=== PATIENT | female | born 1935 | race Caucasian/White ===

== ENCOUNTER 2018-06-08 11:30 | Emergency (ER) | payer MEDICARE, BC ==
--- NOTE | 2018-06-08 12:35 | EDM.PDOC ---
ED HPI GENERAL MEDICAL PROBLEM - General Chief Complaint: General Stated Complaint: MEDICAL [facility] Time Seen by Provider: 06/08/18 12:00 Source of Information: Reports: Patient, EMS History Limitations: Reports: No Limitations - History of Present Illness INITIAL COMMENTS - FREE TEXT/NARRATIVE: 82-year-old female with known cervical spinal stenosis, lumbar arthritis, disc disease and radiculopathy has been trying outpatient injections and has had a neurosurgical consultation. 10 days ago she had an MRI of her cervical spine and lumbar spine. She has some follow-up appointments with neurosurgery, however twice in the last 2 days she has collapsed at home for weakness in her lower extremities and is unable to get up. 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 She called the clinic today for advice , she was told to call 911 to come into the hospital he get transferred to [place]. Onset: Gradual Severity: Moderate Associated Symptoms: Reports: Weakness. Denies: Confusion, Chest Pain, Cough, Headaches, Nausea/Vomiting, Shortness of Breath Bilateral Leg Pain Score (Numeric/FACES): 2 - Related Data Allergies Allergy/AdvReac Type Severity Reaction Status Date / Time No Known Allergies Allergy Verified 06/08/18 11:39 Home Meds: Home Meds Ascorbic Acid [Vitamin C] 1,000 mg PO BID 07/13/14 [History] Aspirin [Aspirin EC] 81 mg PO DAILY 07/13/14 [History] Cholecalciferol (Vitamin D3) [Vitamin D3] 1,000 unit PO DAILY 07/13/14 [History] Gabapentin 3 cap PO TID 07/13/14 [History] Losartan [Cozaar] 100 mg PO DAILY 07/13/14 [History] Multivitamin [Multi-Vitamin Daily] 1 tab PO DAILY 07/13/14 [History] [place]-3/DHA/Epa/Fish Oil [[place]-3 Fish Oil 1,000 MG Sfgl] 1,000 mg PO BID [History] Ondansetron [Zofran] 8 mg PO Q8H PRN 07/13/14 [History] Ranitidine HCl [Ranitidine] 1 tab PO BID 07/13/14 [History] Sennosides/Docusate Sodium [Senokot-S Tablet] 2 tab PO DAILY 07/13/14 [History] Simvastatin [Zocor] 20 mg PO BEDTIME 07/13/14 [History] Vitamin A 1 tab PO DAILY 07/13/14 [History] Vitamin E 1 cap PO DAILY 07/13/14 [History] metFORMIN [Glucophage] 1 tab PO BID 07/13/14 [History] traMADol HCl [Ultram] 2 tab PO Q6HR PRN 07/13/14 [History] Isosorbide Mononitrate [Imdur] 30 mg PO DAILY 02/15/15 [History] Magnesium Oxide 400 mg PO BID 02/15/15 [History] Past Medical History HEENT History: Reports: Impaired Vision Cardiovascular History: Reports: High Cholesterol, Hypertension, SOB on Exertion , Stents Respiratory History: Reports: Sleep Apnea, SOB Gastrointestinal History: Reports: Chronic Constipation 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: Musculoskeletal History: Reports: Arthritis, Back Pain, Chronic, Gout Endocrine/Metabolic History: Reports: Diabetes, Type II, Obesity/BMI 30+ Oncologic (Cancer) History: Reports: Breast - Infectious Disease History Infectious Disease History: Reports: Mumps - Past Surgical History Head Surgeries/Procedures: Reports: None HEENT Surgical History: Reports: Cataract Surgery, Tonsillectomy Cardiovascular Surgical History: Reports: Carotid Stents Respiratory Surgical History: Reports: None GI Surgical History: Reports: Appendectomy, Cholecystectomy, Colonoscopy Female Surgical History: Reports: Mastectomy Endocrine Surgical History: Reports: None Musculoskeletal Surgical History: Reports: Hip Replacement Oncologic Surgical History: Reports: Mastectomy Dermatological Surgical History: Reports: None Social & Family History - Tobacco Use Smoking Status *Q: Former Smoker Years of Tobacco use: 60 Used Tobacco, but Quit: Yes Month/Year Tobacco Last Used: 2012 Second Hand Smoke Exposure: No - Caffeine Use Caffeine Use: Reports: Soda - Recreational Drug Use Recreational Drug Use: No ED ROS GENERAL - Review of Systems Review Of Systems: See Below Constitutional: Reports: Malaise. Denies: Fever, Chills HEENT: Denies: Vision Change Respiratory: Denies: Shortness of Breath GI/Abdominal: Denies: Abdominal Pain, Nausea, Vomiting : Reports: No Symptoms. Denies: Incontinence Musculoskeletal: Reports: Back Pain, Leg Pain Neurological: Reports: Paresthesia (Significant paresthesias in the ulnar nerve distributions in both arms, right leg) ED EXAM, GENERAL - Physical Exam Exam: See Below Exam Limited By: No Limitations General Appearance: Alert, No Apparent Distress Eye Exam: Bilateral Eye: EOMI Head: Atraumatic Neck: Supple Respiratory/Chest: No Respiratory Distress Cardiovascular: Regular Rate, Rhythm GI/Abdominal: Other (Nontender, obese) Extremities: Other (She has weakness of the dorsiflexion of the right leg, and difficulty holding her leg up against gravity.) Neurological: No: Inattentive, Disoriented, Slow to Respond Psychiatric: Normal Affect, Normal Mood Skin Exam: Warm, Dry, Other (Some hyperemia of the lower extremities, vascular stasis changes) Course - Vital Signs Last Recorded V/S: Last Vital Signs Temp 96.4 F 06/08/18 13:04 Pulse 99 06/08/18 13:04 Resp 18 06/08/18 13:04 BP 186/79 H 06/08/18 13:04 Pulse Ox 94 L 06/08/18 13:04 - Re-Assessments/Exams Free Text/Narrative Re-Assessment/Exam: 06/08/18 12:35 No further workup is necessary here. I did discuss her condition with the specialists and hospitalist service in [place] and transfer was recommended. Departure - Departure Time of Disposition: 13:04 Disposition: DC/Tfer to Acute Hospital 02 Condition: Fair Clinical Impression: Weakness of both lower limbs, Cervical stenosis of spinal canal, Lumbar radiculopathy, right - Discharge Information Referrals: Javier Weathers MD [Primary Care Provider] - Forms: ED Department Discharge Care Plan Goals: Patient is to be transferred to [facility] for medical stabilization and neurosurgical consultation regarding profound weakness and inability to ambulate.
[2018-06-08 13:07] VITALS: BP 186/79
== END 2018-06-08 13:03 ==
LOC: JP.ED 11:30
DX: R53.1 Weakness (principal); M48.02 Spinal stenosis, cervical region; M54.16 Radiculopathy, lumbar region; E78.00 Pure hypercholesterolemia, unspecified; I10 Essential (primary) hypertension; E11.9 Type 2 diabetes mellitus without complications; Z87.891 Personal history of nicotine dependence; Z79.899 Other long term (current) drug therapy
CPT/HCPCS: 99283; 99284

== ENCOUNTER 2020-05-17 10:20 | Inpatient (IN) | payer MEDICARE, BC ==
--- NOTE | 2020-05-17 10:37 | EDM.PDOC ---
ED HPI GENERAL MEDICAL PROBLEM - General Stated Complaint: MEDICAL [facility]IA [facility] Time Seen by Provider: 05/17/20 10:34 Source of Information: Reports: Patient, EMS History Limitations: Reports: No Limitations - History of Present Illness INITIAL COMMENTS - FREE TEXT/NARRATIVE: 84-year-old female with worsening shortness of breath over the past 7 to 10 days, no activity tolerance, a bandlike sensation in the upper abdomen lower chest cutting off her ability to breathe. She does have a history of congestive heart failure and has needed diuresis inpatient over the winter. She has chronic intermittent atrial fibrillation and is on amiodarone, currently she is in sinus rhythm. She was found at home to be in significant respiratory distress with O2 saturations in the high 70s, she does not have oxygen at home. She responded well to supplemental oxygen in route and is feeling somewhat better but still anxious and uncomfortable. She has tense lower extremity edema. No significant medication changes over the past several weeks. Onset: Gradual Duration: Week(s): (2 to 3 weeks) Associated Symptoms: Reports: Malaise, Shortness of Breath, Weakness. Denies: Chest Pain, Fever/Chills, Nausea/Vomiting Generalized Pain Score (Numeric/FACES): 4 - Related Data Allergies Allergy/AdvReac Type Severity Reaction Status Date / Time No Known Allergies Allergy Verified 05/17/20 10:48 Home Meds: Home Meds Ascorbic Acid [Vitamin C] 1,000 mg PO BID 07/13/14 [History] Aspirin [Aspirin EC] 81 mg PO DAILY 07/13/14 [History] Cholecalciferol (Vitamin D3) [Vitamin D3] 1,000 unit PO DAILY 07/13/14 [History] Gabapentin 500 mg PO TID 07/13/14 [History] Losartan [Cozaar] 100 mg PO DAILY 07/13/14 [History] Multivitamin [Multi-Vitamin Daily] 1 tab PO DAILY 07/13/14 [History] [place]-3/DHA/Epa/Fish Oil [[place]-3 Fish Oil 1,000 MG Sfgl] 1,000 mg PO BID 07/13/14 [History] Ondansetron [Zofran] 8 mg PO Q8H PRN 07/13/14 [History] Ranitidine HCl [Ranitidine] 150 mg PO BID 07/13/14 [History] Sennosides/Docusate Sodium [Senokot-S Tablet] 2 tab PO DAILY 07/13/14 [History] Simvastatin [Zocor] 20 mg PO BEDTIME 07/13/14 [History] Vitamin E 1 cap PO DAILY 07/13/14 [History] metFORMIN [Glucophage] 1,000 mg PO BID 07/13/14 [History] Isosorbide Mononitrate [Imdur] 30 mg PO DAILY 02/15/15 [History] Magnesium Oxide 400 mg PO DAILY 02/15/15 [History] ALPRAZolam [Alprazolam] 0.5 mg PO BID PRN 05/17/20 [History] Amiodarone [Cordarone] 400 mg PO BID 05/17/20 [History] Bumetanide 2 mg PO DAILY 05/17/20 [History] Potassium Chloride 20 meq PO BID 05/17/20 [History] Rivaroxaban [Xarelto] 20 mg PO DAILY 05/17/20 [History] carvediloL [Carvedilol] 25 mg PO BID 05/17/20 [History] glipiZIDE [glipiZIDE XL] 5 mg PO BID 05/17/20 [History] polyethylene glycoL 3350 [Polyethylene Glycol 3350] 17 gm PO DAILY PRN 05/17/20 [History] Past Medical History HEENT History: Reports: Impaired Vision Cardiovascular History: Reports: High Cholesterol, Hypertension, SOB on Exertion, Stents Respiratory History: Reports: Sleep Apnea, SOB Gastrointestinal History: Reports: Chronic Constipation [employer] History: Reports: Musculoskeletal History: Reports: Arthritis, Back Pain, Chronic, Gout Endocrine/Metabolic History: Reports: Diabetes, Type II, Obesity/BMI 30+ Oncologic (Cancer) History: Reports: Breast - Infectious Disease History Infectious Disease History: Reports: Mumps - Past Surgical History Head Surgeries/Procedures: Reports: None HEENT Surgical History: Reports: Cataract Surgery, Tonsillectomy Cardiovascular Surgical History: Reports: Carotid Stents Respiratory Surgical History: Reports: None GI Surgical History: Reports: Appendectomy, Cholecystectomy, Colonoscopy Female Surgical History: Reports: Mastectomy Endocrine Surgical History: Reports: None Musculoskeletal Surgical History: Reports: Hip Replacement Oncologic Surgical History: Reports: Mastectomy Dermatological Surgical History: Reports: None Social & Family History - Caffeine Use Caffeine Use: Reports: Soda ED ROS GENERAL - Review of Systems Review Of Systems: See Below Constitutional: Reports: Malaise. Denies: Fever, Chills Respiratory: Reports: Shortness of Breath Cardiovascular: Reports: Other (Marked increase in lower extremity edema over the past few weeks). Denies: Chest Pain, Palpitations GI/Abdominal: Reports: Abdominal Pain (Across the upper abdomen she has a pressure or belt sensation, limiting breathing) Skin: Reports: No Symptoms Neurological: Denies: Headache, Weakness Psychiatric: Reports: No Symptoms ED EXAM, GENERAL - Physical Exam Exam: See Below Exam Limited By: No Limitations General Appearance: Alert, No Apparent Distress, Other (Is doing much better after being placed on oxygen by EMS) Eye Exam: Bilateral Eye: Normal Inspection (No jaundice, normal hydration) Head: Atraumatic Neck: Non-Tender Respiratory/Chest: Rales (Basilar rales posteriorly bilaterally) Cardiovascular: Regular Rate, Rhythm GI/Abdominal: Soft, Distended (Sensation of distention, some discomfort with palpation across her upper abdomen) Extremities: Other (Tense lower extremity edema to the knees bilaterally) Neurological: Alert, Oriented Psychiatric: Normal Affect, Normal Mood Skin Exam: Warm, Dry Course - Vital Signs Last Recorded V/S: Last Vital Signs Temp 97.5 F 05/17/20 16:07 Pulse 72 05/17/20 16:07 Resp 20 05/17/20 16:07 BP 145/48 H 05/17/20 16:07 Pulse Ox 97 05/17/20 16:07 - Orders/Labs/Meds Orders: Active Orders 24 hr Category Date Time Status CULTURE URINE [RM] Routine Lab 05/17/20 13:17 Received Medication Orders Acetaminophen (Tylenol) 650 mg PO Q4H PRN PRN Reason: Pain (Mild 1-3)/fever Albuterol (Proventil Neb Soln) 2.5 mg NEB Q4H PRN PRN Reason: Shortness Of Breath/wheezing Alprazolam (Xanax) 0.5 mg PO BID PRN PRN Reason: Anxiety Amiodarone HCl (Cordarone) 400 mg PO BID [facility] Aspirin (Halfprin) 81 mg PO DAILY [facility] Bumetanide (Bumex) 2 mg IVPUSH Q8H [facility] Carvedilol (Coreg) 25 mg PO BID [facility] Famotidine (Pepcid) 20 mg PO BEDTIME [facility] Gabapentin (Neurontin) 500 mg PO TID [facility] Glipizide (Glucotrol Xl) 5 mg PO BIDAC [facility] Insulin Human Lispro (Humalog) 0 unit SUBCUT QIDACANDBED AYAN; Protocol Isosorbide Mononitrate (Imdur) 30 mg PO DAILY [facility] Lorazepam (Ativan) 0.5 mg IVPUSH Q4H PRN PRN Reason: Nausea/Vomiting Losartan Potassium (Cozaar) 100 mg PO DAILY [facility] Magnesium Hydroxide (Milk Of Magnesia) 30 ml PO Q12H PRN PRN Reason: Constipation Melatonin (Melatonin) 9 mg PO BEDTIME [facility] Metformin HCl (Glucophage) 1,000 mg PO BIDMEALS [facility] Non-Formulary Medication (Rivaroxaban [Xarelto]) 20 mg PO DAILY [facility] Ondansetron HCl (Zofran) 4 mg IV Q6H PRN PRN Reason: Nausea/Vomiting Ondansetron HCl (Zofran Odt) 4 mg PO Q6H PRN PRN Reason: Nausea able to take PO Potassium Chloride (Klor-Con M20) 20 meq PO BID [facility] Senna/Docusate Sodium (Senna Plus) 1 tab PO BID PRN PRN Reason: Constipation Simvastatin (Zocor) 20 mg PO BEDTIME [facility] Labs: Laboratory Tests 05/17/20 05/17/20 05/17/20 Range/Units 10:50 10:50 13:17 WBC 6.5 (4.5-11.0) K/uL RBC 3.44 (3.30-5.50) M/uL Hgb 10.6 L D (12.0-15.0) g/dL Hct 34.7 L (36.0-48.0) % MCV 101 H (80-98) fL MCH 31 (27-31) pg MCHC 31 L (32-36) % Plt Count 162 (150-400) K/uL Neut % (Auto) 75 H (36-66) % Lymph % (Auto) 14 L (24-44) % [place] % (Auto) 10 H (2-6) % Eos % (Auto) 1 L (2-4) % Baso % (Auto) 1 (0-1) % Sodium 137 L (140-148) mmol/L Potassium 5.0 (3.6-5.2) mmol/L Chloride 102 (100-108) mmol/L Carbon Dioxide 27 (21-32) mmol/L Anion Gap 13.0 (5.0-14.0) mmol/L BUN 30 H D (7-18) mg/dL Creatinine 1.4 H D (0.6-1.0) mg/dL Est Cr Clr Drug Dosing 25.63 mL/min Estimated GFR (MDRD) 36 L (>60) Glucose 164 H (74-106) mg/dL Calcium 9.4 (8.5-10.1) mg/dL Total Bilirubin 0.5 D (0.2-1.0) mg/dL AST 31 (15-37) U/L ALT 32 (12-78) U/L Alkaline Phosphatase 52 (46-116) U/L Troponin I < 0.017 (0.000-0.056) ng/mL Total Protein 7.7 (6.4-8.2) g/dL Albumin 3.3 L (3.4-5.0) g/dL Globulin 4.4 H (2.3-3.5) g/dL Albumin/Globulin Ratio 0.8 L (1.2-2.2) Urine Color Yellow (YELLOW) Urine Appearance Cloudy A (CLEAR) Urine pH 6.5 (5.0-8.0) Ur Specific [place] 1.020 (1.008-1.030) Urine Protein Negative (NEGATIVE) mg/dL Urine Glucose (UA) Negative (NEGATIVE) mg/dL Urine Ketones Negative (NEGATIVE) mg/dL Urine Occult Blood Moderate H (NEGATIVE) Urine Nitrite Negative (NEGATIVE) Urine Bilirubin Negative (NEGATIVE) Urine Urobilinogen 0.2 (0.2-1.0) EU/dL Ur Leukocyte Esterase Moderate H (NEGATIVE) Urine RBC 0-5 (0-5) Urine WBC 0-5 (0-5) Ur Epithelial Cells Rare Amorphous Sediment Few Urine Bacteria Moderate Urine Mucus Rare Meds: Medications Generic Name Dose Route Start Last Admin Trade Name Freq PRN Reason Stop Dose Admin Acetaminophen 650 mg 05/17/20 15:08 Tylenol PO Q4H PRN Pain (Mild 1-3)/fever Albuterol 2.5 mg 05/17/20 15:08 Proventil Neb Soln NEB Q4H PRN Shortness Of Breath/wheezing Alprazolam 0.5 mg 05/17/20 15:08 Xanax PO BID PRN Anxiety Amiodarone HCl 400 mg 05/17/20 21:00 Cordarone PO BID [facility] Aspirin 81 mg 05/18/20 09:00 Halfprin PO DAILY [facility] Bumetanide 2 mg 05/17/20 18:30 Bumex IVPUSH Q8H [facility] Carvedilol 25 mg 05/17/20 21:00 Coreg PO BID [facility] Famotidine 20 mg 05/17/20 21:00 Pepcid PO BEDTIME [facility] Gabapentin 500 mg 05/17/20 15:08 Neurontin PO TID [facility] Glipizide 5 mg 05/17/20 16:30 Glucotrol Xl PO BIDAC [facility] Insulin Human Lispro 0 unit 05/17/20 17:00 Humalog SUBCUT QIDACANDBED [facility] Protocol Isosorbide Mononitrate 30 mg 05/18/20 09:00 Imdur PO DAILY [facility] Lorazepam 0.5 mg 05/17/20 15:08 Ativan IVPUSH Q4H PRN Nausea/Vomiting Losartan Potassium 100 mg 05/18/20 09:00 Cozaar PO DAILY [facility] Magnesium Hydroxide 30 ml 05/17/20 15:08 Milk Of Magnesia PO Q12H PRN Constipation Melatonin 9 mg 05/17/20 21:00 Melatonin PO BEDTIME [facility] Metformin HCl 1,000 mg 05/17/20 17:00 Glucophage PO BIDMEALS [facility] Non-Formulary Medication 20 mg 05/18/20 09:00 Rivaroxaban [Xarelto] PO DAILY [facility] Ondansetron HCl 4 mg 05/17/20 15:08 Zofran IV Q6H PRN Nausea/Vomiting Ondansetron HCl 4 mg 05/17/20 15:08 Zofran Odt PO Q6H PRN Nausea able to take PO Potassium Chloride 20 meq 05/17/20 21:00 Klor-Con M20 PO BID [facility] Senna/Docusate Sodium 1 tab 05/17/20 15:08 Senna Plus PO BID PRN Constipation Simvastatin 20 mg 05/17/20 21:00 Zocor PO BEDTIME [facility] Discontinued Medications Generic Name Dose Route Start Last Admin Trade Name Freq PRN Reason Stop Dose Admin Furosemide 80 mg 05/17/20 10:43 05/17/20 12:19 Lasix IVPUSH 05/17/20 10:44 80 mg ONETIME ONE Administration - Re-Assessments/Exams Free Text/Narrative Re-Assessment/Exam: 05/17/20 11:26 Reviewed her clinic records from March 14, her exam is documented no peripheral edema at that time and clear lungs. She has obviously become fluid overloaded time. A chest x-ray was done which confirmed cardiomegaly and congestive heart failure. 80 mg of IV Lasix was given, GFR returned decreased and creatinine elevated compared to previous levels. Due to her significant hypoxia without oxygen, I think she will need admission for the next several days for diuresis. Departure - Departure Time of Disposition: 15:10 Disposition: Admitted As Inpatient 66 Clinical Impression: Congestive heart failure Qualifiers: Heart failure type: diastolic Heart failure chronicity: acute on chronic Qualified Code(s): I50.33 - Acute on chronic diastolic (congestive) heart failure - Discharge Information Sepsis Event Note (ED) - Focused Exam Vital Signs: Vital Signs Pulse Resp BP Pulse Ox 05/17/20 12:23 10 L 121/71 95 05/17/20 11:53 64 18 128/53 L 05/17/20 11:23 65 21 H 122/54 L 95 05/17/20 11:13 66 21 H 124/50 L 96 05/17/20 10:47 69 19 156/67 H 94 L 05/17/20 10:25 69 19 156/67 H 94 L
[2020-05-17] MEDS ORDERED: Furosemide 40 MG/4 ML VIAL IVPUSH ONE (10:43)
--- NOTE | 2020-05-17 12:53 | CR ---
CHEST: Portable 05/17/2020 11:02 AM CLINICAL HISTORY:SOB COMPARISON:CT 01/23/2015 FINDINGS: Heart is moderately enlarged. Pulmonary vascularity is cephalized. There are diffuse bilateral infiltrates. There is a 1 cm nodule in the right upper lobe. This is seen as a pleural-based calcification in 2014. There are no effusions grade There are atherosclerotic changes in the aorta. Impression: Cardiomegaly with vascular cephalization and diffuse interstitial prominence. This most consistent with CHF and mild pulmonary edema Calcified nodule right upper lobe
--- NOTE | 2020-05-17 14:13 | PCM.HP.2 ---
H&P History of Present Illness - General Date of Service: 05/17/20 Admit Problem/Dx: Admission Diagnosis/Problem Admission Diagnosis/Problem Diastolic congestive heart failure Source of Information: Patient, Provider History Limitations: Reports: No Limitations - History of Present Illness Initial Comments - Free Text/Narative: CC: I was so short of breath HPI: Annie presents to the emergency room today with about 2 weeks of progressive shortness of breath as well as increasing lower extremity swelling. Symptoms have gotten to the point that she is short of breath even at rest. She was extremely short of breath this morning when she called 911 and was hypoxic when they arrived. She is not able to perform ADLs because of dyspnea that develops very quickly with any activity. Her lower legs have become more and more swollen over the past couple of weeks to the point that they are becoming more and more painful. She describes a chronic achy pain in both lower legs with the right foot hurting more than the left side. There are some sharp shooting pains. She has been using Tylenol and gabapentin without much change. These are steadily getting worse. No obvious trigger to make them worse. She does not have a cough and does not report orthopnea. She has not had recent difficulties with chest pain. She has not had any fevers or chills. No change in bowel or bladder habits. She is wondering if maybe she has been eating too much salt and that led to the fluid retention. She does report compliance with medications. She has been hospitalized for heart failure in the past. Most recent echocardiogram from 2 months ago showed a normal ejection fraction with grade 2 diastolic dysfunction. No significant valvular abnormalities were noted. Work-up in the emergency room revealed hypoxic respiratory failure as well as evidence for congestive heart failure on examination and imaging. She did receive a dose of IV furosemide in the emergency room and this is helping a little bit. Oxygenation stable with supplemental oxygen. She will be admitted for further management. Generalized Pain Score (Numeric/FACES): 4 - Related Data Allergies/Adverse Reactions: Allergies Allergy/AdvReac Type Severity Reaction Status Date / Time No Known Allergies Allergy Verified 05/17/20 10:48 Home Medications: Home Meds Ascorbic Acid [Vitamin C] 1,000 mg PO BID 07/13/14 [History] Aspirin [Aspirin EC] 81 mg PO DAILY 07/13/14 [History] Cholecalciferol (Vitamin D3) [Vitamin D3] 1,000 unit PO DAILY 07/13/14 [History] Gabapentin 500 mg PO TID 07/13/14 [History] Losartan [Cozaar] 100 mg PO DAILY 07/13/14 [History] Multivitamin [Multi-Vitamin Daily] 1 tab PO DAILY 07/13/14 [History] [place]-3/DHA/Epa/Fish Oil [[place]-3 Fish Oil 1,000 MG Sfgl] 1,000 mg PO BID 07/13/14 [History] Ondansetron [Zofran] 8 mg PO Q8H PRN 07/13/14 [History] Ranitidine HCl [Ranitidine] 1 tab PO BID 07/13/14 [History] Sennosides/Docusate Sodium [Senokot-S Tablet] 2 tab PO DAILY 07/13/14 [History] Simvastatin [Zocor] 20 mg PO BEDTIME 07/13/14 [History] Vitamin E 1 cap PO DAILY 07/13/14 [History] metFORMIN [Glucophage] 1,000 mg PO BID 07/13/14 [History] Isosorbide Mononitrate [Imdur] 30 mg PO DAILY 02/15/15 [History] Magnesium Oxide 400 mg PO DAILY 02/15/15 [History] ALPRAZolam [Alprazolam] 0.5 mg PO BID PRN 05/17/20 [History] Amiodarone [Cordarone] 400 mg PO BID 05/17/20 [History] Bumetanide 2 mg PO DAILY 05/17/20 [History] Potassium Chloride 20 meq PO BID 05/17/20 [History] Rivaroxaban [Xarelto] 20 mg PO DAILY 05/17/20 [History] carvediloL [Carvedilol] 25 mg PO BID 05/17/20 [History] glipiZIDE [glipiZIDE XL] 5 mg PO BID 05/17/20 [History] polyethylene glycoL 3350 [Polyethylene Glycol 3350] 17 gm PO DAILY PRN 05/17/20 [History] Past Medical History HEENT History: Reports: Impaired Vision Cardiovascular History: Reports: High Cholesterol, Hypertension, SOB on Exertion, Stents Respiratory History: Reports: Sleep Apnea, SOB Other Respiratory History: Uses cpap Gastrointestinal History: Reports: Chronic Constipation [employer] History: Reports: Musculoskeletal History: Reports: Arthritis, Back Pain, Chronic, Gout Psychiatric History: Reports: Anxiety Endocrine/Metabolic History: Reports: Diabetes, Type II, Obesity/BMI 30+ Oncologic (Cancer) History: Reports: Breast - Infectious Disease History Infectious Disease History: Reports: Mumps - Past Surgical History Head Surgeries/Procedures: Reports: None HEENT Surgical History: Reports: Cataract Surgery, Tonsillectomy Cardiovascular Surgical History: Reports: Carotid Stents Respiratory Surgical History: Reports: None GI Surgical History: Reports: Appendectomy, Cholecystectomy, Colonoscopy Female Surgical History: Reports: Mastectomy Endocrine Surgical History: Reports: None Musculoskeletal Surgical History: Reports: Hip Replacement Oncologic Surgical History: Reports: Mastectomy Dermatological Surgical History: Reports: None Social & Family History - Family History Oncologic: Reports: Leukemia (dad in 60's), Lung (mom in 50's) - Tobacco Use Smoking Status *Q: Never Smoker Second Hand Smoke Exposure: No - Caffeine Use Caffeine Use: Reports: Soda - Recreational Drug Use Recreational Drug Use: No H&P Review of Systems - Review of Systems: Review Of Systems: See Below Free Text/Narrative: A complete 12 point review of systems was obtained. Pertinent positives and negatives are noted in the history of present illness. All other systems were reviewed and were negative except as noted. Exam - Exam Exam: See Below - Vital Signs Vital Signs: Last Vital Signs Temp Pulse 66 05/17/20 11:13 Resp 21 H 05/17/20 11:13 BP 124/50 L 05/17/20 11:13 Pulse Ox 96 05/17/20 11:13 Weight: 113.398 kg - Exam Quality Assessment: Supplemental Oxygen General: Alert, Oriented, Cooperative, Mild Distress (Mild increase in work of breathing) HEENT: Conjunctiva Clear, Mucosa Moist & [place]. No: Scleral Icterus Neck: Supple, Trachea Midline, JVD Lungs: Normal Respiratory Effort, Decreased Breath Sounds (Both bases), Crackles (Both bases) Cardiovascular: Regular Rate, Regular Rhythm. No: Systolic Murmur GI/Abdominal Exam: Normal Bowel Sounds, Soft, Non-Tender, No Distention Back Exam: Normal Inspection, Full Range of Motion Extremities: Pedal Edema (Tense pitting edema to the knee with dependent pitting edema of both posterior thighs, greater on the right than the left), Increased Warmth (Mild increase in warmth from the feet extending across the anterior shins up to near the knee bilaterally) Peripheral Pulses: 2+: Dorsalis Pedis (L), Dorsalis Pedis (R) Skin: Warm, Dry Neuro Extensive - Mental Status: Alert, Oriented x3, Nl Response to Commands Neuro Extensive - Motor, Sensory, Reflexes: No: Dysarthria, Abnormal Motor, Tremor Psychiatric: Alert, Normal Affect - Patient Data Lab Results Last 24 hrs: Laboratory Results - last 24 hr 05/17/20 05/17/20 05/17/20 Range/Units 10:50 10:50 13:17 WBC 6.5 (4.5-11.0) K/uL RBC 3.44 (3.30-5.50) M/uL Hgb 10.6 L D (12.0-15.0) g/dL Hct 34.7 L (36.0-48.0) % MCV 101 H (80-98) fL MCH 31 (27-31) pg MCHC 31 L (32-36) % Plt Count 162 (150-400) K/uL Neut % (Auto) 75 H (36-66) % Lymph % (Auto) 14 L (24-44) % [place] % (Auto) 10 H (2-6) % Eos % (Auto) 1 L (2-4) % Baso % (Auto) 1 (0-1) % Sodium 137 L (140-148) mmol/L Potassium 5.0 (3.6-5.2) mmol/L Chloride 102 (100-108) mmol/L Carbon Dioxide 27 (21-32) mmol/L Anion Gap 13.0 (5.0-14.0) mmol/L BUN 30 H D (7-18) mg/dL Creatinine 1.4 H D (0.6-1.0) mg/dL Est Cr Clr Drug Dosing 25.63 mL/min Estimated GFR (MDRD) 36 L (>60) Glucose 164 H (74-106) mg/dL Calcium 9.4 (8.5-10.1) mg/dL Total Bilirubin 0.5 D (0.2-1.0) mg/dL AST 31 (15-37) U/L ALT 32 (12-78) U/L Alkaline Phosphatase 52 (46-116) U/L Troponin I < 0.017 (0.000-0.056) ng/mL Total Protein 7.7 (6.4-8.2) g/dL Albumin 3.3 L (3.4-5.0) g/dL Globulin 4.4 H (2.3-3.5) g/dL Albumin/Globulin Ratio 0.8 L (1.2-2.2) Urine Color Yellow (YELLOW) Urine Appearance Cloudy A (CLEAR) Urine pH 6.5 (5.0-8.0) Ur Specific [place] 1.020 (1.008-1.030) Urine Protein Negative (NEGATIVE) mg/dL Urine Glucose (UA) Negative (NEGATIVE) mg/dL Urine Ketones Negative (NEGATIVE) mg/dL Urine Occult Blood Moderate H (NEGATIVE) Urine Nitrite Negative (NEGATIVE) Urine Bilirubin Negative (NEGATIVE) Urine Urobilinogen 0.2 (0.2-1.0) EU/dL Ur Leukocyte Esterase Moderate H (NEGATIVE) Urine RBC 0-5 (0-5) Urine WBC 0-5 (0-5) Ur Epithelial Cells Rare Amorphous Sediment Few Urine Bacteria Moderate Urine Mucus Rare Result Diagrams: 05/17/20 10:50 05/17/20 10:50 Imaging Impressions Last 24 hrs: Chest x-ray-image personally reviewed-there is evidence for cardiomegaly and pulmonary vascular congestion. No obvious effusions, masses or infiltrates. Sepsis Event Note - Evaluation Sepsis Screening Result: No Definite Risk - Focused Exam Vital Signs: Vital Signs Pulse Resp BP Pulse Ox 05/17/20 11:13 66 21 H 124/50 L 96 05/17/20 10:47 69 19 156/67 H 94 L 05/17/20 10:25 69 19 156/67 H 94 L *Q Meaningful Use (ADM) - VTE Risk Assess *Q Each Risk Factor Represents 1 Point: Swollen Legs, Current, Obesity ( BMI > 25 kg/m2), Congestive heart failure (CHF) Total Score 1 Point Risk Factors: 3 Each Risk Factor Represents 2 Points: None Total Score 2 Point Risk Factors: 0 Each Risk Factor Represents 3 Points: Age 75 Years or Greater Total Score 3 Point Risk Factors: 3 Each Risk Factor Represents 5 Points: None Total Score 5 Point Risk Factors: 0 Venous Thromboembolism Risk Factor Score *Q: 6 - Problem List (1) Heart failure with preserved ejection fraction SNOMED Code(s): 964312511 ICD Code: I50.30 - UNSPECIFIED DIASTOLIC (CONGESTIVE) HEART FAILURE Status: Acute Current Visit: Yes Qualifiers: Heart failure chronicity: acute on chronic Qualified Code(s): I50.33 - Acute on chronic diastolic (congestive) heart failure (2) Acute respiratory failure with hypoxia SNOMED Code(s): 22455656, 168381611 ICD Code: J96.01 - ACUTE RESPIRATORY FAILURE WITH HYPOXIA Status: Acute Current Visit: Yes (3) Paroxysmal atrial fibrillation SNOMED Code(s): 836144317 ICD Code: I48.0 - PAROXYSMAL ATRIAL FIBRILLATION Status: Chronic Current Visit: Yes (4) Insulin dependent diabetes mellitus SNOMED Code(s): 90499550 ICD Code: IXP3136 - Status: Chronic Current Visit: Yes (5) Stage III chronic kidney disease SNOMED Code(s): 922683946 ICD Code: N18.3 - CHRONIC KIDNEY DISEASE, STAGE 3 (MODERATE) Status: Chronic Current Visit: Yes Problem List Initiated/Reviewed/Updated: Yes Orders Last 24hrs: Active Orders 24 hr Category Date Time Status Patient Status Manage Transfer [TRANSFER] Routine ADT 05/17/20 13:52 Active CULTURE URINE [RM] Routine Lab 05/17/20 13:17 Received Resuscitation Status Routine Resus Stat 05/17/20 13:55 Ordered Assessment/Plan Comment:: ASSESSMENT AND PLAN - Heart failure with preserved ejection fraction (HFpEF)-acute on chronic exacerbation with no obvious trigger but possibly related to unregulated salt intake over the past several weeks. She has been hospitalized within the last year for heart failure. No evidence for infection. No evidence for ischemia. Kidney function slightly down from baseline. -IV diuresis with bumetanide every 8 hours -Villalobos catheter for strict intake and output monitoring -Continue beta-gladys, ARB and long-acting nitrate -Daily weights Paroxysmal atrial fibrillation-currently in sinus rhythm. She is on long-term therapy with amiodarone and she is anticoagulated with rivaroxaban. -Cardiac monitoring -Continue beta-gladys and amiodarone -Continue rivaroxaban Stage III chronic kidney disease-kidney function slightly decreased from baseline but hopefully will improve with optimization of volume status. Insulin-dependent diabetes mellitus-she reports fairly good control of blood sugars. 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 She does report taking twice daily doses of 70/30 insulin but she is not sure of the name. Her will be bringing the medication in. -Initiate her long-acting insulin when we are sure of product and dosing -Continue metformin and glipizide -4 times daily Accu-Cheks -Low-dose sliding scale insulin Maintenance issues - - DVT prophylaxis -rivaroxaban - GI prophylaxis -not indicated - Nutrition -low-sodium - Villalobos catheter -placed for strict intake and output monitoring in the setting of acute congestive heart failure CODE STATUS -DO NOT RESUSCITATE but short-term intubation is acceptable Admission justification -this patient will be admitted for inpatient services and is medically appropriate meeting medical necessity for inpatient admission as outlined in my documentation. I reasonably expect the patient will require inpatient services that span a period time over 2 midnights. I reasonably expect this patient to be discharged or transferred within 96 hours after admission to the [facility]. Disposition -I would anticipate discharge home after the hospital stay Primary care physician -Dr. Jasiel Plummer M.D. - Mortality Measure Prognosis:: Good
[2020-05-17] MEDS ORDERED: Albuterol 0.083% 2.5 MG/3 ML Neb Soln NEB PRN (15:08)
[2020-05-17] MEDS ORDERED: Ondansetron 4 MG Tab.DIS PO PRN (15:08)
[2020-05-17] MEDS ORDERED: Gabapentin 300 MG Cap PO SCH (15:08)
[2020-05-17] MEDS ORDERED: LORazepam 2 MG/ML SDV IVPUSH PRN (15:08)
[2020-05-17] MEDS ORDERED: Magnesium Hydroxide 400 MG/5 ML Susp 30 ML Cup PO PRN (15:08)
[2020-05-17] MEDS ORDERED: Ondansetron 4 MG/2 ML SDV IV PRN (15:08)
[2020-05-17] MEDS ORDERED: ALPRAZolam 0.5 MG Tab PO PRN (15:08)
[2020-05-17] MEDS ORDERED: Acetaminophen 325 MG Tab PO PRN (15:08)
[2020-05-17] MEDS: glipiZIDE 5 MG Tab.ER PO SCH (17:51)
[2020-05-17] MEDS: metFORMIN 500 MG Tab PO SCH (17:51)
[2020-05-17] MEDS: Bumetanide 2.5 MG/10 ML MDV IVPUSH SCH (17:54)
[2020-05-17] MEDS: Insulin Lispro 100 Unit/ML 3 ML KwikPen SUBCUT SCH ×2 (17:58→21:18)
[2020-05-17] MEDS ORDERED: Diphtheria,Pertussis(Acell),Tetanus Vaccine 0.5 ML SDV IM ONE (19:46)
[2020-05-17] MEDS ORDERED: RANITIDINE HCL PO SCH (21:00)
[2020-05-17] MEDS ORDERED: Non-Formulary Medication 1 Each (Potassium Chloride [Potassium Chloride] 20 MEQ) PO SCH (21:00)
[2020-05-17] MEDS: Melatonin 3 MG Tab PO SCH (21:13)
[2020-05-17] MEDS: Simvastatin 20 MG Tab PO SCH (21:14)
[2020-05-17] MEDS: Amiodarone 200 MG Tab PO SCH (21:14)
[2020-05-17] MEDS: Potassium Chloride 20 MEQ Tab.ER PO SCH (21:14)
[2020-05-17] MEDS: Carvedilol 25 MG Tab PO SCH (21:15)
[2020-05-17] MEDS: Famotidine 20 MG Tab PO SCH (21:15)
[2020-05-18] MEDS: Bumetanide 2.5 MG/10 ML MDV IVPUSH SCH ×2 (02:29→20:08)
[2020-05-18] MEDS ORDERED: ASPIRIN 81 MG PO SCH (09:00)
[2020-05-18] MEDS ORDERED: Non-Formulary Medication 1 Each (Rivaroxaban [Xarelto] 20 MG) PO SCH (09:00)
[2020-05-18] MEDS ORDERED: traMADol 50 MG Tab PO PRN (09:28)
[2020-05-18] MEDS: Insulin Lispro 100 Unit/ML 3 ML KwikPen SUBCUT SCH ×4 (09:28→21:04)
[2020-05-18] MEDS: Amiodarone 200 MG Tab PO SCH ×2 (09:54→20:08)
[2020-05-18] MEDS: Carvedilol 25 MG Tab PO SCH ×2 (09:55→20:08)
[2020-05-18] MEDS: Rivaroxaban 15 MG Tab PO SCH (09:55)
[2020-05-18] MEDS: Potassium Chloride 20 MEQ Tab.ER PO SCH (09:55)
[2020-05-18] MEDS: Aspirin 81 MG Tab.EC PO SCH (09:55)
[2020-05-18] MEDS: Isosorbide Mononitrate 30 MG Tab.ER PO SCH (09:57)
[2020-05-18] MEDS: Losartan 50 MG Tab PO SCH (09:58)
--- NOTE | 2020-05-18 10:42 | PCM.PN ---
- General Info Date of Service: 05/18/20 Subjective Update: There were no acute events overnight. Patient had an excellent response to diuresis. She had more than 4 L of fluid out last night. She feels a little less short of breath today though she is still dyspneic with any activity. Swelling of her lower extremities is better but she continues to experience moderate to moderately severe pain in both legs with the right being more sore than the left. Blood sugars have been well controlled. Creatinine level is higher today than yesterday. Functional Status: Reports: Pain Controlled, Tolerating Diet - Review of Systems General: Reports: Weakness Pulmonary: Reports: Shortness of Breath Cardiovascular: Reports: Edema Musculoskeletal: Reports: Leg Pain - Patient Data Vitals - Most Recent: Last Vital Signs Temp 36.3 C 05/18/20 06:00 Pulse 62 05/18/20 09:55 Resp 17 05/18/20 06:00 BP 116/46 L 05/18/20 09:58 Pulse Ox 91 L 05/18/20 06:00 Weight - Most Recent: 113.852 kg I&O - Last 24 Hours: Intake & Output 05/17/20 05/18/20 05/18/20 22:59 06:59 14:59 Intake Total 240 243 Output Total 2825 250 Balance -2585 -250 243 Lab Results Last 24 Hours: Laboratory Results - last 24 hr 05/17/20 05/17/20 05/17/20 Range/Units 10:50 10:50 13:17 WBC 6.5 (4.5-11.0) K/uL RBC 3.44 (3.30-5.50) M/uL Hgb 10.6 L D (12.0-15.0) g/dL Hct 34.7 L (36.0-48.0) % MCV 101 H (80-98) fL MCH 31 (27-31) pg MCHC 31 L (32-36) % Plt Count 162 (150-400) K/uL Neut % (Auto) 75 H (36-66) % Lymph % (Auto) 14 L (24-44) % [place] % (Auto) 10 H (2-6) % Eos % (Auto) 1 L (2-4) % Baso % (Auto) 1 (0-1) % Sodium 137 L (140-148) mmol/L Potassium 5.0 (3.6-5.2) mmol/L Chloride 102 (100-108) mmol/L Carbon Dioxide 27 (21-32) mmol/L Anion Gap 13.0 (5.0-14.0) mmol/L BUN 30 H D (7-18) mg/dL Creatinine 1.4 H D (0.6-1.0) mg/dL Est Cr Clr Drug Dosing 25.63 mL/min Estimated GFR (MDRD) 36 L (>60) Glucose 164 H (74-106) mg/dL POC Glucose (74-106) MG/DL Calcium 9.4 (8.5-10.1) mg/dL Magnesium (1.8-2.4) mg/dL Total Bilirubin 0.5 D (0.2-1.0) mg/dL AST 31 (15-37) U/L ALT 32 (12-78) U/L Alkaline Phosphatase 52 (46-116) U/L Troponin I < 0.017 (0.000-0.056) ng/mL Total Protein 7.7 (6.4-8.2) g/dL Albumin 3.3 L (3.4-5.0) g/dL Globulin 4.4 H (2.3-3.5) g/dL Albumin/Globulin Ratio 0.8 L (1.2-2.2) Urine Color Yellow (YELLOW) Urine Appearance Cloudy A (CLEAR) Urine pH 6.5 (5.0-8.0) Ur Specific [place] 1.020 (1.008-1.030) Urine Protein Negative (NEGATIVE) mg/dL Urine Glucose (UA) Negative (NEGATIVE) mg/dL Urine Ketones Negative (NEGATIVE) mg/dL Urine Occult Blood Moderate H (NEGATIVE) Urine Nitrite Negative (NEGATIVE) Urine Bilirubin Negative (NEGATIVE) Urine Urobilinogen 0.2 (0.2-1.0) EU/dL Ur Leukocyte Esterase Moderate H (NEGATIVE) Urine RBC 0-5 (0-5) Urine WBC 0-5 (0-5) Ur Epithelial Cells Rare Amorphous Sediment Few Urine Bacteria Moderate Urine Mucus Rare 05/17/20 05/17/20 05/18/20 Range/Units 16:28 20:55 05:46 WBC (4.5-11.0) K/uL RBC (3.30-5.50) M/uL Hgb (12.0-15.0) g/dL Hct (36.0-48.0) % MCV (80-98) fL MCH (27-31) pg MCHC (32-36) % Plt Count (150-400) K/uL Neut % (Auto) (36-66) % Lymph % (Auto) (24-44) % [place] % (Auto) (2-6) % Eos % (Auto) (2-4) % Baso % (Auto) (0-1) % Sodium 138 L (140-148) mmol/L Potassium 4.7 (3.6-5.2) mmol/L Chloride 101 (100-108) mmol/L Carbon Dioxide 30 (21-32) mmol/L Anion Gap 11.7 (5.0-14.0) mmol/L BUN 33 H (7-18) mg/dL Creatinine 2.1 H (0.6-1.0) mg/dL Est Cr Clr Drug Dosing 17.09 mL/min Estimated GFR (MDRD) 23 L (>60) Glucose 124 H (74-106) mg/dL POC Glucose 166 H 151 H (74-106) MG/DL Calcium 8.9 (8.5-10.1) mg/dL Magnesium 1.8 (1.8-2.4) mg/dL Total Bilirubin (0.2-1.0) mg/dL AST (15-37) U/L ALT (12-78) U/L Alkaline Phosphatase (46-116) U/L Troponin I (0.000-0.056) ng/mL Total Protein (6.4-8.2) g/dL Albumin (3.4-5.0) g/dL Globulin (2.3-3.5) g/dL Albumin/Globulin Ratio (1.2-2.2) Urine Color (YELLOW) Urine Appearance (CLEAR) Urine pH (5.0-8.0) Ur Specific [place] (1.008-1.030) Urine Protein (NEGATIVE) mg/dL Urine Glucose (UA) (NEGATIVE) mg/dL Urine Ketones (NEGATIVE) mg/dL Urine Occult Blood (NEGATIVE) Urine Nitrite (NEGATIVE) Urine Bilirubin (NEGATIVE) Urine Urobilinogen (0.2-1.0) EU/dL Ur Leukocyte Esterase (NEGATIVE) Urine RBC (0-5) Urine WBC (0-5) Ur Epithelial Cells Amorphous Sediment Urine Bacteria Urine Mucus 05/18/20 Range/Units 07:20 WBC (4.5-11.0) K/uL RBC (3.30-5.50) M/uL Hgb (12.0-15.0) g/dL Hct (36.0-48.0) % MCV (80-98) fL MCH (27-31) pg MCHC (32-36) % Plt Count (150-400) K/uL Neut % (Auto) (36-66) % Lymph % (Auto) (24-44) % [place] % (Auto) (2-6) % Eos % (Auto) (2-4) % Baso % (Auto) (0-1) % Sodium (140-148) mmol/L Potassium (3.6-5.2) mmol/L Chloride (100-108) mmol/L Carbon Dioxide (21-32) mmol/L Anion Gap (5.0-14.0) mmol/L BUN (7-18) mg/dL Creatinine (0.6-1.0) mg/dL Est Cr Clr Drug Dosing mL/min Estimated GFR (MDRD) (>60) Glucose (74-106) mg/dL POC Glucose 126 H (74-106) MG/DL Calcium (8.5-10.1) mg/dL Magnesium (1.8-2.4) mg/dL Total Bilirubin (0.2-1.0) mg/dL AST (15-37) U/L ALT (12-78) U/L Alkaline Phosphatase (46-116) U/L Troponin I (0.000-0.056) ng/mL Total Protein (6.4-8.2) g/dL Albumin (3.4-5.0) g/dL Globulin (2.3-3.5) g/dL Albumin/Globulin Ratio (1.2-2.2) Urine Color (YELLOW) Urine Appearance (CLEAR) Urine pH (5.0-8.0) Ur Specific [place] (1.008-1.030) Urine Protein (NEGATIVE) mg/dL Urine Glucose (UA) (NEGATIVE) mg/dL Urine Ketones (NEGATIVE) mg/dL Urine Occult Blood (NEGATIVE) Urine Nitrite (NEGATIVE) Urine Bilirubin (NEGATIVE) Urine Urobilinogen (0.2-1.0) EU/dL Ur Leukocyte Esterase (NEGATIVE) Urine RBC (0-5) Urine WBC (0-5) Ur Epithelial Cells Amorphous Sediment Urine Bacteria Urine Mucus Med Orders - Current: Current Medications Acetaminophen (Tylenol) 650 mg PO Q4H PRN PRN Reason: Pain (Mild 1-3)/fever Last Admin: 05/17/20 22:40 Dose: 650 mg Documented by: Albuterol (Proventil Neb Soln) 2.5 mg NEB Q4H PRN PRN Reason: Shortness Of Breath/wheezing Alprazolam (Xanax) 0.5 mg PO BID PRN PRN Reason: Anxiety Last Admin: 05/17/20 22:40 Dose: 0.5 mg Documented by: Amiodarone HCl (Cordarone) 400 mg PO BID [facility] Last Admin: 05/18/20 09:54 Dose: 400 mg Documented by: Aspirin (Halfprin) 81 mg PO DAILY [facility] Last Admin: 05/18/20 09:55 Dose: 81 mg Documented by: Bumetanide (Bumex) 2 mg IVPUSH Q12H [facility] Carvedilol (Coreg) 25 mg PO BID [facility] Last Admin: 05/18/20 09:55 Dose: 25 mg Documented by: Famotidine (Pepcid) 20 mg PO BEDTIME [facility] Last Admin: 05/17/20 21:15 Dose: 20 mg Documented by: Gabapentin 200 mg/ Gabapentin (300 mg) 500 mg PO TID [facility] Last Admin: 05/18/20 09:58 Dose: 500 mg Documented by: Insulin Human Lispro (Humalog) 0 unit SUBCUT QIDACANDBED [facility]; Protocol Last Admin: 05/18/20 09:28 Dose: Not Given Documented by: Isosorbide Mononitrate (Imdur) 30 mg PO DAILY [facility] Last Admin: 05/18/20 09:57 Dose: 30 mg Documented by: Lorazepam (Ativan) 0.5 mg IVPUSH Q4H PRN PRN Reason: Nausea/Vomiting Losartan Potassium (Cozaar) 100 mg PO DAILY [facility] Last Admin: 05/18/20 09:58 Dose: 100 mg Documented by: Magnesium Hydroxide (Milk Of Magnesia) 30 ml PO Q12H PRN PRN Reason: Constipation Melatonin (Melatonin) 9 mg PO BEDTIME [facility] Last Admin: 05/17/20 21:13 Dose: 9 mg Documented by: Metformin HCl (Glucophage) 1,000 mg PO BIDMEALS [facility] Last Admin: 05/17/20 17:51 Dose: 1,000 mg Documented by: Ondansetron HCl (Zofran) 4 mg IV Q6H PRN PRN Reason: Nausea/Vomiting Ondansetron HCl (Zofran Odt) 4 mg PO Q6H PRN PRN Reason: Nausea able to take PO Potassium Chloride (Klor-Con M20) 20 meq PO BID [facility] Last Admin: 05/18/20 09:55 Dose: 20 meq Documented by: Rivaroxaban (Xarelto) 15 mg PO DAILY [facility] Last Admin: 05/18/20 09:55 Dose: 15 mg Documented by: Senna/Docusate Sodium (Senna Plus) 1 tab PO BID PRN PRN Reason: Constipation Simvastatin (Zocor) 20 mg PO BEDTIME [facility] Last Admin: 05/17/20 21:14 Dose: 20 mg Documented by: Tramadol HCl (Ultram) 50 mg PO Q8H PRN PRN Reason: Pain (moderate 4-6) Discontinued Medications Bumetanide (Bumex) 2 mg IVPUSH Q8H [facility] Last Admin: 05/18/20 02:29 Dose: 2 mg Documented by: Diphtheria/Tetanus/Acell Pertussis (Adacel) 0.5 ml IM .ONCE ONE Stop: 05/17/20 19:47 Furosemide (Lasix) 80 mg IVPUSH ONETIME ONE Stop: 05/17/20 10:44 Last Admin: 05/17/20 12:19 Dose: 80 mg Documented by: Glipizide (Glucotrol Xl) 5 mg PO BIDAC [facility] Last Admin: 05/17/20 17:51 Dose: 5 mg Documented by: - Exam Quality Assessment: Supplemental Oxygen General: Alert, Oriented, Cooperative, No Acute Distress Neck: JVD Lungs: Normal Respiratory Effort, Crackles (both bases) Cardiovascular: Regular Rate, Regular Rhythm, No Murmurs GI/Abdominal Exam: Soft, No Distention Extremities: Pedal Edema. No: Increased Warmth Skin: Warm, Dry Psy/Mental Status: Alert, Normal Affect Sepsis Event Note - Evaluation Sepsis Screening Result: No Definite Risk - Focused Exam Vital Signs: Vital Signs Temp Pulse Pulse Resp BP BP Pulse Ox 05/18/20 09:58 116/46 L 05/18/20 09:57 116/46 L 05/18/20 09:55 62 116/46 L 05/18/20 06:00 36.3 C 62 17 116/46 L 91 L 05/18/20 02:45 94 L 05/18/20 02:00 36.3 C 62 16 92/46 L 87 L 05/17/20 22:43 36.3 C 70 16 122/41 L 95 - Problem List & Annotations (1) Heart failure with preserved ejection fraction SNOMED Code(s): 287473258 Code(s): I50.30 - UNSPECIFIED DIASTOLIC (CONGESTIVE) HEART FAILURE Status: Acute Current Visit: Yes Qualifiers: Heart failure chronicity: acute on chronic Qualified Code(s): I50.33 - Acute on chronic diastolic (congestive) heart failure (2) Acute respiratory failure with hypoxia SNOMED Code(s): 84079487, 343943709 Code(s): J96.01 - ACUTE RESPIRATORY FAILURE WITH HYPOXIA Status: Acute Current Visit: Yes (3) Paroxysmal atrial fibrillation SNOMED Code(s): 825681161 Code(s): I48.0 - PAROXYSMAL ATRIAL FIBRILLATION Status: Chronic Current Visit: Yes (4) Insulin dependent diabetes mellitus SNOMED Code(s): 07762831 Code(s): VDE3503 - Status: Chronic Current Visit: Yes (5) Stage III chronic kidney disease SNOMED Code(s): 349633080 Code(s): N18.3 - CHRONIC KIDNEY DISEASE, STAGE 3 (MODERATE) Status: Chronic Current Visit: Yes - Problem List Review Problem List Initiated/Reviewed/Updated: Yes - My Orders Last 24 Hours: My Active Orders 05/17/20 13:17 CULTURE URINE [RM] Routine 05/17/20 13:55 Resuscitation Status Routine 05/17/20 15:08 Insert Villalobos Catheter [Insert Urinary Catheter] [OM.PC] Q24H ALPRAZolam [Xanax] 0.5 mg PO BID PRN Acetaminophen [Tylenol] 650 mg PO Q4H PRN Albuterol [Proventil Neb Soln] 2.5 mg NEB Q4H PRN Docusate Sodium/Sennosides [Senna Plus] 1 tab PO BID PRN LORazepam [Ativan] 0.5 mg IVPUSH Q4H PRN Magnesium Hydroxide [Milk of Magnesia] 30 ml PO Q12H PRN Ondansetron [Zofran ODT] 4 mg PO Q6H PRN Ondansetron [Zofran] 4 mg IV Q6H PRN 05/17/20 15:08 Patient Status [ADT] Routine Communication Order [RC] PRN Communication Order [RC] PRN Diabetes Education [RC] Click to Edit Height and Weight [RC] DAILY Intake and Output [RC] QSHIFT Notify Provider Vital Signs [RC] ASDIRECTED Notify Provider [RC] PRN Oxygen Therapy [RC] PRN RT Aerosol Therapy [RC] ASDIRECTED Up With Assistance [RC] ASDIRECTED Urinary Catheter Assessment [RC] ASDIRECTED VTE/DVT Education [RC] Per Unit Routine Vital Signs [RC] Q4H Antiembolic Hose [OM.PC] Routine 05/17/20 16:41 CPAP Noctural Home [RT BiPAP/CPAP] [RC] ASDIRECTED 05/17/20 Dinner 2 Gram Sodium Diet [DIET] Gabapentin [Neurontin] 500 mg PO TID Insulin Lispro [HumaLOG] See Protocol SUBCUT QIDACANDBED metFORMIN [Glucophage] 1,000 mg PO BIDMEALS 05/17/20 19:46 Vaccines to be Administered [RC] PER UNIT ROUTINE 05/17/20 21:00 Amiodarone [Cordarone] 400 mg PO BID Famotidine [Pepcid] 20 mg PO BEDTIME Melatonin 9 mg PO BEDTIME Potassium Chloride [Klor-Con M20] 20 meq PO BID Simvastatin [Zocor] 20 mg PO BEDTIME carvediloL [Coreg] 25 mg PO BID 05/18/20 09:00 Aspirin [Halfprin] 81 mg PO DAILY Isosorbide Mononitrate [Imdur] 30 mg PO DAILY Losartan [Cozaar] 100 mg PO DAILY Rivaroxaban [Xarelto] 15 mg PO DAILY 05/18/20 09:28 traMADol [Ultram] 50 mg PO Q8H PRN 05/18/20 10:41 Discontinue Telemetry Monitoring [Cardiac Monitoring Discontinue] [RC] Click to Edit PT Evaluation and Treatment [CONS] Routine Pressure Reduction Mattress [OM.PC] Routine 05/18/20 11:30 GLUCOSE POC LAB TO COLLECT JPM [POC] QIDACANDBED 05/18/20 16:30 GLUCOSE POC LAB TO COLLECT JPM [POC] QIDACANDBED 05/18/20 20:00 Bumetanide [Bumex] 2 mg IVPUSH Q12H 05/18/20 21:00 GLUCOSE POC LAB TO COLLECT JPM [POC] QIDACANDBED 05/19/20 05:00 BASIC METABOLIC PANEL,BMP [CHEM] Timed CBC W/O DIFF,HEMOGRAM [HEME] Timed (1) 05/19/20 07:30 GLUCOSE POC LAB TO COLLECT JPM [POC] QIDACANDBED 05/19/20 11:30 GLUCOSE POC LAB TO COLLECT JPM [POC] QIDACANDBED 05/19/20 16:30 GLUCOSE POC LAB TO COLLECT JPM [POC] QIDACANDBED 05/19/20 21:00 GLUCOSE POC LAB TO COLLECT JPM [POC] QIDACANDBED 05/20/20 07:30 GLUCOSE POC LAB TO COLLECT JPM [POC] QIDACANDBED 05/20/20 11:30 GLUCOSE POC LAB TO COLLECT JPM [POC] QIDACANDBED 05/20/20 16:30 GLUCOSE POC LAB TO COLLECT JPM [POC] QIDACANDBED 05/20/20 21:00 GLUCOSE POC LAB TO COLLECT JPM [POC] QIDACANDBED 05/21/20 07:30 GLUCOSE POC LAB TO COLLECT JPM [POC] QIDACANDBED 05/21/20 11:30 GLUCOSE POC LAB TO COLLECT JPM [POC] QIDACANDBED 05/21/20 16:30 GLUCOSE POC LAB TO COLLECT JPM [POC] QIDACANDBED 05/21/20 21:00 GLUCOSE POC LAB TO COLLECT JPM [POC] QIDACANDBED 05/22/20 07:30 GLUCOSE POC LAB TO COLLECT JPM [POC] QIDACANDBED 05/22/20 11:30 GLUCOSE POC LAB TO COLLECT JPM [POC] QIDACANDBED 05/22/20 16:30 GLUCOSE POC LAB TO COLLECT JPM [POC] QIDACANDBED 05/22/20 21:00 GLUCOSE POC LAB TO COLLECT JPM [POC] QIDACANDBED 05/23/20 07:30 GLUCOSE POC LAB TO COLLECT JPM [POC] QIDACANDBED 05/23/20 11:30 GLUCOSE POC LAB TO COLLECT JPM [POC] QIDACANDBED 05/23/20 16:30 GLUCOSE POC LAB TO COLLECT JPM [POC] QIDACANDBED 05/23/20 21:00 GLUCOSE POC LAB TO COLLECT JPM [POC] QIDACANDBED 05/24/20 07:30 GLUCOSE POC LAB TO COLLECT JPM [POC] QIDACANDBED - Plan Plan:: ASSESSMENT AND PLAN - Heart failure with preserved ejection fraction (HFpEF)-acute on chronic exacerbation. Excellent response to diuresis yesterday but kidney function did take a hit. Planning to decrease frequency and hold off on additional diuresis throughout the day but restart this evening. -IV diuresis with bumetanide every 12 hours starting this evening -Villalobos catheter for strict intake and output monitoring -Continue beta-gladys, ARB and long-acting nitrate -Daily weights Paroxysmal atrial fibrillation-currently in sinus rhythm. -Cardiac monitoring -Continue beta-gladys and amiodarone -Continue rivaroxaban Stage III chronic kidney disease-kidney function has decreased since yesterday likely secondary to aggressive diuresis. Planning to hold off on any diuresis throughout most of the day today to allow her body a chance to re-equilibrate. Insulin-dependent diabetes mellitus-blood sugars have been fairly well controlled. -Hold long-acting insulin at this time -Hold metformin and glipizide -4 times daily Accu-Cheks -Low-dose sliding scale insulin Maintenance issues - - DVT prophylaxis -rivaroxaban - GI prophylaxis -not indicated - Nutrition -low-sodium - Villalobos catheter -placed for strict intake and output monitoring in the setting of acute congestive heart failure Disposition -I would anticipate discharge home after the hospital stay Primary care physician -Dr. Jasiel Plummer M.D.
[2020-05-18] MEDS: glipiZIDE 5 MG Tab.ER PO SCH (11:01)
[2020-05-18] MEDS: Melatonin 3 MG Tab PO SCH (20:08)
[2020-05-18] MEDS: Famotidine 20 MG Tab PO SCH (20:09)
[2020-05-18] MEDS: Simvastatin 20 MG Tab PO SCH (20:09)
[2020-05-19] MEDS: Insulin Lispro 100 Unit/ML 3 ML KwikPen SUBCUT SCH ×4 (08:50→20:52)
[2020-05-19] MEDS: Bumetanide 2.5 MG/10 ML MDV IVPUSH SCH (08:54)
[2020-05-19] MEDS: Amiodarone 200 MG Tab PO SCH ×2 (09:05→20:51)
[2020-05-19] MEDS: Rivaroxaban 15 MG Tab PO SCH (09:05)
[2020-05-19] MEDS: Aspirin 81 MG Tab.EC PO SCH (09:05)
[2020-05-19] MEDS: Losartan 50 MG Tab PO SCH (09:06)
[2020-05-19] MEDS: Isosorbide Mononitrate 30 MG Tab.ER PO SCH (09:06)
[2020-05-19] MEDS: Carvedilol 25 MG Tab PO SCH ×2 (09:07→20:51)
[2020-05-19] MEDS: cefTRIAXone 1 GM in Sodium Chloride 0.9% 50 ML IV SCH (09:10)
--- NOTE | 2020-05-19 10:17 | PCM.PN ---
- General Info Date of Service: 05/19/20 Subjective Update: No acute events overnight. Decent response to diuresis yesterday even at reduced schedule. Shortness of breath is better and she is off supplemental oxygen at rest but does still get hypoxic with activity. Edema is better but not resolved. Strength is a little better. No cough reported today. No orthopnea. Slept better with the pressure reduction mattress. Blood sugars have risen some and most recent blood sugar was over 300. Kidney function stable. Urine culture is growing 2 gram-negative rods but identification is pending. Functional Status: Reports: Pain Controlled, Tolerating Diet - Review of Systems General: Reports: Weakness - Patient Data Vitals - Most Recent: Last Vital Signs Temp 35.9 C L 05/19/20 07:00 Pulse 61 05/19/20 09:07 Resp 16 05/19/20 07:00 BP 118/56 L 05/19/20 09:07 Pulse Ox 93 L 05/19/20 07:00 Weight - Most Recent: 114.668 kg I&O - Last 24 Hours: Intake & Output 05/18/20 05/19/20 05/19/20 22:59 06:59 14:59 Intake Total 540 Output Total 300 1100 Balance 240 -1100 Lab Results Last 24 Hours: Laboratory Results - last 24 hr 05/18/20 05/18/20 05/18/20 Range/Units 11:35 16:30 21:00 WBC (4.5-11.0) K/uL RBC (3.30-5.50) M/uL Hgb (12.0-15.0) g/dL Hct (36.0-48.0) % MCV (80-98) fL MCH (27-31) pg MCHC (32-36) % Plt Count (150-400) K/uL Sodium (140-148) mmol/L Potassium (3.6-5.2) mmol/L Chloride (100-108) mmol/L Carbon Dioxide (21-32) mmol/L Anion Gap (5.0-14.0) mmol/L BUN (7-18) mg/dL Creatinine (0.6-1.0) mg/dL Est Cr Clr Drug Dosing mL/min Estimated GFR (MDRD) (>60) Glucose (74-106) mg/dL POC Glucose 233 H 228 H 221 H (74-106) MG/DL Calcium (8.5-10.1) mg/dL 05/19/20 05/19/20 05/19/20 Range/Units 05:58 05:58 07:27 WBC 5.6 (4.5-11.0) K/uL RBC 3.02 L (3.30-5.50) M/uL Hgb 9.3 L (12.0-15.0) g/dL Hct 30.8 L (36.0-48.0) % MCV 102 H (80-98) fL MCH 31 (27-31) pg MCHC 30 L (32-36) % Plt Count 236 (150-400) K/uL Sodium 138 L (140-148) mmol/L Potassium 4.2 (3.6-5.2) mmol/L Chloride 101 (100-108) mmol/L Carbon Dioxide 30 (21-32) mmol/L Anion Gap 11.2 (5.0-14.0) mmol/L BUN 38 H (7-18) mg/dL Creatinine 2.1 H (0.6-1.0) mg/dL Est Cr Clr Drug Dosing 17.08 mL/min Estimated GFR (MDRD) 23 L (>60) Glucose 169 H (74-106) mg/dL POC Glucose 174 H (74-106) MG/DL Calcium 9.1 (8.5-10.1) mg/dL It[facility] Results Last 24 Hours: Microbiology 05/17/20 13:17 Urine Culture - Preliminary Urine, Clean Catch Med Orders - Current: Current Medications Acetaminophen (Tylenol) 650 mg PO Q4H PRN PRN Reason: Pain (Mild 1-3)/fever Last Admin: 05/17/20 22:40 Dose: 650 mg Documented by: Albuterol (Proventil Neb Soln) 2.5 mg NEB Q4H PRN PRN Reason: Shortness Of Breath/wheezing Alprazolam (Xanax) 0.5 mg PO BID PRN PRN Reason: Anxiety Last Admin: 05/17/20 22:40 Dose: 0.5 mg Documented by: Amiodarone HCl (Cordarone) 400 mg PO BID [facility] Last Admin: 05/19/20 09:05 Dose: 400 mg Documented by: Aspirin (Halfprin) 81 mg PO DAILY [facility] Last Admin: 05/19/20 09:05 Dose: 81 mg Documented by: Bumetanide (Bumex) 2 mg IVPUSH DAILY [facility] Bumetanide (Bumex) 1 mg IVPUSH ONETIME ONE Stop: 05/19/20 18:01 Carvedilol (Coreg) 25 mg PO BID [facility] Last Admin: 05/19/20 09:07 Dose: 25 mg Documented by: Famotidine (Pepcid) 20 mg PO BEDTIME [facility] Last Admin: 05/18/20 20:09 Dose: 20 mg Documented by: Gabapentin 200 mg/ Gabapentin (300 mg) 500 mg PO TID [facility] Last Admin: 05/19/20 09:06 Dose: 500 mg Documented by: Ceftriaxone Sodium 1 gm/ (Sodium Chloride) 50 mls @ 100 mls/hr IV Q24H [facility] Last Admin: 05/19/20 09:10 Dose: 100 mls/hr Documented by: Insulin Human Lispro (Humalog) 0 unit SUBCUT QIDACANDBED [facility]; Protocol Last Admin: 05/19/20 08:50 Dose: 1 unit Documented by: Isosorbide Mononitrate (Imdur) 30 mg PO DAILY [facility] Last Admin: 05/19/20 09:06 Dose: 30 mg Documented by: Lorazepam (Ativan) 0.5 mg IVPUSH Q4H PRN PRN Reason: Nausea/Vomiting Losartan Potassium (Cozaar) 100 mg PO DAILY [facility] Last Admin: 05/19/20 09:06 Dose: 100 mg Documented by: Magnesium Hydroxide (Milk Of Magnesia) 30 ml PO Q12H PRN PRN Reason: Constipation Melatonin (Melatonin) 9 mg PO BEDTIME [facility] Last Admin: 05/18/20 20:08 Dose: 9 mg Documented by: Metformin HCl (Glucophage) 1,000 mg PO BIDMEALS [facility] Last Admin: 05/17/20 17:51 Dose: 1,000 mg Documented by: Ondansetron HCl (Zofran) 4 mg IV Q6H PRN PRN Reason: Nausea/Vomiting Ondansetron HCl (Zofran Odt) 4 mg PO Q6H PRN PRN Reason: Nausea able to take PO Rivaroxaban (Xarelto) 15 mg PO DAILY [facility] Last Admin: 05/19/20 09:05 Dose: 15 mg Documented by: Senna/Docusate Sodium (Senna Plus) 1 tab PO BID PRN PRN Reason: Constipation Simvastatin (Zocor) 20 mg PO BEDTIME [facility] Last Admin: 05/18/20 20:09 Dose: 20 mg Documented by: Tramadol HCl (Ultram) 50 mg PO Q8H PRN PRN Reason: Pain (moderate 4-6) Last Admin: 05/18/20 19:41 Dose: 50 mg Documented by: Discontinued Medications Bumetanide (Bumex) 2 mg IVPUSH Q8H [facility] Last Admin: 05/18/20 02:29 Dose: 2 mg Documented by: Bumetanide (Bumex) 2 mg IVPUSH Q12H [facility] Last Admin: 05/19/20 08:54 Dose: 2 mg Documented by: Diphtheria/Tetanus/Acell Pertussis (Adacel) 0.5 ml IM .ONCE ONE Stop: 05/17/20 19:47 Last Admin: 05/18/20 20:16 Dose: Not Given Documented by: Furosemide (Lasix) 80 mg IVPUSH ONETIME ONE Stop: 05/17/20 10:44 Last Admin: 05/17/20 12:19 Dose: 80 mg Documented by: Glipizide (Glucotrol Xl) 5 mg PO BIDAC [facility] Last Admin: 05/18/20 11:01 Dose: Not Given Documented by: Potassium Chloride (Klor-Con M20) 20 meq PO BID [facility] Last Admin: 05/18/20 09:55 Dose: 20 meq Documented by: - Exam Quality Assessment: No: Supplemental Oxygen General: Alert, Oriented, Cooperative, No Acute Distress Neck: No JVD Lungs: Clear to Auscultation, Normal Respiratory Effort Cardiovascular: Regular Rate, Regular Rhythm GI/Abdominal Exam: Soft, No Distention Extremities: Pedal Edema (right > left ). No: Increased Warmth Skin: Warm, Dry Psy/Mental Status: Alert, Normal Affect Sepsis Event Note - Evaluation Sepsis Screening Result: No Definite Risk - Focused Exam Vital Signs: Vital Signs Temp Pulse Pulse Resp BP BP Pulse Ox 05/19/20 09:07 61 118/56 L 05/19/20 09:06 118/56 L 05/19/20 07:00 35.9 C L 61 16 118/56 L 93 L 05/19/20 03:09 36.7 C 68 18 101/60 94 L 05/18/20 22:35 37.1 C 63 18 92/68 94 L - Problem List & Annotations (1) Heart failure with preserved ejection fraction SNOMED Code(s): 910142008 Code(s): I50.30 - UNSPECIFIED DIASTOLIC (CONGESTIVE) HEART FAILURE Status: Acute Current Visit: Yes Qualifiers: Heart failure chronicity: acute on chronic Qualified Code(s): I50.33 - Acute on chronic diastolic (congestive) heart failure (2) Acute respiratory failure with hypoxia SNOMED Code(s): 87745788, 525531609 Code(s): J96.01 - ACUTE RESPIRATORY FAILURE WITH HYPOXIA Status: Acute Current Visit: Yes (3) Paroxysmal atrial fibrillation SNOMED Code(s): 113947389 Code(s): I48.0 - PAROXYSMAL ATRIAL FIBRILLATION Status: Chronic Current Visit: Yes (4) Insulin dependent diabetes mellitus SNOMED Code(s): 71158550 Code(s): BIP0530 - Status: Chronic Current Visit: Yes (5) Stage III chronic kidney disease SNOMED Code(s): 914442509 Code(s): N18.3 - CHRONIC KIDNEY DISEASE, STAGE 3 (MODERATE) Status: Chronic Current Visit: Yes - Problem List Review Problem List Initiated/Reviewed/Updated: Yes - My Orders Last 24 Hours: My Active Orders 05/18/20 09:28 traMADol [Ultram] 50 mg PO Q8H PRN 05/18/20 10:41 PT Evaluation and Treatment [CONS] Routine Pressure Reduction Mattress [OM.PC] Routine 05/19/20 09:00 cefTRIAXone [Rocephin] 1 gm Sodium Chloride 0.9% [Normal Saline] 50 ml IV Q24H 05/19/20 11:30 GLUCOSE POC LAB TO COLLECT JPM [POC] QIDACANDBED 05/19/20 15:08 Insert Villalobos Catheter [Insert Urinary Catheter] [OM.PC] Q24H 05/19/20 16:30 GLUCOSE POC LAB TO COLLECT JPM [POC] QIDACANDBED 05/19/20 18:00 Bumetanide [Bumex] 1 mg IVPUSH ONETIME ONE 05/19/20 21:00 GLUCOSE POC LAB TO COLLECT JPM [POC] QIDACANDBED 05/20/20 05:00 BASIC METABOLIC PANEL,BMP [CHEM] Timed 05/20/20 07:30 GLUCOSE POC LAB TO COLLECT JPM [POC] QIDACANDBED 05/20/20 09:00 Bumetanide [Bumex] 2 mg IVPUSH DAILY 05/20/20 11:30 GLUCOSE POC LAB TO COLLECT JPM [POC] QIDACANDBED 05/20/20 16:30 GLUCOSE POC LAB TO COLLECT JPM [POC] QIDACANDBED 05/20/20 21:00 GLUCOSE POC LAB TO COLLECT JPM [POC] QIDACANDBED 05/21/20 07:30 GLUCOSE POC LAB TO COLLECT JPM [POC] QIDACANDBED 05/21/20 11:30 GLUCOSE POC LAB TO COLLECT JPM [POC] QIDACANDBED 05/21/20 16:30 GLUCOSE POC LAB TO COLLECT JPM [POC] QIDACANDBED 05/21/20 21:00 GLUCOSE POC LAB TO COLLECT JPM [POC] QIDACANDBED 05/22/20 07:30 GLUCOSE POC LAB TO COLLECT JPM [POC] QIDACANDBED 05/22/20 11:30 GLUCOSE POC LAB TO COLLECT JPM [POC] QIDACANDBED 05/22/20 16:30 GLUCOSE POC LAB TO COLLECT JPM [POC] QIDACANDBED 05/22/20 21:00 GLUCOSE POC LAB TO COLLECT JPM [POC] QIDACANDBED 05/23/20 07:30 GLUCOSE POC LAB TO COLLECT JPM [POC] QIDACANDBED 05/23/20 11:30 GLUCOSE POC LAB TO COLLECT JPM [POC] QIDACANDBED 05/23/20 16:30 GLUCOSE POC LAB TO COLLECT JPM [POC] QIDACANDBED 05/23/20 21:00 GLUCOSE POC LAB TO COLLECT JPM [POC] QIDACANDBED 05/24/20 07:30 GLUCOSE POC LAB TO COLLECT JPM [POC] QIDACANDBED - Plan Plan:: ASSESSMENT AND PLAN - Heart failure with preserved ejection fraction (HFpEF)-acute on chronic exacerbation with hypoxic respiratory failure. We were able to get some fluid off yesterday even with the reduced diuretic schedule. Edema is much better. Respiratory status improving. -IV diuresis with bumetanide (dose decreased for this evening) -Villalobos catheter for strict intake and output monitoring (remove tomorrow) -Continue beta-gladys, ARB and long-acting nitrate -Daily weights Paroxysmal atrial fibrillation-currently in sinus rhythm. -Cardiac monitoring discontinued -Continue beta-gladys and amiodarone -Continue rivaroxaban Stage III chronic kidney disease-kidney function stable since yesterday. -Diuretic dosing decreased -Labs in the morning Insulin-dependent diabetes mellitus-blood sugars have risen over the past 24 hours. -Restart twice daily long-acting insulin at reduced dose -Hold metformin and glipizide -4 times daily Accu-Cheks -Low-dose sliding scale insulin Maintenance issues - - DVT prophylaxis -rivaroxaban - GI prophylaxis -not indicated - Nutrition -low-sodium - Villalobos catheter -placed for strict intake and output monitoring in the setting of acute congestive heart failure, plan to remove tomorrow morning Disposition -I would anticipate discharge home after the hospital stay Primary care physician -Dr. Jasiel Plummer M.D.
[2020-05-19] MEDS: Insulin NPH/Insulin Regular,Human 70-30 100 Units/ML 10 ML Vial SUBCUT SCH (17:03)
[2020-05-19] MEDS ORDERED: Bumetanide 1 MG/4 ML MDV IVPUSH ONE (18:00)
[2020-05-19] MEDS: Famotidine 20 MG Tab PO SCH (20:50)
[2020-05-19] MEDS: Melatonin 3 MG Tab PO SCH (20:50)
[2020-05-19] MEDS: Simvastatin 20 MG Tab PO SCH (20:51)
[2020-05-20] MEDS: Insulin Lispro 100 Unit/ML 3 ML KwikPen SUBCUT SCH (08:05)
[2020-05-20] MEDS: Insulin NPH/Insulin Regular,Human 70-30 100 Units/ML 10 ML Vial SUBCUT SCH (08:06)
[2020-05-20] MEDS: metFORMIN 500 MG Tab PO SCH (08:11)
[2020-05-20] MEDS: Rivaroxaban 15 MG Tab PO SCH (08:14)
[2020-05-20] MEDS: Amiodarone 200 MG Tab PO SCH (08:14)
[2020-05-20] MEDS: Carvedilol 25 MG Tab PO SCH (08:15)
[2020-05-20] MEDS: Isosorbide Mononitrate 30 MG Tab.ER PO SCH (08:15)
[2020-05-20] MEDS: Losartan 50 MG Tab PO SCH (08:16)
[2020-05-20] MEDS: Aspirin 81 MG Tab.EC PO SCH (08:17)
[2020-05-20] MEDS: cefTRIAXone 1 GM in Sodium Chloride 0.9% 50 ML IV SCH (08:18)
[2020-05-20] MEDS ORDERED: Bumetanide 1 MG/4 ML MDV IVPUSH SCH (09:00)
[2020-05-20 11:01] VITALS: BP 100/49; PULSE 75
--- NOTE | 2020-05-20 11:36 | PCM.DCSUM1 ---
Discharge Summary - Hospital Course Brief History: 84-year-old female with history of congestive heart failure with preserved ejection fraction, paroxysmal atrial fibrillation, insulin-dependent diabetes and stage III kidney disease who presented with progressive shortness of breath and weakness. She was admitted for management of an exacerbation of congestive heart failure. Diagnosis: Stroke: No - Discharge Data Discharge Date: 05/20/20 Discharge Disposition: Home, W Home Health Agency 06 Condition: Good - Referral to Home Health Date of Face to Face Encounter: 05/20/20 Reason for Homebound Status: weakness, dyspnea on exertion Primary Care Physician: Javier Weathers MD Skilled Need: Nursing and PT - Discharge Diagnosis/Problem(s) (1) Heart failure with preserved ejection fraction SNOMED Code(s): 805496719 ICD Code: I50.30 - UNSPECIFIED DIASTOLIC (CONGESTIVE) HEART FAILURE Status: Acute Current Visit: Yes Qualifiers: Heart failure chronicity: acute on chronic Qualified Code(s): I50.33 - Acute on chronic diastolic (congestive) heart failure (2) Acute respiratory failure with hypoxia SNOMED Code(s): 59044584, 198028317 ICD Code: J96.01 - ACUTE RESPIRATORY FAILURE WITH HYPOXIA Status: Acute Current Visit: Yes (3) Paroxysmal atrial fibrillation SNOMED Code(s): 679864898 ICD Code: I48.0 - PAROXYSMAL ATRIAL FIBRILLATION Status: Chronic Current Visit: Yes (4) Insulin dependent diabetes mellitus SNOMED Code(s): 68835474 ICD Code: JGD1212 - Status: Chronic Current Visit: Yes (5) Stage III chronic kidney disease SNOMED Code(s): 867947474 ICD Code: N18.3 - CHRONIC KIDNEY DISEASE, STAGE 3 (MODERATE) Status: C hronic Current Visit: Yes - Patient Summary/Data Consults: Consultations 05/18/20 10:41 PT Evaluation and Treatment [CONS] Routine Please Evaluate and Treat. PT Reason for Consult: Strengthening This query below is only for informational purposes and is not editable. Admission Diagnosis/Problem: Diastolic congestive heart failure Hospital Course: Annie presented to the emergency room with acute on chronic shortness of breath and fatigue. Work-up in the emergency room was suggestive of an exacerbation of her congestive heart failure as well as acute hypoxic respiratory failure and possibly a urinary tract infection. Her creatinine was also slightly increased compared to her baseline. She did receive IV diuretics in the emergency room. We did place a Villalobos catheter to closely monitor urine output to help guide diuretic dosing. I did transition her to bumetanide after admission to the hospital. She had an excellent diuresis the first day but may be a little bit too much fluid came off. Her creatinine santos from 1.4 up to 2.1. I did hold her diuretic throughout the day but did restart later that night. We had another good day of diuresis. Her kidney function remained stable. Symptomatically she was doing better and we were able to slowly wean her off her supplemental oxygen. Her lower extremity edema has improved dramatically. He did continue the IV diuresis 1 additional day. Volume status appears to be appropriate based on JVD examination. She does not have any crackles in her lungs and JVD is normal. She does still have some edema though it is dramatically better. Creatinine has come down to 1.7. My plan at the time of discharge is to increase her Bumex from once a day to twice a day. We did review some recommendations for monitoring of her salt intake. She feels well enough to go home at this time. She is off oxygen and her strength is improved and I believe she is safe for outpatient management. Also noted during the hospital stay was the possible urinary tract infection. Her urine culture did end up growing Enterobacter. Antibiotics were switched to Augmentin at the time of discharge based on sensitivities. She was on ceftriaxone during the hospital stay. During the hospital stay we did hold her oral diabetes medications and we did hold her long-acting insulin during the initial part of the hospital stay. Blood sugars have been climbing throughout the stay and she is safe to resume her usual medications starting tomorrow. She will not take her oral diabetes medications today but will take her insulin tonight. She was interested in home care and this will be set up for her to help ease her transition home. - Patient Instructions Diet: Low Sodium Activity: As Tolerated Showering/Bathing: May Shower Other/Special Instructions: 1. You were in in the hospital for management of congestive heart failure as well as a urinary tract infection. Your heart failure has been improving with IV diuretic therapy. I do recommend that we increase your home bumetanide dosing to 2 mg twice daily. You should take 2 mg in the morning and a second dose of 2 mg in the afternoon. Your urine culture grew out a bacteria called Enterobacter. I recommend ongoing antibiotic therapy after hospital discharge. Please take Augmentin 500 mg twice daily for 4 doses. Your first dose outside of the hospital will not be due until Thursday morning. 2. Because your kidney declined temporarily while we were taking fluid off of your body I have been holding your oral diabetes medications. I recommend that you not take your glipizide or metformin today but you may restart both of these in addition to your insulin dosing on Thursday. You should take your insulin at the usual dose tonight. 3. Continue your other home med ications as previously prescribed. 4. I have placed a referral to home health care. They will help ease your transition home by providing nursing and physical therapy services. - Discharge Plan *PRESCRIPTION DRUG MONITORING PROGRAM REVIEWED*: Not Applicable *COPY OF PRESCRIPTION DRUG MONITORING REPORT IN PATIENT KHADRA: Not Applicable Prescriptions/Med Rec: Amoxicillin/Clavulanate K [Augmentin 500-125 MG] 1 tab PO BID #4 tablet Bumetanide 2 mg PO BID #60 tablet Home Medications: Home Meds Ascorbic Acid [Vitamin C] 1,000 mg PO BID 07/13/14 [History] Aspirin [Aspirin EC] 81 mg PO DAILY 07/13/14 [History] Cholecalciferol (Vitamin D3) [Vitamin D3] 1,000 unit PO DAILY 07/13/14 [History] Gabapentin 500 mg PO TID 07/13/14 [History] Losartan [Cozaar] 100 mg PO DAILY 07/13/14 [History] Multivitamin [Multi-Vitamin Daily] 1 tab PO DAILY 07/13/14 [History] [place]-3/DHA/Epa/Fish Oil [[place]-3 Fish Oil 1,000 MG Sfgl] 1,000 mg PO BID 07/13/14 [History] Ondansetron [Zofran] 8 mg PO Q8H PRN 07/13/14 [History] Simvastatin [Zocor] 20 mg PO BEDTIME 07/13/14 [History] Vitamin E 1 cap PO DAILY 07/13/14 [History] metFORMIN [Glucophage] 1,000 mg PO BID 07/13/14 [History] Isosorbide Mononitrate [Imdur] 30 mg PO DAILY 02/15/15 [History] Magnesium Oxide 400 mg PO DAILY 02/15/15 [History] ALPRAZolam [Alprazolam] 0.5 mg PO BID PRN 05/17/20 [History] Amiodarone [Cordarone] 400 mg PO BID 05/17/20 [History] Potassium Chloride 20 meq PO BID 05/17/20 [History] Rivaroxaban [Xarelto] 20 mg PO DAILY 05/17/20 [History] carvediloL [Carvedilol] 25 mg PO BID 05/17/20 [History] glipiZIDE [Glucotrol XL] 5 mg PO BID 05/17/20 [History] polyethylene glycoL 3350 [Polyethylene Glycol 3350] 17 gm PO DAILY PRN 05/17/20 [History] Amoxicillin/Clavulanate K [Augmentin 500-125 MG] 1 tab PO BID #4 tablet 05/20/20 [Rx] Bumetanide 2 mg PO BID #60 tablet 05/20/20 [Rx] Oxygen Therapy Mode: Room Air Patient Handouts: Amoxicillin; Clavulanic Acid tablets, Heart Failure Exacerbation Referrals: PCP,None [Ordering Only Provider] - (f/u with Dr Weathers in 1-2 weeks - f/u hospital stay for CHF) - Discharge Summary/Plan Comment DC Time >30 min.: Yes (40-home care, CHF education ) - Patient Data Vitals - Most Recent: Last Vital Signs Temp 36.4 C 05/20/20 10:57 Pulse 75 05/20/20 10:57 Resp 18 05/20/20 10:57 BP 100/49 L 05/20/20 10:57 Pulse Ox 93 L 05/20/20 10:57 Weight - Most Recent: 114.305 kg I&O - Last 24 hours: Intake & Output 05/19/20 05/20/20 05/20/20 22:59 06:59 14:59 Intake Total 350 50 Output Total 300 1750 Balance 50 -1700 Lab Results - Last 24 hrs: Laboratory Results - last 24 hr 05/19/20 05/19/20 05/20/20 Range/Units 16:53 20:54 04:10 Sodium 139 L (140-148) mmol/L Potassium 4.3 (3.6-5.2) mmol/L Chloride 101 (100-108) mmol/L Carbon Dioxide 30 (21-32) mmol/L Anion Gap 12.3 (5.0-14.0) mmol/L BUN 38 H (7-18) mg/dL Creatinine 1.8 H (0.6-1.0) mg/dL Est Cr Clr Drug Dosing 19.93 mL/min Estimated GFR (MDRD) 27 L (>60) Glucose 177 H (74-106) mg/dL POC Glucose 248 H 258 H (74-106) MG/DL Calcium 9.1 (8.5-10.1) mg/dL 05/20/20 Range/Units 07:30 Sodium (140-148) mmol/L Potassium (3.6-5.2) mmol/L Chloride (100-108) mmol/L Carbon Dioxide (21-32) mmol/L Anion Gap (5.0-14.0) mmol/L BUN (7-18) mg/dL Creatinine (0.6-1.0) mg/dL Est Cr Clr Drug Dosing mL/min Estimated GFR (MDRD) (>60) Glucose (74-106) mg/dL POC Glucose 186 H (74-106) MG/DL Calcium (8.5-10.1) mg/dL SHEA Results - Last 24 hrs: Microbiology 05/17/20 13:17 Urine Culture - Final Urine, Clean Catch Enterobacter Dissolvens Med Orders - Current: Current Medications Acetaminophen (Tylenol) 650 mg PO Q4H PRN PRN Reason: Pain (Mild 1-3)/fever Last Admin: 05/17/20 22:40 Dose: 650 mg Documented by: Albuterol (Proventil Neb Soln) 2.5 mg NEB Q4H PRN PRN Reason: Shortness Of Breath/wheezing Alprazolam (Xanax) 0.5 mg PO BID PRN PRN Reason: Anxiety Last Admin: 05/17/20 22:40 Dose: 0.5 mg Documented by: Amiodarone HCl (Cordarone) 400 mg PO BID [facility] Last Admin: 05/20/20 08:14 Dose: 400 mg Documented by: Aspirin (Halfprin) 81 mg PO DAILY [facility] Last Admin: 05/20/20 08:17 Dose: 81 mg Documented by: Bumetanide (Bumex) 2 mg IVPUSH DAILY [facility] Last Admin: 05/20/20 08:17 Dose: 2 mg Documented by: Carvedilol (Coreg) 25 mg PO BID [facility] Last Admin: 05/20/20 08:15 Dose: 25 mg Documented by: Famotidine (Pepcid) 20 mg PO BEDTIME [facility] Last Admin: 05/19/20 20:50 Dose: 20 mg Documented by: Gabapentin 200 mg/ Gabapentin (300 mg) 500 mg PO TID [facility] Last Admin: 05/20/20 08:16 Dose: 500 mg Documented by: Ceftriaxone Sodium 1 gm/ (Sodium Chloride) 50 mls @ 100 mls/hr IV Q24H [facility] Last Admin: 05/20/20 08:18 Dose: 100 mls/hr Documented by: Insulin Human Isoph/Insulin Regular (Humulin 70-30) 10 units SUBCUT BIDAC [facility] Last Admin: 05/20/20 08:06 Dose: 10 units Documented by: Insulin Human Lispro (Humalog) 0 unit SUBCUT QIDACANDBED [facility]; Protocol Last Admin: 05/20/20 08:05 Dose: 1 unit Documented by: Isosorbide Mononitrate (Imdur) 30 mg PO DAILY [facility] Last Admin: 05/20/20 08:15 Dose: 30 mg Documented by: Lorazepam (Ativan) 0.5 mg IVPUSH Q4H PRN PRN Reason: Nausea/Vomiting Losartan Potassium (Cozaar) 100 mg PO DAILY [facility] Last Admin: 05/20/20 08:16 Dose: 100 mg Documented by: Magnesium Hydroxide (Milk Of Magnesia) 30 ml PO Q12H PRN PRN Reason: Constipation Melatonin (Melatonin) 9 mg PO BEDTIME [facility] Last Admin: 05/19/20 20:50 Dose: 9 mg Documented by: Metformin HCl (Glucophage) 1,000 mg PO BIDMEALS [facility] Last Admin: 05/20/20 08:11 Dose: 1,000 mg Documented by: Ondansetron HCl (Zofran) 4 mg IV Q6H PRN PRN Reason: Nausea/Vomiting Ondansetron HCl (Zofran Odt) 4 mg PO Q6H PRN PRN Reason: Nausea able to take PO Rivaroxaban (Xarelto) 15 mg PO DAILY [facility] Last Admin: 05/20/20 08:14 Dose: 15 mg Documented by: Senna/Docusate Sodium (Senna Plus) 1 tab PO BID PRN PRN Reason: Constipation Simvastatin (Zocor) 20 mg PO BEDTIME [facility] Last Admin: 05/19/20 20:51 Dose: 20 mg Documented by: Tramadol HCl (Ultram) 50 mg PO Q8H PRN PRN Reason: Pain (moderate 4-6) Last Admin: 05/18/20 19:41 Dose: 50 mg Documented by: Discontinued Medications Bumetanide (Bumex) 2 mg IVPUSH Q8H [facility] Last Admin: 05/18/20 02:29 Dose: 2 mg Documented by: Bumetanide (Bumex) 2 mg IVPUSH Q12H [facility] Last Admin: 05/19/20 08:54 Dose: 2 mg Documented by: Bumetanide (Bumex) 1 mg IVPUSH ONETIME ONE Stop: 05/19/20 18:01 Last Admin: 05/19/20 17:12 Dose: 1 mg Documented by: Diphtheria/Tetanus/Acell Pertussis (Adacel) 0.5 ml IM .ONCE ONE Stop: 05/17/20 19:47 Last Admin: 05/18/20 20:16 Dose: Not Given Documented by: Furosemide (Lasix) 80 mg IVPUSH ONETIME ONE Stop: 05/17/20 10:44 Last Admin: 05/17/20 12:19 Dose: 80 mg Documented by: [facility] Last Admin: 05/18/20 11:01 Dose: Not Given Documented by: Potassium Chloride (Klor-Con M20) 20 meq PO BID [facility] Last Admin: 05/18/20 09:55 Dose: 20 meq Documented by:
== END 2020-05-20 12:10 | disposition home health service (06) | DRG 291 ==
LOC: JP.ED 10:20 → JP.MS 13:52
PROVIDERS: ADMIT Internal Medicine; ATTEND Internal Medicine
DX: I11.0 Hypertensive heart disease with heart failure (principal); I13.0 Hypertensive heart and chronic kidney disease with heart failure and stage 1 through stage 4 chronic kidney disease, or unspecified chronic kidney disease; I50.33 Acute on chronic diastolic (congestive) heart failure; J96.01 Acute respiratory failure with hypoxia; Z95.5 Presence of coronary angioplasty implant and graft; N39.0 Urinary tract infection, site not specified; Z68.41 Body mass index [BMI] 40.0-44.9, adult; N18.3 Chronic kidney disease, stage 3 (moderate); Z66 Do not resuscitate; E11.22 Type 2 diabetes mellitus with diabetic chronic kidney disease; E11.9 Type 2 diabetes mellitus without complications; I48.0 Paroxysmal atrial fibrillation; B96.89 Other specified bacterial agents as the cause of diseases classified elsewhere; H54.7 Unspecified visual loss; E78.00 Pure hypercholesterolemia, unspecified; G47.30 Sleep apnea, unspecified; K59.09 Other constipation; M19.90 Unspecified osteoarthritis, unspecified site; Z79.84 Long term (current) use of oral hypoglycemic drugs; G89.29 Other chronic pain; M54.9 Dorsalgia, unspecified; M10.9 Gout, unspecified; Z96.649 Presence of unspecified artificial hip joint; F41.9 Anxiety disorder, unspecified; E66.9 Obesity, unspecified; Z85.3 Personal history of malignant neoplasm of breast; Z90.89 Acquired absence of other organs; Z98.49 Cataract extraction status, unspecified eye; Z90.49 Acquired absence of other specified parts of digestive tract; Z79.82 Long term (current) use of aspirin; Z79.4 Long term (current) use of insulin; Z79.899 Other long term (current) drug therapy; Z79.01 Long term (current) use of anticoagulants; Z90.10 Acquired absence of unspecified breast and nipple
CPT/HCPCS: 36415; 71045 ×2; 80053; 81001; 84484; 85025; 87086; 87088; 87186; 96374; 99285; J1940; 80048; 82962; 83735; 85027; 97116-GP; 97162-GP; A9270-GY; J0696; J1815; J1815-GY; J3490; J7050

== ENCOUNTER 2020-05-28 11:08 | Emergency (ER) | payer MEDICARE, BC ==
[2020-05-28] MEDS ORDERED: Sodium Chloride 0.9% 10 ML Syringe FLUSH PRN ×2 (11:15→12:24)
--- NOTE | 2020-05-28 11:24 | EDM.PDOC ---
ED HPI GENERAL MEDICAL PROBLEM - General Chief Complaint: Respiratory Problem Stated Complaint: [facility] Time Seen by Provider: 05/28/20 11:15 Source of Information: Reports: Patient, EMS History Limitations: Reports: No Limitations - History of Present Illness INITIAL COMMENTS - FREE TEXT/NARRATIVE: Annie is an 84 year old female, presents to the ED today via EMS with c/o increasing sob over the last couple of days. Patient woke up today and had to have her son come and help her out of bed as her legs felt like they were going to buckle and her arms felt weak. Patient denies any chest pain, fever, URI symptoms, nausea, vomiting, diarrhea or dysuria. Patient was just hospitalized here on May 17 for CHF exacerbation in light of preserved EF and a UTI. Ezequiel gutierrez was discharged home with increased dosing of her Bumetanide to 2 mg BID which she reports she has been taking. Patient completed a course of Augmentin for her UTI. Patient is not on oxygen at home. She complaints of mild orthopnea but has been sleeping supine. Patient doesn't think she has gained any weight. Patient reports increased sob with any activity. Patient reports her legs have become increasingly more swollen the last couple of days. Onset: Gradual Duration: Day(s): (2) - Related Data Allergies Allergy/AdvReac Type Severity Reaction Status Date / Time No Known Allergies Allergy Verified 05/28/20 11:12 Home Meds: Home Meds Ascorbic Acid [Vitamin C] 1,000 mg PO BID 07/13/14 [History] Aspirin [Aspirin EC] 81 mg PO DAILY 07/13/14 [History] Cholecalciferol (Vitamin D3) [Vitamin D3] 1,000 unit PO DAILY 07/13/14 [History] Gabapentin 500 mg PO TID 07/13/14 [History] Losartan [Cozaar] 100 mg PO DAILY 07/13/14 [History] Multivitamin [Multi-Vitamin Daily] 1 tab PO DAILY 07/13/14 [History] Thornton-3/DHA/Epa/Fish Oil [Thornton-3 Fish Oil 1,000 MG Sfgl] 1,000 mg PO BID 07/13/14 [History] Ondansetron [Zofran] 8 mg PO Q8H PRN 07/13/14 [History] Simvastatin [Zocor] 20 mg PO BEDTIME 10/09/14 [History] Vitamin E 1 cap PO DAILY 07/13/14 [History] metFORMIN [Glucophage] 1,000 mg PO BID 07/13/14 [History] Isosorbide Mononitrate [Imdur] 30 mg PO DAILY 02/15/15 [History] Magnesium Oxide 400 mg PO DAILY 02/15/15 [History] ALPRAZolam [Alprazolam] 0.5 mg PO BID PRN 05/17/20 [History] Amiodarone [Cordarone] 400 mg PO BID 05/17/20 [History] Potassium Chloride 20 meq PO BID 05/17/20 [History] Rivaroxaban [Xarelto] 20 mg PO DAILY 05/17/20 [History] carvediloL [Carvedilol] 25 mg PO BID 05/17/20 [History] glipiZIDE [Glucotrol XL] 5 mg PO BID 05/17/20 [History] Bumetanide 2 mg PO BID #60 tablet 05/20/20 [Rx] Past Medical History HEENT History: Reports: Impaired Vision Cardiovascular History: Reports: High Cholesterol, Hypertension, SOB on Exertion, Stents Respiratory History: Reports: Sleep Apnea, SOB Other Respiratory History: Uses cpap Gastrointestinal History: Reports: Chronic Constipation 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: Musculoskeletal History: Reports: Arthritis, Back Pain, Chronic, Gout Psychiatric History: Reports: Anxiety Endocrine/Metabolic History: Reports: Diabetes, Type II, Obesity/BMI 30+ Oncologic (Cancer) History: Reports: Breast - Infectious Disease History Infectious Disease History: Reports: Mumps - Past Surgical History Head Surgeries/Procedures: Reports: None HEENT Surgical History: Reports: Cataract Surgery, Tonsillectomy Cardiovascular Surgical History: Reports: Carotid Stents Respiratory Surgical History: Reports: None GI Surgical History: Reports: Appendectomy, Cholecystectomy, Colonoscopy Female Surgical History: Reports: Mastectomy Endocrine Surgical History: Reports: None Musculoskeletal Surgical History: Reports: Hip Replacement Oncologic Surgical History: Reports: Mastectomy Dermatological Surgical History: Reports: None Social & Family History - Family History Family Medical History: Noncontributory Oncologic: Reports: Leukemia, Lung - Tobacco Use Smoking Status *Q: Former Smoker Used Tobacco, but Quit: Yes Month/Year Tobacco Last Used: 5 - Caffeine Use Caffeine Use: Reports: Soda ED ROS GENERAL - Review of Systems Review Of Systems: Comprehensive ROS is negative, except as noted in HPI. ED EXAM, GENERAL - Physical Exam Exam: See Below Exam Limited By: No Limitations General Appearance: Alert, No Apparent Distress Eye Exam: Bilateral Eye: EOMI Ears: Normal External Exam Nose: Normal Inspection Throat/Mouth: Normal Inspection Head: Atraumatic Neck: Normal Inspection, Supple, Non-Tender Respiratory/Chest: No Respiratory Distress, Crackles (fine, right lung base) Cardiovascular: No Murmur, Other (bilateral lower extremity edema, +2 pitting) GI/Abdominal: Normal Bowel Sounds, Soft, Non-Tender (Female) Exam: Deferred Back Exam: Normal Inspection Extremities: Non-Tender Neurological: Alert, Oriented Psychiatric: Normal Affect Skin Exam: Dry Lymphatic: No Adenopathy EKG INTERPRETATION EKG Date: 05/28/20 Time: 11:33 Rhythm: NSR Rate (Beats/Min): 70 QRS: RBBB Comparison: NA - No Prior EKG EKG Interpretation Comments: inverted T waves in leads II, V1, V2, V3, V4, V5, V6, Course - Vital Signs Last Recorded V/S: Last Vital Signs Temp 36.9 C 05/28/20 11:10 Pulse 75 05/28/20 12:19 Resp 20 05/28/20 12:19 BP 119/54 L 05/28/20 12:19 Pulse Ox 95 05/28/20 12:19 Annie is an 84 year old female, hx of CAD, hyperlipidemia, HTN, CHF, Type 2 diabetes, presents to the ED today with increasing sob. Please refer to HPI and focused exam. Mildly hypoxic here with room air saturation of 87%, improved to mid 90's on 2 liters. Denies any chest pain, RBBB with inverted T waves, no prior EKG for comparison, Echo back in March with EF of 55-60%. Patient on Xarelto for paroxysmal atrial fibrillation. concerned for acute CHF. CXR consistent with his with vascular congestion and interstitial edema. Blood work returns with acute kidney injury with creatinine of 4, BUN of 68, troponin is undetectable. Pro-BNP elevated as well. Magnesium 2.8 with Potassium of 5.8. Patient given a dose of IV lasix here as well as IV glucose, calcium gluconate, and regular insulin for reversal of hyperkalemia. I discussed patient's case with Dr. Plummer, hospitalist, whom cared for patient during her last admission, given the fact that despite she was sent home with increased diuretic dosing in light of worsening kidney function today, decision made to transfer patient to higher level of care. Patient has requested [facility], I discussed her case with Dr. Camilo, he has graciously accepted patient for transfer. Patient and family updated on plan of care, questions answered. Patient transferred in stable condition via ALS with stable vital signs. - Orders/Labs/Meds Orders: Active Orders 24 hr Category Date Time Status Blood Glucose Check, Bedside [RC] Q1HR Care 05/28/20 12:24 Active Cardiac Monitoring [RC] STAT Care 05/28/20 12:24 Active EKG Documentation Completion [RC] ASDIRECTED Care 05/28/20 11:15 Active Peripheral IV Care [RC] . DIRECTED Care 05/28/20 11:15 Active UA W/MICROSCOPIC [URIN] Stat Lab 05/28/20 11:16 Ordered Sodium Chloride 0.9% [Saline Flush] Med 05/28/20 11:15 Active 10 ml FLUSH ASDIRECTED PRN Sodium Chloride 0.9% [Saline Flush] Med 05/28/20 12:24 Active 10 ml FLUSH ASDIRECTED PRN Peripheral IV Insertion Adult [OM.PC] Routine Oth 05/28/20 11:15 Ordered Saline Lock Insert [OM.PC] Stat Oth 05/28/20 12:24 Ordered EKG 12 Lead [EK] Stat Ther 05/28/20 11:14 Ordered Medication Orders Sodium Chloride (Saline Flush) 10 ml FLUSH ASDIRECTED PRN PRN Reason: Keep Vein Open Last Admin: 05/28/20 11:44 Dose: 10 ml Documented by: LOKESH Sodium Chloride (Saline Flush) 10 ml FLUSH ASDIRECTED PRN PRN Reason: Keep Vein Open Labs: Laboratory Tests 05/28/20 05/28/20 05/28/20 Range/Units 11:15 11:16 11:22 WBC (4.5-11.0) K/uL RBC (3.30-5.50) M/uL Hgb (12.0-15.0) g/dL Hct (36.0-48.0) % MCV (80-98) fL MCH (27-31) pg MCHC (32-36) % Plt Count (150-400) K/uL Neut % (Auto) (36-66) % Lymph % (Auto) (24-44) % Garza % (Auto) (2-6) % Eos % (Auto) (2-4) % Baso % (Auto) (0-1) % ABG Hemoglobin 10.0 L (12.0-16.0) g/dL ABG Oxyhemoglobin 53.2 % ABG Carboxyhemoglobin 2.5 H (0.0-1.6) % ABG Methemoglobin 1.0 % VBG pH 7.337 L (7.350-7.450) VBG pCO2 50.5 mm/Hg VBG pO2 33.3 mm/Hg VBG HCO3 26.3 mmol/L VBG Total CO2 25.0 mmol/L VBG O2 Saturation 55.1 VBG O2 Content 7.5 %vol VBG Base Excess 0.6 mm/L O2 Delivery Device Nasal cannula Sodium 135 L (140-148) mmol/L Potassium 5.8 H (3.6-5.2) mmol/L Chloride 98 L (100-108) mmol/L Carbon Dioxide 26 (21-32) mmol/L Anion Gap 16.8 H (5.0-14.0) mmol/L BUN 68 H D (7-18) mg/dL Creatinine 4.0 H* D (0.6-1.0) mg/dL Est Cr Clr Drug Dosing 8.97 mL/min Estimated GFR (MDRD) 11 L (>60) Glucose 91 (74-106) mg/dL Calcium 9.4 (8.5-10.1) mg/dL Magnesium 2.8 H D (1.8-2.4) mg/dL Total Bilirubin 0.5 (0.2-1.0) mg/dL AST 42 H (15-37) U/L ALT 39 (12-78) U/L Alkaline Phosphatase 95 D (46-116) U/L Troponin I < 0.017 (0.000-0.056) ng/mL NT-Pro-B Natriuret Pep 1855 H (5-450) pg/mL Total Protein 7.9 (6.4-8.2) g/dL Albumin 3.4 (3.4-5.0) g/dL Globulin 4.5 H (2.3-3.5) g/dL Albumin/Globulin Ratio 0.8 L (1.2-2.2) // Range/Units 11:30 WBC 8.3 (4.5-11.0) K/uL RBC 3.18 L (3.30-5.50) M/uL Hgb 9.9 L (12.0-15.0) g/dL Hct 32.4 L (36.0-48.0) % MCV 102 H (80-98) fL MCH 31 (27-31) pg MCHC 31 L (32-36) % Plt Count 242 (150-400) K/uL Neut % (Auto) 80 H (36-66) % Lymph % (Auto) 10 L (24-44) % Garza % (Auto) 10 H (2-6) % Eos % (Auto) 1 L (2-4) % Baso % (Auto) 0 (0-1) % ABG Hemoglobin (12.0-16.0) g/dL ABG Oxyhemoglobin % ABG Carboxyhemoglobin (0.0-1.6) % ABG Methemoglobin % VBG pH (7.350-7.450) VBG pCO2 mm/Hg VBG pO2 mm/Hg VBG HCO3 mmol/L VBG Total CO2 mmol/L VBG O2 Saturation VBG O2 Content %vol VBG Base Excess mm/L O2 Delivery Device Sodium (140-148) mmol/L Potassium (3.6-5.2) mmol/L Chloride (100-108) mmol/L Carbon Dioxide (21-32) mmol/L Anion Gap (5.0-14.0) mmol/L BUN (7-18) mg/dL Creatinine (0.6-1.0) mg/dL Est Cr Clr Drug Dosing mL/min Estimated GFR (MDRD) (>60) Glucose (74-106) mg/dL Calcium (8.5-10.1) mg/dL Magnesium (1.8-2.4) mg/dL Total Bilirubin (0.2-1.0) mg/dL AST (15-37) U/L ALT (12-78) U/L Alkaline Phosphatase (46-116) U/L Troponin I (0.000-0.056) ng/mL NT-Pro-B Natriuret Pep (5-450) pg/mL Total Protein (6.4-8.2) g/dL Albumin (3.4-5.0) g/dL Globulin (2.3-3.5) g/dL Albumin/Globulin Ratio (1.2-2.2) Meds: Medications Generic Name Dose Route Start Last Admin Trade Name Todd PRN Reason Stop Dose Admin Sodium Chloride 10 ml 05/28/20 11:15 05/28/20 11:44 Saline Flush FLUSH 10 ml ASDIRECTED PRN Administration Keep Vein Open Sodium Chloride 10 ml 05/28/20 12:24 Saline Flush FLUSH ASDIRECTED PRN Keep Vein Open Discontinued Medications Generic Name Dose Route Start Last Admin Trade Name Orlandoq PRN Reason Stop Dose Admin Calcium Gluconate 1 gm 05/28/20 12:24 05/28/20 12:46 Calcium Gluconate IVPUSH 05/28/20 12:25 1 gm ONETIME ONE Administration Dextrose/Water 50 ml 05/28/20 12:24 05/28/20 12:40 Dextrose 50% In Water IVPUSH 05/28/20 12:25 50 ml ONETIME ONE Administration Furosemide 40 mg 05/28/20 12:15 05/28/20 12:46 Lasix IVPUSH 05/28/20 12:16 40 mg ONETIME ONE Administration Insulin Human Regular 10 unit 05/28/20 12:24 05/28/20 12:35 Humulin R IVPUSH 05/28/20 12:25 10 unit ONETIME ONE Administration Departure - Departure Time of Disposition: 13:10 Disposition: DC/Tfer to Acute Hospital 02 Condition: Serious Clinical Impression: Hyperkalemia, SOB (shortness of breath), Hypoxia CHF exacerbation Qualifiers: Heart failure type: unspecified Qualified Code(s): I50.9 - Heart failure, unspecified Acute renal failure Qualifiers: Acute renal failure type: unspecified Qualified Code(s): N17.9 - Acute kidney failure, unspecified - Discharge Information Referrals: PCP,None [Primary Care Provider] - Forms: ED Department Discharge Sepsis Event Note (ED) - Evaluation Sepsis Screening Result: No Definite Risk - Focused Exam Vital Signs: Vital Signs Temp Pulse Resp BP Pulse Ox 05/28/20 12:19 75 20 119/54 L 95 05/28/20 11:10 36.9 C 71 20 114/46 L 94 L - My Orders Last 24 Hours: My Active Orders 05/28/20 11:14 EKG 12 Lead [EK] Stat 05/28/20 11:15 EKG Documentation Completion [RC] ASDIRECTED Peripheral IV Care [RC] . DIRECTED Sodium Chloride 0.9% [Saline Flush] 10 ml FLUSH ASDIRECTED PRN Peripheral IV Insertion Adult [OM.PC] Routine 05/28/20 11:16 UA W/MICROSCOPIC [URIN] Stat 05/28/20 12:24 Blood Glucose Check, Bedside [RC] Q1HR Cardiac Monitoring [RC] STAT Sodium Chloride 0.9% [Saline Flush] 10 ml FLUSH ASDIRECTED PRN Saline Lock Insert [OM.PC] Stat - Assessment/Plan Last 24 Hours: My Active Orders 05/28/20 11:14 EKG 12 Lead [EK] Stat 05/28/20 11:15 EKG Documentation Completion [RC] ASDIRECTED Peripheral IV Care [RC] . DIRECTED Sodium Chloride 0.9% [Saline Flush] 10 ml FLUSH ASDIRECTED PRN Peripheral IV Insertion Adult [OM.PC] Routine 05/28/20 11:16 UA W/MICROSCOPIC [URIN] Stat 05/28/20 12:24 Blood Glucose Check, Bedside [RC] Q1HR Cardiac Monitoring [RC] STAT Sodium Chloride 0.9% [Saline Flush] 10 ml FLUSH ASDIRECTED PRN Saline Lock Insert [OM.PC] Stat
[2020-05-28] MEDS ORDERED: Furosemide 40 MG/4 ML VIAL IVPUSH ONE (12:15)
--- NOTE | 2020-05-28 12:16 | CR ---
CHEST: 2 view CLINICAL HISTORY:CHF COMPARISON:05/17/2020 FINDINGS: Heart is moderately enlarged. Pulmonary vascular areas cephalized. There is diffuse interstitial edema. No effusions are seen. There are atherosclerotic changes in the aorta. Impression: Moderate cardiomegaly Vascular congestion and interstitial edema consistent with CHF
[2020-05-28] MEDS ORDERED: 50% Dextrose in Water 50 ML Syringe IVPUSH ONE (12:24)
[2020-05-28] MEDS ORDERED: Calcium Gluconate 10% 1 GM/10 ML SDV IVPUSH ONE (12:24)
[2020-05-28] MEDS ORDERED: Insulin Regular, Human 100 Units/ML 3 ML Vial IVPUSH ONE (12:24)
[2020-05-28 12:37] VITALS: BP 119/54; PULSE 75
== END 2020-05-28 13:16 ==
LOC: JP.ED 11:08
DX: I11.0 Hypertensive heart disease with heart failure (principal); I50.9 Heart failure, unspecified; E87.5 Hyperkalemia; R09.02 Hypoxemia; N17.9 Acute kidney failure, unspecified; E78.00 Pure hypercholesterolemia, unspecified; M10.9 Gout, unspecified; F41.9 Anxiety disorder, unspecified; E11.9 Type 2 diabetes mellitus without complications; E66.9 Obesity, unspecified; Z68.29 Body mass index [BMI] 29.0-29.9, adult; I45.10 Unspecified right bundle-branch block; Z87.891 Personal history of nicotine dependence; Z98.890 Other specified postprocedural states; Z79.82 Long term (current) use of aspirin; Z79.899 Other long term (current) drug therapy; Z79.01 Long term (current) use of anticoagulants
CPT/HCPCS: 36415; 71046; 80053; 82803; 83735; 83880; 84484; 85025; 93005; 96374; 96375; 99285; J0610; J1940; 93010; J1815-GY

== ENCOUNTER 2020-06-25 15:37 | Emergency (ER) | payer MEDICARE, BC ==
[2020-06-25 16:19] VITALS: BP 106/40; PULSE 70
[2020-06-25] MEDS ORDERED: Sodium Chloride 0.9% 10 ML Syringe FLUSH PRN (16:22)
--- NOTE | 2020-06-25 17:09 | EDM.PDOC ---
ED HPI GENERAL MEDICAL PROBLEM - General Chief Complaint: Cardiovascular Problem Stated Complaint: FROM CLINIC Time Seen by Provider: 06/25/20 17:00 Source of Information: Reports: Patient, Family, Old Records, Provider, RN History Limitations: Reports: No Limitations - History of Present Illness INITIAL COMMENTS - FREE TEXT/NARRATIVE: 84 yo female got out of [facility] after an admission for CHF 2 weeks ago. She saw her primary Dr. Weathers 3 days ago and no changes were made in her care. Today she was a cardiology [employer] who had never met Annie before and felt she was significantly worse with regards to her CHF so sent her to the ER. Annie says her weight has been stable since discharge 2 weeks ago but has gone up 2 pounds only since yesterday. She sleeps on her side and is not aware of orthopnea. She does complain of chronic RICH. There has not been any fever, unilateral calf pain, or chest pain of any kind. She is following her recommended 2 gm sodium and 64 oz fluid restrictions. Is here with her who says she has no energy. Onset: Gradual Onset Date: 06/23/20 Duration: Day(s): (2), Getting Worse (slowly and minimally worse) Location: Reports: Chest Quality: Reports: Other (no pain is reported.) Severity: Mild Improves with: Reports: None Worsens with: Reports: Other (time?) Context: Reports: Other (see HPI) Associated Symptoms: Reports: Shortness of Breath. Denies: Chest Pain, Cough, Diaphoresis, Fever/Chills, Nausea/Vomiting Treatments PATCHER: Reports: Other (see below) (usual meds only) - Related Data Allergies Allergy/AdvReac Type Severity Reaction Status Date / Time No Known Allergies Allergy Verified 06/25/20 16:08 Home Meds: Home Meds Ascorbic Acid [Vitamin C] 1,000 mg PO BID 07/13/14 [History] Aspirin [Aspirin EC] 81 mg PO DAILY 07/13/14 [History] Cholecalciferol (Vitamin D3) [Vitamin D3] 1,000 unit PO DAILY 07/13/14 [History] Gabapentin 500 mg PO TID 07/13/14 [History] Losartan [Cozaar] 100 mg PO DAILY 07/13/14 [History] Multivitamin [Multi-Vitamin Daily] 1 tab PO DAILY 07/13/14 [History] Terrell-3/DHA/Epa/Fish Oil [Terrell-3 Fish Oil 1,000 MG Sfgl] 1,000 mg PO BID 07/13/14 [History] Ondansetron [Zofran] 8 mg PO Q8H PRN 07/13/14 [History] Simvastatin [Zocor] 20 mg PO BEDTIME 07/13/14 [History] Vitamin E 1 cap PO DAILY 07/13/14 [History] Isosorbide Mononitrate [Imdur] 30 mg PO DAILY 02/15/15 [History] Magnesium Oxide 400 mg PO DAILY 02/15/15 [History] ALPRAZolam [Alprazolam] 0.5 mg PO BID PRN 05/17/20 [History] Amiodarone [Cordarone] 400 mg PO BID 05/17/20 [History] Rivaroxaban [Xarelto] 20 mg PO DAILY 05/17/20 [History] carvediloL [Carvedilol] 25 mg PO BID 05/17/20 [History] glipiZIDE [Glucotrol XL] 5 mg PO BID 05/17/20 [History] Bumetanide 2 mg PO BID #60 tablet 05/20/20 [Rx] DULoxetine [Cymbalta] 20 mg PO BEDTIME 06/25/20 [History] Past Medical History HEENT History: Reports: Impaired Vision Cardiovascular History: Reports: High Cholesterol, Hypertension, SOB on Exertion, Stents Respiratory History: Reports: Sleep Apnea, SOB Other Respiratory History: Uses cpap Gastrointestinal History: Reports: Chronic Constipation 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: Musculoskeletal History: Reports: Arthritis, Back Pain, Chronic, Gout Psychiatric History: Reports: Anxiety Endocrine/Metabolic History: Reports: Diabetes, Type II, Obesity/BMI 30+ Oncologic (Cancer) History: Reports: Breast - Infectious Disease History Infectious Disease History: Reports: Mumps - Past Surgical History Head Surgeries/Procedures: Reports: None HEENT Surgical History: Reports: Cataract Surgery, Tonsillectomy Cardiovascular Surgical History: Reports: Carotid Stents, Vascular Surgery Respiratory Surgical History: Reports: None GI Surgical History: Reports: Appendectomy, Cholecystectomy, Colonoscopy Female Surgical History: Reports: Mastectomy Endocrine Surgical History: Reports: None Musculoskeletal Surgical History: Reports: Hip Replacement Oncologic Surgical History: Reports: Mastectomy Dermatological Surgical History: Reports: None Social & Family History - Family History Family Medical History: Noncontributory Oncologic: Reports: Leukemia, Lung - Tobacco Use Smoking Status *Q: Never Smoker - Caffeine Use Caffeine Use: Reports: Soda - Recreational Drug Use Recreational Drug Use: No ED ROS GENERAL - Review of Systems Review Of Systems: See Below Constitutional: Denies: Fever, Chills HEENT: Reports: No Symptoms Respiratory: Reports: Shortness of Breath. Denies: Wheezing, Pleuritic Chest Pain, Cough, Sputum, Hemoptysis Cardiovascular: Reports: Dyspnea on Exertion. Denies: Chest Pain, Edema, Orthopnea, Palpitations, PND GI/Abdominal: Reports: No Symptoms : Reports: No Symptoms Musculoskeletal: Reports: No Symptoms Skin: Reports: No Symptoms Neurological: Reports: No Symptoms ED EXAM, GENERAL - Physical Exam Exam: See Below Exam Limited By: No Limitations General Appearance: Alert, WD/WN, No Apparent Distress, Obese Eye Exam: Bilateral Eye: Normal Inspection Ears: Normal External Exam, Normal Canal, Hearing Grossly Normal Ear Exam: Bilateral Ear: Auricle Normal Nose: Normal Inspection, No Blood Throat/Mouth: Normal Inspection, Normal Lips, Normal Oropharynx, Normal Voice, No Airway Compromise Head: Atraumatic, Normocephalic Neck: Normal Inspection Respiratory/Chest: No Respiratory Distress, No Accessory Muscle Use, Chest Non- Tender, Decreased Breath Sounds, Crackles (extreme bases only), Rales. No: Lungs Clear, Normal Breath Sounds, Respiratory Distress, Rhonchi, Wheezing, Retractions, Splinting Cardiovascular: Regular Rate, Rhythm. No: No Edema (trace edema of LE's) GI/Abdominal: Normal Bowel Sounds, Soft, Non-Tender, No Distention Extremities: Normal Inspection, Normal Range of Motion, Non-Tender, Pedal Edema. No: No Pedal Edema Neurological: Alert, Oriented, CN II-XII Intact, Normal Cognition, No Motor/Sensory Deficits Psychiatric: Normal Affect, Normal Mood Skin Exam: Warm, Dry, Intact, Normal Color, No Rash Course - Vital Signs Text/Narrative:: Discussed her situation with Dr. Plummer @ 0874h Last Recorded V/S: Last Vital Signs Temp 36.3 C 06/25/20 16:16 Pulse 70 06/25/20 16:16 Resp 17 06/25/20 16:16 BP 106/40 L 06/25/20 16:16 Pulse Ox 92 L 06/25/20 16:16 - Orders/Labs/Meds Orders: Active Orders 24 hr Category Date Time Status Chest 2V [CR] Stat Exams 06/25/20 16:21 Taken TSH ULTRASENSITIVE [CHEM] Stat Lab 06/25/20 17:38 Received UA W/MICROSCOPIC [URIN] Stat Lab 06/25/20 17:44 Ordered Sodium Chloride 0.9% [Saline Flush] Med 06/25/20 16:22 Active 10 ml FLUSH ASDIRECTED PRN Saline Lock Insert [OM.PC] Routine Oth 06/25/20 16:22 Ordered Medication Orders Sodium Chloride (Saline Flush) 10 ml FLUSH ASDIRECTED PRN PRN Reason: Keep Vein Open Labs: Laboratory Tests 06/25/20 06/25/20 06/25/20 Range/Units 17:01 17:01 17:01 WBC 7.8 (4.5-11.0) K/uL RBC 3.49 (3.30-5.50) M/uL Hgb 10.3 L (12.0-15.0) g/dL Hct 34.9 L (36.0-48.0) % MCV 100 H (80-98) fL MCH 30 (27-31) pg MCHC 30 L (32-36) % Plt Count 338 (150-400) K/uL Sodium 140 (140-148) mmol/L Potassium 3.4 L (3.6-5.2) mmol/L Chloride 99 L (100-108) mmol/L Carbon Dioxide 33 H (21-32) mmol/L Anion Gap 11.4 (5.0-14.0) mmol/L BUN 23 H D (7-18) mg/dL Creatinine 1.5 H D (0.6-1.0) mg/dL Est Cr Clr Drug Dosing 23.92 mL/min Estimated GFR (MDRD) 33 L (>60) Glucose 56 L (74-106) mg/dL Calcium 9.9 (8.5-10.1) mg/dL Magnesium (1.8-2.4) mg/dL Troponin I < 0.017 (0.000-0.056) ng/mL NT-Pro-B Natriuret Pep 1763 H (5-450) pg/mL 06/25/20 Range/Units 17:32 WBC (4.5-11.0) K/uL RBC (3.30-5.50) M/uL Hgb (12.0-15.0) g/dL Hct (36.0-48.0) % MCV (80-98) fL MCH (27-31) pg MCHC (32-36) % Plt Count (150-400) K/uL Sodium (140-148) mmol/L Potassium (3.6-5.2) mmol/L Chloride (100-108) mmol/L Carbon Dioxide (21-32) mmol/L Anion Gap (5.0-14.0) mmol/L BUN (7-18) mg/dL Creatinine (0.6-1.0) mg/dL Est Cr Clr Drug Dosing mL/min Estimated GFR (MDRD) (>60) Glucose (74-106) mg/dL Calcium (8.5-10.1) mg/dL Magnesium 2.1 D (1.8-2.4) mg/dL Troponin I (0.000-0.056) ng/mL NT-Pro-B Natriuret Pep (5-450) pg/mL Meds: Medications Generic Name Dose Route Start Last Admin Trade Name Freq PRN Reason Stop Dose Admin Sodium Chloride 10 ml 06/25/20 16:22 Saline Flush FLUSH ASDIRECTED PRN Keep Vein Open Discontinued Medications Generic Name Dose Route Start Last Admin Trade Name Freq PRN Reason Stop Dose Admin Furosemide 80 mg 06/25/20 17:30 06/25/20 17:46 Lasix IVPUSH 06/25/20 17:31 80 mg ONETIME ONE Administration Potassium Chloride 40 meq 06/25/20 17:29 06/25/20 17:45 Potassium Chloride PO 06/25/20 17:30 40 meq ONETIME ONE Administration - Radiology Interpretation Free Text/Narrative:: CXR-CHF with pulmonary edema similar to her last CXR Departure - Departure Time of Disposition: 18:30 Disposition: Home, Self-Care 01 Condition: Fair Clinical Impression: Hypokalemia Diastolic congestive heart failure Qualifiers: Heart failure chronicity: acute on chronic Qualified Code(s): I50.33 - Acute on chronic diastolic (congestive) heart failure Instructions: Heart Failure, Diagnosis, [id number] Referrals: Javier Weathers MD [Primary Care Provider] - Forms: ED Department Discharge Additional Instructions: Increase your bumetanide to 3 mg in the morning. Continue bumetanide at 2 mg in the evening. Continue all your other meds as currently. Continue your sodium and fluid restrictions. See Dr. Weathers for recheck later this week. Return as needed. Keep tract of your weight by weighing at the same time every day. Sepsis Event Note (ED) - Evaluation Sepsis Screening Result: No Definite Risk - Focused Exam Vital Signs: Vital Signs Temp Pulse Resp BP Pulse Ox 06/25/20 16:16 36.3 C 70 17 106/40 L 92 L - My Orders Last 24 Hours: My Active Orders 06/25/20 16:21 Chest 2V [CR] Stat 06/25/20 16:22 Sodium Chloride 0.9% [Saline Flush] 10 ml FLUSH ASDIRECTED PRN Saline Lock Insert [OM.PC] Routine 06/25/20 17:38 TSH ULTRASENSITIVE [CHEM] Stat 06/25/20 17:44 UA W/MICROSCOPIC [URIN] Stat - Assessment/Plan Last 24 Hours: My Active Orders 06/25/20 16:21 Chest 2V [CR] Stat 06/25/20 16:22 Sodium Chloride 0.9% [Saline Flush] 10 ml FLUSH ASDIRECTED PRN Saline Lock Insert [OM.PC] Routine 06/25/20 17:38 TSH ULTRASENSITIVE [CHEM] Stat 06/25/20 17:44 UA W/MICROSCOPIC [URIN] Stat
[2020-06-25] MEDS ORDERED: Potassium Chloride 10 MEQ Cap.ER PO ONE (17:29)
[2020-06-25] MEDS ORDERED: Furosemide 40 MG/4 ML VIAL IVPUSH ONE (17:30)
--- NOTE | 2020-06-26 09:13 | CR ---
CHEST: 2 view CLINICAL HISTORY:SOB, orthopnea COMPARISON:May 2020 FINDINGS: The heart is enlarged. Pulmonary vascularity is cephalized. There is some generalized prominence of the lung markings. Part of this is due to patient body habitus partially upright position. No effusions are seen. There are atherosclerotic changes in the aorta. There is a right lung granuloma IMPRESSION: Cardiomegaly with vascular cephalization suggests some mild CHF Lung markings are exaggerated by patient body habitus and technique Previous granulomatous exposure
== END 2020-06-25 18:59 | disposition home or self-care (01) ==
LOC: JP.ED 15:37
DX: I11.0 Hypertensive heart disease with heart failure (principal); I50.33 Acute on chronic diastolic (congestive) heart failure; E87.6 Hypokalemia; I10 Essential (primary) hypertension; E78.00 Pure hypercholesterolemia, unspecified; E11.9 Type 2 diabetes mellitus without complications; E66.9 Obesity, unspecified; F41.9 Anxiety disorder, unspecified; Z95.5 Presence of coronary angioplasty implant and graft; Z79.01 Long term (current) use of anticoagulants; Z79.82 Long term (current) use of aspirin; Z79.899 Other long term (current) drug therapy; Z90.49 Acquired absence of other specified parts of digestive tract; Z68.41 Body mass index [BMI] 40.0-44.9, adult
CPT/HCPCS: 36415; 71046; 80048; 81001; 83735; 83880; 84443; 84484; 85027; 96374; 99285; A9270; J1940

== ENCOUNTER 2021-01-20 16:06 | Inpatient (IN) | payer MEDICARE, BC ==
[2021-01-20] MEDS ORDERED: Doxycycline 100 MG in Sodium Chloride 0.9% 100 ML IV ONE (16:24)
[2021-01-20] MEDS ORDERED: cefTRIAXone 500 MG Vial IVPUSH ONE (16:24)
[2021-01-20] MEDS ORDERED: Sodium Chloride 0.9% 1,000 ML IV SCH (16:30)
--- NOTE | 2021-01-20 16:31 | EDM.PDOC ---
ED HPI GENERAL MEDICAL PROBLEM - General Stated Complaint: CHILLS,NOT FEELING WELL Time Seen by Provider: 01/20/21 16:17 Source of Information: Reports: Patient, Family, Old Records, RN Notes Reviewed History Limitations: Reports: No Limitations - History of Present Illness INITIAL COMMENTS - FREE TEXT/NARRATIVE: 85-year-old female presents emergency department with a complaint of chills and shakes, she has very complex medical history including breast cancer status post chemotherapy treatment with congestive heart failure as well as diabetes mellitus type 2. She states she was feeling fine yesterday and then [place] started developing chills became short of breath subsequently presented to the emergency department for further evaluation, she is about a week and half out from her second Covid shot - Related Data Allergies Allergy/AdvReac Type Severity Reaction Status Date / Time No Known Allergies Allergy Verified 01/20/21 16:19 Home Meds: Home Meds Ascorbic Acid [Vitamin C] 1,000 mg PO BID 07/13/14 [History] Aspirin [Aspirin EC] 81 mg PO DAILY 07/13/14 [History] Cholecalciferol (Vitamin D3) [Vitamin D3] 1,000 unit PO DAILY 07/13/14 [History] Gabapentin 500 mg PO TID 07/13/14 [History] Losartan [Cozaar] 100 mg PO DAILY 07/13/14 [History] Multivitamin [Multi-Vitamin Daily] 1 tab PO DAILY 07/13/14 [History] [place]-3/DHA/Epa/Fish Oil [[place]-3 Fish Oil 1,000 MG Sfgl] 1,000 mg PO BID 07/13/14 [History] Ondansetron [Zofran] 8 mg PO Q8H PRN 07/13/14 [History] Simvastatin [Zocor] 20 mg PO BEDTIME 07/13/14 [History] Vitamin E 1 cap PO DAILY 07/13/14 [History] Isosorbide Mononitrate [Imdur] 30 mg PO DAILY 02/15/15 [History] Magnesium Oxide 400 mg PO DAILY 02/15/15 [History] ALPRAZolam [Alprazolam] 0.5 mg PO BID PRN 05/17/20 [History] Rivaroxaban [Xarelto] 20 mg PO DAILY 05/17/20 [History] carvediloL [Carvedilol] 25 mg PO BID 05/17/20 [History] glipiZIDE [Glucotrol XL] 5 mg PO BID 05/17/20 [History] DULoxetine [Cymbalta] 20 mg PO BEDTIME 06/25/20 [History] Amiodarone HCl [Pacerone] 200 mg PO DAILY 01/20/21 [History] Bumetanide 3 mg PO DAILY 01/20/21 [History] Bumetanide [Bumex] 2 mg PO ASDIRECTED 01/20/21 [History] Insulin Asp Prot/Insulin Asp [NovoLOG Mix 70-30] 35 units SQ BID 01/20/21 [History] Pregabalin 100 mg PO TID 01/20/21 [History] Past Medical History HEENT History: Reports: Impaired Vision Cardiovascular History: Reports: CAD, High Cholesterol, Hypertension, SOB on Exertion, Stents Respiratory History: Reports: Sleep Apnea, SOB Other Respiratory History: Uses cpap Gastrointestinal History: Reports: Chronic Constipation STATIC BALANCER History: Reports: Musculoskeletal History: Reports: Arthritis, Back Pain, Chronic, Gout Psychiatric History: Reports: Anxiety Endocrine/Metabolic History: Reports: Diabetes, Type II, Obesity/BMI 30+ Oncologic (Cancer) History: Reports: Breast - Infectious Disease History Infectious Disease History: Reports: Mumps - Past Surgical History Head Surgeries/Procedures: Reports: None HEENT Surgical History: Reports: Cataract Surgery, Tonsillectomy Cardiovascular Surgical History: Reports: Carotid Stents, Vascular Surgery Respiratory Surgical History: Reports: None GI Surgical History: Reports: Appendectomy, Cholecystectomy, Colonoscopy Female Surgical History: Reports: Mastectomy Endocrine Surgical History: Reports: None Musculoskeletal Surgical History: Reports: Hip Replacement Oncologic Surgical History: Reports: Mastectomy Dermatological Surgical History: Reports: None Social & Family History - Family History Family Medical History: No Pertinent Family History Oncologic: Reports: Leukemia, Lung - Caffeine Use Caffeine Use: Reports: Soda ED ROS GENERAL - Review of Systems Review Of Systems: See Below Constitutional: Reports: Chills, Weakness, Fatigue. Denies: Fever HEENT: Reports: No Symptoms Respiratory: Reports: Shortness of Breath Cardiovascular: Reports: No Symptoms GI/Abdominal: Reports: No Symptoms Musculoskeletal: Reports: Leg Pain Skin: Reports: Erythema ED EXAM, SEPSIS - Physical Exam Exam: See Below Exam Limited By: No Limitations General Appearance: Alert, Mild Distress Respiratory/Chest: No Respiratory Distress, No Accessory Muscle Use, Chest Non- Tender, Crackles Cardiovascular: Irregularly Irregular GI/Abdominal Exam: Soft, Non-Tender Extremities: Pedal Edema Neurological: Alert, Oriented Course - Vital Signs Last Recorded V/S: Last Vital Signs Temp 97.3 F 01/20/21 16:20 Pulse 83 01/20/21 17:19 Resp 16 01/20/21 17:19 BP 117/51 L 01/20/21 17:19 Pulse Ox 90 L 01/20/21 17:19 - Orders/Labs/Meds Orders: Active Orders 24 hr Category Date Time Status Blood Pressure Mgt: Sepsis [RC] Q15MX2 Care 01/20/21 16:22 Active Chest 1V Frontal [CR] Stat Exams 01/20/21 16:21 Taken COVID-19/FLU A+B/RSV [MOLEC] Stat Lab 01/20/21 17:32 Received CULTURE BLOOD [BC] Urgent Lab 01/20/21 16:40 Received CULTURE BLOOD [BC] Urgent Lab 01/20/21 16:50 Received UA W/MICROSCOPIC [URIN] Stat Lab 01/20/21 16:21 Ordered Blood Culture x2 Reflex Set [OM.PC] Urgent Oth 01/20/21 16:21 Ordered Isolation [COMM] Stat Oth 01/20/21 16:27 Ordered Severe Sepsis Onset Time [OM.PC] Stat Oth 01/20/21 16:21 Ordered Labs: Laboratory Tests 01/20/21 01/20/21 01/20/21 Range/Units 16:13 16:40 16:40 WBC 15.3 H (4.5-11.0) K/uL RBC 4.18 (3.30-5.50) M/uL Hgb 13.0 D (12.0-15.0) g/dL Hct 41.6 (36.0-48.0) % MCV 100 H (80-98) fL MCH 31 (27-31) pg MCHC 31 L (32-36) % Plt Count 178 (150-400) K/uL Neut % (Auto) 94 H (36-66) % Lymph % (Auto) 2 L (24-44) % Burt % (Auto) 3 (2-6) % Eos % (Auto) 0 L (2-4) % Baso % (Auto) 0 (0-1) % PT 14.0 H (9.5-12.0) sec INR 1.29 H (0.80-1.20) Sodium (140-148) mmol/L Potassium (3.6-5.2) mmol/L Chloride (100-108) mmol/L Carbon Dioxide (21-32) mmol/L Anion Gap (5.0-14.0) mmol/L BUN (7-18) mg/dL Creatinine (0.6-1.0) mg/dL Est Cr Clr Drug Dosing mL/min Estimated GFR (MDRD) (>60) Glucose (74-106) mg/dL POC Glucose 220 H (74-106) mg/dL Lactic Acid (0.4-2.0) mmol/L Calcium (8.5-10.1) mg/dL Total Bilirubin (0.2-1.0) mg/dL AST (15-37) U/L ALT (12-78) U/L Alkaline Phosphatase (46-116) U/L Troponin I (0.000-0.056) ng/mL NT-Pro-B Natriuret Pep (5-450) pg/mL Total Protein (6.4-8.2) g/dL Albumin (3.4-5.0) g/dL Globulin (2.3-3.5) g/dL Albumin/Globulin Ratio (1.2-2.2) Lipase (73-393) U/L 01/20/21 01/20/21 01/20/21 Range/Units 16:40 16:40 17:27 WBC (4.5-11.0) K/uL RBC (3.30-5.50) M/uL Hgb (12.0-15.0) g/dL Hct (36.0-48.0) % MCV (80-98) fL MCH (27-31) pg MCHC (32-36) % Plt Count (150-400) K/uL Neut % (Auto) (36-66) % Lymph % (Auto) (24-44) % Burt % (Auto) (2-6) % Eos % (Auto) (2-4) % Baso % (Auto) (0-1) % PT (9.5-12.0) sec INR (0.80-1.20) Sodium 142 (140-148) mmol/L Potassium 5.2 (3.6-5.2) mmol/L Chloride 99 L (100-108) mmol/L Carbon Dioxide 29 (21-32) mmol/L Anion Gap 19.2 H (5.0-14.0) mmol/L BUN 30 H (7-18) mg/dL Creatinine 1.6 H (0.6-1.0) mg/dL Est Cr Clr Drug Dosing 24.94 mL/min Estimated GFR (MDRD) 31 L (>60) Glucose 250 H (74-106) mg/dL POC Glucose (74-106) mg/dL Lactic Acid 1.8 (0.4-2.0) mmol/L Calcium 9.7 (8.5-10.1) mg/dL Total Bilirubin 0.8 D (0.2-1.0) mg/dL AST 37 (15-37) U/L ALT 40 (12-78) U/L Alkaline Phosphatase 86 (46-116) U/L Troponin I < 0.017 (0.000-0.056) ng/mL NT-Pro-B Natriuret Pep 1529 H (5-450) pg/mL Total Protein 8.1 (6.4-8.2) g/dL Albumin 3.7 (3.4-5.0) g/dL Globulin 4.4 H (2.3-3.5) g/dL Albumin/Globulin Ratio 0.8 L (1.2-2.2) Lipase 58 L (73-393) U/L Meds: Medications Discontinued Medications Generic Name Dose Route Start Last Admin Trade Name Freq PRN Reason Stop Dose Admin Bumetanide 2 mg 01/20/21 17:46 Bumetanide 1 Mg/4 Ml Mdv IVPUSH 01/20/21 17:47 ONETIME ONE Ceftriaxone Sodium 1,000 mg 01/20/21 16:24 01/20/21 17:33 Ceftriaxone 500 Mg Vial IVPUSH 01/20/21 16:25 Not Given ONETIME ONE Ceftriaxone Sodium Confirm 01/20/21 16:44 Ceftriaxone 1 Gm Advvial Administered 01/20/21 16:45 Dose 1 gm IV .STK-MED ONE Doxycycline Hyclate 100 mg/ 100 mls @ 100 mls/hr 01/20/21 16:24 01/20/21 17:15 Sodium Chloride IV 04/18/21 17:23 100 mls/hr ONETIME ONE Administration Sodium Chloride 1,000 mls @ 999 mls/hr 01/20/21 16:30 01/20/21 17:18 Normal Saline IV 999 mls/hr ASDIRECTED AYAN Administration Sodium Chloride Confirm 01/20/21 16:45 Normal Saline Administered 01/20/21 16:46 Dose 100 mls @ as directed .ROUTE .STK-MED ONE Ceftriaxone Sodium 1 gm/ 50 mls @ 100 mls/hr 01/20/21 17:03 01/20/21 17:17 Sodium Chloride IV 01/20/21 17:32 100 mls/hr ONETIME ONE Administration Ondansetron HCl 4 mg 01/20/21 17:26 Ondansetron 4 Mg/2 Ml Sdv IVPUSH 01/20/21 17:27 ONETIME ONE Departure - Departure Time of Disposition: 18:05 Disposition: Admitted As Inpatient 68 Condition: Fair Clinical Impression: CAP (community acquired pneumonia) Qualifiers: Laterality: unspecified laterality Qualified Code(s): J18.9 - Pneumonia, unspecified organism - Discharge Information Referrals: Javier Weathers MD [Primary Care Provider] - Sepsis Event Note (ED) - Focused Exam Vital Signs: Vital Signs Temp Pulse Resp BP Pulse Ox 01/20/21 17:19 83 16 117/51 L 90 L 01/20/21 17:11 84 18 125/51 L 87 L 01/20/21 17:04 86 16 125/51 L 84 L 01/20/21 16:20 97.3 F 87 21 H 139/51 L 95 - My Orders Last 24 Hours: My Active Orders 01/20/21 16:21 Chest 1V Frontal [CR] Stat UA W/MICROSCOPIC [URIN] Stat Blood Culture x2 Reflex Set [OM.PC] Urgent Severe Sepsis Onset Time [OM.PC] Stat 01/20/21 16:22 Blood Pressure Mgt: Sepsis [RC] Q15MX2 01/20/21 16:27 Isolation [COMM] Stat 01/20/21 16:40 CULTURE BLOOD [BC] Urgent 01/20/21 16:50 CULTURE BLOOD [BC] Urgent 01/20/21 17:32 COVID-19/FLU A+B/RSV [MOLEC] Stat - Assessment/Plan Last 24 Hours: My Active Orders 01/20/21 16:21 Chest 1V Frontal [CR] Stat UA W/MICROSCOPIC [URIN] Stat Blood Culture x2 Reflex Set [OM.PC] Urgent Severe Sepsis Onset Time [OM.PC] Stat 01/20/21 16:22 Blood Pressure Mgt: Sepsis [RC] Q15MX2 01/20/21 16:27 Isolation [COMM] Stat 01/20/21 16:40 CULTURE BLOOD [BC] Urgent 01/20/21 16:50 CULTURE BLOOD [BC] Urgent 01/20/21 17:32 COVID-19/FLU A+B/RSV [MOLEC] Stat Plan: Assessment Acuity = acute Site and laterality = sepsis suspicious for community-acquired pneumonia complicated patient with known history of congestive heart failure Etiology = probable bacterial cause Manifestations = hypoxia and dyspnea Location of injury = Home Lab values = WBC elevated 15.3 consistent leukocytosis INR subtherapeutic at 1.29 creatinine elevated 1.6 consistent chronic renal failure stage G3 B glucose elevated to 250 consistent with hyperglycemia lactic acid normal 1.8 troponin was negative BNP elevated 1529 consistent with fluid overload type pattern however this is similar to the BNP she has had in the past chest x-ray shows cardiomegaly I do not appreciate any specific infiltrates she does have prior granulomatous disease official read radiologist pending Plan Initially started the sepsis protocol and started to give fluids however fluids were locked after concern for exacerbation of congestive heart failure. Antibiotics and blood cultures were initiated call discussed case with hospitalist on-call at 1800 he kindly agreed to come and evaluate the patient emergency department for admission This note was dictated using [email or web address] voice recognition software please call with any questions on syntax or grammar.
[2021-01-20] MEDS ORDERED: cefTRIAXone 1 GM AdvVial IV ONE (16:44)
[2021-01-20] MEDS ORDERED: Sodium Chloride 0.9% 100 ML ONE (16:45)
[2021-01-20] MEDS ORDERED: cefTRIAXone 1 GM in Sodium Chloride 0.9% 50 ML IV ONE (17:03)
[2021-01-20] MEDS ORDERED: Ondansetron 4 MG/2 ML SDV IVPUSH ONE (17:26)
[2021-01-20] MEDS ORDERED: Bumetanide 1 MG/4 ML MDV IVPUSH ONE (17:46)
[2021-01-20 18:11] LABS: CORONAVIRUS COVID-19 NAA NEGATIVE (NEGATIVE)
--- NOTE | 2021-01-20 18:23 | PCM.HP.2 ---
H&P History of Present Illness - General Date of Service: 01/20/21 Admit Problem/Dx: Admission Diagnosis/Problem Admission Diagnosis/Problem Pneumonia Source of Information: Patient, Provider, RN Notes Reviewed History Limitations: Reports: No Limitations - History of Present Illness Initial Comments - Free Text/Narative: Ms. Justice is an 85-year-old woman who was admitted through the emergency department following abrupt onset of weakness with shaking chills, shortness of breath, hypoxia, secondary to probable pneumonia and early sepsis. She has had some ongoing difficulty with pain in both of her lower extremities and does have appointment with podiatry tomorrow morning. She had been feeling fairly well until this afternoon when she noted abrupt onset of shaking chills with progressive shortness of breath. She has a history of congestive heart failure and was hospitalized in [place] in November. She has known chronic kidney disease, type 2 diabetes mellitus, history of breast cancer, and coronary artery disease. On evaluation in the emergency department white blood cell count is found to be elevated, chest x-ray was of poor quality secondary to body habitus. Heart does appear to be enlarged on her chest x-ray. She is found to be hypoxic and currently requiring 4 L of oxygen via nasal cannula to maintain adequate saturations. She is felt to have early sepsis, has not received fluid bolus because of the concern about her congestive heart failure. Currently denies any symptoms of chest pain or pressure, troponin level is within normal range. - Related Data Allergies/Adverse Reactions: Allergies Allergy/AdvReac Type Severity Reaction Status Date / Time No Known Allergies Allergy Verified 01/20/21 16:19 Home Medications: Home Meds Ascorbic Acid [Vitamin C] 1,000 mg PO BID 07/13/14 [History] Aspirin [Aspirin EC] 81 mg PO DAILY 07/13/14 [History] Cholecalciferol (Vitamin D3) [Vitamin D3] 1,000 unit PO DAILY 07/13/14 [History] Gabapentin 500 mg PO TID 07/13/14 [History] Losartan [Cozaar] 100 mg PO DAILY 07/13/14 [History] Multivitamin [Multi-Vitamin Daily] 1 tab PO DAILY 07/13/14 [History] [place]-3/DHA/Epa/Fish Oil [[place]-3 Fish Oil 1,000 MG Sfgl] 1,000 mg PO BID 07/13/14 [History] Ondansetron [Zofran] 8 mg PO Q8H PRN 07/13/14 [History] Simvastatin [Zocor] 20 mg PO BEDTIME 07/13/14 [History] Vitamin E 1 cap PO DAILY 07/13/14 [History] Isosorbide Mononitrate [Imdur] 30 mg PO DAILY 02/15/15 [History] Magnesium Oxide 400 mg PO DAILY 02/15/15 [History] ALPRAZolam [Alprazolam] 0.5 mg PO BID PRN 05/17/20 [History] Rivaroxaban [Xarelto] 20 mg PO DAILY 05/17/20 [History] carvediloL [Carvedilol] 25 mg PO BID 05/17/20 [History] glipiZIDE [Glucotrol XL] 5 mg PO BID 05/17/20 [History] DULoxetine [Cymbalta] 20 mg PO BEDTIME 06/25/20 [History] Amiodarone HCl [Pacerone] 200 mg PO DAILY 01/20/21 [History] Bumetanide 3 mg PO DAILY 01/20/21 [History] Bumetanide [Bumex] 2 mg PO ASDIRECTED 01/20/21 [History] Insulin Asp Prot/Insulin Asp [NovoLOG Mix 70-30] 35 units SQ BID 01/20/21 [History] Pregabalin 100 mg PO TID 01/20/21 [History] Past Medical History HEENT History: Reports: Impaired Vision Cardiovascular History: Reports: CAD, High Cholesterol, Hypertension, SOB on Exertion, Stents Respiratory History: Reports: Sleep Apnea, SOB Other Respiratory History: Uses cpap Gastrointestinal History: Reports: Chronic Constipation [employer] History: Reports: Musculoskeletal History: Reports: Arthritis, Back Pain, Chronic, Gout Psychiatric History: Reports: Anxiety Endocrine/Metabolic History: Reports: Diabetes, Type II, Obesity/BMI 30+ Oncologic (Cancer) History: Reports: Breast - Infectious Disease History Infectious Disease History: Reports: Mumps - Past Surgical History Head Surgeries/Procedures: Reports: None HEENT Surgical History: Reports: Cataract Surgery, Tonsillectomy Cardiovascular Surgical History: Reports: Carotid Stents, Vascular Surgery Respiratory Surgical History: Reports: None GI Surgical History: Reports: Appendectomy, Cholecystectomy, Colonoscopy Female Surgical History: Reports: Mastectomy Endocrine Surgical History: Reports: None Musculoskeletal Surgical History: Reports: Hip Replacement Oncologic Surgical History: Reports: Mastectomy Dermatological Surgical History: Reports: None Social & Family History - Family History Family Medical History: No Pertinent Family History Oncologic: Reports: Leukemia, Lung - Tobacco Use Tobacco Use Status *Q: Never Tobacco User - Caffeine Use Caffeine Use: Reports: Soda H&P Review of Systems - Review of Systems: Review Of Systems: See Below General: Reports: Chills, Malaise, Weakness, Fatigue, Decreased Appetite HEENT: Reports: No Symptoms Pulmonary: Reports: Shortness of Breath. Denies: Wheezing, Pleuritic Chest Pain, Cough, Sputum, Hemoptysis Cardiovascular: Reports: Dyspnea on Exertion. Denies: Chest Pain, Palpitations, Orthopnea, PND, Edema, Lightheadedness Gastrointestinal: Reports: No Symptoms Genitourinary: Reports: No Symptoms Musculoskeletal: Reports: Foot Pain (Bilaterally). Denies: Back Pain, Joint Swelling, Muscle Pain, Muscle Stiffness Skin: Reports: Other (Erythema both lower extremities, worse on the left) Psychiatric: Reports: No Symptoms Neurological: Reports: No Symptoms Hematologic/Lymphatic: Reports: No Symptoms Immunologic: Reports: No Symptoms Exam - Exam Exam: See Below - Vital Signs Vital Signs: Last Vital Signs Temp 97.3 F 01/20/21 16:20 Pulse 83 01/20/21 17:19 Resp 16 01/20/21 17:19 BP 117/51 L 01/20/21 17:19 Pulse Ox 90 L 01/20/21 17:19 Weight: 350 lb - Exam Quality Assessment: Supplemental Oxygen, DVT Prophylaxis General: Alert, Oriented, Cooperative, Moderate Distress HEENT: Conjunctiva Clear, Hearing Intact, Normal Nasal Septum, Posterior Pharynx Clear, Pupils Equal. No: Mucosa Moist & [place] Neck: Supple, Trachea Midline, +2 Carotid Pulse wo Bruit Lungs: Decreased Breath Sounds. No: Rales, Rhonchi, Wheezing Cardiovascular: Regular Rate, Regular Rhythm, Normal S1, Normal S2. No: Systolic Murmur, Diastolic Murmur GI/Abdominal Exam: Soft, Non-Tender, No Organomegaly, No Distention Back Exam: Normal Inspection, Full Range of Motion Extremities: Increased Warmth, Redness (Worse on the left) Skin: Warm, Dry, Intact Neurological: Cranial Nerves Intact, Strength Equal Bilateral, Normal Speech, Normal Tone. No: Sensation Intact (Peripheral neuropathy), Focal Deficit Neuro Extensive - Mental Status: Alert, Oriented x3, Normal Mood/Affect, Normal Cognition, Memory Intact - Patient Data Lab Results Last 24 hrs: Laboratory Results - last 24 hr 01/20/21 01/20/21 01/20/21 Range/Units 16:13 16:40 16:40 WBC 15.3 H (4.5-11.0) K/uL RBC 4.18 (3.30-5.50) M/uL Hgb 13.0 D (12.0-15.0) g/dL Hct 41.6 (36.0-48.0) % MCV 100 H (80-98) fL MCH 31 (27-31) pg MCHC 31 L (32-36) % Plt Count 178 (150-400) K/uL Neut % (Auto) 94 H (36-66) % Lymph % (Auto) 2 L (24-44) % [place] % (Auto) 3 (2-6) % Eos % (Auto) 0 L (2-4) % Baso % (Auto) 0 (0-1) % PT 14.0 H (9.5-12.0) sec INR 1.29 H (0.80-1.20) Sodium (140-148) mmol/L Potassium (3.6-5.2) mmol/L Chloride (100-108) mmol/L Carbon Dioxide (21-32) mmol/L Anion Gap (5.0-14.0) mmol/L BUN (7-18) mg/dL Creatinine (0.6-1.0) mg/dL Est Cr Clr Drug Dosing mL/min Estimated GFR (MDRD) (>60) Glucose (74-106) mg/dL POC Glucose 220 H (74-106) mg/dL Lactic Acid (0.4-2.0) mmol/L Calcium (8.5-10.1) mg/dL Total Bilirubin (0.2-1.0) mg/dL AST (15-37) U/L ALT (12-78) U/L Alkaline Phosphatase (46-116) U/L Troponin I (0.000-0.056) ng/mL NT-Pro-B Natriuret Pep (5-450) pg/mL Total Protein (6.4-8.2) g/dL Albumin (3.4-5.0) g/dL Globulin (2.3-3.5) g/dL Albumin/Globulin Ratio (1.2-2.2) Lipase (73-393) U/L Influenza Type A RNA (NEGATIVE) RSV RNA (INAAT) (NEGATIVE) Influenza Type B RNA (NEGATIVE) SARS-CoV-2 RNA (JARVIS) (NEGATIVE) 01/20/21 01/20/21 01/20/21 Range/Units 16:40 16:40 17:27 WBC (4.5-11.0) K/uL RBC (3.30-5.50) M/uL Hgb (12.0-15.0) g/dL Hct (36.0-48.0) % MCV (80-98) fL MCH (27-31) pg MCHC (32-36) % Plt Count (150-400) K/uL Neut % (Auto) (36-66) % Lymph % (Auto) (24-44) % [place] % (Auto) (2-6) % Eos % (Auto) (2-4) % Baso % (Auto) (0-1) % PT (9.5-12.0) sec INR (0.80-1.20) Sodium 142 (140-148) mmol/L Potassium 5.2 (3.6-5.2) mmol/L Chloride 99 L (100-108) mmol/L Carbon Dioxide 29 (21-32) mmol/L Anion Gap 19.2 H (5.0-14.0) mmol/L BUN 30 H (7-18) mg/dL Creatinine 1.6 H (0.6-1.0) mg/dL Est Cr Clr Drug Dosing 24.94 mL/min Estimated GFR (MDRD) 31 L (>60) Glucose 250 H (74-106) mg/dL POC Glucose (74-106) mg/dL Lactic Acid 1.8 (0.4-2.0) mmol/L Calcium 9.7 (8.5-10.1) mg/dL Total Bilirubin 0.8 D (0.2-1.0) mg/dL AST 37 (15-37) U/L ALT 40 (12-78) U/L Alkaline Phosphatase 86 (46-116) U/L Troponin I < 0.017 (0.000-0.056) ng/mL NT-Pro-B Natriuret Pep 1529 H (5-450) pg/mL Total Protein 8.1 (6.4-8.2) g/dL Albumin 3.7 (3.4-5.0) g/dL Globulin 4.4 H (2.3-3.5) g/dL Albumin/Globulin Ratio 0.8 L (1.2-2.2) Lipase 58 L (73-393) U/L Influenza Type A RNA (NEGATIVE) RSV RNA (INAAT) (NEGATIVE) Influenza Type B RNA (NEGATIVE) SARS-CoV-2 RNA (JARVIS) (NEGATIVE) 01/20/21 Range/Units 17:32 WBC (4.5-11.0) K/uL RBC (3.30-5.50) M/uL Hgb (12.0-15.0) g/dL Hct (36.0-48.0) % MCV (80-98) fL MCH (27-31) pg MCHC (32-36) % Plt Count (150-400) K/uL Neut % (Auto) (36-66) % Lymph % (Auto) (24-44) % [place] % (Auto) (2-6) % Eos % (Auto) (2-4) % Baso % (Auto) (0-1) % PT (9.5-12.0) sec INR (0.80-1.20) Sodium (140-148) mmol/L Potassium (3.6-5.2) mmol/L Chloride (100-108) mmol/L Carbon Dioxide (21-32) mmol/L Anion Gap (5.0-14.0) mmol/L BUN (7-18) mg/dL Creatinine (0.6-1.0) mg/dL Est Cr Clr Drug Dosing mL/min Estimated GFR (MDRD) (>60) Glucose (74-106) mg/dL POC Glucose (74-106) mg/dL Lactic Acid (0.4-2.0) mmol/L Calcium (8.5-10.1) mg/dL Total Bilirubin (0.2-1.0) mg/dL AST (15-37) U/L ALT (12-78) U/L Alkaline Phosphatase (46-116) U/L Troponin I (0.000-0.056) ng/mL NT-Pro-B Natriuret Pep (5-450) pg/mL Total Protein (6.4-8.2) g/dL Albumin (3.4-5.0) g/dL Globulin (2.3-3.5) g/dL Albumin/Globulin Ratio (1.2-2.2) Lipase (73-393) U/L Influenza Type A RNA Negative (NEGATIVE) RSV RNA (INAAT) Negative (NEGATIVE) Influenza Type B RNA Negative (NEGATIVE) SARS-CoV-2 RNA (JARVIS) Negative (NEGATIVE) Result Diagrams: 01/20/21 16:40 01/20/21 16:40 Sepsis Event Note - Evaluation Sepsis Screening Result: No Definite Risk - Focused Exam Vital Signs: Vital Signs Temp Pulse Resp BP Pulse Ox 01/20/21 17:19 83 16 117/51 L 90 L 01/20/21 17:11 84 18 125/51 L 87 L 01/20/21 17:04 86 16 125/51 L 84 L 01/20/21 16:20 97.3 F 87 21 H 139/51 L 95 *Q Meaningful Use (ADM) - VTE *Q VTE Pharmacological Contraindications *Q: High INR Value - VTE Risk Assess *Q Each Risk Factor Represents 1 Point: Swollen Legs, Current, Obesity ( BMI > 25 kg/m2), Congestive heart failure (CHF), Serious lung disease including pneumonia Total Score 1 Point Risk Factors: 4 Each Risk Factor Represents 2 Points: None Total Score 2 Point Risk Factors: 0 Each Risk Factor Represents 3 Points: Age 75 Years or Greater Total Score 3 Point Risk Factors: 3 Each Risk Factor Represents 5 Points: None Total Score 5 Point Risk Factors: 0 Venous Thromboembolism Risk Factor Score *Q: 7 Problem List Initiated/Reviewed/Updated: Yes Orders Last 24hrs: Active Orders 24 hr Category Date Time Status Patient Status Manage Transfer [TRANSFER] Routine ADT 01/20/21 18:13 Ordered Blood Pressure Mgt: Sepsis [RC] [id number] Care 01/20/21 16:22 Active Chest 1V Frontal [CR] Stat Exams 01/20/21 16:21 Taken Chest wo Cont [CT] Stat Exams 01/20/21 18:11 Ordered CULTURE BLOOD [BC] Urgent Lab 01/20/21 16:40 Received CULTURE BLOOD [BC] Urgent Lab 01/20/21 16:50 Received UA W/MICROSCOPIC [URIN] Stat Lab 01/20/21 16:21 Ordered Blood Culture x2 Reflex Set [OM.PC] Urgent Oth 01/20/21 16:21 Ordered Isolation [COMM] Stat Oth 01/20/21 16:27 Ordered Severe Sepsis Onset Time [OM.PC] Stat Oth 01/20/21 16:21 Ordered Resuscitation Status Routine Resus Stat 01/20/21 18:16 Ordered Assessment/Plan Comment:: ASSESSMENT AND PLAN PROBABLE PNEUMONIA WITH SEPSIS-abrupt onset of shortness of breath with hypoxia and chills. Elevated white blood cell count noted on evaluation urgency department. There is concern for congestive heart failure, vigorous IV fluid replacement has been held for this reason. -CT scan of the chest pending -Sputum and blood cultures pending -Procalcitonin pending -Urinalysis pending -Cautious IV fluid replacement -Levofloxacin 750 mg IV every 48 hours, pending culture results POSSIBLE CELLULITIS LEFT LOWER EXTREMITY-she has had ongoing pain in both lower extremities, now worse on the left. Foot is erythematous with increased warmth extending into the lower leg. Area of more intense erythema on the medial aspect of the ankle, with 2 possible areas of developing skin breakdown. -Podiatry evaluation if possible in a.m. -IV vancomycin and Zosyn, pending further evaluation and monitoring ACUTE HYPOXIC RESPIRATORY FAILURE-likely secondary to underlying pneumonia. She is on long-term oral anticoagulation making pulmonary emboli less likely. Unable to proceed with CT scan with contrast at this time because of her chronic kidney disease. -Continue current anticoagulation with Xarelto -Supplemental oxygen as needed -Admit to ICU for more close monitoring and potential use of BiPAP if needed CHRONIC KIDNEY DISEASE STAGE III -Closely monitor urine output and renal function TYPE 2 DIABETES MELLITUS -Hold glipizide -Continue usual out patient dosing of mixed split insulin -4 times daily glucometers -Moderate dose sliding scale Humalog CONGESTIVE HEART FAILURE-acute onset of shortness of breath seems to be more likely related to underlying infection -Continue current outpatient medications -CT scan of the chest pending MAINTENANCE ISSUES -DVT prophylaxis; current therapy with Xarelto should provide adequate DVT prophylaxis -GI prophylaxis; not indicated -[place]os catheter; not indicated -Nutrition; consistent carbohydrate diet -Nicotine dependence; not required CODE STATUS-DNR/DNI, I reviewed this with the patient and her was also present ADMISSION STATUS-patient will be admitted to inpatient status, expect at least a 2 night hospital stay for evaluation and management of problems as outlined above. At the time of this admission I do not reasonably expected evaluation and management of this problem will require more than a 96 hour hospital stay. DISPOSITION-anticipate discharge to home after the hospital stay. PRIMARY CARE PROVIDER-Dr. Weathers - Mortality Measure Prognosis:: Poor
[2021-01-20] MEDS ORDERED: Ondansetron 4 MG/2 ML SDV IV PRN (19:20)
[2021-01-20] MEDS ORDERED: Polyethylene Glycol 3350 Powder 17 GM Packet PO PRN (19:20)
[2021-01-20] MEDS ORDERED: Albuterol 0.083% 2.5 MG/3 ML Neb Soln NEB PRN (19:20)
[2021-01-20] MEDS ORDERED: Vancomycin 1 GM SDV IV SCH (19:20)
[2021-01-20] MEDS ORDERED: 50% Dextrose in Water 50 ML Syringe IV PRN (19:20)
[2021-01-20] MEDS ORDERED: Sodium Chloride 0.9% 10 ML Syringe FLUSH PRN (19:20)
[2021-01-20] MEDS ORDERED: Glucose Gel 15 GM in 37.5 GM Tube PO PRN (19:20)
[2021-01-20] MEDS ORDERED: Albuterol/Ipratropium 3.0-0.5 MG/3 ML Neb Soln NEB PRN (19:20)
--- NOTE | 2021-01-20 20:07 | CRLCT ---
INDICATION: HYPOXIA, [id number] IAMGES TAKEN PREV 1V CHEST XR SENT HISTORY: Hypoxia. Leukocytosis. COMPARISON: Chest 1 view, 01/20/2021. TECHNIQUE: CT of the chest. No intravenous contrast. Coronal/sagittal reconstruction images. FINDINGS: Arterial, including coronary artery, calcifications. The thyroid gland is symmetric. There is no pleural or pericardial effusion. Healed granulomatous disease. No displaced intimal calcification. No intramural or mediastinal hematoma. Calcified granuloma in the right upper lobe. The lung windows demonstrate no endobronchial mass. There is no bronchiectasis. There is dependent atelectasis bilaterally. No honeycomb formation. There is no traction bronchiectasis. There is no pneumothorax. There is an indeterminate nodule present at the left lung apex, which measures 7 mm on image 17, series 3. Evaluation of the upper abdomen demonstrates hepatomegaly. The liver measures up to 26 cm in length. No perihepatic ascites. Calcified splenic granuloma. No adrenal mass. There is no hydronephrosis or perinephric fluid collection. No pancreatic mass or pancreatic duct dilation. Bone windows demonstrate no suspicious bone lesions. There is spurring at the endplates of the thoracic and upper lumbar spine. IMPRESSION: 1. There is no thoracic lymphadenopathy or acute airspace disease. 2. No endobronchial mass or resorptive atelectasis. 3. Healed granulomatous disease. 4. 7 mm pulmonary nodule the left lung apex. Follow-up is suggested per Fleischner society guidelines. FLEISCHNER SOCIETY GUIDELINES - SOLID NODULES: SINGLE LOW RISK - nodule less than 6 mm: No routine follow-up. - nodule 6-8 mm: CT at 6-12 months, then consider CT at 18-24 months. - nodule greater than 8 mm: Consider CT at 3 months, PET/CT or tissue sampling. SINGLE HIGH RISK - nodule less than 6 mm: Optional CT at 12 months. - nodule 6-8 mm: CT at 6-12 months, then CT at 18-24 months. - nodule greater than 8 mm: Consider CT at 3 months, PET/CT or tissue sampling. MULTIPLE LOW RISK - nodule less than 6 mm: No routine follow-up. - nodule 6-8 mm: CT at 3-6 months, then consider CT at 18-24 months. - nodule greater than 8 mm: CT at 3-6 months, then consider CT at 18-24 months. MULTIPLE HIGH RISK - nodule less than 6 mm: Optional CT at 12 months. - nodule 6-8 mm: CT at 3-6 months, then at 18-24 months. - nodule greater than 8 mm: CT at 3-6 months, then at 18-24 months. Dictated by Lukasz Javier MD @ 01/20/2021 8:05:46 PM Please note that all CT scans at this facility use dose modulation, iterative reconstruction, and/or weight-based dosing when appropriate to reduce radiation dose to as low as reasonably achievable. Dictated by: Lukasz Javier MD @ 01/20/2021 20:06:05 (Electronically Signed)
[2021-01-20] MEDS: Sodium Chloride 0.9% 500 ML IV ONE (20:20)
[2021-01-20] MEDS: Sodium Chloride 0.9% 1,000 ML IV SCH (20:33)
[2021-01-20] MEDS: Piperacillin/Tazobactam 2.25 GM in Sodium Chloride 0.9% 50 ML IV SCH (20:36)
[2021-01-20] MEDS ORDERED: Levofloxacin/Dextrose 5%-Water 750 MG in Premix Bag 1 BAG IV SCH (21:00)
[2021-01-20] MEDS ORDERED: Pregabalin 100 MG Cap PO SCH (21:00)
[2021-01-20] MEDS ORDERED: Gabapentin 300 MG Cap PO SCH (21:00)
[2021-01-20] MEDS: DULoxetine 20 MG Cap PO SCH (21:20)
[2021-01-20] MEDS: Simvastatin 20 MG Tab PO SCH (21:20)
[2021-01-20] MEDS: Insulin Lispro 100 Unit/ML 3 ML KwikPen SUBCUT SCH (21:23)
[2021-01-20] MEDS ORDERED: Pregabalin 100 MG Cap PO ONE (22:15)
[2021-01-20] MEDS ORDERED: Gabapentin 100 MG Cap PO ONE (22:15)
[2021-01-21] MEDS: Acetaminophen 325 MG Tab PO PRN ×2 (01:42→20:19)
[2021-01-21] MEDS: Piperacillin/Tazobactam 2.25 GM in Sodium Chloride 0.9% 50 ML IV SCH (01:48)
[2021-01-21] MEDS: Sodium Chloride 0.9% 1,000 ML IV SCH ×2 (03:56→23:47)
[2021-01-21] MEDS: Piperacillin/Tazobactam/Dext 2.25 GM in Premix Bag 1 BAG IV SCH ×3 (07:49→20:11)
[2021-01-21] MEDS: Insulin Lispro 100 Unit/ML 3 ML KwikPen SUBCUT SCH ×4 (07:58→21:41)
[2021-01-21] MEDS: Carvedilol 12.5 MG Tab PO SCH ×2 (07:59→17:00)
[2021-01-21] MEDS ORDERED: Insulin Lispro Protamine/Lispro 75-25 100 Units/ML 10 ML Vial SUBCUT SCH (08:00)
[2021-01-21] MEDS: Amiodarone 200 MG Tab PO SCH (08:03)
[2021-01-21] MEDS: Bumetanide 1 MG Tab PO SCH (08:04)
[2021-01-21] MEDS: Magnesium Oxide 400 MG Tab PO SCH (08:05)
[2021-01-21] MEDS: Isosorbide Mononitrate 30 MG Tab.ER PO SCH (08:05)
[2021-01-21] MEDS: Losartan 50 MG Tab PO SCH (08:05)
[2021-01-21] MEDS: Aspirin 81 MG Tab.EC PO SCH (08:06)
[2021-01-21] MEDS: Rivaroxaban 10 MG Tab PO SCH (08:06)
--- NOTE | 2021-01-21 10:20 | PCM.PN ---
- General Info Date of Service: 01/21/21 Subjective Update: No acute events overnight. Patient still reports a fair amount of pain and both ankle areas on the medial side. She reports that she feels weak and confused. She has intermittent spasms of both arms and legs which is a jerking movement. She still feels short of breath but is not coughing much. She does not have any chest pain. She is worried about the swelling in her legs. She is also worried about the purple and blisterlike area on the left ankle. She describes her ankle pain as moderately severe. Functional Status: Reports: Pain Controlled - Review of Systems General: Reports: Weakness, Fatigue Pulmonary: Reports: Shortness of Breath Musculoskeletal: Reports: Leg Pain - Patient Data Vitals - Most Recent: Last Vital Signs Temp 36.4 C 01/21/21 08:12 Pulse 75 01/21/21 09:00 Resp 19 01/21/21 09:00 BP 117/45 L 01/21/21 09:00 Pulse Ox 92 L 01/21/21 09:00 Weight - Most Recent: 121.427 kg I&O - Last 24 Hours: Intake & Output 01/20/21 01/21/21 01/21/21 22:59 06:59 14:59 Intake Total 2079 50 Output Total 275 75 Balance 1804 -25 Lab Results Last 24 Hours: Laboratory Results - last 24 hr 01/20/21 01/20/21 01/20/21 Range/Units 16:13 16:40 16:40 WBC 15.3 H (4.5-11.0) K/uL RBC 4.18 (3.30-5.50) M/uL Hgb 13.0 D (12.0-15.0) g/dL Hct 41.6 (36.0-48.0) % MCV 100 H (80-98) fL MCH 31 (27-31) pg MCHC 31 L (32-36) % Plt Count 178 (150-400) K/uL Neut % (Auto) 94 H (36-66) % Lymph % (Auto) 2 L (24-44) % [place] % (Auto) 3 (2-6) % Eos % (Auto) 0 L (2-4) % Baso % (Auto) 0 (0-1) % PT 14.0 H (9.5-12.0) sec INR 1.29 H (0.80-1.20) Sodium (140-148) mmol/L Potassium (3.6-5.2) mmol/L Chloride (100-108) mmol/L Carbon Dioxide (21-32) mmol/L Anion Gap (5.0-14.0) mmol/L BUN (7-18) mg/dL Creatinine (0.6-1.0) mg/dL Est Cr Clr Drug Dosing mL/min Estimated GFR (MDRD) (>60) Glucose (74-106) mg/dL POC Glucose 220 H (74-106) mg/dL Lactic Acid (0.4-2.0) mmol/L Calcium (8.5-10.1) mg/dL Magnesium (1.8-2.4) mg/dL Total Bilirubin (0.2-1.0) mg/dL AST (15-37) U/L ALT (12-78) U/L Alkaline Phosphatase (46-116) U/L Troponin I (0.000-0.056) ng/mL NT-Pro-B Natriuret Pep (5-450) pg/mL Total Protein (6.4-8.2) g/dL Albumin (3.4-5.0) g/dL Globulin (2.3-3.5) g/dL Albumin/Globulin Ratio (1.2-2.2) Lipase (73-393) U/L Procalcitonin ng/mL Urine Color (YELLOW) Urine Appearance (CLEAR) Urine pH (5.0-8.0) Ur Specific [place] (1.008-1.030) Urine Protein (NEGATIVE) mg/dL Urine Glucose (UA) (NEGATIVE) mg/dL Urine Ketones (NEGATIVE) mg/dL Urine Occult Blood (NEGATIVE) Urine Nitrite (NEGATIVE) Urine Bilirubin (NEGATIVE) Urine Urobilinogen (0.2-1.0) EU/dL Ur Leukocyte Esterase (NEGATIVE) Urine RBC (0-5) Urine WBC (0-5) Ur Epithelial Cells Amorphous Sediment Urine Bacteria Urine Mucus Influenza Type A RNA (NEGATIVE) RSV RNA (INAAT) (NEGATIVE) Influenza Type B RNA (NEGATIVE) SARS-CoV-2 RNA (JARVIS) (NEGATIVE) 01/20/21 01/20/21 01/20/21 Range/Units 16:40 16:40 17:27 WBC (4.5-11.0) K/uL RBC (3.30-5.50) M/uL Hgb (12.0-15.0) g/dL Hct (36.0-48.0) % MCV (80-98) fL MCH (27-31) pg MCHC (32-36) % Plt Count (150-400) K/uL Neut % (Auto) (36-66) % Lymph % (Auto) (24-44) % [place] % (Auto) (2-6) % Eos % (Auto) (2-4) % Baso % (Auto) (0-1) % PT (9.5-12.0) sec INR (0.80-1.20) Sodium 142 (140-148) mmol/L Potassium 5.2 (3.6-5.2) mmol/L Chloride 99 L (100-108) mmol/L Carbon Dioxide 29 (21-32) mmol/L Anion Gap 19.2 H (5.0-14.0) mmol/L BUN 30 H (7-18) mg/dL Creatinine 1.6 H (0.6-1.0) mg/dL Est Cr Clr Drug Dosing 24.94 mL/min Estimated GFR (MDRD) 31 L (>60) Glucose 250 H (74-106) mg/dL POC Glucose (74-106) mg/dL Lactic Acid 1.8 (0.4-2.0) mmol/L Calcium 9.7 (8.5-10.1) mg/dL Magnesium (1.8-2.4) mg/dL Total Bilirubin 0.8 D (0.2-1.0) mg/dL AST 37 (15-37) U/L ALT 40 (12-78) U/L Alkaline Phosphatase 86 (46-116) U/L Troponin I < 0.017 (0.000-0.056) ng/mL NT-Pro-B Natriuret Pep 1529 H (5-450) pg/mL Total Protein 8.1 (6.4-8.2) g/dL Albumin 3.7 (3.4-5.0) g/dL Globulin 4.4 H (2.3-3.5) g/dL Albumin/Globulin Ratio 0.8 L (1.2-2.2) Lipase 58 L (73-393) U/L Procalcitonin ng/mL Urine Color (YELLOW) Urine Appearance (CLEAR) Urine pH (5.0-8.0) Ur Specific [place] (1.008-1.030) Urine Protein (NEGATIVE) mg/dL Urine Glucose (UA) (NEGATIVE) mg/dL Urine Ketones (NEGATIVE) mg/dL Urine Occult Blood (NEGATIVE) Urine Nitrite (NEGATIVE) Urine Bilirubin (NEGATIVE) Urine Urobilinogen (0.2-1.0) EU/dL Ur Leukocyte Esterase (NEGATIVE) Urine RBC (0-5) Urine WBC (0-5) Ur Epithelial Cells Amorphous Sediment Urine Bacteria Urine Mucus Influenza Type A RNA (NEGATIVE) RSV RNA (INAAT) (NEGATIVE) Influenza Type B RNA (NEGATIVE) SARS-CoV-2 RNA (JARVIS) (NEGATIVE) 01/20/21 01/20/21 01/20/21 Range/Units 17:32 19:08 21:17 WBC (4.5-11.0) K/uL RBC (3.30-5.50) M/uL Hgb (12.0-15.0) g/dL Hct (36.0-48.0) % MCV (80-98) fL MCH (27-31) pg MCHC (32-36) % Plt Count (150-400) K/uL Neut % (Auto) (36-66) % Lymph % (Auto) (24-44) % [place] % (Auto) (2-6) % Eos % (Auto) (2-4) % Baso % (Auto) (0-1) % PT (9.5-12.0) sec INR (0.80-1.20) Sodium (140-148) mmol/L Potassium (3.6-5.2) mmol/L Chloride (100-108) mmol/L Carbon Dioxide (21-32) mmol/L Anion Gap (5.0-14.0) mmol/L BUN (7-18) mg/dL Creatinine (0.6-1.0) mg/dL Est Cr Clr Drug Dosing mL/min Estimated GFR (MDRD) (>60) Glucose (74-106) mg/dL POC Glucose 196 H (74-106) mg/dL Lactic Acid (0.4-2.0) mmol/L Calcium (8.5-10.1) mg/dL Magnesium (1.8-2.4) mg/dL Total Bilirubin (0.2-1.0) mg/dL AST (15-37) U/L ALT (12-78) U/L Alkaline Phosphatase (46-116) U/L Troponin I (0.000-0.056) ng/mL NT-Pro-B Natriuret Pep (5-450) pg/mL Total Protein (6.4-8.2) g/dL Albumin (3.4-5.0) g/dL Globulin (2.3-3.5) g/dL Albumin/Globulin Ratio (1.2-2.2) Lipase (73-393) U/L Procalcitonin 3.10 H* ng/mL Urine Color (YELLOW) Urine Appearance (CLEAR) Urine pH (5.0-8.0) Ur Specific [place] (1.008-1.030) Urine Protein (NEGATIVE) mg/dL Urine Glucose (UA) (NEGATIVE) mg/dL Urine Ketones (NEGATIVE) mg/dL Urine Occult Blood (NEGATIVE) Urine Nitrite (NEGATIVE) Urine Bilirubin (NEGATIVE) Urine Urobilinogen (0.2-1.0) EU/dL Ur Leukocyte Esterase (NEGATIVE) Urine RBC (0-5) Urine WBC (0-5) Ur Epithelial Cells Amorphous Sediment Urine Bacteria Urine Mucus Influenza Type A RNA Negative (NEGATIVE) RSV RNA (INAAT) Negative (NEGATIVE) Influenza Type B RNA Negative (NEGATIVE) SARS-CoV-2 RNA (JARVIS) Negative (NEGATIVE) 01/21/21 01/21/21 01/21/21 Range/Units 01:41 05:56 05:56 WBC 17.8 H (4.5-11.0) K/uL RBC 3.47 (3.30-5.50) M/uL Hgb 11.2 L (12.0-15.0) g/dL Hct 34.9 L (36.0-48.0) % MCV 101 H (80-98) fL MCH 32 H (27-31) pg MCHC 32 (32-36) % Plt Count 144 L (150-400) K/uL Neut % (Auto) 92 H (36-66) % Lymph % (Auto) 5 L (24-44) % [place] % (Auto) 3 (2-6) % Eos % (Auto) 0 L (2-4) % Baso % (Auto) 0 (0-1) % PT (9.5-12.0) sec INR (0.80-1.20) Sodium 141 (140-148) mmol/L Potassium 5.6 H (3.6-5.2) mmol/L Chloride 102 (100-108) mmol/L Carbon Dioxide 27 (21-32) mmol/L Anion Gap 17.6 H (5.0-14.0) mmol/L BUN 32 H (7-18) mg/dL Creatinine 2.1 H (0.6-1.0) mg/dL Est Cr Clr Drug Dosing 19.00 mL/min Estimated GFR (MDRD) 22 L (>60) Glucose 258 H (74-106) mg/dL POC Glucose (74-106) mg/dL Lactic Acid (0.4-2.0) mmol/L Calcium 8.8 (8.5-10.1) mg/dL Magnesium 1.5 L D (1.8-2.4) mg/dL Total Bilirubin 0.6 (0.2-1.0) mg/dL AST 48 H (15-37) U/L ALT 41 (12-78) U/L Alkaline Phosphatase 47 (46-116) U/L Troponin I (0.000-0.056) ng/mL NT-Pro-B Natriuret Pep (5-450) pg/mL Total Protein 6.6 (6.4-8.2) g/dL Albumin 2.7 L (3.4-5.0) g/dL Globulin 3.9 H (2.3-3.5) g/dL Albumin/Globulin Ratio 0.7 L (1.2-2.2) Lipase (73-393) U/L Procalcitonin ng/mL Urine Color Yellow (YELLOW) Urine Appearance Slightly cloudy A (CLEAR) Urine pH 5.5 (5.0-8.0) Ur Specific [place] 1.015 (1.008-1.030) Urine Protein Negative (NEGATIVE) mg/dL Urine Glucose (UA) Negative (NEGATIVE) mg/dL Urine Ketones Negative (NEGATIVE) mg/dL Urine Occult Blood Negative (NEGATIVE) Urine Nitrite Negative (NEGATIVE) Urine Bilirubin Negative (NEGATIVE) Urine Urobilinogen 0.2 (0.2-1.0) EU/dL Ur Leukocyte Esterase Small H (NEGATIVE) Urine RBC 0-5 (0-5) Urine WBC 0-5 (0-5) Ur Epithelial Cells Few Amorphous Sediment Few Urine Bacteria Many Urine Mucus Not seen Influenza Type A RNA (NEGATIVE) RSV RNA (INAAT) (NEGATIVE) Influenza Type B RNA (NEGATIVE) SARS-CoV-2 RNA (JARVIS) (NEGATIVE) 01/21/21 Range/Units 07:40 WBC (4.5-11.0) K/uL RBC (3.30-5.50) M/uL Hgb (12.0-15.0) g/dL Hct (36.0-48.0) % MCV (80-98) fL MCH (27-31) pg MCHC (32-36) % Plt Count (150-400) K/uL Neut % (Auto) (36-66) % Lymph % (Auto) (24-44) % [place] % (Auto) (2-6) % Eos % (Auto) (2-4) % Baso % (Auto) (0-1) % PT (9.5-12.0) sec INR (0.80-1.20) Sodium (140-148) mmol/L Potassium (3.6-5.2) mmol/L Chloride (100-108) mmol/L Carbon Dioxide (21-32) mmol/L Anion Gap (5.0-14.0) mmol/L BUN (7-18) mg/dL Creatinine (0.6-1.0) mg/dL Est Cr Clr Drug Dosing mL/min Estimated GFR (MDRD) (>60) Glucose (74-106) mg/dL POC Glucose 253 H (74-106) mg/dL Lactic Acid (0.4-2.0) mmol/L Calcium (8.5-10.1) mg/dL Magnesium (1.8-2.4) mg/dL Total Bilirubin (0.2-1.0) mg/dL AST (15-37) U/L ALT (12-78) U/L Alkaline Phosphatase (46-116) U/L Troponin I (0.000-0.056) ng/mL NT-Pro-B Natriuret Pep (5-450) pg/mL Total Protein (6.4-8.2) g/dL Albumin (3.4-5.0) g/dL Globulin (2.3-3.5) g/dL Albumin/Globulin Ratio (1.2-2.2) Lipase (73-393) U/L Procalcitonin ng/mL Urine Color (YELLOW) Urine Appearance (CLEAR) Urine pH (5.0-8.0) Ur Specific [place] (1.008-1.030) Urine Protein (NEGATIVE) mg/dL Urine Glucose (UA) (NEGATIVE) mg/dL Urine Ketones (NEGATIVE) mg/dL Urine Occult Blood (NEGATIVE) Urine Nitrite (NEGATIVE) Urine Bilirubin (NEGATIVE) Urine Urobilinogen (0.2-1.0) EU/dL Ur Leukocyte Esterase (NEGATIVE) Urine RBC (0-5) Urine WBC (0-5) Ur Epithelial Cells Amorphous Sediment Urine Bacteria Urine Mucus Influenza Type A RNA (NEGATIVE) RSV RNA (INAAT) (NEGATIVE) Influenza Type B RNA (NEGATIVE) SARS-CoV-2 RNA (JARVIS) (NEGATIVE) Itz Results Last 24 Hours: Microbiology 01/20/21 16:40 Aerobic Blood Culture - Preliminary Blood - Venous - Iv Start Anaerobic Blood Culture - Preliminary 01/20/21 16:50 Aerobic Blood Culture - Preliminary Blood - Venous - Iv Start Med Orders - Current: Current Medications Acetaminophen (Acetaminophen 325 Mg Tab) 650 mg PO Q4H PRN PRN Reason: Pain (Mild 1-3)/fever Last Admin: 01/21/21 01:42 Dose: 650 mg Documented by: Albuterol (Albuterol 0.083% 2.5 Mg/3 Ml Neb Soln) 2.5 mg NEB Q4H PRN PRN Reason: Shortness Of Breath/wheezing Albuterol/Ipratropium (Albuterol/Ipratropium 3.0-0.5 Mg/3 Ml Neb Soln) 3 ml NEB QID PRN PRN Reason: Shortness Of Breath/wheezing Amiodarone HCl (Amiodarone 200 Mg Tab) 200 mg PO DAILY [facility] Last Admin: 01/21/21 08:03 Dose: 200 mg Documented by: Aspirin (Aspirin 81 Mg Tab.Ec) 81 mg PO DAILY [facility] Last Admin: 01/21/21 08:06 Dose: 81 mg Documented by: Bumetanide (Bumetanide 1 Mg Tab) 3 mg PO DAILY [facility] Last Admin: 01/21/21 08:04 Dose: 3 mg Documented by: Carvedilol (Carvedilol 12.5 Mg Tab) 25 mg PO BIDMEALS [facility] Last Admin: 01/21/21 07:59 Dose: 25 mg Documented by: Dextrose (Glucose Gel 15 Gm In 37.5 Gm Tube) 15 gm PO ONETIME PRN PRN Reason: Hypoglycemia Dextrose/Water (50% Dextrose In Water 50 Ml Syringe) 50 ml IV ONETIME PRN PRN Reason: Hypoglycemia Duloxetine HCl (Duloxetine 20 Mg Cap) 20 mg PO BEDTIME [facility] Last Admin: 01/20/21 21:20 Dose: 20 mg Documented by: Levofloxacin/Dextrose 750 mg/ (Premix) 150 mls @ 100 mls/hr IV Q48H [facility] Last Admin: 01/20/21 21:20 Dose: 100 mls/hr Documented by: Vancomycin HCl 1.5 gm/ Sodium (Chloride) 250 mls @ 166.667 mls/hr IV Q24H [facility] Last Admin: 01/20/21 22:48 Dose: 166.667 mls/hr Documented by: Piperacillin/Tazobactam/ (Dextrose 2.25 gm/ Premix) 50 mls @ 100 mls/hr IV Q6H [facility] Last Admin: 01/21/21 07:49 Dose: 100 mls/hr Documented by: Insulin Human Lispro (Insulin Lispro 100 Unit/Ml 3 Ml Kwikpen) 0 unit SUBCUT QIDACANDBED [facility]; Protocol Last Admin: 01/21/21 07:58 Dose: 6 unit Documented by: Insulin Lispro Protam/Lispro Human (Insulin Lispro Protamine/Lispro 75-25 100 Units/Ml 10 Ml Vial) 35 unit SUBCUT BIDMEALS [facility] Isosorbide Mononitrate (Isosorbide Mononitrate 30 Mg Tab.Er) 30 mg PO DAILY [facility] Last Admin: 01/21/21 08:05 Dose: 30 mg Documented by: Lorazepam (Lorazepam 0.5 Mg Tab) 0.25 mg PO Q4H PRN PRN Reason: Anxiety Losartan Potassium (Losartan 50 Mg Tab) 100 mg PO DAILY [facility] Last Admin: 01/21/21 08:05 Dose: 100 mg Documented by: Magnesium Oxide (Magnesium Oxide 400 Mg Tab) 400 mg PO DAILY [facility] Last Admin: 01/21/21 08:05 Dose: 400 mg Documented by: Ondansetron HCl (Ondansetron 4 Mg/2 Ml Sdv) 4 mg IV Q4H PRN PRN Reason: Nausea/Vomiting Polyethylene Glycol (Polyethylene Glycol 3350 Powder 17 Gm Packet) 17 gm PO DAILY PRN PRN Reason: Constipation Rivaroxaban (Rivaroxaban 10 Mg Tab) 20 mg PO DAILY [facility] Last Admin: 01/21/21 08:06 Dose: 20 mg Documented by: Simvastatin (Simvastatin 20 Mg Tab) 20 mg PO BEDTIME [facility] Last Admin: 01/20/21 21:20 Dose: 20 mg Documented by: Sodium Chloride (Sodium Chloride 0.9% 10 Ml Syringe) 10 ml FLUSH ASDIRECTED PRN PRN Reason: Keep Vein Open Discontinued Medications Bumetanide (Bumetanide 1 Mg/4 Ml Mdv) 2 mg IVPUSH ONETIME ONE Stop: 01/20/21 17:47 Last Admin: 01/20/21 19:16 Dose: 2 mg Documented by: Ceftriaxone Sodium (Ceftriaxone 500 Mg Vial) 1,000 mg IVPUSH ONETIME ONE Stop: 01/20/21 16:25 Last Admin: 01/20/21 17:33 Dose: Not Given Documented by: Ceftriaxone Sodium (Ceftriaxone 1 Gm Advvial) Confirm Administered Dose 1 gm IV .STK-MED ONE Stop: 01/20/21 16:45 Last Admin: 01/21/21 06:15 Dose: Not Given Documented by: Gabapentin (Gabapentin 300 Mg Cap) 500 mg PO TID [facility] Gabapentin (Gabapentin 100 Mg Cap) 500 mg PO ONETIME ONE Stop: 01/20/21 22:16 Last Admin: 01/20/21 22:44 Dose: 500 mg Documented by: Doxycycline Hyclate 100 mg/ (Sodium Chloride) 100 mls @ 100 mls/hr IV ONETIME ONE Stop: 01/20/21 17:23 Last Admin: 01/20/21 17:15 Dose: 100 mls/hr Documented by: Sodium Chloride (Normal Saline) 1,000 mls @ 999 mls/hr IV ASDIRECTED [facility] Last Admin: 01/20/21 17:18 Dose: 999 mls/hr Documented by: Sodium Chloride (Normal Saline) Confirm Administered Dose 100 mls @ as directed .ROUTE .STK-MED ONE Stop: 01/20/21 16:46 Last Admin: 01/21/21 06:15 Dose: Not Given Documented by: Ceftriaxone Sodium 1 gm/ (Sodium Chloride) 50 mls @ 100 mls/hr IV ONETIME ONE Stop: 01/20/21 17:32 Last Admin: 01/20/21 17:17 Dose: 100 mls/hr Documented by: Sodium Chloride (Normal Saline) 1,000 mls @ 125 mls/hr IV ASDIRECTED [facility] Last Admin: 01/21/21 03:56 Dose: 125 mls/hr Documented by: Piperacillin Sod/Tazobactam (Sod 2.25 gm/ Sodium Chloride) 50 mls @ 100 mls/hr IV Q6H [facility] Last Admin: 01/21/21 01:48 Dose: 100 mls/hr Documented by: Sodium Chloride (Normal Saline) 500 mls @ 500 mls/hr IV .BOLUS ONE Stop: 01/20/21 21:33 Last Admin: 01/20/21 20:20 Dose: 500 mls/hr Documented by: Ondansetron HCl (Ondansetron 4 Mg/2 Ml Sdv) 4 mg IVPUSH ONETIME ONE Stop: 01/20/21 17:27 Last Admin: 01/21/21 06:15 Dose: Not Given Documented by: Pregabalin (Pregabalin 100 Mg Cap) 100 mg PO TID [facility] Pregabalin (Pregabalin 100 Mg Cap) 100 mg PO ONETIME ONE Stop: 01/20/21 22:16 Last Admin: 01/20/21 22:45 Dose: 100 mg Documented by: Vancomycin HCl (Vancomycin 1 Gm Sdv) 1 gm IV .PHARMACY TO DOSE [facility] Stop: 01/21/21 07:30 - Exam Quality Assessment: Supplemental Oxygen General: Alert, Oriented, Cooperative, No Acute Distress Neck: No JVD Lungs: Normal Respiratory Effort, Decreased Breath Sounds (both bases) Cardiovascular: Regular Rate, Regular Rhythm GI/Abdominal Exam: Soft, No Distention Extremities: Pedal Edema (left ankle to [place]), Increased Warmth (left ankle and lower 1/2 of leg) Skin: Warm, Dry, Rash (erythema and warmth left leg from [place] distally to foot), Other (purple lesion distal to left medial malleolus with 2 bullae. also abrasion/ulceration left heal with no surrounding erythema ) Wound/Incisions: No Drainage, Erythema Psy/Mental Status: Alert, Normal Affect - Patient Data Lab Results Last 24 hrs: Laboratory Results - last 24 hr 01/20/21 01/20/21 01/20/21 Range/Units 16:13 16:40 16:40 WBC 15.3 H (4.5-11.0) K/uL RBC 4.18 (3.30-5.50) M/uL Hgb 13.0 D (12.0-15.0) g/dL Hct 41.6 (36.0-48.0) % MCV 100 H (80-98) fL MCH 31 (27-31) pg MCHC 31 L (32-36) % Plt Count 178 (150-400) K/uL Neut % (Auto) 94 H (36-66) % Lymph % (Auto) 2 L (24-44) % [place] % (Auto) 3 (2-6) % Eos % (Auto) 0 L (2-4) % Baso % (Auto) 0 (0-1) % PT 14.0 H (9.5-12.0) sec INR 1.29 H (0.80-1.20) Sodium (140-148) mmol/L Potassium (3.6-5.2) mmol/L Chloride (100-108) mmol/L Carbon Dioxide (21-32) mmol/L Anion Gap (5.0-14.0) mmol/L BUN (7-18) mg/dL Creatinine (0.6-1.0) mg/dL Est Cr Clr Drug Dosing mL/min Estimated GFR (MDRD) (>60) Glucose (74-106) mg/dL POC Glucose 220 H (74-106) mg/dL Lactic Acid (0.4-2.0) mmol/L Calcium (8.5-10.1) mg/dL Magnesium (1.8-2.4) mg/dL Total Bilirubin (0.2-1.0) mg/dL AST (15-37) U/L ALT (12-78) U/L Alkaline Phosphatase (46-116) U/L Troponin I (0.000-0.056) ng/mL NT-Pro-B Natriuret Pep (5-450) pg/mL Total Protein (6.4-8.2) g/dL Albumin (3.4-5.0) g/dL Globulin (2.3-3.5) g/dL Albumin/Globulin Ratio (1.2-2.2) Lipase (73-393) U/L Procalcitonin ng/mL Urine Color (YELLOW) Urine Appearance (CLEAR) Urine pH (5.0-8.0) Ur Specific [place] (1.008-1.030) Urine Protein (NEGATIVE) mg/dL Urine Glucose (UA) (NEGATIVE) mg/dL Urine Ketones (NEGATIVE) mg/dL Urine Occult Blood (NEGATIVE) Urine Nitrite (NEGATIVE) Urine Bilirubin (NEGATIVE) Urine Urobilinogen (0.2-1.0) EU/dL Ur Leukocyte Esterase (NEGATIVE) Urine RBC (0-5) Urine WBC (0-5) Ur Epithelial Cells Amorphous Sediment Urine Bacteria Urine Mucus Influenza Type A RNA (NEGATIVE) RSV RNA (INAAT) (NEGATIVE) Influenza Type B RNA (NEGATIVE) SARS-CoV-2 RNA (JARVIS) (NEGATIVE) 01/20/21 01/20/21 01/20/21 Range/Units 16:40 16:40 17:27 WBC (4.5-11.0) K/uL RBC (3.30-5.50) M/uL Hgb (12.0-15.0) g/dL Hct (36.0-48.0) % MCV (80-98) fL MCH (27-31) pg MCHC (32-36) % Plt Count (150-400) K/uL Neut % (Auto) (36-66) % Lymph % (Auto) (24-44) % [place] % (Auto) (2-6) % Eos % (Auto) (2-4) % Baso % (Auto) (0-1) % PT (9.5-12.0) sec INR (0.80-1.20) Sodium 142 (140-148) mmol/L Potassium 5.2 (3.6-5.2) mmol/L Chloride 99 L (100-108) mmol/L Carbon Dioxide 29 (21-32) mmol/L Anion Gap 19.2 H (5.0-14.0) mmol/L BUN 30 H (7-18) mg/dL Creatinine 1.6 H (0.6-1.0) mg/dL Est Cr Clr Drug Dosing 24.94 mL/min Estimated GFR (MDRD) 31 L (>60) Glucose 250 H (74-106) mg/dL POC Glucose (74-106) mg/dL Lactic Acid 1.8 (0.4-2.0) mmol/L Calcium 9.7 (8.5-10.1) mg/dL Magnesium (1.8-2.4) mg/dL Total Bilirubin 0.8 D (0.2-1.0) mg/dL AST 37 (15-37) U/L ALT 40 (12-78) U/L Alkaline Phosphatase 86 (46-116) U/L Troponin I < 0.017 (0.000-0.056) ng/mL NT-Pro-B Natriuret Pep 1529 H (5-450) pg/mL Total Protein 8.1 (6.4-8.2) g/dL Albumin 3.7 (3.4-5.0) g/dL Globulin 4.4 H (2.3-3.5) g/dL Albumin/Globulin Ratio 0.8 L (1.2-2.2) Lipase 58 L (73-393) U/L Procalcitonin ng/mL Urine Color (YELLOW) Urine Appearance (CLEAR) Urine pH (5.0-8.0) Ur Specific [place] (1.008-1.030) Urine Protein (NEGATIVE) mg/dL Urine Glucose (UA) (NEGATIVE) mg/dL Urine Ketones (NEGATIVE) mg/dL Urine Occult Blood (NEGATIVE) Urine Nitrite (NEGATIVE) Urine Bilirubin (NEGATIVE) Urine Urobilinogen (0.2-1.0) EU/dL Ur Leukocyte Esterase (NEGATIVE) Urine RBC (0-5) Urine WBC (0-5) Ur Epithelial Cells Amorphous Sediment Urine Bacteria Urine Mucus Influenza Type A RNA (NEGATIVE) RSV RNA (INAAT) (NEGATIVE) Influenza Type B RNA (NEGATIVE) SARS-CoV-2 RNA (JARVIS) (NEGATIVE) 01/20/21 01/20/21 01/20/21 Range/Units 17:32 19:08 21:17 WBC (4.5-11.0) K/uL RBC (3.30-5.50) M/uL Hgb (12.0-15.0) g/dL Hct (36.0-48.0) % MCV (80-98) fL MCH (27-31) pg MCHC (32-36) % Plt Count (150-400) K/uL Neut % (Auto) (36-66) % Lymph % (Auto) (24-44) % [place] % (Auto) (2-6) % Eos % (Auto) (2-4) % Baso % (Auto) (0-1) % PT (9.5-12.0) sec INR (0.80-1.20) Sodium (140-148) mmol/L Potassium (3.6-5.2) mmol/L Chloride (100-108) mmol/L Carbon Dioxide (21-32) mmol/L Anion Gap (5.0-14.0) mmol/L BUN (7-18) mg/dL Creatinine (0.6-1.0) mg/dL Est Cr Clr Drug Dosing mL/min Estimated GFR (MDRD) (>60) Glucose (74-106) mg/dL POC Glucose 196 H (74-106) mg/dL Lactic Acid (0.4-2.0) mmol/L Calcium (8.5-10.1) mg/dL Magnesium (1.8-2.4) mg/dL Total Bilirubin (0.2-1.0) mg/dL AST (15-37) U/L ALT (12-78) U/L Alkaline Phosphatase (46-116) U/L Troponin I (0.000-0.056) ng/mL NT-Pro-B Natriuret Pep (5-450) pg/mL Total Protein (6.4-8.2) g/dL Albumin (3.4-5.0) g/dL Globulin (2.3-3.5) g/dL Albumin/Globulin Ratio (1.2-2.2) Lipase (73-393) U/L Procalcitonin 3.10 H* ng/mL Urine Color (YELLOW) Urine Appearance (CLEAR) Urine pH (5.0-8.0) Ur Specific [place] (1.008-1.030) Urine Protein (NEGATIVE) mg/dL Urine Glucose (UA) (NEGATIVE) mg/dL Urine Ketones (NEGATIVE) mg/dL Urine Occult Blood (NEGATIVE) Urine Nitrite (NEGATIVE) Urine Bilirubin (NEGATIVE) Urine Urobilinogen (0.2-1.0) EU/dL Ur Leukocyte Esterase (NEGATIVE) Urine RBC (0-5) Urine WBC (0-5) Ur Epithelial Cells Amorphous Sediment Urine Bacteria Urine Mucus Influenza Type A RNA Negative (NEGATIVE) RSV RNA (INAAT) Negative (NEGATIVE) Influenza Type B RNA Negative (NEGATIVE) SARS-CoV-2 RNA (JARVIS) Negative (NEGATIVE) 01/21/21 01/21/21 01/21/21 Range/Units 01:41 05:56 05:56 WBC 17.8 H (4.5-11.0) K/uL RBC 3.47 (3.30-5.50) M/uL Hgb 11.2 L (12.0-15.0) g/dL Hct 34.9 L (36.0-48.0) % MCV 101 H (80-98) fL MCH 32 H (27-31) pg MCHC 32 (32-36) % Plt Count 144 L (150-400) K/uL Neut % (Auto) 92 H (36-66) % Lymph % (Auto) 5 L (24-44) % [place] % (Auto) 3 (2-6) % Eos % (Auto) 0 L (2-4) % Baso % (Auto) 0 (0-1) % PT (9.5-12.0) sec INR (0.80-1.20) Sodium 141 (140-148) mmol/L Potassium 5.6 H (3.6-5.2) mmol/L Chloride 102 (100-108) mmol/L Carbon Dioxide 27 (21-32) mmol/L Anion Gap 17.6 H (5.0-14.0) mmol/L BUN 32 H (7-18) mg/dL Creatinine 2.1 H (0.6-1.0) mg/dL Est Cr Clr Drug Dosing 19.00 mL/min Estimated GFR (MDRD) 22 L (>60) Glucose 258 H (74-106) mg/dL POC Glucose (74-106) mg/dL Lactic Acid (0.4-2.0) mmol/L Calcium 8.8 (8.5-10.1) mg/dL Magnesium 1.5 L D (1.8-2.4) mg/dL Total Bilirubin 0.6 (0.2-1.0) mg/dL AST 48 H (15-37) U/L ALT 41 (12-78) U/L Alkaline Phosphatase 47 (46-116) U/L Troponin I (0.000-0.056) ng/mL NT-Pro-B Natriuret Pep (5-450) pg/mL Total Protein 6.6 (6.4-8.2) g/dL Albumin 2.7 L (3.4-5.0) g/dL Globulin 3.9 H (2.3-3.5) g/dL Albumin/Globulin Ratio 0.7 L (1.2-2.2) Lipase (73-393) U/L Procalcitonin ng/mL Urine Color Yellow (YELLOW) Urine Appearance Slightly cloudy A (CLEAR) Urine pH 5.5 (5.0-8.0) Ur Specific [place] 1.015 (1.008-1.030) Urine Protein Negative (NEGATIVE) mg/dL Urine Glucose (UA) Negative (NEGATIVE) mg/dL Urine Ketones Negative (NEGATIVE) mg/dL Urine Occult Blood Negative (NEGATIVE) Urine Nitrite Negative (NEGATIVE) Urine Bilirubin Negative (NEGATIVE) Urine Urobilinogen 0.2 (0.2-1.0) EU/dL Ur Leukocyte Esterase Small H (NEGATIVE) Urine RBC 0-5 (0-5) Urine WBC 0-5 (0-5) Ur Epithelial Cells Few Amorphous Sediment Few Urine Bacteria Many Urine Mucus Not seen Influenza Type A RNA (NEGATIVE) RSV RNA (INAAT) (NEGATIVE) Influenza Type B RNA (NEGATIVE) SARS-CoV-2 RNA (JARVIS) (NEGATIVE) 01/21/21 Range/Units 07:40 WBC (4.5-11.0) K/uL RBC (3.30-5.50) M/uL Hgb (12.0-15.0) g/dL Hct (36.0-48.0) % MCV (80-98) fL MCH (27-31) pg MCHC (32-36) % Plt Count (150-400) K/uL Neut % (Auto) (36-66) % Lymph % (Auto) (24-44) % [place] % (Auto) (2-6) % Eos % (Auto) (2-4) % Baso % (Auto) (0-1) % PT (9.5-12.0) sec INR (0.80-1.20) Sodium (140-148) mmol/L Potassium (3.6-5.2) mmol/L Chloride (100-108) mmol/L Carbon Dioxide (21-32) mmol/L Anion Gap (5.0-14.0) mmol/L BUN (7-18) mg/dL Creatinine (0.6-1.0) mg/dL Est Cr Clr Drug Dosing mL/min Estimated GFR (MDRD) (>60) Glucose (74-106) mg/dL POC Glucose 253 H (74-106) mg/dL Lactic Acid (0.4-2.0) mmol/L Calcium (8.5-10.1) mg/dL Magnesium (1.8-2.4) mg/dL Total Bilirubin (0.2-1.0) mg/dL AST (15-37) U/L ALT (12-78) U/L Alkaline Phosphatase (46-116) U/L Troponin I (0.000-0.056) ng/mL NT-Pro-B Natriuret Pep (5-450) pg/mL Total Protein (6.4-8.2) g/dL Albumin (3.4-5.0) g/dL Globulin (2.3-3.5) g/dL Albumin/Globulin Ratio (1.2-2.2) Lipase (73-393) U/L Procalcitonin ng/mL Urine Color (YELLOW) Urine Appearance (CLEAR) Urine pH (5.0-8.0) Ur Specific [place] (1.008-1.030) Urine Protein (NEGATIVE) mg/dL Urine Glucose (UA) (NEGATIVE) mg/dL Urine Ketones (NEGATIVE) mg/dL Urine Occult Blood (NEGATIVE) Urine Nitrite (NEGATIVE) Urine Bilirubin (NEGATIVE) Urine Urobilinogen (0.2-1.0) EU/dL Ur Leukocyte Esterase (NEGATIVE) Urine RBC (0-5) Urine WBC (0-5) Ur Epithelial Cells Amorphous Sediment Urine Bacteria Urine Mucus Influenza Type A RNA (NEGATIVE) RSV RNA (INAAT) (NEGATIVE) Influenza Type B RNA (NEGATIVE) SARS-CoV-2 RNA (JARVIS) (NEGATIVE) Result Diagrams: 01/21/21 05:56 01/21/21 05:56 Itz Results Last 24 hrs: Microbiology 01/20/21 16:40 Aerobic Blood Culture - Preliminary Blood - Venous - Iv Start Anaerobic Blood Culture - Preliminary 01/20/21 16:50 Aerobic Blood Culture - Preliminary Blood - Venous - Iv Start Sepsis Event Note - Evaluation Sepsis Screening Result: No Definite Risk - Focused Exam Vital Signs: Vital Signs Temp Temp Pulse Pulse Resp BP BP 01/21/21 09:00 75 19 117/45 L 01/21/21 08:12 36.4 C 77 20 119/62 01/21/21 08:05 119/62 01/21/21 07:59 77 124/51 L 01/21/21 07:00 36.4 C 75 18 124/51 L 01/21/21 06:00 20 112/42 L 01/21/21 05:00 18 103/46 L 01/21/21 04:00 37.4 C 19 91/37 L 01/21/21 03:00 18 102/28 L 01/21/21 02:12 37.4 C 01/21/21 02:00 38.7 C H 24 H 117/51 L 01/21/21 01:42 39.1 C H 01/21/21 01:00 39.1 C H 22 H 112/48 L 01/21/21 00:00 36.9 C 22 H 106/48 L 01/20/21 23:00 18 101/50 L Pulse Ox 01/21/21 09:00 92 L 01/21/21 08:12 93 L 01/21/21 08:05 01/21/21 07:59 01/21/21 07:00 95 01/21/21 06:00 95 01/21/21 05:00 92 L 01/21/21 04:00 90 L 01/21/21 03:00 93 L 01/21/21 02:12 01/21/21 02:00 93 L 01/21/21 01:42 01/21/21 01:00 94 L 01/21/21 00:00 92 L 01/20/21 23:00 96 - Problem List Review Problem List Initiated/Reviewed/Updated: Yes - My Orders Last 24 Hours: My Active Orders 01/21/21 09:52 Foot Comp Min 3V Lt [CR] Routine 01/21/21 10:15 Consult to Physician [CONS] Routine Sodium Chloride 0.9% [Normal Saline] 1,000 ml IV ASDIRECTED 01/21/21 10:16 Notify Provider Consults [RC] ASDIRECTED 01/21/21 10:30 Magnesium Sulfate 2 GM in Water @ 12.5 MLS/HR (50ml) Magnesium Sulfate/Water [Magnesium Sulfate in Water 2 GM/50 ML] 2 gm in 50 ml IV Q6H 01/21/21 14:00 Pregabalin [Lyrica] 50 mg PO TID 01/22/21 02:45 Villalobos Catheter Insertion [Insert Urinary Catheter] [OM.PC] Q24H 01/22/21 05:00 BASIC METABOLIC PANEL,BMP [CHEM] Timed CBC W/O DIFF,HEMOGRAM [HEME] Timed (1) - Plan Plan:: ASSESSMENT AND PLAN CELLULITIS LEFT LOWER EXTREMITY WITH POSSIBLE ABSCESS-she has gram-positive bacteremia now. Most likely source of infection is the left ankle. Vital signs are stable at this time. She does have 2 blood cultures with gram-positive cocci growing but identification is pending. Currently on broad-spectrum antibiotics. -X-ray and likely MRI of the left ankle today -Podiatry consultation with Dr. Galvez -IV vancomycin, Pip/Tazo on levofloxacin -Follow-up cultures -Symptomatic management of pain ACUTE HYPOXIC RESPIRATORY FAILURE-possibly related to mild diastolic heart failure. Chest x-ray and CT scan did not show any evidence for infection. Pulmonary embolism unlikely since she is chronically anticoagulated. Volume st atus appears appropriate today. -Continue current anticoagulation with rivaroxaban -Supplemental oxygen as needed -Reevaluate volume status in the morning CHRONIC KIDNEY DISEASE STAGE III-creatinine higher today after attempted diuresis yesterday. I think her volume status is appropriate and I would anticipate that her kidney function will normalize if we hold diuretics for a day or so. -Hold bumetanide in the morning -Closely monitor urine output and renal function TYPE 2 DIABETES MELLITUS-sugars controlled so far. Poor appetite and minimal intake. -Hold glipizide -Hold insulin this morning, reevaluate this evening -4 times daily glucometers -Moderate dose sliding scale Humalog CONGESTIVE HEART FAILURE-acute onset of shortness of breath seems to be more likely related to CHF exacerbated by acute infection. CT was negative. -Medical management MAINTENANCE ISSUES -DVT prophylaxis; current therapy with rivaroxaban should provide adequate DVT prophylaxis -GI prophylaxis; not indicated -Villalobos catheter; not indicated -Nutrition; consistent carbohydrate diet DISPOSITION-anticipate discharge to home after the hospital stay. Javon Plummer MD
[2021-01-21] MEDS: Magnesium Sulfate/Water 2 GM/50 ML BAG IV SCH ×2 (10:50→16:14)
[2021-01-21] MEDS: Insulin Lispro Protamine/Lispro 75-25 100 Units/ML 10 ML Vial SUBCUT SCH ×2 (11:31→16:54)
--- NOTE | 2021-01-21 12:07 | CR ---
CHEST: Portable 01/20/2021 at 4:56 PM CLINICAL HISTORY:Hypoxia COMPARISON:06/25/2020 FINDINGS: Study is limited due to patient's large body habitus and lordotic positioning. Heart is enlarged. Pulmonary vascularity is mildly cephalized. This may be positional. There is a granuloma in the right midlung field. Impression: Cardiomegaly Mild vascular cephalization may be positional or due to some pulmonary hypertension. Granuloma right midlung field
--- NOTE | 2021-01-21 14:03 | CONS ---
DATE OF SERVICE: 01/21/2021 REFERRING PHYSICIAN: Javon Plummer MD CONSULTING PHYSICIAN: Alvarez Galvez DPM REASON FOR CONSULTATION: This is in response to a consult from Dr. Javon Plummer regarding possible abscess in the left foot and ankle. Thank you very much, Dr. Plummer, for the referral of this patient to our service. HISTORY OF PRESENT ILLNESS: The patient is an 85-year-old female seen at bedside. She was very somnolent. She relates that she has had pain in her left ankle, but she is not sure how long, she thinks it might have been a month. She denies having had any injuries to it, but relates she started feeling ill and came to the emergency room and was admitted from there. The patient denies having any other injuries or any problems with her right foot or ankle. PAST MEDICAL HISTORY: Significant for breast cancer. REVIEW OF SYSTEMS: ENDOCRINE: Patient relates history of diabetes mellitus. NEUROLOGIC: Patient relates numbness and tingling in both of her feet. FAMILY HISTORY: Patient denies history of bleeding or clotting disorders. SOCIAL HISTORY: Patient denies tobacco and alcohol use. PHYSICAL EXAMINATION: GENERAL: The patient was alert and oriented x3, in no acute distress. VITAL SIGNS: Blood pressure is 107/50, heart rate of 75, O2 saturation is 94% with nasal cannula, and respiration rate is 20 breaths per minute. VASCULAR: Reveals the pedal pulses were weakly palpable. DP and PT on the left leg, but possibly difficult to palpate simply due to the edema that the patient had, which was +2 to +3 brawny edema. There was tenderness to palpation with compression of the left calf, and there were no open wounds. No lacerations. No abrasions. There was a discolored area on the medial aspect of the left heel that was dark red with a white area in the middle of it. This area was also tender to palpation but was nonfluctuant. NEUROLOGIC: Reveals sensation was diminished in the toes. Patient could not feel palpation of the toes. RADIOGRAPHIC EXAMINATION: Plain films of the left ankle and 3 views showed no fracture, subluxation, dislocation. LABORATORY DATA: C-reactive protein was 15.87. White blood cell count yesterday was 15.3, today at 17.8, and procalcitonin was elevated also at 3.1. Erythrocyte sedimentation rate is pending and also an MRI of the left ankle is pending. ASSESSMENT: 1. Cellulitis with possible abscess, left ankle. 2. Sepsis. 3. Diabetes mellitus. PLAN: Patient was examined and evaluated. We explained to the patient and her who was present that we would like to get an MRI to evaluate if she needs surgery. If we do see an abscess or any signs of bone infection, we will be taking her to Surgery. We are going to do the surgery either later this afternoon or tomorrow morning depending on the results of the MRI. The patient and her were agreeable to this. Podiatry to follow. Continue IV antibiotics per hospitalist, medical management per hospitalist. Alvarez Galvez DPM /[id number]
--- NOTE | 2021-01-21 14:15 | CR ---
Foot Comp Min 3V Lt CLINICAL HISTORY: Sepsis, ulceration FINDINGS: There is soft tissue swelling in the forefoot. There is no acute fracture or dislocation within the foot. No destructive changes are present. IMPRESSION: Soft tissue swelling No acute bony process.
--- NOTE | 2021-01-21 14:16 | US ---
VL Duplex Lwr Ext Veins Comp bilateral HISTORY: No Clinical Info FINDINGS: The deep veins of the both lower extremities demonstrate normal augmentation and compressibility. No evidence for deep venous thrombosis. IMPRESSION: Normal bilateral lower extremity venous Doppler study.
[2021-01-21] MEDS: Pregabalin 50 MG Cap PO SCH ×2 (14:28→20:14)
[2021-01-21] MEDS: oxyCODONE 5 MG Tab PO PRN (14:55)
--- NOTE | 2021-01-21 15:21 | MR ---
Ankle wo Cont Lt: CLINICAL HISTORY: Soft tissue swelling and cellulitis medial ankle TECHNIQUE: Sagittal, axial, and coronal T1, axial T2 and sagittal and coronal STIR images were obtained through the left ankle without contrast. All images were obtained on [facility]. FINDINGS: There is moderate motion on most scan series. This diminishes detail. There is edema in the lower calf more notable along the medial aspect. This extends from skin to the outer fascia of the ankle. There is also some fluid signal deep to the plantar fascia No definite focal fluid collection is identified. There is some minimal ankle joint effusion. No abnormal marrow signal is identified. There is a tiny amount of fluid in the tibialis posterior tendon sheath. The tendons appear intact. The Achilles appears intact. There is some fluid signal in the sinus tarsus. IMPRESSION: Moderate fluid signal within the medial soft tissues of the ankle and lower calf medially. It also involves the plantar soft tissues deep to the plantar fascia. This is most consistent with cellulitis. No definite focal fluid collections are identified that would suggest abscess although there is moderate motion. Lack of contrast enhancement limits this also. There is no evidence to suggest osteomyelitis though again there is moderate motion reducing detail There is a small amount of fluid in the medial lung tendon sheaths and in the sinus tarsus
[2021-01-21] MEDS: Simvastatin 20 MG Tab PO SCH (20:13)
[2021-01-21] MEDS: DULoxetine 20 MG Cap PO SCH (20:13)
[2021-01-21] MEDS: Sodium Chloride 0.9% 500 ML IV ONE (23:30)
[2021-01-21] MEDS ORDERED: Sodium Chloride 0.9% 500 ML IV ONE ×2 (23:45)
[2021-01-22] MEDS ORDERED: Hydrocortisone Sodium Succinate 100 MG/2 ML SDV IVPUSH ONE (00:07)
[2021-01-22] MEDS ORDERED: Dextrose 5% in Water 250 ML ONE (00:09)
[2021-01-22] MEDS ORDERED: Norepinephrine 4 MG/4 ML SDV ONE (00:09)
--- NOTE | 2021-01-22 00:12 | PCM.SN.2 ---
- Free Text/Narrative Note: Notified by nursing this evening increasing somnolence and obtundation as well as some myoclonic jerking. Blood pressures at that time were in the 100s systolic. We did check some ABGs and this showed a mild respiratory acidosis with a PCO2 of nearly 60. The patient's home noninvasive ventilation device was placed. This did provide bilevel pressure. Unfortunately the patient deteriorated further with dropping blood pressures and persistent somnolence/obtundation. I assessed the patient at the bedside. Her heart rate was in the 60s. Oxygenation was in the low to mid 90s with her NIPPV device. Systolic blood pressures were in the 70s. They did improve slightly with IV fluid boluses but she has remained persistently hypotensive. She was noted to be febrile just prior to the increasing somnolence and dropping in her blood pressures. I suspect that the change in her condition is related to her severe cellulitis with gram-positive bacteremia. She will be receiving additional fluid challenges. I am going to initiate vasopressor therapy with norepinephrine. She will also get a single dose of hydrocortisone. We will continue her current broad-spectrum antibiotics. Respiratory therapy has arrived and they are replacing her home unit with a hospital NIPPV unit. Javon Plummer MD
[2021-01-22] MEDS ORDERED: Sodium Chloride 0.9% 1,000 ML IV SCH (00:15)
[2021-01-22] MEDS: Norepinephrine 4 MG in Dextrose 5% in Water 246 ML IV SCH ×6 (00:24→22:31)
[2021-01-22] MEDS: Acetaminophen 325 MG Tab PO PRN (00:24)
[2021-01-22] MEDS: Piperacillin/Tazobactam/Dext 2.25 GM in Premix Bag 1 BAG IV SCH ×3 (02:02→15:37)
[2021-01-22] MEDS: Hydrocortisone Sodium Succinate 100 MG/2 ML SDV IVPUSH SCH ×3 (08:19→20:00)
[2021-01-22] MEDS: Insulin Lispro 100 Unit/ML 3 ML KwikPen SUBCUT SCH ×4 (08:20→19:54)
[2021-01-22] MEDS: Insulin Lispro Protamine/Lispro 75-25 100 Units/ML 10 ML Vial SUBCUT SCH (08:35)
[2021-01-22] MEDS: Rivaroxaban 10 MG Tab PO SCH (08:42)
[2021-01-22] MEDS: Magnesium Oxide 400 MG Tab PO SCH (08:42)
[2021-01-22] MEDS: Amiodarone 200 MG Tab PO SCH (08:42)
[2021-01-22] MEDS: Aspirin 81 MG Tab.EC PO SCH (08:42)
--- NOTE | 2021-01-22 09:05 | PCM.PN ---
- General Info Date of Service: 01/22/21 Subjective Update: Increasing somnolence as well as hypotension. She remains somewhat somnolent this morning but her blood pressure has responded to IV fluids and vasopressor therapy. Because of her lethargy she is not able to provide any reliable history. She did have a low-grade fever last night prior to her increased lethargy and drop in blood pressure. Blood cultures have grown out group a strep. - Review of Systems General: Reports: Fever, Weakness Neurological: Reports: Confusion - Patient Data Vitals - Most Recent: Last Vital Signs Temp 35.7 C L 01/22/21 08:00 Pulse 76 01/21/21 18:00 Resp 19 01/22/21 08:00 BP 112/41 L 01/22/21 08:00 Pulse Ox 94 L 01/22/21 08:00 Weight - Most Recent: 122.47 kg I&O - Last 24 Hours: Intake & Output 01/21/21 01/22/21 01/22/21 22:59 06:59 14:59 Intake Total 750 2670 Output Total 150 175 Balance 600 2495 Lab Results Last 24 Hours: Laboratory Results - last 24 hr 01/21/21 01/21/21 01/21/21 Range/Units 11:17 11:42 11:42 WBC (4.5-11.0) K/uL RBC (3.30-5.50) M/uL Hgb (12.0-15.0) g/dL Hct (36.0-48.0) % MCV (80-98) fL MCH (27-31) pg MCHC (32-36) % Plt Count (150-400) K/uL ESR 39 H (0-25) mm/hr Puncture Site ABG pH (7.350-7.450) ABG pCO2 (35.0-42.0) mmHg ABG pO2 (75.0-100.0) mmHg ABG HCO3 (22.0-26.0) mmol/L ABG Total CO2 (21.0-25.0) mmol/L ABG O2 Saturation (95.0-98.0) % ABG O2 Content (15.0-23.0) %vol ABG Base Excess mm/L ABG Hemoglobin (12.0-16.0) g/dL ABG Oxyhemoglobin % ABG Carboxyhemoglobin (0.0-1.6) % ABG Methemoglobin % Bert Test O2 Delivery Device Oxygen Flow Rate L Sodium (140-148) mmol/L Potassium (3.6-5.2) mmol/L Chloride (100-108) mmol/L Carbon Dioxide (21-32) mmol/L Anion Gap (5.0-14.0) mmol/L BUN (7-18) mg/dL Creatinine (0.6-1.0) mg/dL Est Cr Clr Drug Dosing mL/min Estimated GFR (MDRD) (>60) Glucose (74-106) mg/dL POC Glucose 237 H (74-106) mg/dL Calcium (8.5-10.1) mg/dL C-Reactive Protein 15.87 H (0.0-0.3) mg/dL 01/21/21 01/21/21 01/21/21 Range/Units 16:51 21:32 22:35 WBC (4.5-11.0) K/uL RBC (3.30-5.50) M/uL Hgb (12.0-15.0) g/dL Hct (36.0-48.0) % MCV (80-98) fL MCH (27-31) pg MCHC (32-36) % Plt Count (150-400) K/uL ESR (0-25) mm/hr Puncture Site Rt radial ABG pH 7.320 L (7.350-7.450) ABG pCO2 54.9 H (35.0-42.0) mmHg ABG pO2 81.6 (75.0-100.0) mmHg ABG HCO3 27.5 H (22.0-26.0) mmol/L ABG Total CO2 25.7 H (21.0-25.0) mmol/L ABG O2 Saturation 95.4 (95.0-98.0) % ABG O2 Content 14.3 L (15.0-23.0) %vol ABG Base Excess 1.2 mm/L ABG Hemoglobin 10.9 L (12.0-16.0) g/dL ABG Oxyhemoglobin 92.7 % ABG Carboxyhemoglobin 1.6 (0.0-1.6) % ABG Methemoglobin 1.2 % Bert Test Pass O2 Delivery Device Simple mask Oxygen Flow Rate 6.0 L Sodium (140-148) mmol/L Potassium (3.6-5.2) mmol/L Chloride (100-108) mmol/L Carbon Dioxide (21-32) mmol/L Anion Gap (5.0-14.0) mmol/L BUN (7-18) mg/dL Creatinine (0.6-1.0) mg/dL Est Cr Clr Drug Dosing mL/min Estimated GFR (MDRD) (>60) Glucose (74-106) mg/dL POC Glucose 213 H 178 H (74-106) mg/dL Calcium (8.5-10.1) mg/dL C-Reactive Protein (0.0-0.3) mg/dL 01/21/21 01/22/21 01/22/21 Range/Units 22:35 05:00 05:30 WBC (4.5-11.0) K/uL RBC (3.30-5.50) M/uL Hgb (12.0-15.0) g/dL Hct (36.0-48.0) % MCV (80-98) fL MCH (27-31) pg MCHC (32-36) % Plt Count (150-400) K/uL ESR (0-25) mm/hr Puncture Site Rt radial ABG pH 7.260 L (7.350-7.450) ABG pCO2 55.5 H (35.0-42.0) mmHg ABG pO2 65.8 L (75.0-100.0) mmHg ABG HCO3 24.1 (22.0-26.0) mmol/L ABG Total CO2 22.8 (21.0-25.0) mmol/L ABG O2 Saturation 90.7 L (95.0-98.0) % ABG O2 Content 13.9 L (15.0-23.0) %vol ABG Base Excess -3.0 mm/L ABG Hemoglobin 11.1 L (12.0-16.0) g/dL ABG Oxyhemoglobin 88.3 % ABG Carboxyhemoglobin 1.5 (0.0-1.6) % ABG Methemoglobin 1.1 % Bert Test Passed O2 Delivery Device Bipap Oxygen Flow Rate 4.0 L Sodium 136 L 136 L (140-148) mmol/L Potassium 5.3 H 5.4 H (3.6-5.2) mmol/L Chloride 99 L 100 (100-108) mmol/L Carbon Dioxide 27 25 (21-32) mmol/L Anion Gap 15.3 H 16.4 H (5.0-14.0) mmol/L BUN 43 H 47 H (7-18) mg/dL Creatinine 2.7 H 3.0 H (0.6-1.0) mg/dL Est Cr Clr Drug Dosing 14.78 13.30 mL/min Estimated GFR (MDRD) 17 L 15 L (>60) Glucose 189 H 250 H (74-106) mg/dL POC Glucose (74-106) mg/dL Calcium 9.7 9.1 (8.5-10.1) mg/dL C-Reactive Protein (0.0-0.3) mg/dL 01/22/21 01/22/21 01/22/21 Range/Units 05:55 07:46 08:41 WBC 19.8 H (4.5-11.0) K/uL RBC 3.58 (3.30-5.50) M/uL Hgb 10.8 L (12.0-15.0) g/dL Hct 36.7 (36.0-48.0) % MCV 103 H (80-98) fL MCH 30 (27-31) pg MCHC 29 L (32-36) % Plt Count 135 L (150-400) K/uL ESR (0-25) mm/hr Puncture Site ABG pH (7.350-7.450) ABG pCO2 (35.0-42.0) mmHg ABG pO2 (75.0-100.0) mmHg ABG HCO3 (22.0-26.0) mmol/L ABG Total CO2 (21.0-25.0) mmol/L ABG O2 Saturation (95.0-98.0) % ABG O2 Content (15.0-23.0) %vol ABG Base Excess mm/L ABG Hemoglobin (12.0-16.0) g/dL ABG Oxyhemoglobin % ABG Carboxyhemoglobin (0.0-1.6) % ABG Methemoglobin % Bert Test O2 Delivery Device Oxygen Flow Rate L Sodium (140-148) mmol/L Potassium (3.6-5.2) mmol/L Chloride (100-108) mmol/L Carbon Dioxide (21-32) mmol/L Anion Gap (5.0-14.0) mmol/L BUN (7-18) mg/dL Creatinine (0.6-1.0) mg/dL Est Cr Clr Drug Dosing mL/min Estimated GFR (MDRD) (>60) Glucose (74-106) mg/dL POC Glucose 232 H (74-106) mg/dL Calcium (8.5-10.1) mg/dL C-Reactive Protein > 25.00 H (0.0-0.3) mg/dL Itz Results Last 24 Hours: Microbiology 01/20/21 16:50 Aerobic Blood Culture - Final Blood - Venous - Iv Start Streptococcus Group A Anaerobic Blood Culture - Preliminary NO GROWTH AFTER 1 DAY 01/20/21 16:40 Aerobic Blood Culture - Final Blood - Venous - Iv Start Streptococcus Group A Anaerobic Blood Culture - Final Streptococcus Group A Med Orders - Current: Current Medications Acetaminophen (Acetaminophen 325 Mg Tab) 650 mg PO Q4H PRN PRN Reason: Pain (Mild 1-3)/fever Last Admin: 01/22/21 00:24 Dose: 650 mg Documented by: Albuterol (Albuterol 0.083% 2.5 Mg/3 Ml Neb Soln) 2.5 mg NEB Q4H PRN PRN Reason: Shortness Of Breath/wheezing Albuterol/Ipratropium (Albuterol/Ipratropium 3.0-0.5 Mg/3 Ml Neb Soln) 3 ml NEB QIDRT [facility] Amiodarone HCl (Amiodarone 200 Mg Tab) 200 mg PO DAILY [facility] Last Admin: 01/22/21 08:42 Dose: Not Given Documented by: Aspirin (Aspirin 81 Mg Tab.Ec) 81 mg PO DAILY [facility] Last Admin: 01/22/21 08:42 Dose: Not Given Documented by: Bumetanide (Bumetanide 1 Mg Tab) 3 mg PO DAILY [facility] Last Admin: 01/21/21 08:04 Dose: 3 mg Documented by: Carvedilol (Carvedilol 12.5 Mg Tab) 25 mg PO BIDMEALS [facility] Last Admin: 01/21/21 17:00 Dose: 25 mg Documented by: Dextrose (Glucose Gel 15 Gm In 37.5 Gm Tube) 15 gm PO ONETIME PRN PRN Reason: Hypoglycemia Dextrose/Water (50% Dextrose In Water 50 Ml Syringe) 50 ml IV ONETIME PRN PRN Reason: Hypoglycemia Duloxetine HCl (Duloxetine 20 Mg Cap) 20 mg PO BEDTIME [facility] Last Admin: 01/21/21 20:13 Dose: 20 mg Documented by: Hydrocortisone Sodium Succinate (Hydrocortisone Sodium Succinate 100 Mg/2 Ml Sdv) 50 mg IVPUSH Q6H [facility] Stop: 01/23/21 02:01 Last Admin: 01/22/21 08:19 Dose: 50 mg Documented by: Levofloxacin/Dextrose 750 mg/ (Premix) 150 mls @ 100 mls/hr IV Q48H [facility] Last Admin: 01/20/21 21:20 Dose: 100 mls/hr Documented by: Piperacillin/Tazobactam/ (Dextrose 2.25 gm/ Premix) 50 mls @ 100 mls/hr IV Q6H [facility] Last Admin: 01/22/21 08:27 Dose: 100 mls/hr Documented by: Sodium Chloride (Normal Saline) 1,000 mls @ 25 mls/hr IV ASDIRECTED [facility] Last Admin: 01/21/21 23:47 Dose: 25 mls/hr Documented by: Norepinephrine Bitartrate 4 mg (/ Dextrose/Water) 250 mls @ 7.5 mls/hr IV TITRATE [facility]; Protocol Last Titration: 01/22/21 05:34 Dose: 6 mcg/min, 22.5 mls/hr Documented by: Insulin Human Lispro (Insulin Lispro 100 Unit/Ml 3 Ml Kwikpen) 0 unit SUBCUT QIDACANDBED [facility]; Protocol Last Admin: 01/22/21 08:20 Dose: 4 unit Documented by: Insulin Lispro Protam/Lispro Human (Insulin Lispro Protamine/Lispro 75-25 100 Units/Ml 10 Ml Vial) 35 unit SUBCUT BIDMEALS [facility] Last Admin: 01/22/21 08:35 Dose: Not Given Documented by: Isosorbide Mononitrate (Isosorbide Mononitrate 30 Mg Tab.Er) 30 mg PO DAILY [facility] Last Admin: 01/21/21 08:05 Dose: 30 mg Documented by: Lorazepam (Lorazepam 0.5 Mg Tab) 0.25 mg PO Q4H PRN PRN Reason: Anxiety Losartan Potassium (Losartan 50 Mg Tab) 100 mg PO DAILY [facility] Last Admin: 01/21/21 08:05 Dose: 100 mg Documented by: Magnesium Oxide (Magnesium Oxide 400 Mg Tab) 400 mg PO DAILY [facility] Last Admin: 01/22/21 08:42 Dose: Not Given Documented by: Ondansetron HCl (Ondansetron 4 Mg/2 Ml Sdv) 4 mg IV Q4H PRN PRN Reason: Nausea/Vomiting Oxycodone HCl (Oxycodone 5 Mg Tab) 5 mg PO Q4H PRN PRN Reason: Pain (moderate 4-6) Last Admin: 01/21/21 14:55 Dose: 5 mg Documented by: Polyethylene Glycol (Polyethylene Glycol 3350 Powder 17 Gm Packet) 17 gm PO GODFREY LY PRN PRN Reason: Constipation Pregabalin (Pregabalin 50 Mg Cap) 50 mg PO TID [facility] Last Admin: 01/21/21 20:14 Dose: 50 mg Documented by: Rivaroxaban (Rivaroxaban 10 Mg Tab) 20 mg PO DAILY [facility] Last Admin: 01/22/21 08:42 Dose: Not Given Documented by: Simvastatin (Simvastatin 20 Mg Tab) 20 mg PO BEDTIME [facility] Last Admin: 01/21/21 20:13 Dose: 20 mg Documented by: Sodium Chloride (Sodium Chloride 0.9% 10 Ml Syringe) 10 ml FLUSH ASDIRECTED PRN PRN Reason: Keep Vein Open Discontinued Medications Albuterol/Ipratropium (Albuterol/Ipratropium 3.0-0.5 Mg/3 Ml Neb Soln) 3 ml NEB QID PRN PRN Reason: Shortness Of Breath/wheezing Bumetanide (Bumetanide 1 Mg/4 Ml Mdv) 2 mg IVPUSH ONETIME ONE Stop: 01/20/21 17:47 Last Admin: 01/20/21 19:16 Dose: 2 mg Documented by: Ceftriaxone Sodium (Ceftriaxone 500 Mg Vial) 1,000 mg IVPUSH ONETIME ONE Stop: 01/20/21 16:25 Last Admin: 01/20/21 17:33 Dose: Not Given Documented by: Ceftriaxone Sodium (Ceftriaxone 1 Gm Advvial) Confirm Administered Dose 1 gm IV .STK-MED ONE Stop: 01/20/21 16:45 Last Admin: 01/21/21 06:15 Dose: Not Given Documented by: Gabapentin (Gabapentin 300 Mg Cap) 500 mg PO TID [facility] Gabapentin (Gabapentin 100 Mg Cap) 500 mg PO ONETIME ONE Stop: 01/20/21 22:16 Last Admin: 01/20/21 22:44 Dose: 500 mg Documented by: Hydrocortisone Sodium Succinate (Hydrocortisone Sodium Succinate 100 Mg/2 Ml Sdv) 100 mg IVPUSH ONETIME ONE Stop: 01/22/21 00:08 Last Admin: 01/22/21 00:34 Dose: 100 mg Documented by: Doxycycline Hyclate 100 mg/ (Sodium Chloride) 100 mls @ 100 mls/hr IV ONETIME ONE Stop: 01/20/21 17:23 Last Admin: 01/20/21 17:15 Dose: 100 mls/hr Documented by: Sodium Chloride (Normal Saline) 1,000 mls @ 999 mls/hr IV ASDIRECTED [facility] Last Admin: 01/20/21 17:18 Dose: 999 mls/hr Documented by: Sodium Chloride (Normal Saline) Confirm Administered Dose 100 mls @ as directed .ROUTE .STK-MED ONE Stop: 01/20/21 16:46 Last Admin: 01/21/21 06:15 Dose: Not Given Documented by: Ceftriaxone Sodium 1 gm/ (Sodium Chloride) 50 mls @ 100 mls/hr IV ONETIME ONE Stop: 01/20/21 17:32 Last Admin: 01/20/21 17:17 Dose: 100 mls/hr Documented by: Sodium Chloride (Normal Saline) 1,000 mls @ 125 mls/hr IV ASDIRECTED [facility] Last Admin: 01/21/21 03:56 Dose: 125 mls/hr Documented by: Piperacillin Sod/Tazobactam (Sod 2.25 gm/ Sodium Chloride) 50 mls @ 100 mls/hr IV Q6H [facility] Last Admin: 01/21/21 01:48 Dose: 100 mls/hr Documented by: Vancomycin HCl 1.5 gm/ Sodium (Chloride) 250 mls @ 166.667 mls/hr IV Q24H [facility] Last Admin: 01/21/21 23:26 Dose: 166.667 mls/hr Documented by: Sodium Chloride (Normal Saline) 500 mls @ 500 mls/hr IV .BOLUS ONE Stop: 01/20/21 21:33 Last Admin: 01/21/21 23:30 Dose: 500 mls/hr Documented by: Magnesium Sulfate (Magnesium Sulfate In Water 2 Gm/50 Ml) 2 gm in 50 mls @ 25 mls/hr IV Q6H [facility] Stop: 01/21/21 18:59 Last Admin: 01/21/21 16:14 Dose: 25 mls/hr Documented by: Sodium Chloride (Normal Saline) 500 mls @ 999 mls/hr IV ONETIME ONE Stop: 01/22/21 00:15 Last Admin: 01/21/21 23:00 Dose: 999 mls/hr Documented by: Sodium Chloride (Normal Saline) 500 mls @ 999 mls/hr IV ONETIME ONE Stop: 01/22/21 00:15 Last Admin: 01/21/21 23:35 Dose: 999 mls/hr Documented by: Sodium Chloride (Normal Saline) 1,000 mls @ 500 mls/hr IV ASDIRECTED [facility] Stop: 01/22/21 02:16 Dextrose/Water (Dextrose 5% In Water) Confirm Administered Dose 250 mls @ as directed .ROUTE .STK-MED ONE Stop: 01/22/21 00:10 Last Admin: 01/22/21 00:41 Dose: Not Given Documented by: Norepinephrine Bitartrate (Norepinephrine 4 Mg/4 Ml Sdv) Confirm Administered Dose 4 mg .ROUTE .STK-MED ONE Stop: 01/22/21 00:10 Last Admin: 01/22/21 00:41 Dose: Not Given Documented by: Ondansetron HCl (Ondansetron 4 Mg/2 Ml Sdv) 4 mg IVPUSH ONETIME ONE Stop: 01/20/21 17:27 Last Admin: 01/21/21 06:15 Dose: Not Given Documented by: Pregabalin (Pregabalin 100 Mg Cap) 100 mg PO TID [facility] Pregabalin (Pregabalin 100 Mg Cap) 100 mg PO ONETIME ONE Stop: 01/20/21 22:16 Last Admin: 01/20/21 22:45 Dose: 100 mg Documented by: Vancomycin HCl (Vancomycin 1 Gm Sdv) 1 gm IV .PHARMACY TO DOSE [facility] Stop: 01/21/21 07:30 - Exam Quality Assessment: Supplemental Oxygen General: No Acute Distress, Obtunded. No: Alert Lungs: Normal Respiratory Effort, Decreased Breath Sounds (mild right lung base) Cardiovascular: Regular Rate, Regular Rhythm, No Murmurs GI/Abdominal Exam: Normal Bowel Sounds, Soft, Non-Tender, No Distention Extremities: Pedal Edema, Increased Warmth (left lower leg and top of foot ) Skin: Warm, Dry, Rash (erythema right leg and foot), Other (ulceration left heal. small boggy area medial to heal ulceration. Purple macule left medial malleoulus ) Psy/Mental Status: Alert, Normal Affect - Patient Data Lab Results Last 24 hrs: Laboratory Results - last 24 hr 01/21/21 01/21/21 01/21/21 Range/Units 11:17 11:42 11:42 WBC (4.5-11.0) K/uL RBC (3.30-5.50) M/uL Hgb (12.0-15.0) g/dL Hct (36.0-48.0) % MCV (80-98) fL MCH (27-31) pg MCHC (32-36) % Plt Count (150-400) K/uL ESR 39 H (0-25) mm/hr Puncture Site ABG pH (7.350-7.450) ABG pCO2 (35.0-42.0) mmHg ABG pO2 (75.0-100.0) mmHg ABG HCO3 (22.0-26.0) mmol/L ABG Total CO2 (21.0-25.0) mmol/L ABG O2 Saturation (95.0-98.0) % ABG O2 Content (15.0-23.0) %vol ABG Base Excess mm/L ABG Hemoglobin (12.0-16.0) g/dL ABG Oxyhemoglobin % ABG Carboxyhemoglobin (0.0-1.6) % ABG Methemoglobin % Bert Test O2 Delivery Device Oxygen Flow Rate L Sodium (140-148) mmol/L Potassium (3.6-5.2) mmol/L Chloride (100-108) mmol/L Carbon Dioxide (21-32) mmol/L Anion Gap (5.0-14.0) mmol/L BUN (7-18) mg/dL Creatinine (0.6-1.0) mg/dL Est Cr Clr Drug Dosing mL/min Estimated GFR (MDRD) (>60) Glucose (74-106) mg/dL POC Glucose 237 H (74-106) mg/dL Calcium (8.5-10.1) mg/dL C-Reactive Protein 15.87 H (0.0-0.3) mg/dL 01/21/21 01/21/21 01/21/21 Range/Units 16:51 21:32 22:35 WBC (4.5-11.0) K/uL RBC (3.30-5.50) M/uL Hgb (12.0-15.0) g/dL Hct (36.0-48.0) % MCV (80-98) fL MCH (27-31) pg MCHC (32-36) % Plt Count (150-400) K/uL ESR (0-25) mm/hr Puncture Site Rt radial ABG pH 7.320 L (7.350-7.450) ABG pCO2 54.9 H (35.0-42.0) mmHg ABG pO2 81.6 (75.0-100.0) mmHg ABG HCO3 27.5 H (22.0-26.0) mmol/L ABG Total CO2 25.7 H (21.0-25.0) mmol/L ABG O2 Saturation 95.4 (95.0-98.0) % ABG O2 Content 14.3 L (15.0-23.0) %vol ABG Base Excess 1.2 mm/L ABG Hemoglobin 10.9 L (12.0-16.0) g/dL ABG Oxyhemoglobin 92.7 % ABG Carboxyhemoglobin 1.6 (0.0-1.6) % ABG Methemoglobin 1.2 % Bert Test Pass O2 Delivery Device Simple mask Oxygen Flow Rate 6.0 L Sodium (140-148) mmol/L Potassium (3.6-5.2) mmol/L Chloride (100-108) mmol/L Carbon Dioxide (21-32) mmol/L Anion Gap (5.0-14.0) mmol/L BUN (7-18) mg/dL Creatinine (0.6-1.0) mg/dL Est Cr Clr Drug Dosing mL/min Estimated GFR (MDRD) (>60) Glucose (74-106) mg/dL POC Glucose 213 H 178 H (74-106) mg/dL Calcium (8.5-10.1) mg/dL C-Reactive Protein (0.0-0.3) mg/dL 01/21/21 01/22/21 01/22/21 Range/Units 22:35 05:00 05:30 WBC (4.5-11.0) K/uL RBC (3.30-5.50) M/uL Hgb (12.0-15.0) g/dL Hct (36.0-48.0) % MCV (80-98) fL MCH (27-31) pg MCHC (32-36) % Plt Count (150-400) K/uL ESR (0-25) mm/hr Puncture Site Rt radial ABG pH 7.260 L (7.350-7.450) ABG pCO2 55.5 H (35.0-42.0) mmHg ABG pO2 65.8 L (75.0-100.0) mmHg ABG HCO3 24.1 (22.0-26.0) mmol/L ABG Total CO2 22.8 (21.0-25.0) mmol/L ABG O2 Saturation 90.7 L (95.0-98.0) % ABG O2 Content 13.9 L (15.0-23.0) %vol ABG Base Excess -3.0 mm/L ABG Hemoglobin 11.1 L (12.0-16.0) g/dL ABG Oxyhemoglobin 88.3 % ABG Carboxyhemoglobin 1.5 (0.0-1.6) % ABG Methemoglobin 1.1 % Bert Test Passed O2 Delivery Device Bipap Oxygen Flow Rate 4.0 L Sodium 136 L 136 L (140-148) mmol/L Potassium 5.3 H 5.4 H (3.6-5.2) mmol/L Chloride 99 L 100 (100-108) mmol/L Carbon Dioxide 27 25 (21-32) mmol/L Anion Gap 15.3 H 16.4 H (5.0-14.0) mmol/L BUN 43 H 47 H (7-18) mg/dL Creatinine 2.7 H 3.0 H (0.6-1.0) mg/dL Est Cr Clr Drug Dosing 14.78 13.30 mL/min Estimated GFR (MDRD) 17 L 15 L (>60) Glucose 189 H 250 H (74-106) mg/dL POC Glucose (74-106) mg/dL Calcium 9.7 9.1 (8.5-10.1) mg/dL C-Reactive Protein (0.0-0.3) mg/dL 01/22/21 01/22/21 01/22/21 Range/Units 05:55 07:46 08:41 WBC 19.8 H (4.5-11.0) K/uL RBC 3.58 (3.30-5.50) M/uL Hgb 10.8 L (12.0-15.0) g/dL Hct 36.7 (36.0-48.0) % MCV 103 H (80-98) fL MCH 30 (27-31) pg MCHC 29 L (32-36) % Plt Count 135 L (150-400) K/uL ESR (0-25) mm/hr Puncture Site ABG pH (7.350-7.450) ABG pCO2 (35.0-42.0) mmHg ABG pO2 (75.0-100.0) mmHg ABG HCO3 (22.0-26.0) mmol/L ABG Total CO2 (21.0-25.0) mmol/L ABG O2 Saturation (95.0-98.0) % ABG O2 Content (15.0-23.0) %vol ABG Base Excess mm/L ABG Hemoglobin (12.0-16.0) g/dL ABG Oxyhemoglobin % ABG Carboxyhemoglobin (0.0-1.6) % ABG Methemoglobin % Bert Test O2 Delivery Device Oxygen Flow Rate L Sodium (140-148) mmol/L Potassium (3.6-5.2) mmol/L Chloride (100-108) mmol/L Carbon Dioxide (21-32) mmol/L Anion Gap (5.0-14.0) mmol/L BUN (7-18) mg/dL Creatinine (0.6-1.0) mg/dL Est Cr Clr Drug Dosing mL/min Estimated GFR (MDRD) (>60) Glucose (74-106) mg/dL POC Glucose 232 H (74-106) mg/dL Calcium (8.5-10.1) mg/dL C-Reactive Protein > 25.00 H (0.0-0.3) mg/dL Result Diagrams: 01/22/21 05:55 01/22/21 05:30 Itz Results Last 24 hrs: Microbiology 01/20/21 16:50 Aerobic Blood Culture - Final Blood - Venous - Iv Start Streptococcus Group A Anaerobic Blood Culture - Preliminary NO GROWTH AFTER 1 DAY 01/20/21 16:40 Aerobic Blood Culture - Final Blood - Venous - Iv Start Streptococcus Group A Anaerobic Blood Culture - Final Streptococcus Group A Sepsis Event Note - Evaluation Sepsis Screening Result: No Definite Risk - Focused Exam Vital Signs: Vital Signs Temp Temp Resp BP Pulse Ox 01/22/21 08:00 35.7 C L 19 112/41 L 94 L 01/22/21 07:00 35.8 C L 19 102/38 L 95 01/22/21 06:30 14 111/48 L 94 L 01/22/21 06:00 13 97/36 L 92 L 01/22/21 05:30 14 75/25 L 92 L 01/22/21 05:00 14 100/37 L 94 L 01/22/21 04:42 12 91/34 L 94 L 01/22/21 04:39 13 79/37 L 93 L 01/22/21 04:15 15 85/30 L 94 L 01/22/21 04:00 16 79/35 L 92 L 01/22/21 03:00 13 95/36 L 95 01/22/21 02:00 14 96/31 L 93 L 01/22/21 01:00 37.1 C 13 91/16 L 95 01/22/21 00:45 13 81/24 L 96 01/22/21 00:15 15 77/28 L 94 L 01/22/21 00:00 10 L 89/28 L 90 L 01/21/21 23:30 11 L 81/30 L 92 L 01/21/21 23:15 12 77/30 L 94 L 01/21/21 23:00 12 72/31 L 94 L 01/21/21 22:00 17 107/54 L 97 - Problem List Review Problem List Initiated/Reviewed/Updated: Yes - My Orders Last 24 Hours: My Active Orders 01/21/21 10:15 Consult to Physician [CONS] Routine Sodium Chloride 0.9% [Normal Saline] 1,000 ml IV ASDIRECTED 01/21/21 10:16 Notify Provider Consults [RC] ASDIRECTED 01/21/21 11:01 CPAP Adult [RT BiPAP/CPAP] [RC] ASDIRECTED 01/21/21 14:00 Pregabalin [Lyrica] 50 mg PO TID 01/21/21 14:37 oxyCODONE 5 mg PO Q4H PRN 01/22/21 00:12 RT BiPAP/CPAP [RC] ASDIRECTED 01/22/21 00:15 Norepinephrine [Levophed] 4 mg Dextrose 5% in Water 246 ml IV TITRATE 01/22/21 02:45 Villalobos Catheter Insertion [Insert Urinary Catheter] [OM.PC] Q24H 01/22/21 08:00 Hydrocortisone Sod Succinate [Solu-CORTEF] 50 mg IVPUSH Q6H 01/22/21 08:56 TROPONIN I [CHEM] Urgent 01/22/21 09:00 Clindamycin Phosphate [Cleocin] 900 mg Sodium Chloride 0.9% [Normal Saline] 10 0 ml IV Q8H 01/22/21 11:00 Albuterol/Ipratropium [DuoNeb 3.0-0.5 MG/3 ML] 3 ml NEB QIDRT 01/23/21 05:00 CBC W/O DIFF,HEMOGRAM [HEME] Timed (1) COMPREHENSIVE METABOLIC PN,CMP [CHEM] Timed CULTURE BLOOD [BC] Timed - Plan Plan:: ASSESSMENT AND PLAN - CELLULITIS LEFT LOWER EXTREMITY WITH POSSIBLE ABSCESS-cultures grew out group A strep. She is now in septic shock with vasopressor requirement. Imaging did not reveal any evidence for osteomyelitis or definite abscess. Examination does reveal an area of concern on the left heel. CRP is now greater than 25. -Add clindamycin for antitoxin effect -Continue Pip/Tazo -Podiatry consultation with Dr. Galvez, considering debridement of the left heel area -Discontinue vancomycin and levofloxacin -Follow-up cultures -Symptomatic management of pain ACUTE HYPOXIC RESPIRATORY FAILURE WITH HYPOXIA AND HYPERCAPNIA-possibly related to mild diastolic heart failure. Chest x-ray and CT scan did not show any evidence for infection. Pulmonary embolism unlikely since she is chronically anticoagulated. Volume status still appropriate. Respiratory status stable with noninvasive ventilation. PCO2 is elevated at around 60 with mild acidosis. This is probably related to a combination of somnolence, obesity and hypoventilation. -Supplemental oxygen as needed -NIPPV until mental status improves -Reevaluate volume status in the morning Acute on chronic kidney injury-creatinine higher again today. There is concern there could be contribution from antibiotics. She was hypotensive overnight as well and is requiring vasopressors as above. -Hold bumetanide in the morning -Closely monitor urine output and renal function TYPE 2 DIABETES MELLITUS-sugars controlled so far. Poor appetite and minimal intake. -Hold glipizide -Hold insulin this morning, reevaluate this evening -4 times daily glucometers -Moderate dose sliding scale Humalog Paroxysmal atrial fibrillation-currently in sinus rhythm. She is normally anticoagulated with rivaroxaban. With her acute kidney injury this medication is contraindicated. -Discontinue rivaroxaban -Consider apixaban if she needs systemic anticoagulation CONGESTIVE HEART FAILURE-acute onset of shortness of breath seems to be more likely related to CHF exacerbated by acute infection. CT was negative. -Medical management MAINTENANCE ISSUES -DVT prophylaxis; SCDs -GI prophylaxis; not indicated -Villalobos catheter; not indicated -Nutrition; consistent carbohydrate diet DISPOSITION-anticipate discharge to home after the hospital stay. Javon Plummer MD
[2021-01-22] MEDS: Clindamycin Phosphate 900 MG in Sodium Chloride 0.9% 100 ML IV SCH ×2 (10:52→18:05)
[2021-01-22] MEDS: Albuterol/Ipratropium 3.0-0.5 MG/3 ML Neb Soln NEB SCH ×3 (11:03→21:08)
--- NOTE | 2021-01-22 11:24 | PN ---
DATE OF SERVICE: 01/22/2021 SUBJECTIVE: The patient seen at bedside following up for cellulitis of the left ankle with superficial pressure sore on the posterior aspect of the left heel. OBJECTIVE: GENERAL: The patient asleep and we were unable to arouse her and she was unresponsive. VITAL SIGNS: Blood pressure was 112/41, heart rate 64, O2 saturation 98% with BiPAP. DERMATOLOGIC: Revealed that erythema in the left ankle and leg have decreased since yesterday. There was some scaling on the posterior aspect of the left heel, but the deeper layers of the epidermis and the dermis were intact. It was slightly fluctuant, but no obvious signs of an abscess. RADIOGRAPHIC EXAMINATION: MRI taken yesterday showed no signs of fluid collections consistent with abscess in the left ankle or heel. There was subcutaneous increase in signal intensity consistent with cellulitis. LABORATORY DATA: White count today was 19.8 up from 17.8 yesterday. Blood cultures 3/4 bottles taken from venous blood culture showed Strep group A. ASSESSMENT: 1. Diabetes mellitus. 2. Group A strep sepsis. 3. Cellulitis, left foot and ankle. 4. Preulcerative lesion posterior aspect of the left heel. PLAN: The patient was examined and evaluated, keeping the left heel elevated, so there is no pressure on it, and we are considering making incision into the heel to see if there are any signs of an abscess that was not picked up on the MRI, but we are going to at this point just keep an eye on the left heel and the left foot and ankle and leg. We did carlos the areas, the borders of this cellulitis today. Medical management and antibiotics per hospitalist. Podiatry to follow later today. Alvarez Galvez DPM /[id number]
[2021-01-22] MEDS ORDERED: Bupivacaine 0.5% 50 ML MDV ONE (14:11)
[2021-01-22] MEDS ORDERED: Hypromellose 0.3% Ophth Soln 15 ML Bottle EYEBOTH PRN (20:45)
[2021-01-22] MEDS: oxyCODONE 5 MG Tab PO PRN (21:25)
--- NOTE | 2021-01-22 23:24 | OR ---
DATE OF PROCEDURE: 01/22/2021 SURGEON: Alvarez Galvez DPM SPARE PERSON: None. PREOPERATIVE DIAGNOSIS: Abscess, left posterior heel. POSTOPERATIVE DIAGNOSIS: Abscess, left posterior heel. PROCEDURE: Incision and debridement of the left heel. ANESTHESIA: Local with IV sedation. HEMOSTASIS: Obtained with a calf tourniquet on the left calf at 250 mmHg. ESTIMATED BLOOD LOSS: 50 mL. MATERIALS: Quarter-inch iodoform gauze was used. INJECTABLES: A total of 20 mL of Marcaine 0.5% plain were injected preoperatively prior to prep for an ankle block on the left ankle. PATHOLOGY: Soft tissue was sent for pathological examination and also for tissue culture and also aerobic and anaerobic swabs were taken. CONDITION: Stable. INDICATIONS FOR SURGERY: Abscess posterior aspect of the left heel with necrotic tissue that was unresponsive to conservative measures. PROCEDURE IN DETAIL: The patient was brought to the operating room and placed on the operating table in the supine position. Following IV sedation, the ankle block was performed on the left ankle after prepping the skin with alcohol. The ankle block consisted of 20 mL of Marcaine 0.5% plain on the left ankle. The left ankle was then scrubbed, prepped, and draped in the usual aseptic manner. Left leg was held up to 60 degrees for hemostasis and tourniquet was inflated. Esmarch was not used. The incision was made in the lazy-S incision in the posterior aspect of the left heel and then any and all necrotic tissue was excised and deep tissue cultures were taken. The necrotic skin was also removed. We did not see any dilip purulence, but we did see some devitalized tissue and that was all sharply excised down to healthy bleeding tissue. We checked to see if it probed or it did not probe to bone. It did track proximally approximately 4 cm. The entire length of the incision was approximately 10 cm and went down to the level of the fascia, but did not include the bone. The incision was then flushed out with 3 L of sterile saline with TUR tubing and then packed with iodoform gauze. The width of the incision of the opening in the skin was approximately 3 cm and the depth was approximately 5 mm. It was then dressed with ABD pad, 4x4s, Kerlix, and Leno and then it blood through that, so we reinforced it with. After the tourniquet was down the blood through that, so we reinforced it with 3 ABD pads and Leno wrap. The patient was returned to the ICU with vascular status intact to both feet and vitals stable. We wrote orders to reinstated preop medications and orders and diet and orders to keep the patient strictly nonweightbearing on the left foot and keep the left foot elevated so that there is no pressure on the posterior aspect of the left heel. We will continue IV antibiotics per hospitalist and medical management per hospitalist. Podiatry to follow the patient next week when we are back in [place]. We will work with the hospitalists and also General Surgery and Wound Care to manage the patient in the meantime. Alvarez Galvez DPM /[id number]
[2021-01-23] MEDS: Piperacillin/Tazobactam/Dext 2.25 GM in Premix Bag 1 BAG IV SCH ×4 (00:18→23:47)
[2021-01-23] MEDS: Clindamycin Phosphate 900 MG in Sodium Chloride 0.9% 100 ML IV SCH ×3 (02:09→17:22)
[2021-01-23] MEDS: Hydrocortisone Sodium Succinate 100 MG/2 ML SDV IVPUSH SCH ×3 (02:24→17:19)
[2021-01-23] MEDS: oxyCODONE 5 MG Tab PO PRN ×3 (02:47→21:21)
[2021-01-23] MEDS: Albuterol/Ipratropium 3.0-0.5 MG/3 ML Neb Soln NEB SCH ×4 (07:22→21:27)
[2021-01-23] MEDS: Carvedilol 12.5 MG Tab PO SCH ×2 (07:34→16:53)
[2021-01-23] MEDS: Insulin Lispro 100 Unit/ML 3 ML KwikPen SUBCUT SCH ×4 (07:46→21:20)
--- NOTE | 2021-01-23 09:47 | PCM.PN ---
- General Info Date of Service: 01/23/21 Subjective Update: There were no acute events overnight. Yesterday afternoon the patient had a debridement of some necrotic tissue in the left medial ankle. She does continue to require norepinephrine to maintain adequate blood pressure but dose is slightly lower today. She is much more alert and interactive today. She remains quite weak. She reports mild shortness of breath. She does report improved but not resolved pain in both lower extremities. Gram stain from tiss ue samples yesterday did not reveal any organisms and cultures are pending. No new positive culture results other than the 3 blood cultures with group A strep. Functional Status: Reports: Pain Controlled - Review of Systems General: Reports: Weakness. Denies: Fever Cardiovascular: Reports: Edema Musculoskeletal: Reports: Leg Pain (left ) - Patient Data Vitals - Most Recent: Last Vital Signs Temp 36.6 C 01/23/21 09:00 Pulse 70 01/23/21 06:00 Resp 13 01/23/21 09:00 BP 126/37 L 01/23/21 09:00 Pulse Ox 95 01/23/21 09:00 Weight - Most Recent: 124.829 kg I&O - Last 24 Hours: Intake & Output 01/22/21 01/23/21 01/23/21 22:59 06:59 14:59 Intake Total 811 675 Output Total 1000 670 Balance -189 5 Lab Results Last 24 Hours: Laboratory Results - last 24 hr 01/22/21 01/22/21 01/22/21 Range/Units 10:50 17:19 19:49 WBC (4.5-11.0) K/uL RBC (3.30-5.50) M/uL Hgb (12.0-15.0) g/dL Hct (36.0-48.0) % MCV (80-98) fL MCH (27-31) pg MCHC (32-36) % Plt Count (150-400) K/uL Sodium (140-148) mmol/L Potassium (3.6-5.2) mmol/L Chloride (100-108) mmol/L Carbon Dioxide (21-32) mmol/L Anion Gap (5.0-14.0) mmol/L BUN (7-18) mg/dL Creatinine (0.6-1.0) mg/dL Est Cr Clr Drug Dosing mL/min Estimated GFR (MDRD) (>60) Glucose (74-106) mg/dL POC Glucose 226 H 213 H 258 H (74-106) mg/dL Calcium (8.5-10.1) mg/dL Total Bilirubin (0.2-1.0) mg/dL AST (15-37) U/L ALT (12-78) U/L Alkaline Phosphatase (46-116) U/L Total Protein (6.4-8.2) g/dL Albumin (3.4-5.0) g/dL Globulin (2.3-3.5) g/dL Albumin/Globulin Ratio (1.2-2.2) 01/23/21 01/23/21 Range/Units 04:10 04:10 WBC 17.8 H (4.5-11.0) K/uL RBC 3.63 (3.30-5.50) M/uL Hgb 11.1 L (12.0-15.0) g/dL Hct 36.5 (36.0-48.0) % MCV 101 H (80-98) fL MCH 31 (27-31) pg MCHC 30 L (32-36) % Plt Count 145 L (150-400) K/uL Sodium 137 L (140-148) mmol/L Potassium 5.1 (3.6-5.2) mmol/L Chloride 101 (100-108) mmol/L Carbon Dioxide 26 (21-32) mmol/L Anion Gap 15.1 H (5.0-14.0) mmol/L BUN 42 H (7-18) mg/dL Creatinine 2.0 H (0.6-1.0) mg/dL Est Cr Clr Drug Dosing 19.95 mL/min Estimated GFR (MDRD) 24 L (>60) Glucose 263 H (74-106) mg/dL POC Glucose (74-106) mg/dL Calcium 8.9 (8.5-10.1) mg/dL Total Bilirubin 0.6 (0.2-1.0) mg/dL AST 34 (15-37) U/L ALT 39 (12-78) U/L Alkaline Phosphatase 45 L (46-116) U/L Total Protein 7.1 (6.4-8.2) g/dL Albumin 2.5 L (3.4-5.0) g/dL Globulin 4.6 H (2.3-3.5) g/dL Albumin/Globulin Ratio 0.5 L (1.2-2.2) Itz Results Last 24 Hours: Microbiology 01/22/21 16:25 Gram Stain - Final Foot, Left 01/22/21 16:20 Gram Stain - Final Foot, Left 01/22/21 16:25 GABRIEL Preparation - Final Other - Foot, Left 01/20/21 16:50 Aerobic Blood Culture - Final Blood - Venous - Iv Start Streptococcus Group A Anaerobic Blood Culture - Preliminary NO GROWTH AFTER 2 DAYS 01/20/21 16:40 Aerobic Blood Culture - Final Blood - Venous - Iv Start Streptococcus Group A Anaerobic Blood Culture - Final Streptococcus Group A Med Orders - Current: Current Medications Acetaminophen (Acetaminophen 325 Mg Tab) 650 mg PO Q4H PRN PRN Reason: Pain (Mild 1-3)/fever Last Admin: 01/22/21 00:24 Dose: 650 mg Documented by: Albuterol (Albuterol 0.083% 2.5 Mg/3 Ml Neb Soln) 2.5 mg NEB Q4H PRN PRN Reason: Shortness Of Breath/wheezing Albuterol/Ipratropium (Albuterol/Ipratropium 3.0-0.5 Mg/3 Ml Neb Soln) 3 ml NEB QIDRT [facility] Last Admin: 01/23/21 07:22 Dose: 3 ml Documented by: Amiodarone HCl (Amiodarone 200 Mg Tab) 200 mg PO DAILY [facility] Last Admin: 01/22/21 08:42 Dose: Not Given Documented by: Artificial Tears (Hypromellose 0.3% Ophth Soln 15 Ml Bottle) 0 ml EYEBOTH Q1H PRN PRN Reason: Dry Eyes Last Admin: 01/23/21 06:04 Dose: 2 drop Documented by: Aspirin (Aspirin 81 Mg Tab.Ec) 81 mg PO DAILY [facility] Last Admin: 01/22/21 08:42 Dose: Not Given Documented by: Bumetanide (Bumetanide 1 Mg Tab) 3 mg PO DAILY [facility] Last Admin: 01/21/21 08:04 Dose: 3 mg Documented by: Carvedilol (Carvedilol 12.5 Mg Tab) 25 mg PO BIDMEALS [facility] Last Admin: 01/23/21 07:34 Dose: Not Given Documented by: Dextrose (Glucose Gel 15 Gm In 37.5 Gm Tube) 15 gm PO ONETIME PRN PRN Reason: Hypoglycemia Dextrose/Water (50% Dextrose In Water 50 Ml Syringe) 50 ml IV ONETIME PRN PRN Reason: Hypoglycemia Duloxetine HCl (Duloxetine 20 Mg Cap) 20 mg PO BEDTIME [facility] Last Admin: 01/21/21 20:13 Dose: 20 mg Documented by: Sodium Chloride (Normal Saline) 1,000 mls @ 25 mls/hr IV ASDIRECTED [facility] Last Admin: 01/21/21 23:47 Dose: 25 mls/hr Documented by: Norepinephrine Bitartrate 4 mg (/ Dextrose/Water) 250 mls @ 7.5 mls/hr IV TITRATE [facility]; Protocol Last Titration: 01/23/21 02:10 Dose: 5 mcg/min, 18.75 mls/hr Documented by: Clindamycin Phosphate 900 mg/ (Sodium Chloride) 106 mls @ 200 mls/hr IV Q8H [facility] Last Admin: 01/23/21 02:09 Dose: 200 mls/hr Documented by: Piperacillin/Tazobactam/ (Dextrose 2.25 gm/ Premix) 50 mls @ 100 mls/hr IV Q8H [facility] Last Admin: 01/23/21 07:45 Dose: 100 mls/hr Documented by: Insulin Human Lispro (Insulin Lispro 100 Unit/Ml 3 Ml Kwikpen) 0 unit SUBCUT QIDACANDBED [facility]; Protocol Last Admin: 01/23/21 07:46 Dose: 6 unit Documented by: Insulin Lispro Protam/Lispro Human (Insulin Lispro Protamine/Lispro 75-25 100 Units/Ml 10 Ml Vial) 35 unit SUBCUT BIDMEALS [facility] Last Admin: 01/22/21 08:35 Dose: Not Given Documented by: Isosorbide Mononitrate (Isosorbide Mononitrate 30 Mg Tab.Er) 30 mg PO DAILY [facility] Last Admin: 01/21/21 08:05 Dose: 30 mg Documented by: Lorazepam (Lorazepam 0.5 Mg Tab) 0.25 mg PO Q4H PRN PRN Reason: Anxiety Losartan Potassium (Losartan 50 Mg Tab) 100 mg PO DAILY [facility] Last Admin: 01/21/21 08:05 Dose: 100 mg Documented by: Ondansetron HCl (Ondansetron 4 Mg/2 Ml Sdv) 4 mg IV Q4H PRN PRN Reason: Nausea/Vomiting Oxycodone HCl (Oxycodone 5 Mg Tab) 5 mg PO Q4H PRN PRN Reason: Pain (moderate 4-6) Last Admin: 01/23/21 08:51 Dose: 5 mg Documented by: Oxycodone/Acetaminophen (Acetaminophen/Oxycodone 325-5 Mg Tab) 1 tab PO Q6H PRN PRN Reason: PAIN Polyethylene Glycol (Polyethylene Glycol 3350 Powder 17 Gm Packet) 17 gm PO DAILY PRN PRN Reason: Constipation Pregabalin (Pregabalin 50 Mg Cap) 50 mg PO TID AYAN Last Admin: 01/21/21 20:14 Dose: 50 mg Documented by: Sodium Chloride (Sodium Chloride 0.9% 10 Ml Syringe) 10 ml FLUSH ASDIRECTED PRN PRN Reason: Keep Vein Open Discontinued Medications Albuterol/Ipratropium (Albuterol/Ipratropium 3.0-0.5 Mg/3 Ml Neb Soln) 3 ml NEB QID PRN PRN Reason: Shortness Of Breath/wheezing Bumetanide (Bumetanide 1 Mg/4 Ml Mdv) 2 mg IVPUSH ONETIME ONE Stop: 01/20/21 17:47 Last Admin: 01/20/21 19:16 Dose: 2 mg Documented by: Bupivacaine HCl (Bupivacaine 0.5% 50 Ml Mdv) Confirm Administered Dose 50 ml .ROUTE .STK-MED ONE Stop: 01/22/21 14:12 Last Admin: 01/22/21 16:10 Dose: 20 ml Documented by: Ceftriaxone Sodium (Ceftriaxone 500 Mg Vial) 1,000 mg IVPUSH ONETIME ONE Stop: 01/20/21 16:25 Last Admin: 01/20/21 17:33 Dose: Not Given Documented by: Ceftriaxone Sodium (Ceftriaxone 1 Gm Advvial) Confirm Administered Dose 1 gm IV .STK-MED ONE Stop: 01/20/21 16:45 Last Admin: 01/21/21 06:15 Dose: Not Given Documented by: Gabapentin (Gabapentin 300 Mg Cap) 500 mg PO TID AYAN Gabapentin (Gabapentin 100 Mg Cap) 500 mg PO ONETIME ONE Stop: 01/20/21 22:16 Last Admin: 01/20/21 22:44 Dose: 500 mg Documented by: Hydrocortisone Sodium Succinate (Hydrocortisone Sodium Succinate 100 Mg/2 Ml Sdv) 100 mg IVPUSH ONETIME ONE Stop: 01/22/21 00:08 Last Admin: 01/22/21 00:34 Dose: 100 mg Documented by: Hydrocortisone Sodium Succinate (Hydrocortisone Sodium Succinate 100 Mg/2 Ml Sdv) 50 mg IVPUSH Q6H [facility] Stop: 01/23/21 02:01 Last Admin: 01/23/21 02:24 Dose: 50 mg Documented by: Doxycycline Hyclate 100 mg/ (Sodium Chloride) 100 mls @ 100 mls/hr IV ONETIME ONE Stop: 01/20/21 17:23 Last Admin: 01/20/21 17:15 Dose: 100 mls/hr Documented by: Sodium Chloride (Normal Saline) 1,000 mls @ 999 mls/hr IV ASDIRECTED [facility] Last Admin: 01/20/21 17:18 Dose: 999 mls/hr Documented by: Sodium Chloride (Normal Saline) Confirm Administered Dose 100 mls @ as directed .ROUTE .STK-MED ONE Stop: 01/20/21 16:46 Last Admin: 01/21/21 06:15 Dose: Not Given Documented by: Ceftriaxone Sodium 1 gm/ (Sodium Chloride) 50 mls @ 100 mls/hr IV ONETIME ONE Stop: 01/20/21 17:32 Last Admin: 01/20/21 17:17 Dose: 100 mls/hr Documented by: Sodium Chloride (Normal Saline) 1,000 mls @ 125 mls/hr IV ASDIRECTED [facility] Last Admin: 01/21/21 03:56 Dose: 125 mls/hr Documented by: Levofloxacin/Dextrose 750 mg/ (Premix) 150 mls @ 100 mls/hr IV Q48H [facility] Last Admin: 01/20/21 21:20 Dose: 100 mls/hr Documented by: Piperacillin Sod/Tazobactam (Sod 2.25 gm/ Sodium Chloride) 50 mls @ 100 mls/hr IV Q6H [facility] Last Admin: 01/21/21 01:48 Dose: 100 mls/hr Documented by: Vancomycin HCl 1.5 gm/ Sodium (Chloride) 250 mls @ 166.667 mls/hr IV Q24H [facility] Last Admin: 01/21/21 23:26 Dose: 166.667 mls/hr Documented by: Sodium Chloride (Normal Saline) 500 mls @ 500 mls/hr IV .BOLUS ONE Stop: 01/20/21 21:33 Last Admin: 01/21/21 23:30 Dose: 500 mls/hr Documented by: Piperacillin/Tazobactam/ (Dextrose 2.25 gm/ Premix) 50 mls @ 100 mls/hr IV Q6H [facility] Last Admin: 01/22/21 08:27 Dose: 100 mls/hr Documented by: Magnesium Sulfate (Magnesium Sulfate In Water 2 Gm/50 Ml) 2 gm in 50 mls @ 25 mls/hr IV Q6H [facility] Stop: 01/21/21 18:59 Last Admin: 01/21/21 16:14 Dose: 25 mls/hr Documented by: Sodium Chloride (Normal Saline) 500 mls @ 999 mls/hr IV ONETIME ONE Stop: 01/22/21 00:15 Last Admin: 01/21/21 23:00 Dose: 999 mls/hr Documented by: Sodium Chloride (Normal Saline) 500 mls @ 999 mls/hr IV ONETIME ONE Stop: 01/22/21 00:15 Last Admin: 01/21/21 23:35 Dose: 999 mls/hr Documented by: Sodium Chloride (Normal Saline) 1,000 mls @ 500 mls/hr IV ASDIRECTED [facility] Stop: 01/22/21 02:16 Dextrose/Water (Dextrose 5% In Water) Confirm Administered Dose 250 mls @ as directed .ROUTE .STK-MED ONE Stop: 01/22/21 00:10 Last Admin: 01/22/21 00:41 Dose: Not Given Documented by: Magnesium Oxide (Magnesium Oxide 400 Mg Tab) 400 mg PO DAILY [facility] Last Admin: 01/22/21 08:42 Dose: Not Given Documented by: Norepinephrine Bitartrate (Norepinephrine 4 Mg/4 Ml Sdv) Confirm Administered Dose 4 mg .ROUTE .STK-MED ONE Stop: 01/22/21 00:10 Last Admin: 01/22/21 00:41 Dose: Not Given Documented by: Ondansetron HCl (Ondansetron 4 Mg/2 Ml Sdv) 4 mg IVPUSH ONETIME ONE Stop: 01/20/21 17:27 Last Admin: 01/21/21 06:15 Dose: Not Given Documented by: Pregabalin (Pregabalin 100 Mg Cap) 100 mg PO TID [facility] Pregabalin (Pregabalin 100 Mg Cap) 100 mg PO ONETIME ONE Stop: 01/20/21 22:16 Last Admin: 01/20/21 22:45 Dose: 100 mg Documented by: Rivaroxaban (Rivaroxaban 10 Mg Tab) 20 mg PO DAILY [facility] Last Admin: 01/22/21 08:42 Dose: Not Given Documented by: Simvastatin (Simvastatin 20 Mg Tab) 20 mg PO BEDTIME [facility] Last Admin: 01/21/21 20:13 Dose: 20 mg Documented by: Vancomycin HCl (Vancomycin 1 Gm Sdv) 1 gm IV .PHARMACY TO DOSE [facility] Stop: 01/21/21 07:30 - Exam Quality Assessment: Supplemental Oxygen General: Alert, Oriented, Cooperative, No Acute Distress Lungs: Clear to Auscultation, Normal Respiratory Effort Cardiovascular: Regular Rate, Regular Rhythm GI/Abdominal Exam: Soft, No Distention Extremities: Pedal Edema, Increased Warmth (right leg from mid [place] distally ), Other (left foot wrapped from toes to above the ankle ) Skin: Warm, Dry Psy/Mental Status: Alert, Normal Affect - Patient Data Lab Results Last 24 hrs: Laboratory Results - last 24 hr 01/22/21 01/22/21 01/22/21 Range/Units 10:50 17:19 19:49 WBC (4.5-11.0) K/uL RBC (3.30-5.50) M/uL Hgb (12.0-15.0) g/dL Hct (36.0-48.0) % MCV (80-98) fL MCH (27-31) pg MCHC (32-36) % Plt Count (150-400) K/uL Sodium (140-148) mmol/L Potassium (3.6-5.2) mmol/L Chloride (100-108) mmol/L Carbon Dioxide (21-32) mmol/L Anion Gap (5.0-14.0) mmol/L BUN (7-18) mg/dL Creatinine (0.6-1.0) mg/dL Est Cr Clr Drug Dosing mL/min Estimated GFR (MDRD) (>60) Glucose (74-106) mg/dL POC Glucose 226 H 213 H 258 H (74-106) mg/dL Calcium (8.5-10.1) mg/dL Total Bilirubin (0.2-1.0) mg/dL AST (15-37) U/L ALT (12-78) U/L Alkaline Phosphatase (46-116) U/L Total Protein (6.4-8.2) g/dL Albumin (3.4-5.0) g/dL Globulin (2.3-3.5) g/dL Albumin/Globulin Ratio (1.2-2.2) 01/23/21 01/23/21 Range/Units 04:10 04:10 WBC 17.8 H (4.5-11.0) K/uL RBC 3.63 (3.30-5.50) M/uL Hgb 11.1 L (12.0-15.0) g/dL Hct 36.5 (36.0-48.0) % MCV 101 H (80-98) fL MCH 31 (27-31) pg MCHC 30 L (32-36) % Plt Count 145 L (150-400) K/uL Sodium 137 L (140-148) mmol/L Potassium 5.1 (3.6-5.2) mmol/L Chloride 101 (100-108) mmol/L Carbon Dioxide 26 (21-32) mmol/L Anion Gap 15.1 H (5.0-14.0) mmol/L BUN 42 H (7-18) mg/dL Creatinine 2.0 H (0.6-1.0) mg/dL Est Cr Clr Drug Dosing 19.95 mL/min Estimated GFR (MDRD) 24 L (>60) Glucose 263 H (74-106) mg/dL POC Glucose (74-106) mg/dL Calcium 8.9 (8.5-10.1) mg/dL Total Bilirubin 0.6 (0.2-1.0) mg/dL AST 34 (15-37) U/L ALT 39 (12-78) U/L Alkaline Phosphatase 45 L (46-116) U/L Total Protein 7.1 (6.4-8.2) g/dL Albumin 2.5 L (3.4-5.0) g/dL Globulin 4.6 H (2.3-3.5) g/dL Albumin/Globulin Ratio 0.5 L (1.2-2.2) Result Diagrams: 01/23/21 04:10 01/23/21 04:10 Itz Results Last 24 hrs: Microbiology 01/22/21 16:25 Gram Stain - Final Foot, Left 01/22/21 16:20 Gram Stain - Final Foot, Left 01/22/21 16:25 GABRIEL Preparation - Final Other - Foot, Left 01/20/21 16:50 Aerobic Blood Culture - Final Blood - Venous - Iv Start Streptococcus Group A Anaerobic Blood Culture - Preliminary NO GROWTH AFTER 2 DAYS 01/20/21 16:40 Aerobic Blood Culture - Final Blood - Venous - Iv Start Streptococcus Group A Anaerobic Blood Culture - Final Streptococcus Group A Sepsis Event Note - Evaluation Sepsis Screening Result: No Definite Risk - Focused Exam Vital Signs: Vital Signs Temp Temp Pulse Resp BP Pulse Ox 01/23/21 09:00 36.6 C 13 126/37 L 95 01/23/21 08:00 16 128/49 L 98 01/23/21 07:00 36.4 C 14 139/47 L 99 01/23/21 06:00 36.5 C 70 11 L 129/50 L 98 01/23/21 05:00 69 12 128/43 L 97 01/23/21 04:00 65 14 120/44 L 97 01/23/21 03:00 64 11 L 125/49 L 98 01/23/21 02:00 36.1 C 67 13 126/61 100 01/23/21 01:00 67 17 138/45 L 98 01/23/21 00:00 35.5 C L 69 15 147/61 H 98 01/22/21 23:00 67 12 139/51 L 98 01/22/21 22:00 65 13 123/48 L 98 01/22/21 21:50 98 - Problem List Review Problem List Initiated/Reviewed/Updated: Yes - My Orders Last 24 Hours: My Active Orders 01/22/21 10:00 Clindamycin Phosphate [Cleocin] 900 mg Sodium Chloride 0.9% [Normal Saline] 100 ml IV Q8H 01/22/21 10:13 Echo Comp wo Cont [US] Routine 01/22/21 11:00 Albuterol/Ipratropium [DuoNeb 3.0-0.5 MG/3 ML] 3 ml NEB QIDRT 01/22/21 20:45 Hypromellose [GenTeal Mild to Moderate Ophth Soln] 0 ml EYEBOTH Q1H PRN 01/23/21 02:45 Villalobos Catheter Insertion [Insert Urinary Catheter] [OM.PC] Q24H 01/23/21 04:40 CULTURE BLOOD [BC] Routine 01/23/21 09:43 PT Evaluation and Treatment [CONS] Routine 01/23/21 10:00 Hydrocortisone Sod Succinate [Solu-CORTEF] 50 mg IVPUSH Q8H 01/24/21 05:00 BASIC METABOLIC PANEL,BMP [CHEM] Timed CBC W/O DIFF,HEMOGRAM [HEME] Timed (1) CRP [C-REACTIVE PROTEIN] [CHEM] Timed - Plan Plan:: ASSESSMENT AND PLAN - CELLULITIS LEFT LOWER EXTREMITY WITH ABSCESS-complicated by septic shock. Cultures grew out group A strep. Status post debridement of the left ankle wound on 01/22. Still requiring vasopressors but dose is slowly decreasing. -Continue norepinephrine, wean as able -Hydrocortisone 50 mg every 8 hours until off vasopressors -Continue Pip/Tazo and clindamycin for antitoxin effect -Podiatry input from Dr. Galvez appreciated -Dressing will be removed on 01/24, planning for wound VAC placement at that time -Follow-up cultures -Symptomatic management of pain ACUTE HYPOXIC RESPIRATORY FAILURE WITH HYPOXIA AND HYPERCAPNIA-probably multifa ctorial with septic shock, obesity, hypoventilation and sedation. She is steadily improving and off NIPPV at this time. -Supplemental oxygen as needed -NIPPV at night and as needed Continue cardiac monitoring and pulse oximetry- Acute on chronic kidney injury-creatinine better today but not back to baseline. Volume status is appropriate with no evidence for volume overload today. -Hold bumetanide in the morning -Closely monitor urine output and renal function TYPE 2 DIABETES MELLITUS-sugars controlled with only moderate elevation. Appetite is improving. -Hold glipizide -Restart long-acting insulin this evening -4 times daily glucometers -Moderate dose sliding scale Humalog Paroxysmal atrial fibrillation-currently in sinus rhythm. She was normally anticoagulated with rivaroxaban. With her acute kidney injury this medication is contraindicated. -Discontinue rivaroxaban -Consider apixaban if she needs systemic anticoagulation -Restart amiodarone and beta-gladys as able as blood pressure improves CONGESTIVE HEART FAILURE-acute onset of shortness of breath seems to be more lik geo related to CHF exacerbated by acute infection. CT was negative for pulmonary issues or pulmonary edema. -Medical management on hold with hypotension -Restart beta-gladys and other medications as able MAINTENANCE ISSUES -DVT prophylaxis; SCDs -GI prophylaxis; not indicated -Vill[place]os catheter; not indicated -Nutrition; consistent carbohydrate diet DISPOSITION-anticipate discharge to skilled nursing for subacute rehab after the hospital stay. Javon Plummer MD
[2021-01-23] MEDS: Norepinephrine 4 MG in Dextrose 5% in Water 246 ML IV SCH ×2 (10:45)
[2021-01-23] MEDS: Insulin Lispro Protamine/Lispro 75-25 100 Units/ML 10 ML Vial SUBCUT SCH (17:37)
[2021-01-23] MEDS: Haloperidol Lactate 5 MG/ML SDV IVPUSH PRN (22:27)
[2021-01-23] MEDS: LORazepam 0.5 MG Tab PO PRN (23:49)
[2021-01-24] MEDS: Norepinephrine 4 MG in Dextrose 5% in Water 246 ML IV SCH ×4 (01:08→16:05)
[2021-01-24] MEDS: Clindamycin Phosphate 900 MG in Sodium Chloride 0.9% 100 ML IV SCH ×3 (01:53→17:03)
[2021-01-24] MEDS: Hydrocortisone Sodium Succinate 100 MG/2 ML SDV IVPUSH SCH ×3 (01:54→17:05)
[2021-01-24] MEDS: Haloperidol Lactate 5 MG/ML SDV IVPUSH PRN ×3 (02:28→11:20)
[2021-01-24] MEDS: Albuterol/Ipratropium 3.0-0.5 MG/3 ML Neb Soln NEB SCH ×4 (07:06→21:22)
[2021-01-24] MEDS: Insulin Lispro 100 Unit/ML 3 ML KwikPen SUBCUT SCH ×4 (07:47→21:13)
[2021-01-24] MEDS: Carvedilol 12.5 MG Tab PO SCH (07:50)
[2021-01-24] MEDS: Piperacillin/Tazobactam/Dext 2.25 GM in Premix Bag 1 BAG IV SCH ×3 (09:30→21:31)
[2021-01-24] MEDS: Insulin Lispro Protamine/Lispro 75-25 100 Units/ML 10 ML Vial SUBCUT SCH ×2 (09:32→17:14)
[2021-01-24] MEDS: Bumetanide 1 MG Tab PO SCH (09:34)
[2021-01-24] MEDS: Amiodarone 200 MG Tab PO SCH (09:34)
[2021-01-24] MEDS: Aspirin 81 MG Tab.EC PO SCH (09:35)
[2021-01-24] MEDS: Losartan 50 MG Tab PO SCH (09:35)
[2021-01-24] MEDS: Isosorbide Mononitrate 30 MG Tab.ER PO SCH (09:36)
[2021-01-24] MEDS: Pregabalin 50 MG Cap PO SCH ×3 (09:38→21:19)
[2021-01-24] MEDS: oxyCODONE 5 MG Tab PO PRN ×2 (09:46→14:27)
--- NOTE | 2021-01-24 13:53 | CR ---
CHEST: Portable 01/24/2021 1:38 PM CLINICAL HISTORY:PICC line placement COMPARISON: 01/20/2021 FINDINGS: There is a PICC line from the right upper extremity. The tip is in the superior vena cava atrial junction region. Heart is enlarged. Pulmonary vascularity appears mildly cephalized but this is likely positional. There is no pneumothorax. IMPRESSION: Right upper extremity PICC line is in good position Cardiomegaly
--- NOTE | 2021-01-24 16:00 | PCM.PN ---
- General Info Date of Service: 01/24/21 Admission Dx/Problem (Free Text): Admission Diagnosis/Problem Admission Diagnosis/Problem Septic shock Subjective Update: The patient had necrotic tissue debrided from her left ankle on 01/22. Plan was for nursing to apply wound vac today. Upon removal of dressings, the patient had profound bleeding requiring compression. Nursing contacted podiatry who recommended deferring wound vac for now. The patient remains on norepi and has been disoriented - requiring intermittent haldol. Family has been helpful with redirection when they are present in the room. Surveillance blood culture from 01/23 is no growth to date. - Review of Systems General: Denies: Fever Pulmonary: Denies: Cough Cardiovascular: Denies: Chest Pain, Palpitations Gastrointestinal: Denies: No Symptoms Genitourinary: Denies: No Symptoms Musculoskeletal: Reports: Foot Pain Neurological: Reports: Confusion Psychiatric: Reports: Anxiety, Agitation - Patient Data Vitals - Most Recent: Last Vital Signs Temp 98.7 F 01/24/21 07:00 Pulse 74 01/24/21 15:00 Resp 26 H 01/24/21 15:00 BP 110/39 L 01/24/21 15:00 Pulse Ox 94 L 01/24/21 15:00 Weight - Most Recent: 275 lb 9.6 oz I&O - Last 24 Hours: Intake & Output 01/24/21 01/24/21 01/24/21 06:59 14:59 22:59 Intake Total 1411 Output Total 925 1000 Balance 486 -1000 Lab Results Last 24 Hours: Laboratory Results - last 24 hr 01/23/21 01/23/21 01/24/21 Range/Units 17:12 21:05 06:03 WBC 14.0 H (4.5-11.0) K/uL RBC 3.60 (3.30-5.50) M/uL Hgb 11.2 L (12.0-15.0) g/dL Hct 35.7 L (36.0-48.0) % MCV 99 H (80-98) fL MCH 31 (27-31) pg MCHC 31 L (32-36) % Plt Count 147 L (150-400) K/uL Sodium (140-148) mmol/L Potassium (3.6-5.2) mmol/L Chloride (100-108) mmol/L Carbon Dioxide (21-32) mmol/L Anion Gap (5.0-14.0) mmol/L BUN (7-18) mg/dL Creatinine (0.6-1.0) mg/dL Est Cr Clr Drug Dosing mL/min Estimated GFR (MDRD) (>60) Glucose (74-106) mg/dL POC Glucose 315 H 280 H (74-106) mg/dL Calcium (8.5-10.1) mg/dL C-Reactive Protein (0.0-0.3) mg/dL 01/24/21 01/24/21 Range/Units 06:03 11:29 WBC (4.5-11.0) K/uL RBC (3.30-5.50) M/uL Hgb (12.0-15.0) g/dL Hct (36.0-48.0) % MCV (80-98) fL MCH (27-31) pg MCHC (32-36) % Plt Count (150-400) K/uL Sodium 138 L (140-148) mmol/L Potassium 4.3 (3.6-5.2) mmol/L Chloride 102 (100-108) mmol/L Carbon Dioxide 27 (21-32) mmol/L Anion Gap 13.3 (5.0-14.0) mmol/L BUN 31 H (7-18) mg/dL Creatinine 1.3 H (0.6-1.0) mg/dL Est Cr Clr Drug Dosing 30.70 mL/min Estimated GFR (MDRD) 39 L (>60) Glucose 274 H (74-106) mg/dL POC Glucose 242 H (74-106) mg/dL Calcium 10.7 H D (8.5-10.1) mg/dL C-Reactive Protein 16.26 H (0.0-0.3) mg/dL Itz Results Last 24 Hours: Microbiology 01/22/21 16:25 Gram Stain - Final Foot, Left Wound Culture - Preliminary NO GROWTH AFTER 1 DAY Anaerobic Culture - Preliminary NO GROWTH AFTER 1 DAY 01/22/21 16:20 Gram Stain - Final Foot, Left Wound Culture - Preliminary NO GROWTH AFTER 1 DAY Anaerobic Culture - Preliminary NO GROWTH AFTER 1 DAY 01/23/21 04:40 Aerobic Blood Culture - Preliminary Blood - Arm, Right NO GROWTH AFTER 1 DAY Anaerobic Blood Culture - Preliminary NO GROWTH AFTER 1 DAY 01/20/21 16:50 Aerobic Blood Culture - Final Blood - Venous - Iv Start Streptococcus Group A Anaerobic Blood Culture - Preliminary NO GROWTH AFTER 3 DAYS Med Orders - Current: Current Medications Acetaminophen (Acetaminophen 325 Mg Tab) 650 mg PO Q4H PRN PRN Reason: Pain (Mild 1-3)/fever Last Admin: 01/22/21 00:24 Dose: 650 mg Documented by: Albuterol (Albuterol 0.083% 2.5 Mg/3 Ml Neb Soln) 2.5 mg NEB Q4H PRN PRN Reason: Shortness Of Breath/wheezing Albuterol/Ipratropium (Albuterol/Ipratropium 3.0-0.5 Mg/3 Ml Neb Soln) 3 ml NEB QIDRT [facility] Last Admin: 01/24/21 14:23 Dose: 3 ml Documented by: Amiodarone HCl (Amiodarone 200 Mg Tab) 200 mg PO DAILY [facility] Last Admin: 01/24/21 09:34 Dose: 200 mg Documented by: Artificial Tears (Hypromellose 0.3% Ophth Soln 15 Ml Bottle) 0 ml EYEBOTH Q1H PRN PRN Reason: Dry Eyes Last Admin: 01/23/21 06:04 Dose: 2 drop Documented by: Aspirin (Aspirin 81 Mg Tab.Ec) 81 mg PO DAILY [facility] Last Admin: 01/24/21 09:35 Dose: 81 mg Documented by: Bumetanide (Bumetanide 1 Mg Tab) 3 mg PO DAILY [facility] Last Admin: 01/24/21 09:34 Dose: 3 mg Documented by: Dextrose (Glucose Gel 15 Gm In 37.5 Gm Tube) 15 gm PO ONETIME PRN PRN Reason: Hypoglycemia Dextrose/Water (50% Dextrose In Water 50 Ml Syringe) 50 ml IV ONETIME PRN PRN Reason: Hypoglycemia Duloxetine HCl (Duloxetine 20 Mg Cap) 20 mg PO BEDTIME [facility] Last Admin: 01/21/21 20:13 Dose: 20 mg Documented by: Haloperidol Lactate (Haloperidol Lactate 5 Mg/Ml Sdv) 2 mg IVPUSH Q4H PRN PRN Reason: Agitation Last Admin: 01/24/21 11:20 Dose: 2 mg Documented by: Hydrocortisone Sodium Succinate (Hydrocortisone Sodium Succinate 100 Mg/2 Ml Sdv) 50 mg IVPUSH Q12H [facility] Sodium Chloride (Normal Saline) 1,000 mls @ 25 mls/hr IV ASDIRECTED [facility] Last Admin: 01/21/21 23:47 Dose: 25 mls/hr Documented by: Norepinephrine Bitartrate 4 mg (/ Dextrose/Water) 250 mls @ 7.5 mls/hr IV TITRATE [facility]; Protocol Last Titration: 01/24/21 06:34 Dose: 4 mcg/min, 15 mls/hr Documented by: Clindamycin Phosphate 900 mg/ (Sodium Chloride) 106 mls @ 200 mls/hr IV Q8H [facility] Last Admin: 01/24/21 11:13 Dose: 200 mls/hr Documented by: Piperacillin/Tazobactam/ (Dextrose 2.25 gm/ Premix) 50 mls @ 100 mls/hr IV Q6H [facility] Insulin Human Lispro (Insulin Lispro 100 Unit/Ml 3 Ml Kwikpen) 0 unit SUBCUT QIDACANDBED [facility]; Protocol Last Admin: 01/24/21 11:30 Dose: 4 unit Documented by: Insulin Lispro Protam/Lispro Human (Insulin Lispro Protamine/Lispro 75-25 100 Units/Ml 10 Ml Vial) 35 unit SUBCUT BIDMEALS [facility] Last Admin: 01/24/21 09:32 Dose: Not Given Documented by: Isosorbide Mononitrate (Isosorbide Mononitrate 30 Mg Tab.Er) 30 mg PO DAILY [facility] Last Admin: 01/24/21 09:36 Dose: 30 mg Documented by: Lorazepam (Lorazepam 0.5 Mg Tab) 0.25 mg PO Q4H PRN PRN Reason: Anxiety Last Admin: 01/23/21 23:49 Dose: 0.25 mg Documented by: Ondansetron HCl (Ondansetron 4 Mg/2 Ml Sdv) 4 mg IV Q4H PRN PRN Reason: Nausea/Vomiting Oxycodone HCl (Oxycodone 5 Mg Tab) 5 mg PO Q4H PRN PRN Reason: Pain (moderate 4-6) Last Admin: 01/24/21 14:27 Dose: 5 mg Documented by: Oxycodone/Acetaminophen (Acetaminophen/Oxycodone 325-5 Mg Tab) 1 tab PO Q6H PRN PRN Reason: PAIN Polyethylene Glycol (Polyethylene Glycol 3350 Powder 17 Gm Packet) 17 gm PO DAILY PRN PRN Reason: Constipation Pregabalin (Pregabalin 50 Mg Cap) 50 mg PO TID [facility] Last Admin: 01/24/21 14:27 Dose: 50 mg Documented by: Sodium Chloride (Sodium Chloride 0.9% 10 Ml Syringe) 10 ml FLUSH ASDIRECTED PRN PRN Reason: Keep Vein Open Discontinued Medications Albuterol/Ipratropium (Albuterol/Ipratropium 3.0-0.5 Mg/3 Ml Neb Soln) 3 ml NEB QID PRN PRN Reason: Shortness Of Breath/wheezing Bumetanide (Bumetanide 1 Mg/4 Ml Mdv) 2 mg IVPUSH ONETIME ONE Stop: 01/20/21 17:47 Last Admin: 01/20/21 19:16 Dose: 2 mg Documented by: Bupivacaine HCl (Bupivacaine 0.5% 50 Ml Mdv) Confirm Administered Dose 50 ml .ROUTE .STK-MED ONE Stop: 01/22/21 14:12 Last Admin: 01/22/21 16:10 Dose: 20 ml Documented by: Carvedilol (Carvedilol 12.5 Mg Tab) 25 mg PO BIDMEALS [facility] Last Admin: 01/24/21 07:50 Dose: 25 mg Documented by: Ceftriaxone Sodium (Ceftriaxone 500 Mg Vial) 1,000 mg IVPUSH ONETIME ONE Stop: 01/20/21 16:25 Last Admin: 01/20/21 17:33 Dose: Not Given Documented by: Ceftriaxone Sodium (Ceftriaxone 1 Gm Advvial) Confirm Administered Dose 1 gm IV .STK-MED ONE Stop: 01/20/21 16:45 Last Admin: 01/21/21 06:15 Dose: Not Given Documented by: Gabapentin (Gabapentin 300 Mg Cap) 500 mg PO TID [facility] Gabapentin (Gabapentin 100 Mg Cap) 500 mg PO ONETIME ONE Stop: 01/20/21 22:16 Last Admin: 01/20/21 22:44 Dose: 500 mg Documented by: Hydrocortisone Sodium Succinate (Hydrocortisone Sodium Succinate 100 Mg/2 Ml Sdv) 100 mg IVPUSH ONETIME ONE Stop: 01/22/21 00:08 Last Admin: 01/22/21 00:34 Dose: 100 mg Documented by: Hydrocortisone Sodium Succinate (Hydrocortisone Sodium Succinate 100 Mg/2 Ml Sdv) 50 mg IVPUSH Q6H [facility] Stop: 01/23/21 02:01 Last Admin: 01/23/21 02:24 Dose: 50 mg Documented by: Hydrocortisone Sodium Succinate (Hydrocortisone Sodium Succinate 100 Mg/2 Ml Sdv) 50 mg IVPUSH Q8H [facility] Last Admin: 01/24/21 09:40 Dose: 50 mg Documented by: Doxycycline Hyclate 100 mg/ (Sodium Chloride) 100 mls @ 100 mls/hr IV ONETIME ONE Stop: 01/20/21 17:23 Last Admin: 01/20/21 17:15 Dose: 100 mls/hr Documented by: Sodium Chloride (Normal Saline) 1,000 mls @ 999 mls/hr IV ASDIRECTED [facility] Last Admin: 01/20/21 17:18 Dose: 999 mls/hr Documented by: Sodium Chloride (Normal Saline) Confirm Administered Dose 100 mls @ as directed .ROUTE .STK-MED ONE Stop: 01/20/21 16:46 Last Admin: 01/21/21 06:15 Dose: Not Given Documented by: Ceftriaxone Sodium 1 gm/ (Sodium Chloride) 50 mls @ 100 mls/hr IV ONETIME ONE Stop: 01/20/21 17:32 Last Admin: 01/20/21 17:17 Dose: 100 mls/hr Documented by: Sodium Chloride (Normal Saline) 1,000 mls @ 125 mls/hr IV ASDIRECTED [facility] Last Admin: 01/21/21 03:56 Dose: 125 mls/hr Documented by: Levofloxacin/Dextrose 750 mg/ (Premix) 150 mls @ 100 mls/hr IV Q48H [facility] Last Admin: 01/20/21 21:20 Dose: 100 mls/hr Documented by: Piperacillin Sod/Tazobactam (Sod 2.25 gm/ Sodium Chloride) 50 mls @ 100 mls/hr IV Q6H [facility] Last Admin: 01/21/21 01:48 Dose: 100 mls/hr Documented by: Vancomycin HCl 1.5 gm/ Sodium (Chloride) 250 mls @ 166.667 mls/hr IV Q24H [facility] Last Admin: 01/21/21 23:26 Dose: 166.667 mls/hr Documented by: Sodium Chloride (Normal Saline) 500 mls @ 500 mls/hr IV .BOLUS ONE Stop: 01/20/21 21:33 Last Admin: 01/21/21 23:30 Dose: 500 mls/hr Documented by: Piperacillin/Tazobactam/ (Dextrose 2.25 gm/ Premix) 50 mls @ 100 mls/hr IV Q6H [facility] Last Admin: 01/22/21 08:27 Dose: 100 mls/hr Documented by: Magnesium Sulfate (Magnesium Sulfate In Water 2 Gm/50 Ml) 2 gm in 50 mls @ 25 m ls/hr IV Q6H [facility] Stop: 01/21/21 18:59 Last Admin: 01/21/21 16:14 Dose: 25 mls/hr Documented by: Sodium Chloride (Normal Saline) 500 mls @ 999 mls/hr IV ONETIME ONE Stop: 01/22/21 00:15 Last Admin: 01/21/21 23:00 Dose: 999 mls/hr Documented by: Sodium Chloride (Normal Saline) 500 mls @ 999 mls/hr IV ONETIME ONE Stop: 01/22/21 00:15 Last Admin: 01/21/21 23:35 Dose: 999 mls/hr Documented by: Sodium Chloride (Normal Saline) 1,000 mls @ 500 mls/hr IV ASDIRECTED [facility] Stop: 01/22/21 02:16 Dextrose/Water (Dextrose 5% In Water) Confirm Administered Dose 250 mls @ as directed .ROUTE .STK-MED ONE Stop: 01/22/21 00:10 Last Admin: 01/22/21 00:41 Dose: Not Given Documented by: Piperacillin/Tazobactam/ (Dextrose 2.25 gm/ Premix) 50 mls @ 100 mls/hr IV Q8H [facility] Last Admin: 01/24/21 09:30 Dose: 100 mls/hr Documented by: Losartan Potassium (Losartan 50 Mg Tab) 100 mg PO DAILY [facility] Last Admin: 01/24/21 09:35 Dose: 100 mg Documented by: Magnesium Oxide (Magnesium Oxide 400 Mg Tab) 400 mg PO DAILY [facility] Last Admin: 01/22/21 08:42 Dose: Not Given Documented by: Norepinephrine Bitartrate (Norepinephrine 4 Mg/4 Ml Sdv) Confirm Administered Dose 4 mg .ROUTE .STK-MED ONE Stop: 01/22/21 00:10 Last Admin: 01/22/21 00:41 Dose: Not Given Documented by: Ondansetron HCl (Ondansetron 4 Mg/2 Ml Sdv) 4 mg IVPUSH ONETIME ONE Stop: 01/20/21 17:27 Last Admin: 01/21/21 06:15 Dose: Not Given Documented by: Pregabalin (Pregabalin 100 Mg Cap) 100 mg PO TID [facility] Pregabalin (Pregabalin 100 Mg Cap) 100 mg PO ONETIME ONE Stop: 01/20/21 22:16 Last Admin: 01/20/21 22:45 Dose: 100 mg Documented by: Rivaroxaban (Rivaroxaban 10 Mg Tab) 20 mg PO DAILY [facility] Last Admin: 01/22/21 08:42 Dose: Not Given Documented by: Simvastatin (Simvastatin 20 Mg Tab) 20 mg PO BEDTIME [facility] Last Admin: 01/21/21 20:13 Dose: 20 mg Documented by: Vancomycin HCl (Vancomycin 1 Gm Sdv) 1 gm IV .PHARMACY TO DOSE AYAN Stop: 01/21/21 07:30 - Exam Quality Assessment: Supplemental Oxygen General: Moderate Distress HEENT: No: Scleral Icterus Neck: Supple Lungs: Clear to Auscultation Cardiovascular: Regular Rate, Regular Rhythm Extremities: Leg Pain Neurological: No New Focal Deficit Psy/Mental Status: Labile Mood, Agitated Physical Findings Comments:: Left foot with significant bleeding at the heel upon removal of dressings. Patient required multiple attempts at pressurizing area and wrapping with Leno bandage in order to tamponade the bleeding. - Patient Data Lab Results Last 24 hrs: Laboratory Results - last 24 hr 01/23/21 01/23/21 01/24/21 Range/Units 17:12 21:05 06:03 WBC 14.0 H (4.5-11.0) K/uL RBC 3.60 (3.30-5.50) M/uL Hgb 11.2 L (12.0-15.0) g/dL Hct 35.7 L (36.0-48.0) % MCV 99 H (80-98) fL MCH 31 (27-31) pg MCHC 31 L (32-36) % Plt Count 147 L (150-400) K/uL Sodium (140-148) mmol/L Potassium (3.6-5.2) mmol/L Chloride (100-108) mmol/L Carbon Dioxide (21-32) mmol/L Anion Gap (5.0-14.0) mmol/L BUN (7-18) mg/dL Creatinine (0.6-1.0) mg/dL Est Cr Clr Drug Dosing mL/min Estimated GFR (MDRD) (>60) Glucose (74-106) mg/dL POC Glucose 315 H 280 H (74-106) mg/dL Calcium (8.5-10.1) mg/dL C-Reactive Protein (0.0-0.3) mg/dL 01/24/21 01/24/21 Range/Units 06:03 11:29 WBC (4.5-11.0) K/uL RBC (3.30-5.50) M/uL Hgb (12.0-15.0) g/dL Hct (36.0-48.0) % MCV (80-98) fL MCH (27-31) pg MCHC (32-36) % Plt Count (150-400) K/uL Sodium 138 L (140-148) mmol/L Potassium 4.3 (3.6-5.2) mmol/L Chloride 102 (100-108) mmol/L Carbon Dioxide 27 (21-32) mmol/L Anion Gap 13.3 (5.0-14.0) mmol/L BUN 31 H (7-18) mg/dL Creatinine 1.3 H (0.6-1.0) mg/dL Est Cr Clr Drug Dosing 30.70 mL/min Estimated GFR (MDRD) 39 L (>60) Glucose 274 H (74-106) mg/dL POC Glucose 242 H (74-106) mg/dL Calcium 10.7 H D (8.5-10.1) mg/dL C-Reactive Protein 16.26 H (0.0-0.3) mg/dL Result Diagrams: 01/24/21 06:03 01/24/21 06:03 Itz Results Last 24 hrs: Microbiology 01/22/21 16:25 Gram Stain - Final Foot, Left Wound Culture - Preliminary NO GROWTH AFTER 1 DAY Anaerobic Culture - Preliminary NO GROWTH AFTER 1 DAY 01/22/21 16:20 Gram Stain - Final Foot, Left Wound Culture - Preliminary NO GROWTH AFTER 1 DAY Anaerobic Culture - Preliminary NO GROWTH AFTER 1 DAY 01/23/21 04:40 Aerobic Blood Culture - Preliminary Blood - Arm, Right NO GROWTH AFTER 1 DAY Anaerobic Blood Culture - Preliminary NO GROWTH AFTER 1 DAY 01/20/21 16:50 Aerobic Blood Culture - Final Blood - Venous - Iv Start Streptococcus Group A Anaerobic Blood Culture - Preliminary NO GROWTH AFTER 3 DAYS Sepsis Event Note - Evaluation Sepsis Screening Result: Sepsis Risk - Focused Exam Vital Signs: Vital Signs Temp Temp Pulse Pulse Resp BP BP 01/24/21 15:00 74 26 H 110/39 L 01/24/21 11:00 74 16 118/43 L 01/24/21 10:43 75 01/24/21 09:36 130/51 L 01/24/21 09:35 130/51 L 01/24/21 09:00 84 22 H 121/49 L 01/24/21 08:00 88 21 H 130/51 L 01/24/21 07:50 81 146/74 H 01/24/21 07:00 98.7 F 90 19 130/51 L 01/24/21 06:00 84 17 159/69 H 01/24/21 05:00 73 19 141/75 H 01/24/21 04:00 97.6 F 78 21 H 129/62 Pulse Ox 01/24/21 15:00 94 L 01/24/21 11:00 98 01/24/21 10:43 01/24/21 09:36 01/24/21 09:35 01/24/21 09:00 86 L 01/24/21 08:00 94 L 01/24/21 07:50 01/24/21 07:00 99 01/24/21 06:00 93 L 01/24/21 05:00 92 L 01/24/21 04:00 92 L - Problem List Review Problem List Initiated/Reviewed/Updated: Yes - My Orders Last 24 Hours: My Active Orders 01/24/21 10:57 Central Line PICC Insertion [Central Venous Line Insertion] [OM.PC] Routine 01/24/21 18:00 Hydrocortisone Sod Succinate [Solu-CORTEF] 50 mg IVPUSH Q12H 01/25/21 06:00 BASIC METABOLIC PANEL,BMP [CHEM] Routine CBC W/O DIFF,HEMOGRAM [HEME] Routine CRP [C-REACTIVE PROTEIN] [CHEM] Routine - Plan Plan:: ASSESSMENT AND PLAN - SEPTIC SHOCK CELLULITIS LEFT LOWER EXTREMITY WITH ABSCESS Cultures grew out group A strep. Surveillance culture from 01/23 is no growth to date. Vasopressor requirement is decreasing. The patient has continued on losartan and Coreg. These were stopped today and will be resumed when patient has adequate blood pressures off of pressor. -Continue norepinephrine, wean as able -Decrease hydrocortisone to 50 mg twice daily. Would like to taper this as possible as it may be contributing to the patient's confusion. -Continue Pip/Tazo and clindamycin for antitoxin effect -Podiatry input from Dr. Galvez appreciated. Plan for podiatry reevaluation early this coming week. -Symptomatic management of pain Patient has required pressor through peripheral IV for some time and nursing is had difficulty with the patient's IV at the right AC. A PICC line was placed today to aid with antibiotic pressor administration. If the patient's surveillance culture from yesterday were to become positive, would need to plan replacement of PICC line. ACUTE HYPOXIC RESPIRATORY FAILURE WITH HYPOXIA AND HYPERCAPNIA Multifactorial with septic shock, obesity, hypoventilation and sedation. -Supplemental oxygen as needed -NIPPV at night and as needed Continue cardiac monitoring and pulse oximetry ACUTE KIDNEY INJURY ON TOP OF CHRONIC KIDNEY DISEASE Creatinine improved today with holding Bumex yesterday. Oral intake remains limited due to patient confusion. -Decrease Bumex from 3 mg daily to 1 mg daily tomorrow. Will add back as oral intake improves and fluid status allows. -Continue to closely monitor urine output and renal function TYPE 2 DIABETES MELLITUS -Hold glipizide -Continue long-acting insulin this evening -4 times daily glucometer -Moderate dose sliding scale Humalog PAROXYSMAL ATRIAL FIBRILLATION Rivaroxaban is currently held due to impaired renal function -Continue amiodarone CONGESTIVE HEART FAILURE Does not appear to be in acute exacerbation -Medical management on hold with hypotension -Restart beta-gladys and other medications as able MAINTENANCE ISSUES -DVT prophylaxis; SCDs. Avoid chemical DVT prophylaxis or anticoagulation given significant bleeding from the patient's ankle noted earlier today. -Nutrition; consistent carbohydrate diet DISPOSITION-[facility] the hospital stay.
[2021-01-24] MEDS: Sodium Chloride 0.9% 1,000 ML IV SCH (20:40)
[2021-01-24] MEDS: DULoxetine 20 MG Cap PO SCH (21:19)
[2021-01-25] MEDS: Clindamycin Phosphate 900 MG in Sodium Chloride 0.9% 100 ML IV SCH ×3 (01:58→17:48)
[2021-01-25] MEDS: Piperacillin/Tazobactam/Dext 2.25 GM in Premix Bag 1 BAG IV SCH ×4 (04:23→20:59)
[2021-01-25] MEDS: Hydrocortisone Sodium Succinate 100 MG/2 ML SDV IVPUSH SCH ×2 (06:05→17:47)
[2021-01-25] MEDS: Albuterol/Ipratropium 3.0-0.5 MG/3 ML Neb Soln NEB SCH ×4 (07:03→20:52)
[2021-01-25] MEDS: Insulin Lispro 100 Unit/ML 3 ML KwikPen SUBCUT SCH ×4 (08:39→20:51)
[2021-01-25] MEDS ORDERED: 50% Dextrose in Water 50 ML Syringe IV PRN (08:40)
[2021-01-25] MEDS: Bumetanide 1 MG Tab PO SCH (08:41)
[2021-01-25] MEDS: Aspirin 81 MG Tab.EC PO SCH (08:42)
[2021-01-25] MEDS: Amiodarone 200 MG Tab PO SCH (08:42)
[2021-01-25] MEDS ORDERED: 50% Dextrose in Water 50 ML Syringe IVPUSH PRN (08:42)
[2021-01-25] MEDS ORDERED: Glucagon,Human Recombinant 1 MG Vial IM PRN (08:42)
[2021-01-25] MEDS: Isosorbide Mononitrate 30 MG Tab.ER PO SCH (08:43)
[2021-01-25] MEDS: oxyCODONE 5 MG Tab PO PRN (08:52)
[2021-01-25] MEDS: Pregabalin 50 MG Cap PO SCH ×3 (08:52→20:59)
--- NOTE | 2021-01-25 08:59 | PCM.PN ---
- General Info Date of Service: 01/25/21 Admission Dx/Problem (Free Text): Admission Diagnosis/Problem Admission Diagnosis/Problem Septic shock, Group A strep septicemia Subjective Update: The patient had necrotic tissue debrided from her left ankle on 01/22. Plan was for nursing to apply wound, but upon removal of dressings, the patient had profound bleeding requiring compression. With my assistance yesterday, we were able to apply pressure to the wound to tamponade the bleeding. I discussed the case with podiatry, Dr. Machado, today who would like to continue daily dressing changes as able with reassessment by podiatry on Thursday. The patient's [employer] antihypertensive medications were discontinued yesterday and norepinephrine has been titrated down. Her hydrocortisone dosing has also been decreased and her mentation has improved this morning. Functional Status: Reports: Pain Controlled - Review of Systems General: Denies: Fever HEENT: Reports: No Symptoms Pulmonary: Denies: Cough, Wheezing Cardiovascular: Denies: Chest Pain, Palpitations Gastrointestinal: Reports: No Symptoms Musculoskeletal: Reports: No Symptoms Neurological: Reports: No Symptoms Psychiatric: Reports: Mood Lability - Patient Data Vitals - Most Recent: Last Vital Signs Temp 97.4 F 01/25/21 07:00 Pulse 68 01/25/21 08:00 Resp 18 01/25/21 08:00 BP 133/57 L 01/25/21 08:43 Pulse Ox 92 L 01/25/21 08:00 Weight - Most Recent: 275 lb 9.6 oz I&O - Last 24 Hours: Intake & Output 01/24/21 01/25/21 01/25/21 22:59 06:59 14:59 Intake Total 843 643 Output Total 5532 150 Balance -1655 493 Lab Results Last 24 Hours: Laboratory Results - last 24 hr 01/24/21 01/24/21 01/24/21 Range/Units 11:29 17:11 21:12 WBC (4.5-11.0) K/uL RBC (3.30-5.50) M/uL Hgb (12.0-15.0) g/dL Hct (36.0-48.0) % MCV (80-98) fL MCH (27-31) pg MCHC (32-36) % Plt Count (150-400) K/uL Sodium (140-148) mmol/L Potassium (3.6-5.2) mmol/L Chloride (100-108) mmol/L Carbon Dioxide (21-32) mmol/L Anion Gap (5.0-14.0) mmol/L BUN (7-18) mg/dL Creatinine (0.6-1.0) mg/dL Est Cr Clr Drug Dosing mL/min Estimated GFR (MDRD) (>60) Glucose (74-106) mg/dL POC Glucose 242 H 284 H 271 H (74-106) mg/dL Calcium (8.5-10.1) mg/dL C-Reactive Protein (0.0-0.3) mg/dL 01/25/21 01/25/21 Range/Units 04:47 04:47 WBC 8.5 (4.5-11.0) K/uL RBC 2.88 L (3.30-5.50) M/uL Hgb 8.6 L D (12.0-15.0) g/dL Hct 28.7 L (36.0-48.0) % MCV 100 H (80-98) fL MCH 30 (27-31) pg MCHC 30 L (32-36) % Plt Count 140 L (150-400) K/uL Sodium 144 (140-148) mmol/L Potassium 3.5 L (3.6-5.2) mmol/L Chloride 104 (100-108) mmol/L Carbon Dioxide 32 (21-32) mmol/L Anion Gap 11.5 (5.0-14.0) mmol/L BUN 33 H (7-18) mg/dL Creatinine 1.3 H (0.6-1.0) mg/dL Est Cr Clr Drug Dosing 30.70 mL/min Estimated GFR (MDRD) 39 L (>60) Glucose 243 H (74-106) mg/dL POC Glucose (74-106) mg/dL Calcium 9.5 (8.5-10.1) mg/dL C-Reactive Protein 14.70 H (0.0-0.3) mg/dL Itz Results Last 24 Hours: Microbiology 01/22/21 16:25 Gram Stain - Final Foot, Left Wound Culture - Preliminary NO GROWTH AFTER 2 DAYS Anaerobic Culture - Preliminary NO GROWTH AFTER 2 DAYS 01/22/21 16:20 Gram Stain - Final Foot, Left Wound Culture - Preliminary NO GROWTH AFTER 2 DAYS Anaerobic Culture - Preliminary NO GROWTH AFTER 2 DAYS 01/23/21 04:40 Aerobic Blood Culture - Preliminary Blood - Arm, Right NO GROWTH AFTER 2 DAYS Anaerobic Blood Culture - Preliminary NO GROWTH AFTER 2 DAYS 01/20/21 16:50 Aerobic Blood Culture - Final Blood - Venous - Iv Start Streptococcus Group A Anaerobic Blood Culture - Preliminary NO GROWTH AFTER 4 DAYS Med Orders - Current: Current Medications Acetaminophen (Acetaminophen 325 Mg Tab) 650 mg PO Q4H PRN PRN Reason: Pain (Mild 1-3)/fever Last Admin: 01/22/21 00:24 Dose: 650 mg Documented by: Albuterol (Albuterol 0.083% 2.5 Mg/3 Ml Neb Soln) 2.5 mg NEB Q4H PRN PRN Reason: Shortness Of Breath/wheezing Albuterol/Ipratropium (Albuterol/Ipratropium 3.0-0.5 Mg/3 Ml Neb Soln) 3 ml NEB QIDRT [facility] Last Admin: 01/25/21 07:03 Dose: 3 ml Documented by: Amiodarone HCl (Amiodarone 200 Mg Tab) 200 mg PO DAILY [facility] Last Admin: 01/25/21 08:42 Dose: 200 mg Documented by: Artificial Tears (Hypromellose 0.3% Ophth Soln 15 Ml Bottle) 0 ml EYEBOTH Q1H PRN PRN Reason: Dry Eyes Last Admin: 01/23/21 06:04 Dose: 2 drop Documented by: Aspirin (Aspirin 81 Mg Tab.Ec) 81 mg PO DAILY [facility] Last Admin: 01/25/21 08:42 Dose: 81 mg Documented by: Bumetanide (Bumetanide 1 Mg Tab) 2 mg PO DAILY [facility] Last Admin: 01/25/21 08:41 Dose: 2 mg Documented by: Dextrose/Water (50% Dextrose In Water 50 Ml Syringe) 50 ml IVPUSH ASDIRECTED PRN PRN Reason: Hypoglycemia Duloxetine HCl (Duloxetine 20 Mg Cap) 20 mg PO BEDTIME [facility] Last Admin: 01/24/21 21:19 Dose: 20 mg Documented by: Glucagon (Glucagon,Human Recombinant 1 Mg Vial) 1 mg IM ASDIRECTED PRN PRN Reason: Hypoglycemia Haloperidol Lactate (Haloperidol Lactate 5 Mg/Ml Sdv) 2 mg IVPUSH Q4H PRN PRN Reason: Agitation Last Admin: 01/24/21 11:20 Dose: 2 mg Documented by: Hydrocortisone Sodium Succinate (Hydrocortisone Sodium Succinate 100 Mg/2 Ml Sdv) 25 mg IVPUSH Q12H [facility] Sodium Chloride (Normal Saline) 1,000 mls @ 25 mls/hr IV ASDIRECTED [facility] Last Admin: 01/24/21 20:40 Dose: 25 mls/hr Documented by: Norepinephrine Bitartrate 4 mg (/ Dextrose/Water) 250 mls @ 7.5 mls/hr IV TI TRATE [facility]; Protocol Last Admin: 01/24/21 16:05 Dose: 4 mcg/min, 15 mls/hr Documented by: Clindamycin Phosphate 900 mg/ (Sodium Chloride) 106 mls @ 200 mls/hr IV Q8H [facility] Last Admin: 01/25/21 01:58 Dose: 200 mls/hr Documented by: Piperacillin/Tazobactam/ (Dextrose 2.25 gm/ Premix) 50 mls @ 100 mls/hr IV Q6H [facility] Last Admin: 01/25/21 04:23 Dose: 100 mls/hr Documented by: Insulin Glargine (Insulin Glargine,Human Rec. Analog 100 Units/Ml 3 Ml Pen) 15 units SUBCUT BID [facility] Insulin Human Lispro (Insulin Lispro 100 Unit/Ml 3 Ml Kwikpen) 0 unit SUBCUT QIDACANDBED [facility]; Protocol Isosorbide Mononitrate (Isosorbide Mononitrate 30 Mg Tab.Er) 30 mg PO DAILY [facility] Last Admin: 01/25/21 08:43 Dose: 30 mg Documented by: Lorazepam (Lorazepam 0.5 Mg Tab) 0.25 mg PO Q4H PRN PRN Reason: Anxiety Last Admin: 01/23/21 23:49 Dose: 0.25 mg Documented by: Ondansetron HCl (Ondansetron 4 Mg/2 Ml Sdv) 4 mg IV Q4H PRN PRN Reason: Nausea/Vomiting Oxycodone HCl (Oxycodone 5 Mg Tab) 5 mg PO Q4H PRN PRN Reason: Pain (moderate 4-6) Last Admin: 01/25/21 08:52 Dose: 5 mg Documented by: Oxycodone/Acetaminophen (Acetaminophen/Oxycodone 325-5 Mg Tab) 1 tab PO Q6H PRN PRN Reason: PAIN Polyethylene Glycol (Polyethylene Glycol 3350 Powder 17 Gm Packet) 17 gm PO DAILY PRN PRN Reason: Constipation Pregabalin (Pregabalin 50 Mg Cap) 50 mg PO TID [facility] Last Admin: 01/25/21 08:52 Dose: 50 mg Documented by: Sodium Chloride (Sodium Chloride 0.9% 10 Ml Syringe) 10 ml FLUSH ASDIRECTED PRN PRN Reason: Keep Vein Open Discontinued Medications Albuterol/Ipratropium (Albuterol/Ipratropium 3.0-0.5 Mg/3 Ml Neb Soln) 3 ml NEB QID PRN PRN Reason: Shortness Of Breath/wheezing Bumetanide (Bumetanide 1 Mg/4 Ml Mdv) 2 mg IVPUSH ONETIME ONE Stop: 01/20/21 17:47 Last Admin: 01/20/21 19:16 Dose: 2 mg Documented by: Bumetanide (Bumetanide 1 Mg Tab) 3 mg PO DAILY [facility] Last Admin: 01/24/21 09:34 Dose: 3 mg Documented by: Bumetanide (Bumetanide 1 Mg Tab) 1 mg PO DAILY [facility] Bupivacaine HCl (Bupivacaine 0.5% 50 Ml Mdv) Confirm Administered Dose 50 ml .ROUTE .STK-MED ONE Stop: 01/22/21 14:12 Last Admin: 01/22/21 16:10 Dose: 20 ml Documented by: Carvedilol (Carvedilol 12.5 Mg Tab) 25 mg PO BIDMEALS [facility] Last Admin: 01/24/21 07:50 Dose: 25 mg Documented by: Ceftriaxone Sodium (Ceftriaxone 500 Mg Vial) 1,000 mg IVPUSH ONETIME ONE Stop: 01/20/21 16:25 Last Admin: 01/20/21 17:33 Dose: Not Given Documented by: Ceftriaxone Sodium (Ceftriaxone 1 Gm Advvial) Confirm Administered Dose 1 gm IV .STK-MED ONE Stop: 01/20/21 16:45 Last Admin: 01/21/21 06:15 Dose: Not Given Documented by: Dextrose (Glucose Gel 15 Gm In 37.5 Gm Tube) 15 gm PO ONETIME PRN PRN Reason: Hypoglycemia Dextrose/Water (50% Dextrose In Water 50 Ml Syringe) 50 ml IV ONETIME PRN PRN Reason: Hypoglycemia Gabapentin (Gabapentin 300 Mg Cap) 500 mg PO TID [facility] Gabapentin (Gabapentin 100 Mg Cap) 500 mg PO ONETIME ONE Stop: 01/20/21 22:16 Last Admin: 01/20/21 22:44 Dose: 500 mg Documented by: Hydrocortisone Sodium Succinate (Hydrocortisone Sodium Succinate 100 Mg/2 Ml Sdv) 100 mg IVPUSH ONETIME ONE Stop: 01/22/21 00:08 Last Admin: 01/22/21 00:34 Dose: 100 mg Documented by: Hydrocortisone Sodium Succinate (Hydrocortisone Sodium Succinate 100 Mg/2 Ml Sdv) 50 mg IVPUSH Q6H [facility] Stop: 01/23/21 02:01 Last Admin: 01/23/21 02:24 Dose: 50 mg Documented by: Hydrocortisone Sodium Succinate (Hydrocortisone Sodium Succinate 100 Mg/2 Ml Sdv) 50 mg IVPUSH Q8H [facility] Last Admin: 01/24/21 09:40 Dose: 50 mg Documented by: Hydrocortisone Sodium Succinate (Hydrocortisone Sodium Succinate 100 Mg/2 Ml Sdv) 50 mg IVPUSH Q12H [facility] Last Admin: 01/25/21 06:05 Dose: 50 mg Documented by: Doxycycline Hyclate 100 mg/ (Sodium Chloride) 100 mls @ 100 mls/hr IV ONETIME ONE Stop: 01/20/21 17:23 Last Admin: 01/20/21 17:15 Dose: 100 mls/hr Documented by: Sodium Chloride (Normal Saline) 1,000 mls @ 999 mls/hr IV ASDIRECTED [facility] Last Admin: 01/20/21 17:18 Dose: 999 mls/hr Documented by: Sodium Chloride (Normal Saline) Confirm Administered Dose 100 mls @ as directed .ROUTE .STK-MED ONE Stop: 01/20/21 16:46 Last Admin: 01/21/21 06:15 Dose: Not Given Documented by: Ceftriaxone Sodium 1 gm/ (Sodium Chloride) 50 mls @ 100 mls/hr IV ONETIME ONE Stop: 01/20/21 17:32 Last Admin: 01/20/21 17:17 Dose: 100 mls/hr Documented by: Sodium Chloride (Normal Saline) 1,000 mls @ 125 mls/hr IV ASDIRECTED [facility] Last Admin: 01/21/21 03:56 Dose: 125 mls/hr Documented by: Levofloxacin/Dextrose 750 mg/ (Premix) 150 mls @ 100 mls/hr IV Q48H [facility] Last Admin: 01/20/21 21:20 Dose: 100 mls/hr Documented by: Piperacillin Sod/Tazobactam (Sod 2.25 gm/ Sodium Chloride) 50 mls @ 100 mls/hr IV Q6H [facility] Last Admin: 01/21/21 01:48 Dose: 100 mls/hr Documented by: Vancomycin HCl 1.5 gm/ Sodium (Chloride) 250 mls @ 166.667 mls/hr IV Q24H [facility] Last Admin: 01/21/21 23:26 Dose: 166.667 mls/hr Documented by: Sodium Chloride (Normal Saline) 500 mls @ 500 mls/hr IV .BOLUS ONE Stop: 01/20/21 21:33 Last Admin: 01/21/21 23:30 Dose: 500 mls/hr Documented by: Piperacillin/Tazobactam/ (Dextrose 2.25 gm/ Premix) 50 mls @ 100 mls/hr IV Q6H [facility] Last Admin: 01/22/21 08:27 Dose: 100 mls/hr Documented by: Magnesium Sulfate (Magnesium Sulfate In Water 2 Gm/50 Ml) 2 gm in 50 mls @ 25 mls/hr IV Q6H [facility] Stop: 01/21/21 18:59 Last Admin: 01/21/21 16:14 Dose: 25 mls/hr Documented by: Sodium Chloride (Normal Saline) 500 mls @ 999 mls/hr IV ONETIME ONE Stop: 01/22/21 00:15 Last Admin: 01/21/21 23:00 Dose: 999 mls/hr Documented by: Sodium Chloride (Normal Saline) 500 mls @ 999 mls/hr IV ONETIME ONE Stop: 01/22/21 00:15 Last Admin: 01/21/21 23:35 Dose: 999 mls/hr Documented by: Sodium Chloride (Normal Saline) 1,000 mls @ 500 mls/hr IV ASDIRECTED [facility] Stop: 01/22/21 02:16 Dextrose/Water (Dextrose 5% In Water) Confirm Administered Dose 250 mls @ as directed .ROUTE .STK-MED ONE Stop: 01/22/21 00:10 Last Admin: 01/22/21 00:41 Dose: Not Given Documented by: Piperacillin/Tazobactam/ (Dextrose 2.25 gm/ Premix) 50 mls @ 100 mls/hr IV Q8H [facility] Last Admin: 01/24/21 09:30 Dose: 100 mls/hr Documented by: Insulin Human Lispro (Insulin Lispro 100 Unit/Ml 3 Ml Kwikpen) 0 unit SUBCUT QIDACANDBED [facility]; Protocol Last Admin: 01/25/21 08:39 Dose: 4 unit Documented by: Insulin Lispro Protam/Lispro Human (Insulin Lispro Protamine/Lispro 75-25 100 Units/Ml 10 Ml Vial) 35 unit SUBCUT BIDMEALS [facility] Last Admin: 01/24/21 17:14 Dose: Not Given Documented by: Losartan Potassium (Losartan 50 Mg Tab) 100 mg PO DAILY [facility] Last Admin: 01/24/21 09:35 Dose: 100 mg Documented by: Magnesium Oxide (Magnesium Oxide 400 Mg Tab) 400 mg PO DAILY [facility] Last Admin: 01/22/21 08:42 Dose: Not Given Documented by: Norepinephrine Bitartrate (Norepinephrine 4 Mg/4 Ml Sdv) Confirm Administered Dose 4 mg .ROUTE .STK-MED ONE Stop: 01/22/21 00:10 Last Admin: 01/22/21 00:41 Dose: Not Given Documented by: Ondansetron HCl (Ondansetron 4 Mg/2 Ml Sdv) 4 mg IVPUSH ONETIME ONE Stop: 01/20/21 17:27 Last Admin: 01/21/21 06:15 Dose: Not Given Documented by: Pregabalin (Pregabalin 100 Mg Cap) 100 mg PO TID [facility] Pregabalin (Pregabalin 100 Mg Cap) 100 mg PO ONETIME ONE Stop: 01/20/21 22:16 Last Admin: 01/20/21 22:45 Dose: 100 mg Documented by: Rivaroxaban (Rivaroxaban 10 Mg Tab) 20 mg PO DAILY [facility] Last Admin: 01/22/21 08:42 Dose: Not Given Documented by: Simvastatin (Simvastatin 20 Mg Tab) 20 mg PO BEDTIME [facility] Last Admin: 01/21/21 20:13 Dose: 20 mg Documented by: Vancomycin HCl (Vancomycin 1 Gm Sdv) 1 gm IV .PHARMACY TO DOSE [facility] Stop: 01/21/21 07:30 - Exam Quality Assessment: Supplemental Oxygen General: Alert, No Acute Distress HEENT: No: Scleral Icterus Neck: Supple Lungs: Crackles Cardiovascular: Regular Rate, Regular Rhythm GI/Abdominal Exam: Soft, Non-Tender Extremities: Non-Tender, Redness Neurological: No New Focal Deficit Physical Findings Comments:: Patient continues to have good skin blanching in her distal left lower extremity. She reports normal sensation to light touch. Erythema distal to the patient's knee has continued to slowly recede. Affected area appears less warm than previous. - Patient Data Lab Results Last 24 hrs: Laboratory Results - last 24 hr 01/24/21 01/24/21 01/24/21 Range/Units 11:29 17:11 21:12 WBC (4.5-11.0) K/uL RBC (3.30-5.50) M/uL Hgb (12.0-15.0) g/dL Hct (36.0-48.0) % MCV (80-98) fL MCH (27-31) pg MCHC (32-36) % Plt Count (150-400) K/uL Sodium (140-148) mmol/L Potassium (3.6-5.2) mmol/L Chloride (100-108) mmol/L Carbon Dioxide (21-32) mmol/L Anion Gap (5.0-14.0) mmol/L BUN (7-18) mg/dL Creatinine (0.6-1.0) mg/dL Est Cr Clr Drug Dosing mL/min Estimated GFR (MDRD) (>60) Glucose (74-106) mg/dL POC Glucose 242 H 284 H 271 H (74-106) mg/dL Calcium (8.5-10.1) mg/dL C-Reactive Protein (0.0-0.3) mg/dL 01/25/21 01/25/21 Range/Units 04:47 04:47 WBC 8.5 (4.5-11.0) K/uL RBC 2.88 L (3.30-5.50) M/uL Hgb 8.6 L D (12.0-15.0) g/dL Hct 28.7 L (36.0-48.0) % MCV 100 H (80-98) fL MCH 30 (27-31) pg MCHC 30 L (32-36) % Plt Count 140 L (150-400) K/uL Sodium 144 (140-148) mmol/L Potassium 3.5 L (3.6-5.2) mmol/L Chloride 104 (100-108) mmol/L Carbon Dioxide 32 (21-32) mmol/L Anion Gap 11.5 (5.0-14.0) mmol/L BUN 33 H (7-18) mg/dL Creatinine 1.3 H (0.6-1.0) mg/dL Est Cr Clr Drug Dosing 30.70 mL/min Estimated GFR (MDRD) 39 L (>60) Glucose 243 H (74-106) mg/dL POC Glucose (74-106) mg/dL Calcium 9.5 (8.5-10.1) mg/dL C-Reactive Protein 14.70 H (0.0-0.3) mg/dL Result Diagrams: 01/25/21 04:47 01/25/21 04:47 Itz Results Last 24 hrs: Microbiology 01/22/21 16:25 Gram Stain - Final Foot, Left Wound Culture - Preliminary NO GROWTH AFTER 2 DAYS Anaerobic Culture - Preliminary NO GROWTH AFTER 2 DAYS 01/22/21 16:20 Gram Stain - Final Foot, Left Wound Culture - Preliminary NO GROWTH AFTER 2 DAYS Anaerobic Culture - Preliminary NO GROWTH AFTER 2 DAYS 01/23/21 04:40 Aerobic Blood Culture - Preliminary Blood - Arm, Right NO GROWTH AFTER 2 DAYS Anaerobic Blood Culture - Preliminary NO GROWTH AFTER 2 DAYS 01/20/21 16:50 Aerobic Blood Culture - Final Blood - Venous - Iv Start Streptococcus Group A Anaerobic Blood Culture - Preliminary NO GROWTH AFTER 4 DAYS Sepsis Event Note - Evaluation Sepsis Screening Result: No Definite Risk - Focused Exam Vital Signs: Vital Signs Temp Pulse Resp BP BP Pulse Ox 01/25/21 08:43 133/57 L 01/25/21 08:00 68 18 92 L 01/25/21 07:03 66 01/25/21 07:00 97.4 F 72 21 H 135/53 L 93 L 01/25/21 06:00 17 115/68 97 01/25/21 05:00 16 119/46 L 97 01/25/21 04:00 97.6 F 16 120/30 L 94 L 01/25/21 03:00 17 119/35 L 96 01/25/21 02:00 16 112/44 L 98 01/25/21 01:00 16 113/29 L 97 01/25/21 00:00 97.6 F 17 114/50 L 95 01/24/21 23:00 16 104/54 L 96 01/24/21 22:00 17 106/49 L 96 01/24/21 21:00 16 123/54 L 98 - Problem List Review Problem List Initiated/Reviewed/Updated: Yes - My Orders Last 24 Hours: My Active Orders 01/24/21 10:57 Central Line PICC Insertion [Central Venous Line Insertion] [OM.PC] Routine 01/25/21 08:40 Blood Glucose Check, Bedside [RC] QIDACANDBED Diabetes Education [RC] Click to Edit Notify Provider [RC] PRN 01/25/21 08:42 Dextrose 50% in Water 50 ml IVPUSH ASDIRECTED PRN Glucagon,Human Recombinant [GlucaGen] 1 mg IM ASDIRECTED PRN 01/25/21 09:00 Bumetanide [Bumex] 2 mg PO DAILY Insulin Glarg,Human.Rec.Analog [LantUS Solostar] 15 units SUBCUT BID 01/25/21 11:00 Insulin Lispro [HumaLOG] See Protocol SUBCUT QIDACANDBED 01/25/21 18:00 Hydrocortisone Sod Succinate [Solu-CORTEF] 25 mg IVPUSH Q12H 01/26/21 06:00 BASIC METABOLIC PANEL,BMP [CHEM] Routine CBC W/O DIFF,HEMOGRAM [HEME] Routine - Plan Plan:: ASSESSMENT AND PLAN - SEPTIC SHOCK CELLULITIS LEFT LOWER EXTREMITY WITH ABSCESS GROUP A STREPTICEMIA Levophed has been weaned since patient was taken off of Coreg and losartan yesterday. Case discussed with podiatry today and relayed to nursing. We will plan on daily dressing changes at the patient's left lower extremity with podiatry reevaluation on Thursday. Hydrocortisone has been decreased from 50 to 25 mg twice daily. Continue broad-spectrum antibiotic products with Zosyn and clindamycin for now. PICC line placed yesterday. Surveillance blood cultures from 01/23 are negative. ACUTE HYPOXIC RESPIRATORY FAILURE WITH HYPOXIA AND HYPERCAPNIA Multifactorial with septic shock, obesity, hypoventilation and sedation. -Supplemental oxygen as needed -NIPPV at night and as needed Continue cardiac monitoring and pulse oximetry ACUTE KIDNEY INJURY ON TOP OF CHRONIC KIDNEY DISEASE III Creatinine stable today at 1.3. -Continue daily Bumex. Dose decreased from 3 mg daily to 2 mg daily. Will increase again as fluid status allows. -Continue to closely monitor urine output and renal function TYPE 2 DIABETES MELLITUS -Hold glipizide -Patient's 70/30 insulin was replaced with reduced dosing of twice daily Lantus as the patient's oral intake has been somewhat unreliable. -4 times daily glucometer -Increase sliding scale insulin to high-dose given elevated blood sugars PAROXYSMAL ATRIAL FIBRILLATION Rivaroxaban is currently held due to impaired renal function -Continue amiodarone Consider starting apixaban once bleeding/heel issue has resolved with patient's impaired renal function CONGESTIVE HEART FAILURE Does not appear to be in acute exacerbation -Restart beta-gladys and other medications as able ANEMIA Secondary to hemodilution as well as some acute blood loss from patient's ankle bleeding. Will trend hemoglobin. Consider blood transfusion for hemoglobin less than 8. MAINTENANCE ISSUES -DVT prophylaxis; SCDs. Avoid chemical DVT prophylaxis or anticoagulation given significant bleeding from the patient's ankle noted earlier today. -Nutrition; consistent carbohydrate diet DISPOSITION-anticipate discharge to residential for subacute rehab after the hospital stay.
[2021-01-25] MEDS ORDERED: Bumetanide 1 MG Tab PO SCH (09:00)
[2021-01-25] MEDS: Insulin Glargine,Human Rec. Analog 100 Units/ML 3 ML Pen SUBCUT SCH ×2 (09:07→20:51)
[2021-01-25] MEDS: Norepinephrine 4 MG in Dextrose 5% in Water 246 ML IV SCH ×2 (12:27)
[2021-01-25] MEDS: Sodium Chloride 0.9% 1,000 ML IV SCH (20:47)
[2021-01-25] MEDS: DULoxetine 20 MG Cap PO SCH (20:59)
[2021-01-26] MEDS: Insulin Lispro Protamine/Lispro 75-25 100 Units/ML 10 ML Vial SUBCUT SCH (00:50)
[2021-01-26] MEDS: Clindamycin Phosphate 900 MG in Sodium Chloride 0.9% 100 ML IV SCH ×3 (02:09→17:38)
[2021-01-26] MEDS: Piperacillin/Tazobactam/Dext 2.25 GM in Premix Bag 1 BAG IV SCH ×2 (04:36→09:26)
[2021-01-26] MEDS: Hydrocortisone Sodium Succinate 100 MG/2 ML SDV IVPUSH SCH (06:12)
[2021-01-26] MEDS: Albuterol/Ipratropium 3.0-0.5 MG/3 ML Neb Soln NEB SCH ×4 (06:57→22:22)
[2021-01-26] MEDS: Insulin Lispro 100 Unit/ML 3 ML KwikPen SUBCUT SCH ×4 (07:53→22:21)
[2021-01-26] MEDS: Bumetanide 1 MG Tab PO SCH (09:20)
[2021-01-26] MEDS: Isosorbide Mononitrate 30 MG Tab.ER PO SCH (09:21)
[2021-01-26] MEDS: Aspirin 81 MG Tab.EC PO SCH (09:21)
[2021-01-26] MEDS: Amiodarone 200 MG Tab PO SCH (09:21)
[2021-01-26] MEDS: Insulin Glargine,Human Rec. Analog 100 Units/ML 3 ML Pen SUBCUT SCH ×2 (09:23→22:19)
[2021-01-26] MEDS: Pregabalin 50 MG Cap PO SCH ×3 (09:30→22:22)
--- NOTE | 2021-01-26 09:56 | PCM.PN ---
- General Info Date of Service: 01/26/21 Admission Dx/Problem (Free Text): Admission Diagnosis/Problem Admission Diagnosis/Problem Septic shock, Group A strep septicemia Subjective Update: The patient tolerated changing of her left ankle dressings yesterday without s ignificant bleeding. This morning, her norepinephrine was weaned off. The patient has remained alert and oriented over the past 24 hours. Functional Status: Reports: Pain Controlled, Tolerating Diet - Review of Systems General: Denies: Chills, Night Sweats HEENT: Reports: No Symptoms Pulmonary: Reports: No Symptoms Cardiovascular: Reports: No Symptoms Gastrointestinal: Reports: No Symptoms Musculoskeletal: Reports: No Symptoms Skin: Reports: No Symptoms Neurological: Reports: No Symptoms Psychiatric: Reports: No Symptoms - Patient Data Vitals - Most Recent: Last Vital Signs Temp 97.9 F 01/26/21 07:00 Pulse 70 01/26/21 07:00 Resp 18 01/26/21 07:00 BP 130/50 L 01/26/21 09:21 Pulse Ox 90 L 01/26/21 07:00 Weight - Most Recent: 275 lb 9.6 oz I&O - Last 24 Hours: Intake & Output 01/25/21 01/26/21 01/26/21 22:59 06:59 14:59 Intake Total 1627 1087 Output Total 1580 515 Balance 47 572 Lab Results Last 24 Hours: Laboratory Results - last 24 hr 01/25/21 01/25/21 01/25/21 Range/Units 10:56 16:55 20:00 WBC (4.5-11.0) K/uL RBC (3.30-5.50) M/uL Hgb (12.0-15.0) g/dL Hct (36.0-48.0) % MCV (80-98) fL MCH (27-31) pg MCHC (32-36) % Plt Count (150-400) K/uL Sodium (140-148) mmol/L Potassium (3.6-5.2) mmol/L Chloride (100-108) mmol/L Carbon Dioxide (21-32) mmol/L Anion Gap (5.0-14.0) mmol/L BUN (7-18) mg/dL Creatinine (0.6-1.0) mg/dL Est Cr Clr Drug Dosing mL/min Estimated GFR (MDRD) (>60) Glucose (74-106) mg/dL POC Glucose 196 H 240 H 233 H (74-106) mg/dL Calcium (8.5-10.1) mg/dL 01/26/21 01/26/21 Range/Units 04:05 04:05 WBC 9.1 (4.5-11.0) K/uL RBC 2.96 L (3.30-5.50) M/uL Hgb 9.1 L (12.0-15.0) g/dL Hct 29.4 L (36.0-48.0) % MCV 99 H (80-98) fL MCH 31 (27-31) pg MCHC 31 L (32-36) % Plt Count 182 (150-400) K/uL Sodium 147 (140-148) mmol/L Potassium 3.1 L (3.6-5.2) mmol/L Chloride 104 (100-108) mmol/L Carbon Dioxide 33 H (21-32) mmol/L Anion Gap 13.1 (5.0-14.0) mmol/L BUN 26 H (7-18) mg/dL Creatinine 1.1 H (0.6-1.0) mg/dL Est Cr Clr Drug Dosing 36.28 mL/min Estimated GFR (MDRD) 47 L (>60) Glucose 174 H (74-106) mg/dL POC Glucose (74-106) mg/dL Calcium 9.2 (8.5-10.1) mg/dL Itz Results Last 24 Hours: Microbiology 01/22/21 16:25 Gram Stain - Final Foot, Left Wound Culture - Final NO GROWTH AFTER 3 DAYS Anaerobic Culture - Final NO GROWTH AFTER 3 DAYS 01/22/21 16:20 Gram Stain - Final Foot, Left Wound Culture - Final NO GROWTH AFTER 3 DAYS Anaerobic Culture - Final NO GROWTH AFTER 3 DAYS 01/23/21 04:40 Aerobic Blood Culture - Preliminary Blood - Arm, Right NO GROWTH AFTER 3 DAYS Anaerobic Blood Culture - Preliminary NO GROWTH AFTER 3 DAYS 01/22/21 16:25 AFB Specimen Processing Tissue - Final Foot, Left Acid Fast Bacilli Smear - Final Acid Fast Bacilli Culture - Preliminary 01/20/21 16:50 Aerobic Blood Culture - Final Blood - Venous - Iv Start Streptococcus Group A Anaerobic Blood Culture - Final NO GROWTH AFTER 5 DAYS Med Orders - Current: Current Medications Acetaminophen (Acetaminophen 325 Mg Tab) 650 mg PO Q4H PRN PRN Reason: Pain (Mild 1-3)/fever Last Admin: 01/22/21 00:24 Dose: 650 mg Documented by: Albuterol (Albuterol 0.083% 2.5 Mg/3 Ml Neb Soln) 2.5 mg NEB Q4H PRN PRN Reason: Shortness Of Breath/wheezing Albuterol/Ipratropium (Albuterol/Ipratropium 3.0-0.5 Mg/3 Ml Neb Soln) 3 ml NEB QIDRT [facility] Last Admin: 01/26/21 06:57 Dose: 3 ml Documented by: Amiodarone HCl (Amiodarone 200 Mg Tab) 200 mg PO DAILY [facility] Last Admin: 01/26/21 09:21 Dose: 200 mg Documented by: Artificial Tears (Hypromellose 0.3% Ophth Soln 15 Ml Bottle) 0 ml EYEBOTH Q1H PRN PRN Reason: Dry Eyes Last Admin: 01/23/21 06:04 Dose: 2 drop Documented by: Aspirin (Aspirin 81 Mg Tab.Ec) 81 mg PO DAILY [facility] Last Admin: 01/26/21 09:21 Dose: 81 mg Documented by: Bumetanide (Bumetanide 1 Mg Tab) 3 mg PO DAILY [facility] Dextrose/Water (50% Dextrose In Water 50 Ml Syringe) 50 ml IVPUSH ASDIRECTED PRN PRN Reason: Hypoglycemia Duloxetine HCl (Duloxetine 20 Mg Cap) 20 mg PO BEDTIME [facility] Last Admin: 01/25/21 20:59 Dose: 20 mg Documented by: Glucagon (Glucagon,Human Recombinant 1 Mg Vial) 1 mg IM ASDIRECTED PRN PRN Reason: Hypoglycemia Haloperidol Lactate (Haloperidol Lactate 5 Mg/Ml Sdv) 2 mg IVPUSH Q4H PRN PRN Reason: Agitation Last Admin: 01/24/21 11:20 Dose: 2 mg Documented by: Clindamycin Phosphate 900 mg/ (Sodium Chloride) 106 mls @ 200 mls/hr IV Q8H [facility] Last Admin: 01/26/21 02:09 Dose: 200 mls/hr Documented by: Piperacillin/Tazobactam/ (Dextrose 2.25 gm/ Premix) 50 mls @ 100 mls/hr IV Q6H [facility] Last Admin: 01/26/21 09:26 Dose: 100 mls/hr Documented by: Insulin Glargine (Insulin Glargine,Human Rec. Analog 100 Units/Ml 3 Ml Pen) 20 units SUBCUT BID [facility] Insulin Human Lispro (Insulin Lispro 100 Unit/Ml 3 Ml Kwikpen) 0 unit SUBCUT QIDACANDBED [facility]; Protocol Last Admin: 01/26/21 07:53 Dose: 3 units Documented by: Isosorbide Mononitrate (Isosorbide Mononitrate 30 Mg Tab.Er) 30 mg PO DAILY [facility] Last Admin: 01/26/21 09:21 Dose: 30 mg Documented by: Lorazepam (Lorazepam 0.5 Mg Tab) 0.25 mg PO Q4H PRN PRN Reason: Anxiety Last Admin: 01/23/21 23:49 Dose: 0.25 mg Documented by: Ondansetron HCl (Ondansetron 4 Mg/2 Ml Sdv) 4 mg IV Q4H PRN PRN Reason: Nausea/Vomiting Oxycodone HCl (Oxycodone 5 Mg Tab) 5 mg PO Q4H PRN PRN Reason: Pain (moderate 4-6) Last Admin: 01/25/21 08:52 Dose: 5 mg Documented by: Oxycodone/Acetaminophen (Acetaminophen/Oxycodone 325-5 Mg Tab) 1 tab PO Q6H PRN PRN Reason: PAIN Polyethylene Glycol (Polyethylene Glycol 3350 Powder 17 Gm Packet) 17 gm PO DAILY PRN PRN Reason: Constipation Potassium Chloride (Potassium Chloride 20 Meq Tab.Er) 40 meq PO BIDMEALS [facility] Pregabalin (Pregabalin 50 Mg Cap) 50 mg PO TID [facility] Last Admin: 01/26/21 09:30 Dose: 50 mg Documented by: Sodium Chloride (Sodium Chloride 0.9% 10 Ml Syringe) 10 ml FLUSH ASDIRECTED PRN PRN Reason: Keep Vein Open Discontinued Medications Albuterol/Ipratropium (Albuterol/Ipratropium 3.0-0.5 Mg/3 Ml Neb Soln) 3 ml NEB QID PRN PRN Reason: Shortness Of Breath/wheezing Bumetanide (Bumetanide 1 Mg/4 Ml Mdv) 2 mg IVPUSH ONETIME ONE Stop: 01/20/21 17:47 Last Admin: 01/20/21 19:16 Dose: 2 mg Documented by: Bumetanide (Bumetanide 1 Mg Tab) 3 mg PO DAILY [facility] Last Admin: 01/24/21 09:34 Dose: 3 mg Documented by: Bumetanide (Bumetanide 1 Mg Tab) 1 mg PO DAILY [facility] Bumetanide (Bumetanide 1 Mg Tab) 2 mg PO DAILY [facility] Last Admin: 01/26/21 09:20 Dose: 2 mg Documented by: Bupivacaine HCl (Bupivacaine 0.5% 50 Ml Mdv) Confirm Administered Dose 50 ml .ROUTE .STK-MED ONE Stop: 01/22/21 14:12 Last Admin: 01/22/21 16:10 Dose: 20 ml Documented by: Carvedilol (Carvedilol 12.5 Mg Tab) 25 mg PO BIDMEALS [facility] Last Admin: 01/24/21 07:50 Dose: 25 mg Documented by: Ceftriaxone Sodium (Ceftriaxone 500 Mg Vial) 1,000 mg IVPUSH ONETIME ONE Stop: 01/20/21 16:25 Last Admin: 01/20/21 17:33 Dose: Not Given Documented by: Ceftriaxone Sodium (Ceftriaxone 1 Gm Advvial) Confirm Administered Dose 1 gm IV .STK-MED ONE Stop: 01/20/21 16:45 Last Admin: 01/21/21 06:15 Dose: Not Given Documented by: Dextrose (Glucose Gel 15 Gm In 37.5 Gm Tube) 15 gm PO ONETIME PRN PRN Reason: Hypoglycemia Dextrose/Water (50% Dextrose In Water 50 Ml Syringe) 50 ml IV ONETIME PRN PRN Reason: Hypoglycemia Gabapentin (Gabapentin 300 Mg Cap) 500 mg PO TID [facility] Gabapentin (Gabapentin 100 Mg Cap) 500 mg PO ONETIME ONE Stop: 01/20/21 22:16 Last Admin: 01/20/21 22:44 Dose: 500 mg Documented by: Hydrocortisone Sodium Succinate (Hydrocortisone Sodium Succinate 100 Mg/2 Ml Sdv) 100 mg IVPUSH ONETIME ONE Stop: 01/22/21 00:08 Last Admin: 01/22/21 00:34 Dose: 100 mg Documented by: Hydrocortisone Sodium Succinate (Hydrocortisone Sodium Succinate 100 Mg/2 Ml Sdv) 50 mg IVPUSH Q6H [facility] Stop: 01/23/21 02:01 Last Admin: 01/23/21 02:24 Dose: 50 mg Documented by: Hydrocortisone Sodium Succinate (Hydrocortisone Sodium Succinate 100 Mg/2 Ml Sdv) 50 mg IVPUSH Q8H [facility] Last Admin: 01/24/21 09:40 Dose: 50 mg Documented by: Hydrocortisone Sodium Succinate (Hydrocortisone Sodium Succinate 100 Mg/2 Ml Sdv) 50 mg IVPUSH Q12H [facility] Last Admin: 01/25/21 06:05 Dose: 50 mg Documented by: Hydrocortisone Sodium Succinate (Hydrocortisone Sodium Succinate 100 Mg/2 Ml Sdv) 25 mg IVPUSH Q12H [facility] Last Admin: 01/26/21 06:12 Dose: 25 mg Documented by: Doxycycline Hyclate 100 mg/ (Sodium Chloride) 100 mls @ 100 mls/hr IV ONETIME ONE Stop: 01/20/21 17:23 Last Admin: 01/20/21 17:15 Dose: 100 mls/hr Documented by: Sodium Chloride (Normal Saline) 1,000 mls @ 999 mls/hr IV ASDIRECTED [facility] Last Admin: 01/20/21 17:18 Dose: 999 mls/hr Documented by: Sodium Chloride (Normal Saline) Confirm Administered Dose 100 mls @ as directed .ROUTE .K-MED ONE Stop: 01/20/21 16:46 Last Admin: 01/21/21 06:15 Dose: Not Given Documented by: Ceftriaxone Sodium 1 gm/ (Sodium Chloride) 50 mls @ 100 mls/hr IV ONETIME ONE Stop: 01/20/21 17:32 Last Admin: 01/20/21 17:17 Dose: 100 mls/hr Documented by: Sodium Chloride (Normal Saline) 1,000 mls @ 125 mls/hr IV ASDIRECTED [facility] Last Admin: 01/21/21 03:56 Dose: 125 mls/hr Documented by: Levofloxacin/Dextrose 750 mg/ (Premix) 150 mls @ 100 mls/hr IV Q48H [facility] Last Admin: 01/20/21 21:20 Dose: 100 mls/hr Documented by: Piperacillin Sod/Tazobactam (Sod 2.25 gm/ Sodium Chloride) 50 mls @ 100 mls/hr IV Q6H [facility] Last Admin: 01/21/21 01:48 Dose: 100 mls/hr Documented by: Vancomycin HCl 1.5 gm/ Sodium (Chloride) 250 mls @ 166.667 mls/hr IV Q24H [facility] Last Admin: 01/21/21 23:26 Dose: 166.667 mls/hr Documented by: Sodium Chloride (Normal Saline) 500 mls @ 500 mls/hr IV .BOLUS ONE Stop: 01/20/21 21:33 Last Admin: 01/21/21 23:30 Dose: 500 mls/hr Documented by: Piperacillin/Tazobactam/ (Dextrose 2.25 gm/ Premix) 50 mls @ 100 mls/hr IV Q6H [facility] Last Admin: 01/22/21 08:27 Dose: 100 mls/hr Documented by: Sodium Chloride (Normal Saline) 1,000 mls @ 25 mls/hr IV ASDIRECTED [facility] Last Admin: 01/25/21 20:47 Dose: 25 mls/hr Documented by: Magnesium Sulfate (Magnesium Sulfate In Water 2 Gm/50 Ml) 2 gm in 50 mls @ 25 mls/hr IV Q6H [facility] Stop: 01/21/21 18:59 Last Admin: 01/21/21 16:14 Dose: 25 mls/hr Documented by: Sodium Chloride (Normal Saline) 500 mls @ 999 mls/hr IV ONETIME ONE Stop: 01/22/21 00:15 Last Admin: 01/21/21 23:00 Dose: 999 mls/hr Documented by: Sodium Chloride (Normal Saline) 500 mls @ 999 mls/hr IV ONETIME ONE Stop: 01/22/21 00:15 Last Admin: 01/21/21 23:35 Dose: 999 mls/hr Documented by: Norepinephrine Bitartrate 4 mg (/ Dextrose/Water) 250 mls @ 7.5 mls/hr IV TITRATE [facility]; Protocol Last Titration: 01/26/21 07:57 Dose: 0 mcg/min, 0 mls/hr Documented by: Sodium Chloride (Normal Saline) 1,000 mls @ 500 mls/hr IV ASDIRECTED [facility] Stop: 01/22/21 02:16 Dextrose/Water (Dextrose 5% In Water) Confirm Administered Dose 250 mls @ as directed .ROUTE .STK-MED ONE Stop: 01/22/21 00:10 Last Admin: 01/22/21 00:41 Dose: Not Given Documented by: Piperacillin/Tazobactam/ (Dextrose 2.25 gm/ Premix) 50 mls @ 100 mls/hr IV Q8H [facility] Last Admin: 01/24/21 09:30 Dose: 100 mls/hr Documented by: Insulin Glargine (Insulin Glargine,Human Rec. Analog 100 Units/Ml 3 Ml Pen) 15 units SUBCUT BID [facility] Last Admin: 01/26/21 09:23 Dose: 15 units Documented by: Insulin Human Lispro (Insulin Lispro 100 Unit/Ml 3 Ml Kwikpen) 0 unit SUBCUT QIDACANDBED [facility]; Protocol Last Admin: 01/25/21 08:39 Dose: 4 unit Documented by: Insulin Lispro Protam/Lispro Human (Insulin Lispro Protamine/Lispro 75-25 100 Units/Ml 10 Ml Vial) 35 unit SUBCUT BIDMEALS [facility] Last Admin: 01/26/21 00:50 Dose: Not Given Documented by: Losartan Potassium (Losartan 50 Mg Tab) 100 mg PO DAILY [facility] Last Admin: 01/24/21 09:35 Dose: 100 mg Documented by: Magnesium Oxide (Magnesium Oxide 400 Mg Tab) 400 mg PO DAILY [facility] Last Admin: 01/22/21 08:42 Dose: Not Given Documented by: Norepinephrine Bitartrate (Norepinephrine 4 Mg/4 Ml Sdv) Confirm Administered Dose 4 mg .ROUTE .STK-MED ONE Stop: 01/22/21 00:10 Last Admin: 01/22/21 00:41 Dose: Not Given Documented by: Ondansetron HCl (Ondansetron 4 Mg/2 Ml Sdv) 4 mg IVPUSH ONETIME ONE Stop: 01/20/21 17:27 Last Admin: 01/21/21 06:15 Dose: Not Given Documented by: Pregabalin (Pregabalin 100 Mg Cap) 100 mg PO TID [facility] Pregabalin (Pregabalin 100 Mg Cap) 100 mg PO ONETIME ONE Stop: 01/20/21 22:16 Last Admin: 01/20/21 22:45 Dose: 100 mg Documented by: Rivaroxaban (Rivaroxaban 10 Mg Tab) 20 mg PO DAILY [facility] Last Admin: 01/22/21 08:42 Dose: Not Given Documented by: Simvastatin (Simvastatin 20 Mg Tab) 20 mg PO BEDTIME [facility] Last Admin: 01/21/21 20:13 Dose: 20 mg Documented by: Vancomycin HCl (Vancomycin 1 Gm Sdv) 1 gm IV .PHARMACY TO DOSE [facility] Stop: 01/21/21 07:30 - Exam Quality Assessment: Central Line/PICC General: Alert, Oriented, Cooperative HEENT: No: Scleral Icterus Neck: Supple, Trachea Midline Lungs: Clear to Auscultation Cardiovascular: Regular Rate, Regular Rhythm GI/Abdominal Exam: Normal Bowel Sounds Back Exam: Normal Inspection Neurological: No New Focal Deficit Psy/Mental Status: Alert, Normal Affect, Normal Mood Physical Findings Comments:: Left ankle wrapped with Kerlix covered with Leno bandage. Good blanching and sensation to light touch distally. Recession of erythema at the patient's left solano. - Patient Data Lab Results Last 24 hrs: Laboratory Results - last 24 hr 01/25/21 01/25/21 01/25/21 Range/Units 10:56 16:55 20:00 WBC (4.5-11.0) K/uL RBC (3.30-5.50) M/uL Hgb (12.0-15.0) g/dL Hct (36.0-48.0) % MCV (80-98) fL MCH (27-31) pg MCHC (32-36) % Plt Count (150-400) K/uL Sodium (140-148) mmol/L Potassium (3.6-5.2) mmol/L Chloride (100-108) mmol/L Carbon Dioxide (21-32) mmol/L Anion Gap (5.0-14.0) mmol/L BUN (7-18) mg/dL Creatinine (0.6-1.0) mg/dL Est Cr Clr Drug Dosing mL/min Estimated GFR (MDRD) (>60) Glucose (74-106) mg/dL POC Glucose 196 H 240 H 233 H (74-106) mg/dL Calcium (8.5-10.1) mg/dL 01/26/21 01/26/21 Range/Units 04:05 04:05 WBC 9.1 (4.5-11.0) K/uL RBC 2.96 L (3.30-5.50) M/uL Hgb 9.1 L (12.0-15.0) g/dL Hct 29.4 L (36.0-48.0) % MCV 99 H (80-98) fL MCH 31 (27-31) pg MCHC 31 L (32-36) % Plt Count 182 (150-400) K/uL Sodium 147 (140-148) mmol/L Potassium 3.1 L (3.6-5.2) mmol/L Chloride 104 (100-108) mmol/L Carbon Dioxide 33 H (21-32) mmol/L Anion Gap 13.1 (5.0-14.0) mmol/L BUN 26 H (7-18) mg/dL Creatinine 1.1 H (0.6-1.0) mg/dL Est Cr Clr Drug Dosing 36.28 mL/min Estimated GFR (MDRD) 47 L (>60) Glucose 174 H (74-106) mg/dL POC Glucose (74-106) mg/dL Calcium 9.2 (8.5-10.1) mg/dL Result Diagrams: 01/26/21 04:05 01/26/21 04:05 Itz Results Last 24 hrs: Microbiology 01/22/21 16:25 Gram Stain - Final Foot, Left Wound Culture - Final NO GROWTH AFTER 3 DAYS Anaerobic Culture - Final NO GROWTH AFTER 3 DAYS 01/22/21 16:20 Gram Stain - Final Foot, Left Wound Culture - Final NO GROWTH AFTER 3 DAYS Anaerobic Culture - Final NO GROWTH AFTER 3 DAYS 01/23/21 04:40 Aerobic Blood Culture - Preliminary Blood - Arm, Right NO GROWTH AFTER 3 DAYS Anaerobic Blood Culture - Preliminary NO GROWTH AFTER 3 DAYS 01/22/21 16:25 AFB Specimen Processing Tissue - Final Foot, Left Acid Fast Bacilli Smear - Final Acid Fast Bacilli Culture - Preliminary 01/20/21 16:50 Aerobic Blood Culture - Final Blood - Venous - Iv Start Streptococcus Group A Anaerobic Blood Culture - Final NO GROWTH AFTER 5 DAYS Sepsis Event Note - Evaluation Sepsis Screening Result: No Definite Risk - Focused Exam Vital Signs: Vital Signs Temp Pulse Resp BP BP Pulse Ox 01/26/21 09:21 130/50 L 01/26/21 07:00 97.9 F 70 18 105/54 L 90 L 01/26/21 06:00 67 15 100/45 L 95 01/26/21 05:00 65 18 98/65 95 01/26/21 04:00 98 F 67 20 119/54 L 98 01/26/21 03:00 66 19 108/50 L 97 01/26/21 02:00 98.1 F 73 20 127/51 L 94 L 01/26/21 01:00 72 19 122/46 L 91 L 01/26/21 00:00 70 17 123/46 L 95 04/23/21 23:00 73 18 115/42 L 92 L 01/25/21 22:00 70 17 126/45 L 96 - Problem List Review Problem List Initiated/Reviewed/Updated: Yes - My Orders Last 24 Hours: My Active Orders 01/25/21 11:00 Insulin Lispro [HumaLOG] See Protocol SUBCUT QIDACANDBED 01/26/21 09:45 Potassium Chloride [Klor-Con M20] 40 meq PO BIDMEALS 01/26/21 21:00 Insulin Glarg,Human.Rec.Analog [LantUS Solostar] 20 units SUBCUT BID 01/27/21 05:11 BASIC METABOLIC PANEL,BMP [CHEM] Routine 01/27/21 09:00 Bumetanide [Bumex] 3 mg PO DAILY - Plan Plan:: ASSESSMENT AND PLAN - SEPTIC SHOCK CELLULITIS LEFT LOWER EXTREMITY WITH ABSCESS GROUP A STREPTICEMIA Levophed was able to be turned off this morning. We will continue daily dressing changes to the left lower extremity per podiatry recommendations. Podiatry plans to reevaluate the patient's left ankle wound on Thursday. Surveillance blood cultures have been negative. Will discontinue Zosyn at this time and continue treatment with clindamycin through the patient's PICC line. There is no report yet from the patient's transthoracic echocardiogram from 01/22 . Would presume at least a 2-week course of antibiotics and treatment of the patient's blood infection. ACUTE HYPOXIC RESPIRATORY FAILURE WITH HYPOXIA AND HYPERCAPNIA Multifactorial with septic shock, obesity, hypoventilation and sedation. Patient remains on 3 L supplemental oxygen. Will discontinue IV fluids and increase Bumex back to usual 3 mg daily as the patient takes at home. -NIPPV as needed Continue cardiac monitoring and pulse oximetry ACUTE KIDNEY INJURY ON TOP OF CHRONIC KIDNEY DISEASE III Creatinine improved to 1.1 today. -Continue daily Bumex. -Continue to closely monitor urine output and renal function TYPE 2 DIABETES MELLITUS Patient's blood sugars have been elevated over the past 24 hours. Her 70/30 insulin was replaced with twice daily Lantus with dosing to be increased today. We will continue Accu-Cheks with high-dose sliding scale insulin. Hold glipizide. Hold glipizide PAROXYSMAL ATRIAL FIBRILLATION Rivaroxaban is currently held due to impaired renal function and significant bleeding from the patient's left ankle. -Continue amiodarone Tentative plan to restart anticoagulation after podiatry evaluation and definitive plan regarding the patient's ankle. CONGESTIVE HEART FAILURE Does not appear to be in acute exacerbation -Restart beta-gladys when blood pressure tolerates ANEMIA Secondary to hemodilution as well as some acute blood loss from patient's ankle bleeding. Trend hemoglobin MAINTENANCE ISSUES -DVT prophylaxis; SCDs. Avoid chemical DVT prophylaxis or anticoagulation until definitive plan regarding left ankle wound. Activity as tolerated with physical therapy. -Nutrition; consistent carbohydrate diet DISPOSITION-patient is now off pressor and appropriate for transfer to the general medical floor for continued inpatient monitoring and care. Anticipate discharge to detention for subacute rehab after the hospital stay.
[2021-01-26] MEDS ORDERED: hydrALAZINE 20 MG/ML SDV IVPUSH PRN (10:04)
[2021-01-26] MEDS: Potassium Chloride 20 MEQ Tab.ER PO SCH ×2 (10:15→16:54)
[2021-01-26] MEDS: cefTRIAXone 2 GM in Sodium Chloride 0.9% 50 ML IV SCH (11:11)
[2021-01-26] MEDS: oxyCODONE 5 MG Tab PO PRN ×2 (11:52→15:44)
[2021-01-26] MEDS: DULoxetine 20 MG Cap PO SCH (22:22)
[2021-01-27] MEDS: Clindamycin Phosphate 900 MG in Sodium Chloride 0.9% 100 ML IV SCH ×2 (02:57→09:10)
[2021-01-27] MEDS: Albuterol/Ipratropium 3.0-0.5 MG/3 ML Neb Soln NEB SCH ×2 (07:13→10:47)
[2021-01-27] MEDS: Insulin Lispro 100 Unit/ML 3 ML KwikPen SUBCUT SCH ×4 (07:31→21:44)
[2021-01-27] MEDS: Isosorbide Mononitrate 30 MG Tab.ER PO SCH (08:49)
[2021-01-27] MEDS: Amiodarone 200 MG Tab PO SCH (08:50)
[2021-01-27] MEDS: Aspirin 81 MG Tab.EC PO SCH (08:50)
[2021-01-27] MEDS: Bumetanide 1 MG Tab PO SCH (08:50)
[2021-01-27] MEDS: Potassium Chloride 20 MEQ Tab.ER PO SCH ×2 (08:50→16:50)
[2021-01-27] MEDS: Insulin Glargine,Human Rec. Analog 100 Units/ML 3 ML Pen SUBCUT SCH ×2 (08:52→21:45)
[2021-01-27] MEDS: Acetaminophen/oxyCODONE 325-5 MG Tab PO PRN ×2 (08:55→20:04)
[2021-01-27] MEDS: Pregabalin 50 MG Cap PO SCH ×3 (08:55→20:04)
[2021-01-27] MEDS: cefTRIAXone 2 GM in Sodium Chloride 0.9% 50 ML IV SCH (11:19)
--- NOTE | 2021-01-27 13:10 | PCM.PN ---
- General Info Date of Service: 01/27/21 Admission Dx/Problem (Free Text): Admission Diagnosis/Problem Admission Diagnosis/Problem Septic shock, Group A strep septicemia Subjective Update: No significant events reported overnight. Pain has been reportedly reasonably well controlled though the patient has been largely immobile due to discomfort in her lower extremity with movement. In addition, the patient is not to place weight on her left ankle. Per previous discussion with podiatry, the patient has had dressings changed overlying her left foot daily with plan for podiatry reassessment in a.m. Transthoracic echocardiogram was performed on 01/22 though there is still no report available from this. There was no growth from cultures from the patient's left foot wound on 01/22 nor surveillance cultures from 01/23. Blood sugars have remained somewhat elevated on scheduled Lantus with high-dose sliding scale insulin. Functional Status: Reports: Pain Controlled, Tolerating Diet - Review of Systems General: Denies: Fever, Chills HEENT: Reports: No Symptoms Pulmonary: Denies: Cough, Wheezing Cardiovascular: Denies: Chest Pain, Palpitations, Lightheadedness Gastrointestinal: Reports: No Symptoms Genitourinary: Reports: No Symptoms Musculoskeletal: Reports: No Symptoms Neurological: Reports: No Symptoms Psychiatric: Reports: No Symptoms - Patient Data Vitals - Most Recent: Last Vital Signs Temp 97.5 F 01/27/21 10:08 Pulse 77 01/27/21 10:08 Resp 18 01/27/21 10:08 BP 114/42 L 01/27/21 10:08 Pulse Ox 96 01/27/21 10:08 Weight - Most Recent: 270 lb 4.587 oz I&O - Last 24 Hours: Intake & Output 01/26/21 01/27/21 01/27/21 22:59 06:59 14:59 Intake Total 1086 460 510 Output Total 710 295 500 Balance 376 165 10 Lab Results Last 24 Hours: Laboratory Results - last 24 hr 01/26/21 01/26/21 01/27/21 Range/Units 16:42 20:56 04:10 Sodium 146 (140-148) mmol/L Potassium 3.7 (3.6-5.2) mmol/L Chloride 103 (100-108) mmol/L Carbon Dioxide 32 (21-32) mmol/L Anion Gap 11.0 (5.0-14.0) mmol/L BUN 22 H (7-18) mg/dL Creatinine 1.0 (0.6-1.0) mg/dL Est Cr Clr Drug Dosing 39.90 mL/min Estimated GFR (MDRD) 53 L (>60) Glucose 148 H (74-106) mg/dL POC Glucose 160 H 175 H (74-106) mg/dL Calcium 9.5 (8.5-10.1) mg/dL 01/27/21 01/27/21 Range/Units 07:20 11:25 Sodium (140-148) mmol/L Potassium (3.6-5.2) mmol/L Chloride (100-108) mmol/L Carbon Dioxide (21-32) mmol/L Anion Gap (5.0-14.0) mmol/L BUN (7-18) mg/dL Creatinine (0.6-1.0) mg/dL Est Cr Clr Drug Dosing mL/min Estimated GFR (MDRD) (>60) Glucose (74-106) mg/dL POC Glucose 148 H 242 H (74-106) mg/dL Calcium (8.5-10.1) mg/dL Itz Results Last 24 Hours: Microbiology 01/23/21 04:40 Aerobic Blood Culture - Preliminary Blood - Arm, Right NO GROWTH AFTER 4 DAYS Anaerobic Blood Culture - Preliminary NO GROWTH AFTER 4 DAYS Med Orders - Current: Current Medications Acetaminophen (Acetaminophen 325 Mg Tab) 650 mg PO Q4H PRN PRN Reason: Pain (Mild 1-3)/fever Last Admin: 01/22/21 00:24 Dose: 650 mg Documented by: Albuterol (Albuterol 0.083% 2.5 Mg/3 Ml Neb Soln) 2.5 mg NEB Q4H PRN PRN Reason: Shortness Of Breath/wheezing Amiodarone HCl (Amiodarone 200 Mg Tab) 200 mg PO DAILY [facility] Last Admin: 01/27/21 08:50 Dose: 200 mg Documented by: Artificial Tears (Hypromellose 0.3% Ophth Soln 15 Ml Bottle) 0 ml EYEBOTH Q1H PRN PRN Reason: Dry Eyes Last Admin: 01/23/21 06:04 Dose: 2 drop Documented by: Aspirin (Aspirin 81 Mg Tab.Ec) 81 mg PO DAILY [facility] Last Admin: 01/27/21 08:50 Dose: 81 mg Documented by: Bumetanide (Bumetanide 1 Mg Tab) 3 mg PO DAILY [facility] Last Admin: 01/27/21 08:50 Dose: 3 mg Documented by: Carvedilol (Carvedilol 3.125 Mg Tab) 6.25 mg PO BIDMEALS [facility] Dextrose/Water (50% Dextrose In Water 50 Ml Syringe) 50 ml IVPUSH ASDIRECTED PRN PRN Reason: Hypoglycemia Duloxetine HCl (Duloxetine 20 Mg Cap) 20 mg PO BEDTIME [facility] Last Admin: 01/26/21 22:22 Dose: 20 mg Documented by: Glucagon (Glucagon,Human Recombinant 1 Mg Vial) 1 mg IM ASDIRECTED PRN PRN Reason: Hypoglycemia Haloperidol Lactate (Haloperidol Lactate 5 Mg/Ml Sdv) 2 mg IVPUSH Q4H PRN PRN Reason: Agitation Last Admin: 01/24/21 11:20 Dose: 2 mg Documented by: Hydralazine HCl (Hydralazine 20 Mg/Ml Sdv) 10 mg IVPUSH Q2H PRN PRN Reason: Hypertension Piperacillin Sod/Tazobactam (Sod 3.375 gm/ Sodium Chloride) 50 mls @ 100 mls/hr IV Q6H [facility] Insulin Glargine (Insulin Glargine,Human Rec. Analog 100 Units/Ml 3 Ml Pen) 25 units SUBCUT BID [facility] Insulin Human Lispro (Insulin Lispro 100 Unit/Ml 3 Ml Kwikpen) 0 unit SUBCUT QIDACANDBED [facility]; Protocol Last Admin: 01/27/21 12:21 Dose: 6 units Documented by: Isosorbide Mononitrate (Isosorbide Mononitrate 30 Mg Tab.Er) 30 mg PO DAILY [facility] Last Admin: 01/27/21 08:49 Dose: 30 mg Documented by: Lorazepam (Lorazepam 0.5 Mg Tab) 0.25 mg PO Q4H PRN PRN Reason: Anxiety Last Admin: 01/23/21 23:49 Dose: 0.25 mg Documented by: Ondansetron HCl (Ondansetron 4 Mg/2 Ml Sdv) 4 mg IV Q4H PRN PRN Reason: Nausea/Vomiting Oxycodone HCl (Oxycodone 5 Mg Tab) 5 mg PO Q4H PRN PRN Reason: Pain (moderate 4-6) Last Admin: 01/26/21 15:44 Dose: 5 mg Documented by: Oxycodone/Acetaminophen (Acetaminophen/Oxycodone 325-5 Mg Tab) 1 tab PO Q6H PRN PRN Reason: PAIN Last Admin: 01/27/21 08:55 Dose: 1 tab Documented by: Polyethylene Glycol (Polyethylene Glycol 3350 Powder 17 Gm Packet) 17 gm PO DAILY PRN PRN Reason: Constipation Potassium Chloride (Potassium Chloride 20 Meq Tab.Er) 40 meq PO BIDMEALS [facility] Last Admin: 01/27/21 08:50 Dose: 40 meq Documented by: Pregabalin (Pregabalin 50 Mg Cap) 50 mg PO TID [facility] Last Admin: 01/27/21 08:55 Dose: 50 mg Documented by: Sodium Chloride (Sodium Chloride 0.9% 10 Ml Syringe) 10 ml FLUSH ASDIRECTED PRN PRN Reason: Keep Vein Open Discontinued Medications Albuterol/Ipratropium (Albuterol/Ipratropium 3.0-0.5 Mg/3 Ml Neb Soln) 3 ml NEB QID PRN PRN Reason: Shortness Of Breath/wheezing Albuterol/Ipratropium (Albuterol/Ipratropium 3.0-0.5 Mg/3 Ml Neb Soln) 3 ml NEB QIDRT [facility] Last Admin: 01/27/21 10:47 Dose: 3 ml Documented by: Bumetanide (Bumetanide 1 Mg/4 Ml Mdv) 2 mg IVPUSH ONETIME ONE Stop: 01/20/21 17:47 Last Admin: 01/20/21 19:16 Dose: 2 mg Documented by: Bumetanide (Bumetanide 1 Mg Tab) 3 mg PO DAILY [facility] Last Admin: 01/24/21 09:34 Dose: 3 mg Documented by: Bumetanide (Bumetanide 1 Mg Tab) 1 mg PO DAILY [facility] Bumetanide (Bumetanide 1 Mg Tab) 2 mg PO DAILY [facility] Last Admin: 01/26/21 09:20 Dose: 2 mg Documented by: Bupivacaine HCl (Bupivacaine 0.5% 50 Ml Mdv) Confirm Administered Dose 50 ml .ROUTE .STK-MED ONE Stop: 01/22/21 14:12 Last Admin: 01/22/21 16:10 Dose: 20 ml Documented by: Carvedilol (Carvedilol 12.5 Mg Tab) 25 mg PO BIDMEALS [facility] Last Admin: 01/24/21 07:50 Dose: 25 mg Documented by: Ceftriaxone Sodium (Ceftriaxone 500 Mg Vial) 1,000 mg IVPUSH ONETIME ONE Stop: 01/20/21 16:25 Last Admin: 01/20/21 17:33 Dose: Not Given Documented by: Ceftriaxone Sodium (Ceftriaxone 1 Gm Advvial) Confirm Administered Dose 1 gm IV .STK-MED ONE Stop: 01/20/21 16:45 Last Admin: 01/21/21 06:15 Dose: Not Given Documented by: Dextrose (Glucose Gel 15 Gm In 37.5 Gm Tube) 15 gm PO ONETIME PRN PRN Reason: Hypoglycemia Dextrose/Water (50% Dextrose In Water 50 Ml Syringe) 50 ml IV ONETIME PRN PRN Reason: Hypoglycemia Gabapentin (Gabapentin 300 Mg Cap) 500 mg PO TID [facility] Gabapentin (Gabapentin 100 Mg Cap) 500 mg PO ONETIME ONE Stop: 01/20/21 22:16 Last Admin: 01/20/21 22:44 Dose: 500 mg Documented by: Hydrocortisone Sodium Succinate (Hydrocortisone Sodium Succinate 100 Mg/2 Ml Sdv) 100 mg IVPUSH ONETIME ONE Stop: 01/22/21 00:08 Last Admin: 01/22/21 00:34 Dose: 100 mg Documented by: Hydrocortisone Sodium Succinate (Hydrocortisone Sodium Succinate 100 Mg/2 Ml Sdv) 50 mg IVPUSH Q6H [facility] Stop: 01/23/21 02:01 Last Admin: 01/23/21 02:24 Dose: 50 mg Documented by: Hydrocortisone Sodium Succinate (Hydrocortisone Sodium Succinate 100 Mg/2 Ml Sd v) 50 mg IVPUSH Q8H [facility] Last Admin: 01/24/21 09:40 Dose: 50 mg Documented by: Hydrocortisone Sodium Succinate (Hydrocortisone Sodium Succinate 100 Mg/2 Ml Sdv) 50 mg IVPUSH Q12H [facility] Last Admin: 01/25/21 06:05 Dose: 50 mg Documented by: Hydrocortisone Sodium Succinate (Hydrocortisone Sodium Succinate 100 Mg/2 Ml Sdv) 25 mg IVPUSH Q12H [facility] Last Admin: 01/26/21 06:12 Dose: 25 mg Documented by: Doxycycline Hyclate 100 mg/ (Sodium Chloride) 100 mls @ 100 mls/hr IV ONETIME ONE Stop: 01/20/21 17:23 Last Admin: 01/20/21 17:15 Dose: 100 mls/hr Documented by: Sodium Chloride (Normal Saline) 1,000 mls @ 999 mls/hr IV ASDIRECTED [facility] Last Admin: 01/20/21 17:18 Dose: 999 mls/hr Documented by: Sodium Chloride (Normal Saline) Confirm Administered Dose 100 mls @ as directed .ROUTE .STK-MED ONE Stop: 01/20/21 16:46 Last Admin: 01/21/21 06:15 Dose: Not Given Documented by: Ceftriaxone Sodium 1 gm/ (Sodium Chloride) 50 mls @ 100 mls/hr IV ONETIME ONE Stop: 01/20/21 17:32 Last Admin: 01/20/21 17:17 Dose: 100 mls/hr Documented by: Sodium Chloride (Normal Saline) 1,000 mls @ 125 mls/hr IV ASDIRECTED [facility] Last Admin: 01/21/21 03:56 Dose: 125 mls/hr Documented by: Levofloxacin/Dextrose 750 mg/ (Premix) 150 mls @ 100 mls/hr IV Q48H [facility] Last Admin: 01/20/21 21:20 Dose: 100 mls/hr Documented by: Piperacillin Sod/Tazobactam (Sod 2.25 gm/ Sodium Chloride) 50 mls @ 100 mls/hr IV Q6H [facility] Last Admin: 01/21/21 01:48 Dose: 100 mls/hr Documented by: Vancomycin HCl 1.5 gm/ Sodium (Chloride) 250 mls @ 166.667 mls/hr IV Q24H [facility] Last Admin: 01/21/21 23:26 Dose: 166.667 mls/hr Documented by: Sodium Chloride (Normal Saline) 500 mls @ 500 mls/hr IV .BOLUS ONE Stop: 01/20/21 21:33 Last Admin: 01/21/21 23:30 Dose: 500 mls/hr Documented by: Piperacillin/Tazobactam/ (Dextrose 2.25 gm/ Premix) 50 mls @ 100 mls/hr IV Q6H [facility] Last Admin: 01/22/21 08:27 Dose: 100 mls/hr Documented by: Sodium Chloride (Normal Saline) 1,000 mls @ 25 mls/hr IV ASDIRECTED [facility] Last Admin: 01/25/21 20:47 Dose: 25 mls/hr Documented by: Magnesium Sulfate (Magnesium Sulfate In Water 2 Gm/50 Ml) 2 gm in 50 mls @ 25 mls/hr IV Q6H [facility] Stop: 01/21/21 18:59 Last Admin: 01/21/21 16:14 Dose: 25 mls/hr Documented by: Sodium Chloride (Normal Saline) 500 mls @ 999 mls/hr IV ONETIME ONE Stop: 01/22/21 00:15 Last Admin: 01/21/21 23:00 Dose: 999 mls/hr Documented by: Sodium Chloride (Normal Saline) 500 mls @ 999 mls/hr IV ONETIME ONE Stop: 01/22/21 00:15 Last Admin: 01/21/21 23:35 Dose: 999 mls/hr Documented by: Norepinephrine Bitartrate 4 mg (/ Dextrose/Water) 250 mls @ 7.5 mls/hr IV TITRATE [facility]; Protocol Last Titration: 01/26/21 07:57 Dose: 0 mcg/min, 0 mls/hr Documented by: Sodium Chloride (Normal Saline) 1,000 mls @ 500 mls/hr IV ASDIRECTED [facility] Stop: 01/22/21 02:16 Dextrose/Water (Dextrose 5% In Water) Confirm Administered Dose 250 mls @ as directed .ROUTE .STK-MED ONE Stop: 01/22/21 00:10 Last Admin: 01/22/21 00:41 Dose: Not Given Documented by: Clindamycin Phosphate 900 mg/ (Sodium Chloride) 106 mls @ 200 mls/hr IV Q8H [facility] Last Admin: 01/27/21 09:10 Dose: 200 mls/hr Documented by: Piperacillin/Tazobactam/ (Dextrose 2.25 gm/ Premix) 50 mls @ 100 mls/hr IV Q8H [facility] Last Admin: 01/24/21 09:30 Dose: 100 mls/hr Documented by: Piperacillin/Tazobactam/ (Dextrose 2.25 gm/ Premix) 50 mls @ 100 mls/hr IV Q6H [facility] Last Admin: 01/26/21 09:26 Dose: 100 mls/hr Documented by: Ceftriaxone Sodium 2 gm/ (Sodium Chloride) 50 mls @ 100 mls/hr IV Q24H [facility] Last Admin: 01/27/21 11:19 Dose: 100 mls/hr Documented by: Insulin Glargine (Insulin Glargine,Human Rec. Analog 100 Units/Ml 3 Ml Pen) 15 units SUBCUT BID [facility] Last Admin: 01/26/21 09:23 Dose: 15 units Documented by: Insulin Glargine (Insulin Glargine,Human Rec. Analog 100 Units/Ml 3 Ml Pen) 20 units SUBCUT BID [facility] Last Admin: 01/27/21 08:52 Dose: 20 units Documented by: Insulin Human Lispro (Insulin Lispro 100 Unit/Ml 3 Ml Kwikpen) 0 unit SUBCUT QIDACANDBED [facility]; Protocol Last Admin: 01/25/21 08:39 Dose: 4 unit Documented by: Insulin Lispro Protam/Lispro Human (Insulin Lispro Protamine/Lispro 75-25 100 Units/Ml 10 Ml Vial) 35 unit SUBCUT BIDMEALS [facility] Last Admin: 01/26/21 00:50 Dose: Not Given Documented by: Losartan Potassium (Losartan 50 Mg Tab) 100 mg PO DAILY [facility] Last Admin: 01/24/21 09:35 Dose: 100 mg Documented by: Magnesium Oxide (Magnesium Oxide 400 Mg Tab) 400 mg PO DAILY [facility] Last Admin: 01/22/21 08:42 Dose: Not Given Documented by: Norepinephrine Bitartrate (Norepinephrine 4 Mg/4 Ml Sdv) Confirm Administered Do se 4 mg .ROUTE .STK-MED ONE Stop: 01/22/21 00:10 Last Admin: 01/22/21 00:41 Dose: Not Given Documented by: Ondansetron HCl (Ondansetron 4 Mg/2 Ml Sdv) 4 mg IVPUSH ONETIME ONE Stop: 01/20/21 17:27 Last Admin: 01/21/21 06:15 Dose: Not Given Documented by: Pregabalin (Pregabalin 100 Mg Cap) 100 mg PO TID [facility] Pregabalin (Pregabalin 100 Mg Cap) 100 mg PO ONETIME ONE Stop: 01/20/21 22:16 Last Admin: 01/20/21 22:45 Dose: 100 mg Documented by: Rivaroxaban (Rivaroxaban 10 Mg Tab) 20 mg PO DAILY [facility] Last Admin: 01/22/21 08:42 Dose: Not Given Documented by: Simvastatin (Simvastatin 20 Mg Tab) 20 mg PO BEDTIME [facility] Last Admin: 01/21/21 20:13 Dose: 20 mg Documented by: Vancomycin HCl (Vancomycin 1 Gm Sdv) 1 gm IV .PHARMACY TO DOSE AYAN Stop: 01/21/21 07:30 - Exam Quality Assessment: Supplemental Oxygen General: Alert, Oriented, Cooperative HEENT: No: Scleral Icterus Neck: Supple, Trachea Midline Lungs: Decreased Breath Sounds Cardiovascular: Regular Rate, No Murmurs GI/Abdominal Exam: Normal Bowel Sounds, Soft, Non-Tender Neurological: No New Focal Deficit Psy/Mental Status: Normal Affect, Normal Mood Physical Findings Comments:: Left ankle packed and dressed with gauze and Leno bandage. Dressing is clean dry and intact. Good blanching distally with normal sensation to light touch. Erythema overlying the left solano has improved from previous with skin wrinkling indicating improved edema - Patient Data Lab Results Last 24 hrs: Laboratory Results - last 24 hr 01/26/21 01/26/21 01/27/21 Range/Units 16:42 20:56 04:10 Sodium 146 (140-148) mmol/L Potassium 3.7 (3.6-5.2) mmol/L Chloride 103 (100-108) mmol/L Carbon Dioxide 32 (21-32) mmol/L Anion Gap 11.0 (5.0-14.0) mmol/L BUN 22 H (7-18) mg/dL Creatinine 1.0 (0.6-1.0) mg/dL Est Cr Clr Drug Dosing 39.90 mL/min Estimated GFR (MDRD) 53 L (>60) Glucose 148 H (74-106) mg/dL POC Glucose 160 H 175 H (74-106) mg/dL Calcium 9.5 (8.5-10.1) mg/dL 01/27/21 01/27/21 Range/Units 07:20 11:25 Sodium (140-148) mmol/L Potassium (3.6-5.2) mmol/L Chloride (100-108) mmol/L Carbon Dioxide (21-32) mmol/L Anion Gap (5.0-14.0) mmol/L BUN (7-18) mg/dL Creatinine (0.6-1.0) mg/dL Est Cr Clr Drug Dosing mL/min Estimated GFR (MDRD) (>60) Glucose (74-106) mg/dL POC Glucose 148 H 242 H (74-106) mg/dL Calcium (8.5-10.1) mg/dL Result Diagrams: 01/26/21 04:05 01/27/21 04:10 Itz Results Last 24 hrs: Microbiology 01/23/21 04:40 Aerobic Blood Culture - Preliminary Blood - Arm, Right NO GROWTH AFTER 4 DAYS Anaerobic Blood Culture - Preliminary NO GROWTH AFTER 4 DAYS Sepsis Event Note - Evaluation Sepsis Screening Result: No Definite Risk - Focused Exam Vital Signs: Vital Signs Temp Pulse Resp BP BP Pulse Ox 01/27/21 10:08 97.5 F 77 18 114/42 L 96 01/27/21 08:49 144/51 H 01/27/21 07:27 95 01/27/21 07:00 97.8 F 74 18 144/51 H 97 01/27/21 02:59 97.1 F 73 117/44 L 94 L - Problem List Review Problem List Initiated/Reviewed/Updated: Yes - My Orders Last 24 Hours: My Active Orders 01/27/21 09:00 Bumetanide [Bumex] 3 mg PO DAILY 01/27/21 13:04 Dietary Supplements [RC] BIDMEALS 01/27/21 13:15 Piperacillin/Tazobactam [Zosyn] 3.375 gm Sodium Chloride 0.9% [Normal Saline] 50 ml IV Q6H 01/27/21 16:30 GLUCOSE POC LAB TO COLLECT JPM [POC] QIDACANDBED 01/27/21 17:00 Potassium Chloride [Klor-Con M20] 20 meq PO BIDMEALS 01/27/21 21:00 GLUCOSE POC LAB TO COLLECT JPM [POC] QIDACANDBED Insulin Glarg,Human.Rec.Analog [LantUS Solostar] 25 units SUBCUT BID carvediloL [Coreg] 6.25 mg PO BID 01/28/21 05:11 BASIC METABOLIC PANEL,BMP [CHEM] Routine CBC W/O DIFF,HEMOGRAM [HEME] Routine 01/28/21 07:30 GLUCOSE POC LAB TO COLLECT JPM [POC] QIDACANDBED 01/28/21 11:30 GLUCOSE POC LAB TO COLLECT JPM [POC] QIDACANDBED 01/28/21 16:30 GLUCOSE POC LAB TO COLLECT JPM [POC] QIDACANDBED 01/28/21 21:00 GLUCOSE POC LAB TO COLLECT JPM [POC] QIDACANDBED - Plan Plan:: ASSESSMENT AND PLAN - SEPTIC SHOCK CELLULITIS LEFT LOWER EXTREMITY WITH ABSCESS GROUP A STREP SEPTICEMIA Patient was weaned off Levophed. Blood pressures continue to improve so we will restart patient's home Coreg at lower dosing. Surveillance cultures have been negative. Clindamycin has been discontinued and will continue with monotherapy with Zosyn for now. After ankle reevaluation, if no concern for other infection beyond strep a septicemia, could de-escalate further to penicillin G. Continue to elevate patient's left lower extremity as able. The patient is not on a nticoagulation due to significant bleeding with dressing changes. Would like patient to do physical activity as tolerated without weightbearing on the patient's left lower extremity. ACUTE HYPOXIC RESPIRATORY FAILURE WITH HYPOXIA AND HYPERCAPNIA Multifactorial with septic shock, obesity, hypoventilation and sedation. Oxygen requirement is decreasing. IV fluids were discontinued and the patient is back on her usual Bumex. Continue to de-escalate oxygen as able to maintain saturations at least 90%. ACUTE KIDNEY INJURY ON TOP OF CHRONIC KIDNEY DISEASE III Creatinine has continued to improve and is 1.0 today. -Continue daily Bumex. -Continue to closely monitor urine output and renal function Renally dose medications and avoid nephrotoxins TYPE 2 DIABETES MELLITUS Blood sugars remain elevated on Lantus. I did request increase the dosing of Lantus and will continue 4 times daily Accu-Cheks with high-dose sliding scale insulin. PAROXYSMAL ATRIAL FIBRILLATION Rivaroxaban is currently held due to significant bleeding from the patient's left ankle. -Continue amiodarone Tentative plan to restart anticoagulation after podiatry evaluation and definitive plan regarding the patient's ankle. Restart Coreg at lower dosing as above CONGESTIVE HEART FAILURE Transthoracic echo report is pending. Patient was restarted on beta-gladys and resumed on diuretic. ANEMIA Secondary to hemodilution as well as some acute blood loss from patient's ankle bleeding. Hemoglobin was stable on last assessment. Will reassess in a.m. MAINTENANCE ISSUES -DVT prophylaxis; SCDs. Avoid chemical DVT prophylaxis or anticoagulation until definitive plan regarding left ankle wound. Activity as tolerated with physical therapy while avoiding weightbearing on left lower extremity. -Nutrition; consistent carbohydrate diet DISPOSITION-continuing inpatient monitoring and care. Patient had a PICC line placed previously. She require at least 2 weeks of IV antibiotic therapy from 01/23. Presume patient will require subacute rehab upon discharge from the hospital.
[2021-01-27] MEDS: Piperacillin/Tazobactam/Dext 3.375 GM in Premix Bag 1 BAG IV SCH ×2 (14:27→19:37)
[2021-01-27] MEDS: Carvedilol 3.125 MG Tab PO SCH (16:50)
[2021-01-27] MEDS ORDERED: Carvedilol 3.125 MG Tab PO SCH (17:00)
[2021-01-27] MEDS: DULoxetine 20 MG Cap PO SCH (20:04)
[2021-01-28] MEDS: Acetaminophen 325 MG Tab PO PRN (00:19)
[2021-01-28] MEDS: Piperacillin/Tazobactam/Dext 3.375 GM in Premix Bag 1 BAG IV SCH ×4 (02:02→19:40)
[2021-01-28] MEDS: LORazepam 0.5 MG Tab PO PRN (07:33)
[2021-01-28] MEDS: Bumetanide 1 MG Tab PO SCH (09:09)
[2021-01-28] MEDS: Aspirin 81 MG Tab.EC PO SCH (09:09)
[2021-01-28] MEDS: Isosorbide Mononitrate 30 MG Tab.ER PO SCH (09:09)
[2021-01-28] MEDS: Carvedilol 3.125 MG Tab PO SCH ×2 (09:10→17:15)
[2021-01-28] MEDS: Potassium Chloride 20 MEQ Tab.ER PO SCH ×2 (09:10→17:15)
[2021-01-28] MEDS: Amiodarone 200 MG Tab PO SCH (09:10)
[2021-01-28] MEDS: Insulin Glargine,Human Rec. Analog 100 Units/ML 3 ML Pen SUBCUT SCH ×2 (09:11→22:02)
[2021-01-28] MEDS: Insulin Lispro 100 Unit/ML 3 ML KwikPen SUBCUT SCH ×4 (09:12→22:04)
[2021-01-28] MEDS ORDERED: Melatonin 3 MG Tab PO PRN (10:37)
[2021-01-28] MEDS: Pregabalin 50 MG Cap PO SCH ×3 (10:53→22:00)
--- NOTE | 2021-01-28 10:56 | PCM.SN.2 ---
- Free Text/Narrative Note: START OF DOCTOR IFRAHMIJose PROGRESS NOTE Subjective: The patient complains of left foot/ankle pain with movement. At rest it appears to cause her no distress. Overnight she admits to rigors however she denies fever. She denies nausea, vomiting, wheeze, abdominal pain. She denies dyspnea. I explained to the patient her current medical condition and plan of care and I have answered all of her questions Objective: General: -Alert -No acute distress -No dyspnea -No tachypnea -Morbidly obese Heart: -Regular rate -Regular rhythm -No murmurs -No gallops -No rubs Lungs: -No wheeze -No rhonchi -No rales -Distant breath sounds bilaterally Abdomen: -Normal bowel sounds in all four quadrants -No rebound -No guarding -No tenderness Extremities: -2/4 pulse in all four extremities -No clubbing -No cyanosis -Bipedal edema present which is likely chronic Additional Details / Additional Findings / Exceptions / Miscellaneous: Inspection of left lower extremity demonstrates blistering of the dorsal aspect of the left foot as well as blistering of the calcaneal region. The margin of erythema of the left foot has receded from previous demarcation Pertinent Laboratory Results / Pertinent Radiology Results / Pertinent Diagnostic Results / Pertinent Vital Signs: Blood pressure 144/61 however it is labile, patient saturating 93% on 3 L, hemoglobin 9.1, MCV 101 Assessment / Plan: Left lower extremity cellulitis with abscess. Patient status post I&D of the left heel for left posterior heel abscess with podiatry on January 22, 2021. Check ankle-brachial index. Check left lower extremity arterial ultrasound with Doppler to rule out vascular insufficiency. Zosyn 3.375 g IV every 6 hours. I will follow up on podiatry's findings recommendations Hypoxemia. Patient has extensive smoking history although she has never been formally diagnosed with COPD/emphysema/chronic bronchitis there is likely an element of this. DuoNeb every 4 hours + Medrol 40 mg IV every 8 hours Strep group A bacteremia per blood culture January 20, 2021. Speciation pending. Zosyn 3.375 g IV every 6 hours Diabetes. Will check fingerstick glucose before every meal and at bedtime and provide sulci scale plus insulin glargine 25 units subcutaneously twice daily Macrocytic anemia. Will monitor hemoglobin levels intermittently. Check serum ferritin, iron panel, fecal occult blood, TSH, free T4, B12, folate levels Obesity. Patient will be counseled regarding lifestyle modification Spinal stenosis Acute renal insufficiency. Resolved Degenerative disc disease Coagulopathy. Will monitor PT/INR periodically Hepatic steatosis Hypothyroidism. Check TSH and free T4 History of left breast cancer status post chemotherapy, status post radiation therapy, status post left mastectomy. The patient indicates that she is in remission and is no longer required to be monitored for this medical condition by . Coronary artery disease, status post stent. Aspirin 81 mg p.o. daily plus Coreg 3.25 mg p.o. twice daily plus Imdur 30 mg p.o. daily Arthritis Chronic pain Peripheral vascular disease with question of history of carotid stenting. Aspirin 81 mg p.o. daily Constipation Depression. Cymbalta 20 mg p.o. nightly 4.7 mm left pulmonary apical nodule. Recheck CT chest with IV contrast 6 months post discharge CHF, ejection fraction 45 to 50%. Bumex 3 mg p.o. daily plus K-Dur 20 McCugh p.o. twice daily plus Coreg 3.25 mg p.o. twice daily Moderate tricuspid regurgitation Neuropathy. Lyrica 50 mg p.o. 3 times daily Paroxysmal atrial fibrillation. Amiodarone 200 mg p.o. daily plus Coreg 3.25 mg p.o. twice daily. Resume anticoagulation upon discharge Hypertension. Bumex 3 mg p.o. daily plus K-Dur 20 McCugh p.o. twice daily plus Coreg 3.25 mg p.o. twice daily plus Imdur 30 mg p.o. daily Hyperlipidemia Diverticulosis Anxiety Obstructive sleep apnea. CPAP/BiPAP: Okay to use home device and/or pressure when sleeping Gout GI prophylaxis. Protonix 40 mg p.o. daily DVT prophylaxis. Bilateral SCD Disposition: END OF DOCTOR EMAMIS PROGRESS NOTE
[2021-01-28] MEDS: Albuterol/Ipratropium 3.0-0.5 MG/3 ML Neb Soln NEB SCH ×4 (11:00→22:55)
--- NOTE | 2021-01-28 12:38 | PN ---
DATE OF SERVICE: 01/28/2021 SUBJECTIVE: The patient is an 85-year-old female seen at bedside. The patient is 6 days status post I and D of the left heel. The patient is awake and lucid and able to carry on a conversation now, she was not capable of the last time we saw her. She relates she does have some pain in the left heel. OBJECTIVE: GENERAL: The patient was alert and oriented x3 and in no acute distress. VITAL SIGNS: Per chart. DERMATOLOGIC: Revealed that there was a large bulla on the anterior surface of the left ankle that was approximately 5 cm x 6 cm filled with serosanguineous fluid. It was nontender to palpation. There was no purulence, no malodor, no signs of infection. On the posterior aspect of left heel, where the debridement had been done, there was healthy granular base measuring approximately 8 cm x 4 cm and did not probe to bone. There was no exposed bone. There was macerations on the skin around the edges, but no purulence. No malodor. No signs of infection. ASSESSMENT: 1. Diabetes mellitus. 2. The patient is 6 days status post incision and drainage of the left posterior heel. PLAN: The patient is examined and evaluated. Measurements of the wound were taken by the nursing staff and then the heel was dressed with 4x4s, Kerlix, and ANDREY. We are doing a drier tender naphthalene dressing because of the amount of serous drainage the patient is still having and we want to try to alleviate the maceration on the skin. We are not placing a wound VAC at this time due to the fact that, one, there is a healthy granular base growing, and two, the bulla on the anterior surface of the left ankle is consistent with a very large fracture blister. Podiatry to follow. Medical management per hospitalist. Continue IV antibiotics per hospitalist. Alvarez Galvez DPM /[id number]
[2021-01-28] MEDS: methylPREDNISolone Sodium Succinate 40 MG/1 ML SDV IVPUSH SCH ×2 (15:08→19:30)
[2021-01-28] MEDS: DULoxetine 20 MG Cap PO SCH (22:00)
[2021-01-29] MEDS: Albuterol/Ipratropium 3.0-0.5 MG/3 ML Neb Soln NEB SCH ×6 (02:21→23:31)
[2021-01-29] MEDS: Piperacillin/Tazobactam/Dext 3.375 GM in Premix Bag 1 BAG IV SCH ×4 (02:21→19:34)
[2021-01-29] MEDS: methylPREDNISolone Sodium Succinate 40 MG/1 ML SDV IVPUSH SCH ×3 (02:22→19:36)
[2021-01-29] MEDS: LORazepam 0.5 MG Tab PO PRN (07:57)
[2021-01-29] MEDS ORDERED: Ferrous Sulfate 325 MG Tab PO SCH ×2 (08:00→17:00)
--- NOTE | 2021-01-29 08:01 | PCM.SN.2 ---
- Free Text/Narrative Note: START OF DOCTOR IFRAHMIS PROGRESS NOTE Subjective: The patient offers no complaints at this time. Overnight she denies fever, rigors, nausea, vomiting, cough, wheeze, abdominal pain, dyspnea, or pain of her left foot. I explained to the patient her current medical condition and plan of care and I have answered all of her questions Objective: General: -Alert -No acute distress -No dyspnea -No tachypnea -Morbidly obese Heart: -Regular rate -Regular rhythm -No murmurs -No gallops -No rubs Lungs: -No wheeze -No rhonchi -No rales -Distant breath sounds bilaterally Abdomen: -Normal bowel sounds in all four quadrants -No rebound -No guarding -No tenderness Extremities: -2/4 pulse in all four extremities -No clubbing -No cyanosis -Bipedal edema present which is likely chronic Additional Details / Additional Findings / Exceptions / Miscellaneous: Inspection of left lower extremity demonstrates blistering of the dorsal aspect of the left foot as well as blistering of the calcaneal region. The margin of erythema of the left foot has receded from previous demarcation Pertinent Laboratory Results / Pertinent Radiology Results / Pertinent Diagnostic Results / Pertinent Vital Signs: Blood pressure 142/55, pulse 80, patient saturating 92% on 4 L, hemoglobin 9.4 Assessment / Plan: Left lower extremity cellulitis with abscess. Patient status post I&D of the left heel for left posterior heel abscess with podiatry on January 22, 2021. Check ankle-brachial index. Check left lower extremity arterial ultrasound with Doppler to rule out vascular insufficiency. Zosyn 3.375 g IV every 6 hours. I will follow up on podiatry's findings recommendations Hypoxemia. Patient has extensive smoking history although she has never been formally diagnosed with COPD/emphysema/chronic bronchitis there is likely an element of this. DuoNeb every 4 hours + Medrol 40 mg IV every 8 hours Strep group A bacteremia per blood culture January 20, 2021. Speciation pending. Zosyn 3.375 g IV every 6 hours Diabetes. Will check fingerstick glucose before every meal and at bedtime and provide sulci scale plus insulin glargine 25 units subcutaneously twice daily Iron deficiency anemia/macrocytic anemia. Will monitor hemoglobin levels intermittently. Fecal occult blood pending. Patient is hypothyroid with elevated TSH however B12 and folate levels are within normal meds. Fecal occult blood pending. Ferrous sulfate 325 mg p.o. twice daily plus vitamin C 500 mg p.o. daily Obesity. Patient will be counseled regarding lifestyle modification Spinal stenosis Acute renal insufficiency. Resolved Degenerative disc disease Coagulopathy. Will monitor PT/INR periodically Hepatic steatosis Hypothyroidism. Synthroid 75 mcg p.o. daily Hypomagnesemia. Will monitor magnesium levels intermittently and supplement as necessary History of left breast cancer status post chemotherapy, status post radiation therapy, status post left mastectomy. The patient indicates that she is in remission and is no longer required to be monitored for this medical condition by . Coronary artery disease, status post stent. Aspirin 81 mg p.o. daily plus Coreg 6.25 mg p.o. twice daily plus Imdur 30 mg p.o. daily Arthritis Chronic pain Peripheral vascular disease with question of history of carotid stenting. Aspirin 81 mg p.o. daily Constipation Depression. Cymbalta 20 mg p.o. nightly 4.7 mm left pulmonary apical nodule. Recheck CT chest with IV contrast 6 months post discharge CHF, ejection fraction 45 to 50%. Bumex 3 mg p.o. daily plus K-Dur 20 McCugh p.o. twice daily plus Coreg 6.25 mg p.o. twice daily Moderate tricuspid regurgitation Neuropathy. Lyrica 50 mg p.o. 3 times daily Paroxysmal atrial fibrillation. Amiodarone 200 mg p.o. daily plus Coreg 6.25 mg p.o. twice daily. Resume anticoagulation upon discharge Hypertension. Bumex 3 mg p.o. daily plus K-Dur 20 McCugh p.o. twice daily plus Coreg 6.25 mg p.o. twice daily plus Imdur 30 mg p.o. daily Hyperlipidemia Diverticulosis Anxiety Obstructive sleep apnea. CPAP/BiPAP: Okay to use home device and/or pressure when sleeping Gout GI prophylaxis. Protonix 40 mg p.o. daily DVT prophylaxis. Bilateral SCD Disposition: The patient may be a candidate for discharge on this day of January 29, 2021 depending on whether we are able to wean the patient off of supplemental oxygen. L2 to attempt to discuss the patient's case with podiatry END OF DOCTOR LUDIVINA PROGRESS NOTE
[2021-01-29] MEDS: Bumetanide 1 MG Tab PO SCH (08:27)
[2021-01-29] MEDS: Amiodarone 200 MG Tab PO SCH (08:27)
[2021-01-29] MEDS: Potassium Chloride 20 MEQ Tab.ER PO SCH ×2 (08:27→17:08)
[2021-01-29] MEDS: Pregabalin 50 MG Cap PO SCH ×3 (08:27→21:17)
[2021-01-29] MEDS: Aspirin 81 MG Tab.EC PO SCH (08:27)
[2021-01-29] MEDS: Pantoprazole 40 MG Tab.CR PO SCH (08:27)
[2021-01-29] MEDS: Carvedilol 3.125 MG Tab PO SCH ×3 (08:28→21:22)
[2021-01-29] MEDS: Isosorbide Mononitrate 30 MG Tab.ER PO SCH (08:28)
[2021-01-29] MEDS: Insulin Glargine,Human Rec. Analog 100 Units/ML 3 ML Pen SUBCUT SCH ×2 (08:32→21:11)
[2021-01-29] MEDS: Insulin Lispro 100 Unit/ML 3 ML KwikPen SUBCUT SCH ×4 (08:33→21:15)
--- NOTE | 2021-01-29 08:59 | US ---
VL Duplex Lwr Ext Art Ltd Lt CLINICAL HISTORY: Arterial insufficiency FINDINGS: Ankle-Brachial Indices: Left arm blood pressure is 138 systolic. The right posterior tibial artery pressure is 150. A/B index is 1.09. The right dorsal pedal artery pressure is 145. The A/B index is 1.05. The left posterior tibial pressure is 150. The A/B index is 1.09. The left dorsal pedal pressure is 170. The A/B index is 1.23. Doppler images show monophasic waveforms in the left posterior tibial and dorsal pedal arteries bilaterally. IMPRESSION: Normal ankle-brachial indices Waveforms show changes of vascular occlusive disease
--- NOTE | 2021-01-29 09:02 | US ---
Arterial Doppler study left lower extremity CLINICAL HISTORY: Left lower extremity peripheral vascular disease FINDINGS: Doppler images show biphasic waveforms in the common femoral profunda femoral and proximal superficial femoral artery. This changes to monophasic waveforms in the mid superficial femoral artery and is monophasic down to the posterior tibial and dorsal pedal arteries there is a drop-off in velocity at the proximal popliteal artery. IMPRESSION: Left mid SFA stenosis with probable additional stenoses distal to this particular the proximal popliteal artery.
[2021-01-29] MEDS: Magnesium Sulfate/Water 2 GM/50 ML BAG IV SCH ×3 (11:12→21:22)
[2021-01-29] MEDS: Ascorbic Acid 500 MG Tab PO SCH (11:12)
[2021-01-29] MEDS: Acetaminophen/oxyCODONE 325-5 MG Tab PO PRN (18:46)
[2021-01-29] MEDS: DULoxetine 20 MG Cap PO SCH (21:17)
[2021-01-29] MEDS: oxyCODONE 5 MG Tab PO PRN (23:36)
[2021-01-30] MEDS: Piperacillin/Tazobactam/Dext 3.375 GM in Premix Bag 1 BAG IV SCH ×2 (01:55→08:04)
[2021-01-30] MEDS: methylPREDNISolone Sodium Succinate 40 MG/1 ML SDV IVPUSH SCH (03:01)
[2021-01-30] MEDS: Albuterol/Ipratropium 3.0-0.5 MG/3 ML Neb Soln NEB SCH ×2 (03:01→07:01)
[2021-01-30] MEDS: Magnesium Sulfate/Water 2 GM/50 ML BAG IV SCH (03:03)
[2021-01-30 07:02] VITALS: PULSE 75
[2021-01-30 07:26] VITALS: BP 126/52
[2021-01-30] MEDS ORDERED: Levothyroxine 25 MCG Tab PO SCH (07:30)
--- NOTE | 2021-01-30 07:59 | PCM.SN.2 ---
- Free Text/Narrative Note: START OF DOCTOR IFRAHMIS DISCHARGE SUMMARY Date of Admission: January 20, 2021 Date of Discharge: 7:34 AM on January 30, 2021 Primary Diagnosis: Left lower extremity cellulitis with abscess for which patient status post I&D of the left heel for left posterior heel abscess with podiatry on January 22, 2021 Secondary Diagnosis: Hypoxemia likely secondary to COPD/emphysema for which patient has never been formally diagnosed but she does have an extensive smoking history Strep group A bacteremia per blood culture on January 20, 2021 Diabetes Iron deficiency anemia/macrocytic anemia Obesity Spinal stenosis Acute renal insufficiency, resolved Degenerative disc disease Coagulopathy Hepatic steatosis Hypothyroidism Hypomagnesemia, status post treatment History of left breast cancer status post chemotherapy, status post radiation therapy, status post left mastectomy. The patient indicates that she is in remission and is no longer required to be monitored for this medical condition by a doctor Coronary artery disease, status post stent Arthritis Chronic pain Peripheral vascular disease with question of history of carotid stenting Constipation Depression 4.7 mm left pulmonary apical nodule CHF, ejection fraction 45 to 50% Moderate tricuspid regurgitation Neuropathy Paroxysmal atrial fibrillation Hypertension Hyperlipidemia Diverticulosis Anxiety Obstructive sleep apnea Gout Consultations: Podiatry Disposition: The patient will be discharged to the retirement The patient will be advised to follow-up with podiatry as directed The patient will be advised to follow-up with the wound care clinic 3 days post discharge or as directed by podiatry The patient is advised follow-up with her primary care physician or provider 7 days post discharge for posthospitalization evaluation and to discuss whether a CT chest with IV contrast should be scheduled for July 05, 2021 for history of 4.7 mm left pulmonary apical nodule however I would advise against this because the patient would not be a candidate for treatment/surgical intervention even if malignancy was detected given her multiple medical comorbidities Discharge Medications: Cymbalta 20 mg p.o. nightly Coreg 6.25 mg p.o. twice daily Bumex 3 mg p.o. daily Amiodarone 200 mg p.o. daily Zocor 20 mg p.o. nightly Xarelto 20 mg p.o. daily [place]-3 fatty acids 1000 mg p.o. twice daily Multivitamin 1 tab p.o. daily Gabapentin 500 mg p.o. 3 times daily Vitamin D 1000 IU p.o. daily Vitamin C 1000 mg p.o. twice daily Xanax 0.5 mg p.o. twice daily as needed anxiety Zosyn 3.375 g IV every 6 hours until 11:59 PM on February 05, 2021 Lyrica 100 mg p.o. 3 times daily K. Dur 20 Diallo p.o. twice daily Prednisone 10 mg p.o.: 4 tabs daily x3 days then 3 tabs daily x3 days then 2 tabs daily x3 days then 1 tab daily x3 days. Quantity sufficient. 0 refills Synthroid 75 mcg p.o. daily Imdur 30 mg p.o. daily Insulin lispro subcutaneously before every meal and at bedtime per sliding scale Insulin glargine 25 units subcutaneously twice daily Ferrous sulfate 3 and 25 mg p.o. twice daily Aspirin 81 mg p.o. daily END OF DOCTOR EMAMIS DISCHARGE SUMMARY
[2021-01-30] MEDS: Pantoprazole 40 MG Tab.CR PO SCH (08:05)
[2021-01-30] MEDS: Potassium Chloride 20 MEQ Tab.ER PO SCH (08:05)
[2021-01-30] MEDS: Carvedilol 3.125 MG Tab PO SCH (08:05)
[2021-01-30] MEDS: Isosorbide Mononitrate 30 MG Tab.ER PO SCH (08:08)
[2021-01-30] MEDS: Aspirin 81 MG Tab.EC PO SCH (08:08)
[2021-01-30] MEDS: Bumetanide 1 MG Tab PO SCH (08:08)
[2021-01-30] MEDS: Amiodarone 200 MG Tab PO SCH (08:09)
[2021-01-30] MEDS: Ascorbic Acid 500 MG Tab PO SCH (08:09)
[2021-01-30] MEDS: Pregabalin 50 MG Cap PO SCH (08:15)
[2021-01-30] MEDS: Insulin Glargine,Human Rec. Analog 100 Units/ML 3 ML Pen SUBCUT SCH (08:16)
[2021-01-30] MEDS: Insulin Lispro 100 Unit/ML 3 ML KwikPen SUBCUT SCH (08:17)
--- NOTE | 2021-01-30 08:41 | PN ---
DATE OF SERVICE: 01/29/2021 SUBJECTIVE: Patient is an 85-year-old female seen at bedside. Patient is one week status post I and D of the left heel. Patient relates she is feeling much better. She is much more lucid today and was able to answer questions. OBJECTIVE: DERMATOLOGICAL: Revealed that ulceration on the posterior aspect of the left heel measured 6 cm in its widest dimension by 9 cm in its longest dimension. It had healthy granular base. There was some maceration of skin around the edges. There was still a large bulla on the anterior surface of the left ankle that measured approximately 10 cm x 10 cm and was fluctuant but has decreased in size since yesterday. There was no purulence. No malodor. No signs of infection. LABORATORY DATA: Labs for today are pending, ASSESSMENT: 1. Diabetes mellitus. 2. Diabetic polyneuropathy. 3. Diabetic heel ulcer, left heel. 4. The patient is one week status post I and D of the left heel. PLAN: Patient was examined and evaluated. Due to the amount of drainage that we are getting, we dressed the foot and ankle with 4x4s, Kerlix, and Leno. This is changed as needed, and we are also going to have the patient remain nonweightbearing. Continue IV antibiotics per hospitalist, medical management per hospitalist. Podiatry to follow. If the patient is still here next week, we will follow her up here next week. If not, we will follow her in our clinic and have her come in from the TCU. Recommend continuing daily dressing changes. Recommend a dry sterile dressing as long as there is a lot of drainage. If drainage subsides, we will discuss the idea of a wound VAC, but we do not want to apply a wound VAC at this time. Alvarez Galvez DPM /[id number]
--- NOTE | 2021-01-30 09:32 | PCM.SN.2 ---
- Free Text/Narrative Note: START OF DOCTOR IFRAHMIS DISCHARGE SUMMARY Date of Admission: January 20, 2021 Date of Discharge: 7:34 AM on January 30, 2021 Primary Diagnosis: Left lower extremity cellulitis with abscess for which patient status post I&D of the left heel for left posterior heel abscess with podiatry on January 22, 2021 Secondary Diagnosis: Hypoxemia likely secondary to COPD/emphysema for which patient has never been formally diagnosed but she does have an extensive smoking history Strep group A bacteremia per blood culture on January 20, 2021 Diabetes Iron deficiency anemia/macrocytic anemia Obesity Spinal stenosis Acute renal insufficiency, resolved Degenerative disc disease Coagulopathy Hepatic steatosis Hypothyroidism Hypomagnesemia, status post treatment History of left breast cancer status post chemotherapy, status post radiation therapy, status post left mastectomy. The patient indicates that she is in remission and is no longer required to be monitored for this medical condition by a doctor Coronary artery disease, status post stent Arthritis Chronic pain Peripheral vascular disease with question of history of carotid stenting Constipation Depression 4.7 mm left pulmonary apical nodule CHF, ejection fraction 45 to 50% Moderate tricuspid regurgitation Neuropathy Paroxysmal atrial fibrillation Hypertension Hyperlipidemia Diverticulosis Anxiety Obstructive sleep apnea Gout Consultations: Podiatry Disposition: The patient will be discharged to the residential The patient will be advised to follow-up with podiatry as directed The patient will be advised to follow-up with the wound care clinic 3 days post discharge or as directed by podiatry The patient is advised follow-up with her primary care physician or provider 7 days post discharge for posthospitalization evaluation and to discuss whether a CT chest with IV contrast should be scheduled for July 05, 2021 for history of 4.7 mm left pulmonary apical nodule however I would advise against this because the patient would not be a candidate for treatment/surgical intervention even if malignancy was detected given her multiple medical comorbidities Discharge Medications: Cymbalta 20 mg p.o. nightly Coreg 6.25 mg p.o. twice daily Bumex 3 mg p.o. daily Amiodarone 200 mg p.o. daily Zocor 20 mg p.o. nightly Xarelto 20 mg p.o. daily [place]-3 fatty acids 1000 mg p.o. twice daily Multivitamin 1 tab p.o. daily Gabapentin 500 mg p.o. 3 times daily Vitamin D 1000 IU p.o. daily Vitamin C 1000 mg p.o. twice daily Xanax 0.5 mg p.o. twice daily as needed anxiety Originally I placed an order for Zosyn 3.375 g IV every 6 hours until 11:59 PM on February 05, 2021, however I was notified that due to staffing issues the residential would not be able to administer this. In its stead, the patient will be started on Bactrim DS 1 tab p.o. twice daily. Quantity 14. 0 refills Lyrica 100 mg p.o. 3 times daily K. Dur 20 Diallo p.o. twice daily Prednisone 10 mg p.o.: 4 tabs daily x3 days then 3 tabs daily x3 days then 2 tabs daily x3 days then 1 tab daily x3 days. Quantity sufficient. 0 refills Synthroid 75 mcg p.o. daily Imdur 30 mg p.o. daily Insulin lispro subcutaneously before every meal and at bedtime per sliding scale Insulin glargine 25 units subcutaneously twice daily Ferrous sulfate 3 and 25 mg p.o. twice daily Aspirin 81 mg p.o. daily END OF DOCTOR EMAMIS DISCHARGE SUMMARY
== END 2021-01-30 10:30 | DRG 853 ==
LOC: JP.ED 16:06 → JP.ICU 18:13 → JP.MS 01-26 13:35
PROVIDERS: ADMIT Hospitalist; ATTEND Hospitalist
PROC: 0JBP0ZZ Excision of Left Lower Leg Subcutaneous Tissue and Fascia, Open Approach (ICD-10-PCS; principal; 2021-01-22)
PROC: 3E033XZ Introduction of Vasopressor into Peripheral Vein, Percutaneous Approach (ICD-10-PCS; 2021-01-22)
PROC: 5A0945Z Assistance with Respiratory Ventilation, 24-96 Consecutive Hours (ICD-10-PCS; 2021-01-22)
DX: J18.9 Pneumonia, unspecified organism (principal); A40.0 Sepsis due to streptococcus, group A; I11.0 Hypertensive heart disease with heart failure; J96.01 Acute respiratory failure with hypoxia; R65.21 Severe sepsis with septic shock; J96.02 Acute respiratory failure with hypercapnia; L03.116 Cellulitis of left lower limb; G47.30 Sleep apnea, unspecified; I13.0 Hypertensive heart and chronic kidney disease with heart failure and stage 1 through stage 4 chronic kidney disease, or unspecified chronic kidney disease; L02.416 Cutaneous abscess of left lower limb; M54.9 Dorsalgia, unspecified; E11.52 Type 2 diabetes mellitus with diabetic peripheral angiopathy with gangrene; I96 Gangrene, not elsewhere classified; R41.9 Unspecified symptoms and signs involving cognitive functions and awareness; E11.9 Type 2 diabetes mellitus without complications; E87.2 Acidosis; N17.9 Acute kidney failure, unspecified; Z92.21 Personal history of antineoplastic chemotherapy; Z79.01 Long term (current) use of anticoagulants; J43.9 Emphysema, unspecified; D50.9 Iron deficiency anemia, unspecified; Z66 Do not resuscitate; E66.9 Obesity, unspecified; K76.0 Fatty (change of) liver, not elsewhere classified; E03.9 Hypothyroidism, unspecified; E83.42 Hypomagnesemia; M48.00 Spinal stenosis, site unspecified; M19.90 Unspecified osteoarthritis, unspecified site; I25.10 Atherosclerotic heart disease of native coronary artery without angina pectoris; G89.29 Other chronic pain; E11.51 Type 2 diabetes mellitus with diabetic peripheral angiopathy without gangrene; K59.09 Other constipation; F32.9 Major depressive disorder, single episode, unspecified; R91.1 Solitary pulmonary nodule; I07.1 Rheumatic tricuspid insufficiency; E11.42 Type 2 diabetes mellitus with diabetic polyneuropathy; I48.0 Paroxysmal atrial fibrillation; E78.5 Hyperlipidemia, unspecified; K57.90 Diverticulosis of intestine, part unspecified, without perforation or abscess without bleeding; F41.9 Anxiety disorder, unspecified; G47.33 Obstructive sleep apnea (adult) (pediatric); M10.9 Gout, unspecified; Z85.3 Personal history of malignant neoplasm of breast; Z90.12 Acquired absence of left breast and nipple; Z95.5 Presence of coronary angioplasty implant and graft; E11.22 Type 2 diabetes mellitus with diabetic chronic kidney disease; N18.9 Chronic kidney disease, unspecified; Z79.82 Long term (current) use of aspirin; Z79.899 Other long term (current) drug therapy; Z79.4 Long term (current) use of insulin; H54.7 Unspecified visual loss; E78.00 Pure hypercholesterolemia, unspecified; Z98.49 Cataract extraction status, unspecified eye; Z90.89 Acquired absence of other organs; Z90.49 Acquired absence of other specified parts of digestive tract; Z96.649 Presence of unspecified artificial hip joint; N18.30 Chronic kidney disease, stage 3 unspecified; E11.622 Type 2 diabetes mellitus with other skin ulcer; D63.1 Anemia in chronic kidney disease; Z20.822 Contact with and (suspected) exposure to COVID-19
CPT/HCPCS: 0241U; 36415; 36569; 36600; 51702; 71045; 71250; 73630; 73721; 80048; 80053; 81001; 82607; 82728; 82746; 82803; 82947; 82962; 83550; 83605; 83690; 83735; 83880; 84145; 84439; 84443; 84484; 85018; 85025; 85027; 85610; 85651; 86140; 87015; 87040; 87070; 87075; 87077; 87102; 87116; 87205; 87206; 87220; 88304; 93306; 93922; 93926; 93970; 94640; 94660; 94762; 96365; 96368; 97110; 97162; 97530; 99285; A9270-GY; C1751; J0696; J1630; J1720; J1815; J1815-GY; J1956; J2543; J2920; J3370; J3475; J3490; J7030; J7040; J7050; J7060; J7620-GY

== ENCOUNTER 2021-02-01 15:41 | Emergency (ER) | payer MEDICARE, BC ==
[2021-02-01] MEDS ORDERED: cefTRIAXone 2 GM, Lidocaine 1% 4.2 ML IM ONE ×2 (16:35)
--- NOTE | 2021-02-01 16:41 | EDM.PDOC ---
ED HPI GENERAL MEDICAL PROBLEM - General Chief Complaint: General Stated Complaint: MEDICAL [facility]IA [facility] Time Seen by Provider: 02/01/21 16:05 Source of Information: Reports: Patient, Family, Senior Living Records, Provider History Limitations: Reports: No Limitations - History of Present Illness INITIAL COMMENTS - FREE TEXT/NARRATIVE: 85-year-old female recently had an extended hospital stay for foot cellulitis, has been in the care home for the last 2 days but they are concerned with persistently elevated glucose levels so sent her back into the emergency room. On review of the hospital records, her glucose was running in the mid to upper 300s the last 48 hours. The infection on her foot however was improving. Apparently her glucose was over 400 this morning, consultation was made with the research instrumentation technician and her primary care and they recommended her going to the emergency room. It is now 229. She has no fever, still is having some discomfort in her heel but no other increase in pain. Onset: Unknown/Unsure Duration: Chronic Associated Symptoms: Denies: Chest Pain, Fever/Chills, Malaise, Nausea/Vomiting, Shortness of Breath, Weakness - Related Data Allergies Allergy/AdvReac Type Severity Reaction Status Date / Time No Known Allergies Allergy Verified 02/01/21 16:11 Home Meds: Home Meds Ascorbic Acid [Vitamin C] 1,000 mg PO BID 07/13/14 [History] Multivitamin [Multi-Vitamin Daily] 1 tab PO DAILY 07/13/14 [History] [place]-3/DHA/Epa/Fish Oil [[place]-3 Fish Oil 1,000 MG Sfgl] 1,000 mg PO BID 07/13/14 [History] Simvastatin [Zocor] 20 mg PO BEDTIME 07/13/14 [History] ALPRAZolam [Alprazolam] 0.5 mg PO BID PRN 05/17/20 [History] Rivaroxaban [Xarelto] 15 mg PO DAILY 05/17/20 [History] Pregabalin 100 mg PO TID 01/20/21 [History] Ferrous Sulfate 325 mg PO BID@1200,1700 tablet 01/30/21 [Rx] Insulin Lispro [Humalog] 0 unit SUBCUT QIDACANDBED pen 01/30/21 [Rx] Levothyroxine 75 mcg PO ACBREAKFAST tablet 01/30/21 [Rx] Potassium Chloride [Klor-Con M20] 20 meq PO BIDMEALS tab.er 01/30/21 [Rx] Sulfamethoxazole/Trimethoprim [Bactrim Ds Tablet] 1 each PO BID 7 Days #14 tablet 01/30/21 [Rx] carvediloL [Coreg] 6.25 mg PO BID tablet 01/30/21 [Rx] Insulin Glulisine [Apidra Solostar] 25 units SQ BID 02/01/21 [History] Ipratropium/Albuterol Sulfate [Iprat-Albut 0.5-3(2.5) mg/3 ml] 3 ml IH ASDIRECTED PRN 02/01/21 [History] ondansetron HCL [Zofran] 4 mg PO Q6H PRN 02/01/21 [History] predniSONE [Prednisone] 40 mg PO DAILY 02/01/21 [History] Past Medical History HEENT History: Reports: Impaired Vision Cardiovascular History: Reports: CAD, High Cholesterol, Hypertension, SOB on Exertion, Stents Respiratory History: Reports: Sleep Apnea, SOB Other Respiratory History: Uses cpap Gastrointestinal History: Reports: Chronic Constipation Genitourinary History: Reports: Renal Disease 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 ulcerated area, not open, to lateral inner foot on the left - Infectious Disease History Infectious Disease History: Reports: Mumps - Past Surgical History Head Surgeries/Procedures: Reports: None HEENT Surgical History: Reports: Cataract Surgery, Tonsillectomy Cardiovascular Surgical History: Reports: Carotid Stents, Vascular Surgery Respiratory Surgical History: Reports: None GI Surgical History: Reports: Appendectomy, Cholecystectomy, Colonoscopy Female Surgical History: Reports: Mastectomy Endocrine Surgical History: Reports: None Musculoskeletal Surgical History: Reports: Hip Replacement Oncologic Surgical History: Reports: Mastectomy Dermatological Surgical History: Reports: None Social & Family History - Family History Family Medical History: No Pertinent Family History Oncologic: Reports: Leukemia, Lung - Tobacco Use Tobacco Use Status *Q: Former Tobacco User Years of Tobacco use: 40 Packs/Tins Daily: 1 Used Tobacco, but Quit: Yes Month/Year Tobacco Last Used: 07/2011 - Caffeine Use Caffeine Use: Reports: None - Recreational Drug Use Recreational Drug Use: No ED ROS GENERAL - Review of Systems Review Of Systems: See Below Constitutional: Reports: Malaise. Denies: Fever, Chills Respiratory: Denies: Shortness of Breath Cardiovascular: Denies: Chest Pain GI/Abdominal: Denies: Nausea, Vomiting Musculoskeletal: Reports: Other (Still has some heel pain on the left foot) Skin: Reports: Other (Dark large blistering lesions are present on the left foot which have been present since the cellulitis started several weeks ago) ED EXAM, GENERAL - Physical Exam Exam: See Below Exam Limited By: No Limitations General Appearance: Alert, No Apparent Distress Respiratory/Chest: No Respiratory Distress, Lungs Clear Cardiovascular: Regular Rate, Rhythm Extremities: Other (The dressing was removed from the left foot, there is still petechia and dark erythema on the anterior aspect of the lower leg correlating with the linear drying from the 27th which was 3 days ago. This looks more like vasculitic or petechia than infection) Neurological: Alert, Oriented Psychiatric: Normal Affect, Normal Mood Skin Exam: Other (Still has a fairly large anterior dark blistering lesion on the front of the foot and an area behind the heel.) Course - Vital Signs Last Recorded V/S: Last Vital Signs Temp 95.6 F L 02/01/21 15:56 Pulse 67 02/01/21 18:13 Resp 16 02/01/21 15:56 BP 144/69 H 02/01/21 18:13 Pulse Ox 94 L 02/01/21 18:13 - Orders/Labs/Meds Labs: Laboratory Tests 02/01/21 02/01/21 Range/Units 18:08 18:08 WBC 15.6 H (4.5-11.0) K/uL RBC 3.52 (3.30-5.50) M/uL Hgb 10.6 L (12.0-15.0) g/dL Hct 34.0 L (36.0-48.0) % MCV 97 (80-98) fL MCH 30 (27-31) pg MCHC 31 L (32-36) % Plt Count 412 H (150-400) K/uL Neut % (Auto) 88 H (36-66) % Lymph % (Auto) 6 L (24-44) % Parmer % (Auto) 6 (2-6) % Eos % (Auto) 0 L (2-4) % Baso % (Auto) 0 (0-1) % Sodium 138 L (140-148) mmol/L Potassium 4.6 (3.6-5.2) mmol/L Chloride 95 L (100-108) mmol/L Carbon Dioxide 33 H (21-32) mmol/L Anion Gap 14.6 H (5.0-14.0) mmol/L BUN 37 H D (7-18) mg/dL Creatinine 1.3 H (0.6-1.0) mg/dL Est Cr Clr Drug Dosing 30.70 mL/min Estimated GFR (MDRD) 39 L (>60) Glucose 148 H (74-106) mg/dL Calcium 10.1 (8.5-10.1) mg/dL Meds: Medications Discontinued Medications Generic Name Dose Route Start Last Admin Trade Name Freq PRN Reason Stop Dose Admin Ceftriaxone Sodium 2 gm/ 0 gm 02/01/21 16:35 02/01/21 17:20 Lidocaine HCl 4.2 ml IM 02/01/21 16:36 4.2 inj ONETIME ONE Administration - Re-Assessments/Exams Free Text/Narrative Re-Assessment/Exam: 02/01/21 16:40 Glucose is now 229. Discussed the foot with Dr. John, he felt that progress was reasonable if she was not running a fever and the infection did not look like it was spreading. She will be given 2 g of IM Rocephin today, and continue on the oral Bactrim. Her glucose will be expected to be elevated over the next several days, extra insulin can be given if needed. She can recheck in the next 48 hours if they feel she is worsening. There was resistance to taking the patient back to the care home, our hospitalist was consulted to look at the foot because he discharged from the hospital 2 days ago. He felt there was good improvement. This was passed out to the nursing service. 02/01/21 17:58 Before being accepted back to the care home the nurse practitioner wanted a CBC and BMP, this was ordered. 02/01/21 18:31 White count was 15.7, mildly elevated compared to discharge 4 days ago, BUN was also up compared to discharge but glucose was now 148. She remained stable. Departure - Departure Time of Disposition: 19:10 Disposition: DC/Tfer to Collect On Delivery Clerk [facility] Clinical Impression: Hyperglycemia, Cellulitis and abscess of left lower extremity - Discharge Information Instructions: Cellulitis, Adult, [id number] Referrals: PCP,None [Primary Care Provider] - Forms: ED Department Discharge Care Plan Goals: Continue with current medications and increase insulin on her sliding scale accordingly for glucose levels above 400. Return to the emergency room if she develops a fever or starts vomiting the medication, or the cellulitic changes of the foot appear to be worsening. Sepsis Event Note (ED) - Evaluation Sepsis Screening Result: No Definite Risk
[2021-02-01 18:13] VITALS: BP 144/69; PULSE 67
== END 2021-02-01 19:10 ==
LOC: JP.ED 15:41
DX: E11.65 Type 2 diabetes mellitus with hyperglycemia (principal); L03.116 Cellulitis of left lower limb; L02.416 Cutaneous abscess of left lower limb; I25.10 Atherosclerotic heart disease of native coronary artery without angina pectoris; E78.00 Pure hypercholesterolemia, unspecified; I10 Essential (primary) hypertension; E11.9 Type 2 diabetes mellitus without complications; E66.9 Obesity, unspecified; Z68.39 Body mass index [BMI] 39.0-39.9, adult; Z79.01 Long term (current) use of anticoagulants; Z79.4 Long term (current) use of insulin; Z87.891 Personal history of nicotine dependence
CPT/HCPCS: 36415; 80048; 85025; 96372; 99285; J0696

== ENCOUNTER 2021-02-16 13:55 | Emergency (ER) | payer MEDICARE, BC ==
[2021-02-16 14:18] VITALS: BP 126/59; PULSE 75
--- NOTE | 2021-02-16 14:36 | EDM.PDOC ---
ED HPI GENERAL MEDICAL PROBLEM - General Chief Complaint: Lower Extremity Injury/Pain Stated Complaint: LEGS ARE SWOLLEN AND RED Time Seen by Provider: 02/16/21 14:20 Source of Information: Reports: Patient, Family, Old Records, RN History Limitations: Reports: No Limitations - History of Present Illness INITIAL COMMENTS - FREE TEXT/NARRATIVE: 85 yo female here from the [facility] to have her leg looked at. She is being followed by podiatry and is currently on antibiotics. Not running a fever. Her next appt with podiatry is Thursday. The nursing staff at the [facility] thought that the L leg looked more red. 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: Other (see below) (getting Rocephin daily still) - Related Data Allergies Allergy/AdvReac Type Severity Reaction Status Date / Time No Known Allergies Allergy Verified 02/16/21 14:06 Home Meds: Home Meds Ascorbic Acid [Vitamin C] 1,000 mg PO BID 07/13/14 [History] Multivitamin [Multi-Vitamin Daily] 1 tab PO DAILY 07/13/14 [History] [place]-3/DHA/Epa/Fish Oil [[place]-3 Fish Oil 1,000 MG Sfgl] 1,000 mg PO BID 07/13/14 [History] Simvastatin [Zocor] 20 mg PO BEDTIME 07/13/14 [History] ALPRAZolam [Alprazolam] 0.5 mg PO BID PRN 05/17/20 [History] Rivaroxaban [Xarelto] 15 mg PO DAILY 05/17/20 [History] Pregabalin 100 mg PO TID 01/20/21 [History] Ferrous Sulfate 325 mg PO BID@1200,1700 tablet 01/30/21 [Rx] Levothyroxine 75 mcg PO ACBREAKFAST tablet 01/30/21 [Rx] Potassium Chloride [Klor-Con M20] 20 meq PO BIDMEALS tab.er 01/30/21 [Rx] carvediloL [Coreg] 6.25 mg PO BID tablet 01/30/21 [Rx] Ipratropium/Albuterol Sulfate [Iprat-Albut 0.5-3(2.5) mg/3 ml] 3 ml IH ASDIRECTED PRN 02/01/21 [History] ondansetron HCL [Zofran] 4 mg PO Q6H PRN 02/01/21 [History] Amiodarone HCl [Pacerone] 200 mg PO DAILY 02/16/21 [History] Aspirin [Low Dose Aspirin EC] 81 mg PO DAILY 02/16/21 [History] Bumetanide [Bumex] 3 mg PO DAILY 02/16/21 [History] Cholecalciferol (Vitamin D3) [Vitamin D3] 1,000 unit PO DAILY 02/16/21 [History] DULoxetine [Cymbalta] 20 mg PO BEDTIME 02/16/21 [History] Insulin Glarg,Human.Rec.Analog [Lantus Solostar] 30 unit SUBCUT BID 02/16/21 [History] Insulin Lispro [Humalog] 0 - 15 unit SUBCUT QIDACANDBED 02/16/21 [History] Isosorbide Mononitrate [Imdur] 30 mg PO DAILY 02/16/21 [History] cefTRIAXone [Rocephin] 1 gm IJ BEDTIME 02/16/21 [History] Past Medical History HEENT History: Reports: Impaired Vision Cardiovascular History: Reports: Afib, Angina, CAD, Heart Failure, High Cholesterol, Hypertension, SOB on Exertion, Stents Respiratory History: Reports: Sleep Apnea, SOB Other Respiratory History: Uses cpap Gastrointestinal History: Reports: Chronic Constipation Genitourinary History: Reports: Renal Disease 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 ulcerated area, not open, to lateral inner foot on the left - Infectious Disease History Infectious Disease History: Reports: Mumps - Past Surgical History Head Surgeries/Procedures: Reports: None HEENT Surgical History: Reports: Cataract Surgery, Tonsillectomy Cardiovascular Surgical History: Reports: Coronary Artery Stent, Vascular Surgery Respiratory Surgical History: Reports: None GI Surgical History: Reports: Appendectomy, Cholecystectomy, Colonoscopy Female Surgical History: Reports: Mastectomy Endocrine Surgical History: Reports: None Musculoskeletal Surgical History: Reports: Hip Replacement Oncologic Surgical History: Reports: Mastectomy Dermatological Surgical History: Reports: None Social & Family History - Family History Family Medical History: No Pertinent Family History Oncologic: Reports: Leukemia, Lung - Tobacco Use Tobacco Use Status *Q: Former Tobacco User Used Tobacco, but Quit: Yes Month/Year Tobacco Last Used: 2010 - Caffeine Use Caffeine Use: Reports: None - Recreational Drug Use Recreational Drug Use: No Review of Systems - Review of Systems Review Of Systems: See Below Constitutional: Reports: No Symptoms Skin: Reports: Erythema (LLE), Wound (chronic wounds to L foot/ankle areas) ED EXAM, GENERAL - Physical Exam Exam: See Below Exam Limited By: No Limitations General Appearance: Alert, WD/WN, No Apparent Distress Extremities: Pedal Edema, Other (L foot is edematous over the dorsum, the distal L leg is violaceous). No: No Pedal Edema, Increased Warmth (none) Neurological: Alert, Oriented, CN II-XII Intact, Normal Cognition, No Motor/Sensory Deficits Psychiatric: Normal Affect, Normal Mood Skin Exam: Warm, Dry, Wound/Incision (chronic), Other (chronic wounds on ankle/foot R without drainage. ). No: Erythema Course - Vital Signs Last Recorded V/S: Last Vital Signs Temp 36.1 C 02/16/21 14:20 Pulse 75 02/16/21 14:20 Resp 17 02/16/21 14:20 BP 126/59 L 02/16/21 14:20 Pulse Ox 95 02/16/21 14:20 Departure - Departure Time of Disposition: 14:40 Disposition: Home, Self-Care 01 Condition: Fair Clinical Impression: Encounter for wound re-check - Discharge Information *PRESCRIPTION DRUG MONITORING PROGRAM REVIEWED*: Not Applicable *COPY OF PRESCRIPTION DRUG MONITORING REPORT IN PATIENT KHADRA: Not Applicable Referrals: Javier Weathers MD [Primary Care Provider] - Additional Instructions: Continue present cares. F/U with podiatry on Thursday as scheduled. Sepsis Event Note (ED) - Evaluation Sepsis Screening Result: No Definite Risk - Focused Exam Vital Signs: Vital Signs Temp Pulse Resp BP Pulse Ox 02/16/21 14:20 36.1 C 75 17 126/59 L 95 02/16/21 14:17 36.1 C 75 17 126/59 L 95
== END 2021-02-16 14:58 | disposition home or self-care (01) ==
LOC: JP.ED 13:55
DX: S91.301A Unspecified open wound, right foot, initial encounter (principal); I48.91 Unspecified atrial fibrillation; I25.10 Atherosclerotic heart disease of native coronary artery without angina pectoris; E78.00 Pure hypercholesterolemia, unspecified; E11.9 Type 2 diabetes mellitus without complications; E66.9 Obesity, unspecified; Z68.41 Body mass index [BMI] 40.0-44.9, adult; I11.0 Hypertensive heart disease with heart failure; I50.9 Heart failure, unspecified; M19.90 Unspecified osteoarthritis, unspecified site; Z79.01 Long term (current) use of anticoagulants; Z79.4 Long term (current) use of insulin; Z79.899 Other long term (current) drug therapy; Z79.82 Long term (current) use of aspirin; Z87.891 Personal history of nicotine dependence; X58.XXXA Exposure to other specified factors, initial encounter
CPT/HCPCS: 99282

== ENCOUNTER 2021-04-19 09:31 | Day surgery (SDC) | payer MEDICARE, BC ==
[~2021-04-19 09:31] MED LIST: Bupivacaine 0.5% 50 ML MDV ONE; Lidocaine 1% with EPINEPHrine 1:100,000 50 ML MDV ONE; Lidocaine 2% Jelly 30 ML Tube ONE; Midazolam 1 MG/ML 2 ML SDV ONE; Propofol 200 MG/20 ML SDV ONE; fentaNYL 100 MCG/2 ML SDV ONE
[2021-04-19] MEDS ORDERED: Sodium Chloride 0.9% 1,000 ML IV SCH (09:45)
[2021-04-19] MEDS ORDERED: ceFAZolin 2 GM in Premix Bag 1 BAG IV ONE (10:15)
[2021-04-19 12:14] VITALS: BP 123/58; PULSE 68
--- NOTE | 2021-04-20 10:19 | OR ---
DATE OF PROCEDURE: 04/19/2021 SURGEON: Lukasz Carolina MD PROCEDURES: 1. Surgical preparation of donor site for skin grafting, left leg 14.3 x 18.2 cm. 2. Wound VAC placement greater than 50 sq cm, left leg. COMPLICATIONS: None. CITY AUDITOR: None. ANESTHESIA: MAC. 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 RISKS: Risks, benefits, alternatives, and limitations including but not limited to infection, bleeding, injury to local structures, and other risks not listed here were explained to patient who wished to proceed. PROCEDURE IN DETAIL: The patient was placed in supine position. The wound was readily identified and measured as described above. A power dermatome was used and set to 12,000 to remove the eschar, which would be sent to Pathology. In addition, the 15 blade electrocautery was also used to remove the eschar. Minimal bleeding was controlled by electrocautery and/or direct pressure. The heel was not addressed at this time due to the volume of this wound. The wound VAC was then placed cutting the sponge to size after thorough irrigation of the wound. The film was placed over this. A defect was created in this, and this was hooked to suction. No leaks were noted. The patient tolerated the procedure well. Lukasz Carolina MD /[id number]
== END 2021-04-19 13:08 | disposition home or self-care (01) ==
LOC: JP.SDS 09:31
PROVIDERS: ATTEND Surgery
DX: S81.802A Unspecified open wound, left lower leg, initial encounter (principal); I99.8 Other disorder of circulatory system; L08.9 Local infection of the skin and subcutaneous tissue, unspecified; X58.XXXA Exposure to other specified factors, initial encounter
CPT/HCPCS: J0690; J2250; J2704; J3010; J3490; J7030

== ENCOUNTER 2021-04-24 13:17 | Inpatient (IN) | payer MEDICARE, BC ==
--- NOTE | 2021-04-24 14:30 | EDM.PDOC ---
ED HPI GENERAL MEDICAL PROBLEM - General Chief Complaint: Lower Extremity Injury/Pain Stated Complaint: infection in foot Time Seen by Provider: 04/24/21 14:00 Source of Information: Reports: Patient, Family History Limitations: Reports: No Limitations - History of Present Illness INITIAL COMMENTS - FREE TEXT/NARRATIVE: 85 year old female with history of CHF, CAD, chronic diabetic ulcer of the LLE and DM2 arrives with LLE erythema, warmth, and foul smell. Patient reports that 2 days ago she noted increased redness, increased warmth and increased pain to LLE foot and ankle ulcer. Wound vac is in place. She was suppose to have a wound care appointment today but due to a new onset of left wrist flaccidity was sent to the ER. She is experiencing left wrist drop that started when she woke this AM, she noted that she had some "zings" and "jumping" of the left hand yesterday but has noted this before when she had an infection. She denies fever, nausea, vomiting, diarrhea, abdominal pain. Denies recent illness, or other associated symptoms. Onset: Gradual Onset Date: 04/22/21 Duration: Day(s):, Getting Worse Location: Reports: Lower Extremity, Left Quality: Reports: Ache, Throbbing Severity: Moderate Improves with: Reports: None Worsens with: Reports: None Context: Reports: Other (pain increases with pressure) Associated Symptoms: Reports: No Other Symptoms Left Feet Pain Score (Numeric/FACES): 3 - Related Data Allergies Allergy/AdvReac Type Severity Reaction Status Date / Time No Known Allergies Allergy Verified 02/16/21 14:06 Home Meds: Home Meds Ascorbic Acid [Vitamin C] 1,000 mg PO BID 07/13/14 [History] Multivitamin [Multi-Vitamin Daily] 1 tab PO DAILY 07/13/14 [History] [place]-3/DHA/Epa/Fish Oil [[place]-3 Fish Oil 1,000 MG Sfgl] 1,000 mg PO BID 07/13/14 [History] Simvastatin [Zocor] 20 mg PO BEDTIME 07/13/14 [History] ALPRAZolam [Alprazolam] 0.5 mg PO TID 05/17/20 [History] Rivaroxaban [Xarelto] 15 mg PO DAILY 05/17/20 [History] Pregabalin 100 mg PO TID 01/20/21 [History] Ferrous Sulfate 325 mg PO BID@1200,1700 tablet 01/30/21 [Rx] Levothyroxine 75 mcg PO ACBREAKFAST tablet 01/30/21 [Rx] Potassium Chloride [Klor-Con M20] 20 meq PO BIDMEALS tab.er 01/30/21 [Rx] carvediloL [Coreg] 6.25 mg PO BID tablet 01/30/21 [Rx] Ipratropium/Albuterol Sulfate [Iprat-Albut 0.5-3(2.5) mg/3 ml] 3 ml IH ASDIRECTED PRN 02/01/21 [History] ondansetron HCL [Zofran] 8 mg PO Q8H PRN 02/01/21 [History] Amiodarone HCl [Pacerone] 200 mg PO DAILY 02/16/21 [History] Aspirin [Low Dose Aspirin EC] 81 mg PO DAILY 02/16/21 [History] Bumetanide [Bumex] 3 mg PO DAILY 02/16/21 [History] Cholecalciferol (Vitamin D3) [Vitamin D3] 1,000 unit PO BID 02/16/21 [History] DULoxetine [Cymbalta] 20 mg PO BEDTIME 02/16/21 [History] Insulin Glarg,Human.Rec.Analog [Lantus Solostar] 32 unit SUBCUT BID 02/16/21 [History] Insulin Lispro [Humalog] 0 - 15 unit SUBCUT QIDACANDBED 02/16/21 [History] Isosorbide Mononitrate [Imdur] 30 mg PO DAILY 02/16/21 [History] Acetaminophen [Tylenol] 650 mg PO Q4H PRN 04/16/21 [History] Carboxymethylcellulose Sodium [Artificial Tears] 1 drop EYEBOTH QID 04/16/21 [History] Cyanocobalamin (Vitamin B-12) [Vitamin B-12] 1,000 mcg PO DAILY 04/16/21 [History] Fluorometholone [Fluorometholone 0.1% Ophth Susp] 1 drop EYEBOTH QID 04/16/21 [History] Moxifloxacin [Vigamox 0.5% Ophth Soln] 1 drop EYEBOTH QID 04/16/21 [History] Rivaroxaban [Xarelto] 15 mg PO DAILY 04/24/21 [History] Past Medical History HEENT History: Reports: Impaired Vision Cardiovascular History: Reports: Afib, Angina, CAD, Heart Failure, High Cholest emy, Hypertension, SOB on Exertion, Stents Respiratory History: Reports: Sleep Apnea, SOB Other Respiratory History: Uses cpap Gastrointestinal History: Reports: Chronic Constipation Genitourinary History: Reports: Renal Disease [employer] History: 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 ulcerated area, not open, to lateral inner foot on the left - Infectious Disease History Infectious Disease History: Reports: Mumps - Past Surgical History Head Surgeries/Procedures: Reports: None HEENT Surgical History: Reports: Cataract Surgery, Tonsillectomy Cardiovascular Surgical History: Reports: Coronary Artery Stent, Vascular Surgery Respiratory Surgical History: Reports: None GI Surgical History: Reports: Appendectomy, Cholecystectomy, Colonoscopy Female Surgical History: Reports: Mastectomy Endocrine Surgical History: Reports: None Musculoskeletal Surgical History: Reports: Hip Replacement Oncologic Surgical History: Reports: Mastectomy Dermatological Surgical History: Reports: None Social & Family History - Family History Family Medical History: No Pertinent Family History Oncologic: Reports: Leukemia, Lung - Tobacco Use Tobacco Use Status *Q: Former Tobacco User Used Tobacco, but Quit: Yes Month/Year Tobacco Last Used: 10 years - Caffeine Use Caffeine Use: Reports: None Review of Systems - Review of Systems Review Of Systems: See Below Constitutional: Reports: No Symptoms. Denies: Chills, Diaphoresis, Fever, Weakness Eyes: Reports: No Symptoms Ears: Reports: No Symptoms. Denies: Dizziness, Pain Nose: Reports: No Symptoms Mouth/Throat: Reports: No Symptoms Respiratory: Reports: No Symptoms. Denies: Shortness of Breath, Wheezing, Cough Cardiovascular: Reports: No Symptoms. Denies: Chest Pain, Lightheadedness GI/Abdominal: Reports: No Symptoms. Denies: Abdominal Pain, Constipation, Diarrhea, Nausea, Vomiting Genitourinary: Reports: No Symptoms Musculoskeletal: Reports: Foot Pain (left lower foot, due to chronic ulcer, and increased due to infection) Skin: Reports: No Symptoms Neurological: Reports: No Symptoms, Numbness, Tingling, Weakness (Left hand weakness of wrist extensors started when she woke up, has some dorsal aspect numbness and tingling. ). Denies: Confusion, Dizziness, Headache, Trouble Speaking, Difficulty Walking, Change in Speech Psychiatric: Reports: No Symptoms ED EXAM, GENERAL - Physical Exam Exam: See Below Free Text/Narrative:: Annie is resting on cart with at bedside. LLE has wound vac in place and dressing over chronic wound of dorsal aspect of left foot and left heel. There is a strong foul odor present, some erythema, edema, and warmth. Patient has pain with movement and pressure to LLE. Left wrist extensors flaccid, with sensory loss over the dorsum of the left hand. No other neuro deficits. She is alert and oriented. skin is warm and dry. Respirations are regular and non labored. Exam Limited By: No Limitations General Appearance: Alert, WD/WN, No Apparent Distress Ears: Normal External Exam Nose: Normal Inspection, Normal Mucosa Throat/Mouth: Normal Inspection, Normal Lips Head: Atraumatic Neck: Normal Inspection, Non-Tender, Full Range of Motion Respiratory/Chest: No Respiratory Distress. No: Crackles, Rales, Accessory Muscle Use, Splinting Cardiovascular: No: Bradycardia, Tachycardia GI/Abdominal: Soft, Non-Tender, Distended (Female) Exam: Deferred Rectal (Female) Exam: Deferred Extremities: Normal Inspection, Normal Range of Motion Neurological: Alert, Oriented, Normal Cognition Psychiatric: Normal Affect, Normal Mood Skin Exam: Warm, Dry, Wound/Incision (LLE wound- chronic diabetic ulcer) Lymphatic: No Adenopathy Course - Vital Signs Last Recorded V/S: Last Vital Signs Temp 36.5 C 04/24/21 13:24 Pulse 69 04/24/21 13:24 Resp 15 04/24/21 13:24 BP 133/47 L 04/24/21 13:24 Pulse Ox 90 L 04/24/21 13:24 Departure - Discharge Information Referrals: Javier Weathers MD [Primary Care Provider] - Forms: ED Department Discharge Sepsis Event Note (ED) - Evaluation Sepsis Screening Result: No Definite Risk - Focused Exam Vital Signs: Vital Signs Temp Pulse Resp BP Pulse Ox 04/24/21 13:24 36.5 C 69 15 133/47 L 90 L 04/24/21 13:20 36.5 C 69 15 133/47 L 90 L
--- NOTE | 2021-04-24 15:05 | EDM.PDOC ---
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 She was suppose to go to a wound care appointment today at 3pm but reported new left wrist palsy and was advised to come to ER. She reports that she has had increased pain, warmth, and a new foul odor to her LLE wound for the last 2 days. She states that she has regular wound care visits and has not had trouble with her wound vac in the past. She denies other associated symptoms such as fever, nausea, vomiting, diarrhea, or other systemic symptoms of infection. She reports that her left wrist palsy started this AM after waking from sleep. Last night she notes "zings" and "zaps" to the left hand but has had these in this past. She is not able to flex her left wrist, has decreases sensation to left dorsal aspect of left hand. no other neuro deficits noted. Onset: Gradual Onset Date: 04/22/21 Duration: Day(s): Location: Reports: Lower Extremity, Left Quality: Reports: Ache, Throbbing Severity: Moderate Improves with: Reports: None Worsens with: Reports: None Context: Reports: Other (chronic diabetic ulcer) Associated Symptoms: Reports: No Other Symptoms Left Feet Pain Score (Numeric/FACES): 3 - Related Data Allergies Allergy/AdvReac Type Severity Reaction Status Date / Time No Known Allergies Allergy Verified 02/16/21 14:06 Home Meds: Home Meds Ascorbic Acid [Vitamin C] 1,000 mg PO BID 07/13/14 [History] Multivitamin [Multi-Vitamin Daily] 1 tab PO DAILY 07/13/14 [History] Pan[place]-3/DHA/Epa/Fish Oil [[place]-3 Fish Oil 1,000 MG Sfgl] 1,000 mg PO BID 07/13/14 [History] Simvastatin [Zocor] 20 mg PO BEDTIME 07/13/14 [History] ALPRAZolam [Alprazolam] 0.5 mg PO TID 05/17/20 [History] Rivaroxaban [Xarelto] 15 mg PO DAILY 05/17/20 [History] Pregabalin 100 mg PO TID 01/20/21 [History] Ferrous Sulfate 325 mg PO BID@1200,1700 tablet 01/30/21 [Rx] Levothyroxine 75 mcg PO ACBREAKFAST tablet 01/30/21 [Rx] Potassium Chloride [Klor-Con M20] 20 meq PO BIDMEALS tab.er 01/30/21 [Rx] carvediloL [Coreg] 6.25 mg PO BID tablet 01/30/21 [Rx] Ipratropium/Albuterol Sulfate [Iprat-Albut 0.5-3(2.5) mg/3 ml] 3 ml IH ASDIRECTED PRN 02/01/21 [History] ondansetron HCL [Zofran] 8 mg PO Q8H PRN 02/01/21 [History] Amiodarone HCl [Pacerone] 200 mg PO DAILY 02/16/21 [History] Aspirin [Low Dose Aspirin EC] 81 mg PO DAILY 02/16/21 [History] Bumetanide [Bumex] 3 mg PO DAILY 02/16/21 [History] Cholecalciferol (Vitamin D3) [Vitamin D3] 1,000 unit PO BID 02/16/21 [History] DULoxetine [Cymbalta] 20 mg PO BEDTIME 02/16/21 [History] Insulin Glarg,Human.Rec.Analog [Lantus Solostar] 32 unit SUBCUT BID 02/16/21 [History] Insulin Lispro [Humalog] 0 - 15 unit SUBCUT QIDACANDBED 02/16/21 [History] Isosorbide Mononitrate [Imdur] 30 mg PO DAILY 02/16/21 [History] Acetaminophen [Tylenol] 650 mg PO Q4H PRN 04/16/21 [History] Carboxymethylcellulose Sodium [Artificial Tears] 1 drop EYEBOTH QID 04/16/21 [History] Cyanocobalamin (Vitamin B-12) [Vitamin B-12] 1,000 mcg PO DAILY 04/16/21 [History] Fluorometholone [Fluorometholone 0.1% Ophth Susp] 1 drop EYEBOTH QID 04/16/21 [History] Moxifloxacin [Vigamox 0.5% Ophth Soln] 1 drop EYEBOTH QID 04/16/21 [History] Rivaroxaban [Xarelto] 15 mg PO DAILY 04/24/21 [History] Past Medical History HEENT History: Reports: Impaired Vision Cardiovascular History: Reports: Afib, Angina, CAD, Heart Failure, High Cholesterol, Hypertension, SOB on Exertion, Stents Respiratory History: Reports: Sleep Apnea, SOB Other Respiratory History: Uses cpap Gastrointestinal History: Reports: Chronic Constipation Genitourinary History: Reports: Renal Disease [employer] History: 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 ulcerated area, not open, to lateral inner foot on the left - Infectious Disease History Infectious Disease History: Reports: Mumps - Past Surgical History Head Surgeries/Procedures: Reports: None HEENT Surgical History: Reports: Cataract Surgery, Tonsillectomy Cardiovascular Surgical History: Reports: Coronary Artery Stent, Vascular Surgery Respiratory Surgical History: Reports: None GI Surgical History: Reports: Appendectomy, Cholecystectomy, Colonoscopy Female Surgical History: Reports: Mastectomy Endocrine Surgical History: Reports: None Musculoskeletal Surgical History: Reports: Hip Replacement Oncologic Surgical History: Reports: Mastectomy Dermatological Surgical History: Reports: None Social & Family History - Family History Family Medical History: No Pertinent Family History Oncologic: Reports: Leukemia, Lung - Tobacco Use Tobacco Use Status *Q: Former Tobacco User Used Tobacco, but Quit: Yes Month/Year Tobacco Last Used: 10 years - Caffeine Use Caffeine Use: Reports: None Review of Systems - Review of Systems Review Of Systems: See Below Constitutional: Reports: No Symptoms. Denies: Chills, Diaphoresis, Fever, Weakness Eyes: Reports: No Symptoms. Denies: Blurred Vision, Vision Change Ears: Reports: No Symptoms. Denies: Dizziness Nose: Reports: No Symptoms Mouth/Throat: Reports: No Symptoms Respiratory: Reports: No Symptoms. Denies: Shortness of Breath, Pleuritic Chest Pain Cardiovascular: Reports: No Symptoms. Denies: Chest Pain, Lightheadedness GI/Abdominal: Reports: No Symptoms. Denies: Abdominal Pain, Constipation, Diarrhea, Nausea, Vomiting Genitourinary: Reports: No Symptoms. Denies: Dysuria Musculoskeletal: Reports: Foot Pain (left foot- chronic diabetic ulcer ) Skin: Reports: Wound (wound vac in place over chronic left foot ulcer, left heel and dorsal aspect. Erythema, warmth and foul odor) Neurological: Reports: Numbness, Tingling (left hand has numbness and tingling on the dorsal aspect. ). Denies: Confusion, Dizziness, Headache Psychiatric: Reports: No Symptoms. Denies: Confusion ED EXAM, GENERAL - Physical Exam Exam: See Below Free Text/Narrative:: Annie is resting on cart with at bedside. She has wound vac in place to diabetic left foot ulcers that are chronic in nature. Erythema, warmth and foul odor noted. pain with palpation of wound and ankle. Left wrist extensor palsy/ left wrist drop noted. Numbness and tingling to dorsum of left hand. Respirations are regular and non labored. skin is warm and dry. She is alert and oriented. Exam Limited By: No Limitations General Appearance: Alert, WD/WN, No Apparent Distress Ears: Normal External Exam Nose: Normal Inspection Throat/Mouth: Normal Inspection Head: Atraumatic Neck: Normal Inspection, Non-Tender Respiratory/Chest: No Respiratory Distress, No Accessory Muscle Use. No: Respiratory Distress, Rales, Rhonchi, Wheezing Cardiovascular: Regular Rate, Rhythm GI/Abdominal: Normal Bowel Sounds, Soft, Non-Tender, Distended. No: Guarding, Rigid, Tender (Female) Exam: Deferred Rectal (Female) Exam: Deferred Extremities: Increased Warmth, Redness, Other (wound vac in place over chronic left foot ulcer, left heel and dorsal aspect. Erythema, warmth and foul odor) Neurological: Alert, Oriented, Normal Cognition Psychiatric: Normal Affect Skin Exam: Warm, Dry. No: Diaphoretic Lymphatic: No Adenopathy Course - Vital Signs Text/Narrative:: Discussed with patient the need for blood draw CBC, CMP, Lactic acid, and blood culture. Suspect radial neuropathy as the cause of left wrist palsy, wrist brace ordered. Wound care nurse coming from clinic to evaluate patients wound. - Re-Assessments/Exams Free Text/Narrative Re-Assessment/Exam: 04/24/21 15:43 Dressing and wound vac removed revealing an emaciated wound to her anterior aspect of left ankle, and left heel. Granuloma tissue with sloughing to anterior wound and eschar tissue present to left heel, bleeding and exudate present. Ext remely malodorous. Departure - Departure Disposition: Admitted As Inpatient 68 Clinical Impression: Chronic ulcer of left foot, Acute radial nerve palsy of right upper extremity, Cellulitis of foot, left - Discharge Information Sepsis Event Note (ED) - Evaluation Sepsis Screening Result: No Definite Risk <Mario Nolen - Last Filed: 04/25/21 07:20> Course - Vital Signs Last Recorded V/S: Last Vital Signs Temp 95.6 F L 04/25/21 04:22 Pulse 63 04/25/21 04:22 Resp 16 04/25/21 04:22 BP 114/42 L 04/25/21 04:22 Pulse Ox 95 04/25/21 04:22 - Orders/Labs/Meds Orders: Active Orders 24 hr Category Date Time Status Patient Status [ADT] Routine ADT 04/24/21 18:14 Active Diabetes Education [RC] Click to Edit Care 04/24/21 18:14 Active Height and Weight [RC] DAILY Care 04/24/21 18:14 Active Intake and Output [RC] QSHIFT Care 04/24/21 18:14 Active Notify Provider Vital Signs [RC] ASDIRECTED Care 04/24/21 18:14 Active Notify Provider [RC] PRN Care 04/24/21 18:14 Active Oxygen Therapy [RC] PRN Care 04/24/21 18:14 Active Peripheral IV Care [RC] . DIRECTED Care 04/24/21 18:14 Active RT Aerosol Therapy [RC] ASDIRECTED Care 04/24/21 18:14 Active Up With Assistance [RC] ASDIRECTED Care 04/24/21 18:14 Active Up to Chair [RC] QID Care 04/24/21 18:14 Active VTE/DVT Education [RC] Per Unit Routine Care 04/24/21 18:14 Active Vital Signs [RC] Q4H Care 04/24/21 18:14 Active Consistent Carbohydrate Diet [DIET] Diet 04/24/21 Dinner Active CULTURE BLOOD [BC] Stat Lab 04/24/21 14:55 Received GLUCOSE POC LAB TO COLLECT JPM [POC] QIDACANDBED Lab 04/25/21 07:30 Ordered GLUCOSE POC LAB TO COLLECT JPM [POC] QIDACANDBED Lab 04/25/21 11:30 Ordered GLUCOSE POC LAB TO COLLECT JPM [POC] QIDACANDBED Lab 04/25/21 16:30 Ordered GLUCOSE POC LAB TO COLLECT JPM [POC] QIDACANDBED Lab 04/25/21 21:00 Ordered GLUCOSE POC LAB TO COLLECT JPM [POC] QIDACANDBED Lab 04/26/21 07:30 Ordered GLUCOSE POC LAB TO COLLECT JPM [POC] QIDACANDBED Lab 04/26/21 11:30 Ordered GLUCOSE POC LAB TO COLLECT JPM [POC] QIDACANDBED Lab 04/26/21 16:30 Ordered GLUCOSE POC LAB TO COLLECT JPM [POC] QIDACANDBED Lab 04/26/21 21:00 Ordered GLUCOSE POC LAB TO COLLECT JPM [POC] QIDACANDBED Lab 04/27/21 07:30 Ordered GLUCOSE POC LAB TO COLLECT JPM [POC] QIDACANDBED Lab 04/27/21 11:30 Ordered GLUCOSE POC LAB TO COLLECT JPM [POC] QIDACANDBED Lab 04/27/21 16:30 Ordered GLUCOSE POC LAB TO COLLECT JPM [POC] QIDACANDBED Lab 04/27/21 21:00 Ordered GLUCOSE POC LAB TO COLLECT JPM [POC] QIDACANDBED Lab 04/28/21 07:30 Ordered GLUCOSE POC LAB TO COLLECT JPM [POC] QIDACANDBED Lab 04/28/21 11:30 Ordered GLUCOSE POC LAB TO COLLECT JPM [POC] QIDACANDBED Lab 04/28/21 16:30 Ordered GLUCOSE POC LAB TO COLLECT JPM [POC] QIDACANDBED Lab 04/28/21 21:00 Ordered GLUCOSE POC LAB TO COLLECT JPM [POC] QIDACANDBED Lab 04/29/21 07:30 Ordered GLUCOSE POC LAB TO COLLECT JPM [POC] QIDACANDBED Lab 04/29/21 11:30 Ordered GLUCOSE POC LAB TO COLLECT JPM [POC] QIDACANDBED Lab 04/29/21 16:30 Ordered GLUCOSE POC LAB TO COLLECT JPM [POC] QIDACANDBED Lab 04/29/21 21:00 Ordered GLUCOSE POC LAB TO COLLECT JPM [POC] QIDACANDBED Lab 04/30/21 07:30 Ordered GLUCOSE POC LAB TO COLLECT JPM [POC] QIDACANDBED Lab 04/30/21 11:30 Ordered GLUCOSE POC LAB TO COLLECT JPM [POC] QIDACANDBED Lab 04/30/21 16:30 Ordered GLUCOSE POC LAB TO COLLECT JPM [POC] QIDACANDBED Lab 04/30/21 21:00 Ordered GLUCOSE POC LAB TO COLLECT JPM [POC] QIDACANDBED Lab 05/01/21 07:30 Ordered GLUCOSE POC LAB TO COLLECT JPM [POC] QIDACANDBED Lab 05/01/21 11:30 Ordered GLUCOSE POC LAB TO COLLECT JPM [POC] QIDACANDBED Lab 05/01/21 16:30 Ordered GLUCOSE POC LAB TO COLLECT JPM [POC] QIDACANDBED Lab 05/01/21 21:00 Ordered GLUCOSE POC LAB TO COLLECT JPM [POC] QIDACANDBED Lab 05/02/21 07:30 Ordered Acetaminophen [TylenoL] Med 04/24/21 18:14 Active 650 mg PO Q4H PRN Amiodarone [Cordarone] Med 04/25/21 09:00 Active 200 mg PO DAILY Aspirin [Halfprin] Med 04/25/21 09:00 Active 81 mg PO DAILY Bumetanide [Bumex] Med 04/25/21 08:00 Active 3 mg PO DAILY@0800 DULoxetine [Cymbalta] Med 04/24/21 21:00 Active 20 mg PO BEDTIME Dextrose 50% in Water Med 04/24/21 18:14 Active 50 ml IVPUSH ASDIRECTED PRN Dextrose [Glutose 15] Med 04/24/21 18:14 Active 15 gm PO ONETIME PRN Fluorometholone [Flarex 0.1% Ophth Susp] Med 04/24/21 22:00 Active 0 ml EYEBOTH QID Glucagon,Human Recombinant [GlucaGen] Med 04/24/21 18:14 Active 1 mg IM ASDIRECTED PRN Hypromellose [GenTeal Mild to Moderate Ophth Soln] Med 04/24/21 22:00 Active 0 ml EYEBOTH QID Insulin Glarg,Human.Rec.Analog [LantUS Solostar] Med 04/24/21 21:00 Active 32 units SUBCUT BID Insulin Lispro [HumaLOG] Med 04/24/21 20:00 Active See Protocol SUBCUT QIDACANDBED Isosorbide Mononitrate [Imdur] Med 04/25/21 09:00 Active 30 mg PO DAILY Levothyroxine Med 04/25/21 07:30 Active 75 mcg PO ACBREAKFAST Moxifloxacin [Vigamox 0.5% Ophth Soln] Med 04/24/21 22:00 Active 0 ml EYEBOTH QID Ondansetron [Zofran] Med 04/24/21 18:14 Active 4 mg IV Q4H PRN Pregabalin [Lyrica] Med 04/24/21 21:00 Active 100 mg PO TID Rivaroxaban [Xarelto] Med 04/25/21 09:00 Active 15 mg PO DAILY Sodium Chloride 0.9% [Normal Saline] 1,000 ml Med 04/24/21 18:14 Active IV ASDIRECTED Sodium Chloride 0.9% [Saline Flush] Med 04/24/21 18:14 Active 10 ml FLUSH ASDIRECTED PRN Vancomycin Med 04/24/21 18:14 Pending 1 gm IV .PHARMACY TO DOSE carvediloL [Coreg] Med 04/24/21 19:00 Active 6.25 mg PO BIDMEALS polyethylene glycoL 3350 [MiraLAX] Med 04/24/21 18:14 Active 17 gm PO DAILY PRN DME for Discharge [COMM] Stat Oth 04/24/21 14:47 Ordered Peripheral IV Insertion Adult [OM.PC] Routine Oth 04/24/21 18:14 Ordered VTE Pharmacological Contraindications [AST] Per Unit Oth 04/24/21 18:14 Ordered Routine Resuscitation Status Routine Resus Stat 04/24/21 17:08 Ordered Medication Orders Acetaminophen (Acetaminophen 325 Mg Tab) 650 mg PO Q4H PRN PRN Reason: Pain (Mild 1-3)/fever Last Admin: 04/25/21 00:28 Dose: 650 mg Documented by: [email or web address] Albuterol/Ipratropium (Albuterol/Ipratropium 3.0-0.5 Mg/3 Ml Neb Soln) 3 ml INH QIDRT [facility] Amiodarone HCl (Amiodarone 200 Mg Tab) 200 mg PO DAILY [facility] Artificial Tears (Hypromellose 0.3% Ophth Soln 15 Ml Bottle) 0 ml EYEBOTH QID [facility] Last Admin: 04/25/21 06:07 Dose: 1 drop Documented by: Admin: 04/25/21 00:29 Dose: 1 drop Documented by: VITOR Aspirin (Aspirin 81 Mg Tab.Ec) 81 mg PO DAILY [facility] Atorvastatin Calcium (Atorvastatin 10 Mg Tab) 10 mg PO BEDTIME [facility] Last Admin: 04/24/21 20:01 Dose: 10 mg Documented by: VITOR Bumetanide (Bumetanide 1 Mg Tab) 3 mg PO DAILY@0800 [facility] Bumetanide (Bumetanide 1 Mg Tab) 2 mg PO DAILY@1400 [facility] Carvedilol (Carvedilol 3.125 Mg Tab) 6.25 mg PO BIDMEALS [facility] Last Admin: 04/24/21 20:01 Dose: 6.25 mg Documented by: VITOR Dextrose (Glucose Gel 15 Gm In 37.5 Gm Tube) 15 gm PO ONETIME PRN PRN Reason: Hypoglycemia Dextrose/Water (50% Dextrose In Water 50 Ml Syringe) 50 ml IVPUSH ASDIRECTED PRN PRN Reason: Hypoglycemia Duloxetine HCl (Duloxetine 20 Mg Cap) 20 mg PO BEDTIME [facility] Last Admin: 04/24/21 20:00 Dose: 20 mg Documented by: VITOR Fluorometholone (Fluorometholone 0.1% Ophth Susp 5 Ml Bottle) 0 ml EYEBOTH QID [facility] Last Admin: 04/25/21 06:08 Dose: 1 drop Documented by: Admin: 04/25/21 00:29 Dose: 1 drop Documented by: VITOR Glucagon (Glucagon,Human Recombinant 1 Mg Vial) 1 mg IM ASDIRECTED PRN PRN Reason: Hypoglycemia Sodium Chloride (Normal Saline) 1,000 mls @ 125 mls/hr IV ASDIRECTED [facility] Last Admin: 04/25/21 04:21 Dose: 125 mls/hr Documented by: Infusion: 04/25/21 04:21 Dose: 125 mls/hr Documented by: Admin: 04/24/21 21:15 Dose: 125 mls/hr Documented by: VITOR Vancomycin HCl 1.75 gm/ Sodium (Chloride) 250 mls @ 166.667 mls/hr IV DAILY@1700 [facility] Last Admin: 04/24/21 20:58 Dose: 166.667 mls/hr Documented by: VITOR Piperacillin Sod/Tazobactam (Sod 2.25 gm/ Sodium Chloride) 50 mls @ 100 mls/hr IV Q6H [facility] Last Admin: 04/25/21 05:51 Dose: 100 mls/hr Documented by: Admin: 04/25/21 00:35 Dose: 100 mls/hr Documented by: Admin: 04/24/21 19:57 Dose: 100 mls/hr Documented by: VITOR Insulin Glargine (Insulin Glargine,Human Rec. Analog 100 Units/Ml 3 Ml Pen) 32 units SUBCUT BID [facility] Last Admin: 04/24/21 21:07 Dose: 32 units Documented by: VITOR Cosigned by: SONY Insulin Human Lispro (Insulin Lispro 100 Unit/Ml 3 Ml Kwikpen) 0 unit SUBCUT QIDACANDBED [facility]; Protocol Last Admin: 04/24/21 21:06 Dose: 6 units Documented by: VITOR Cosigned by: SONY Isosorbide Mononitrate (Isosorbide Mononitrate 30 Mg Tab.Er) 30 mg PO DAILY [facility] Levothyroxine Sodium (Levothyroxine 25 Mcg Tab) 75 mcg PO ACBREAKFAST [facility] Moxifloxacin HCl (Moxifloxacin 0.5% Ophth Soln 3 Ml Bottle) 0 ml EYEBOTH QID [facility] Last Admin: 04/25/21 06:08 Dose: 1 drop Documented by: Admin: 04/25/21 00:29 Dose: 1 drop Documented by: VITOR Ondansetron HCl (Ondansetron 4 Mg/2 Ml Sdv) 4 mg IV Q4H PRN PRN Reason: Nausea/Vomiting Polyethylene Glycol (Polyethylene Glycol 3350 Powder 17 Gm Packet) 17 gm PO DAILY PRN PRN Reason: Constipation Pregabalin (Pregabalin 100 Mg Cap) 100 mg PO TID [facility] Last Admin: 04/25/21 00:29 Dose: 100 mg Documented by: VITOR Rivaroxaban (Rivaroxaban 15 Mg Tab) 15 mg PO DAILY [facility] Sodium Chloride (Sodium Chloride 0.9% 10 Ml Syringe) 10 ml FLUSH ASDIRECTED PRN PRN Reason: Keep Vein Open Vancomycin HCl (Vancomycin 1 Gm Sdv) 1 gm IV .PHARMACY TO DOSE [facility] Labs: Laboratory Tests 04/24/21 04/24/21 04/24/21 Range/Units 14:55 14:55 14:55 WBC 10.5 (4.5-11.0) K/uL RBC 3.79 (3.30-5.50) M/uL Hgb 10.9 L (12.0-15.0) g/dL Hct 35.4 L (36.0-48.0) % MCV 93 (80-98) fL MCH 29 (27-31) pg MCHC 31 L (32-36) % Plt Count 261 (150-400) K/uL Neut % (Auto) 78.9 H (36-66) % Lymph % (Auto) 14.1 L (24-44) % Wood % (Auto) 6.8 H (2-6) % Eos % (Auto) 0.0 L (2-4) % Baso % (Auto) 0.2 (0-1) % Sodium 134 L (140-148) mmol/L Potassium 5.5 H (3.6-5.2) mmol/L Chloride 97 L (100-108) mmol/L Carbon Dioxide 30 (21-32) mmol/L Anion Gap 12.5 (5.0-14.0) mmol/L BUN 39 H D (7-18) mg/dL Creatinine 2.0 H D (0.6-1.0) mg/dL Est Cr Clr Drug Dosing 19.95 mL/min Estimated GFR (MDRD) 24 L (>60) Glucose 340 H (74-106) mg/dL Lactic Acid 1.6 (0.4-2.0) mmol/L Calcium 9.4 (8.5-10.1) mg/dL Total Bilirubin 0.3 (0.2-1.0) mg/dL AST 19 (15-37) U/L ALT 20 (12-78) U/L Alkaline Phosphatase 90 D (46-116) U/L Total Protein 7.4 (6.4-8.2) g/dL Albumin 2.8 L (3.4-5.0) g/dL Globulin 4.6 H (2.3-3.5) g/dL Albumin/Globulin Ratio 0.6 L (1.2-2.2) Meds: Medications Generic Name Dose Route Start Last Admin Trade Name Freq PRN Reason Stop Dose Admin Acetaminophen 650 mg 04/24/21 18:14 04/25/21 00:28 Acetaminophen 325 Mg Tab PO 650 mg Q4H PRN Administration Pain (Mild 1-3)/fever Albuterol/Ipratropium 3 ml 04/25/21 11:00 Albuterol/Ipratropium 3.0-0.5 Mg/3 Ml Neb Soln INH QIDRT AYAN Amiodarone HCl 200 mg 04/25/21 09:00 Amiodarone 200 Mg Tab PO DAILY [facility] Artificial Tears 0 ml 04/24/21 22:00 04/25/21 06:07 Hypromellose 0.3% Ophth Soln 15 Ml Bottle EYEBOTH 1 drop QID [facility] Administration Aspirin 81 mg 04/25/21 09:00 Aspirin 81 Mg Tab.Ec PO DAILY [facility] Atorvastatin Calcium 10 mg 04/24/21 21:00 04/24/21 20:01 Atorvastatin 10 Mg Tab PO 10 mg BEDTIME [facility] Administration Bumetanide 3 mg 04/25/21 08:00 Bumetanide 1 Mg Tab PO DAILY@0800 [facility] Bumetanide 2 mg 04/25/21 14:00 Bumetanide 1 Mg Tab PO DAILY@1400 [facility] Carvedilol 6.25 mg 04/24/21 19:00 04/24/21 20:01 Carvedilol 3.125 Mg Tab PO 6.25 mg BIDMEALS A[facility]AN Administration Dextrose 15 gm 04/24/21 18:14 Glucose Gel 15 Gm In 37.5 Gm Tube PO ONETIME PRN Hypoglycemia Dextrose/Water 50 ml 04/24/21 18:14 50% Dextrose In Water 50 Ml Syringe IVPUSH ASDIRECTED PRN Hypoglycemia Duloxetine HCl 20 mg 04/24/21 21:00 04/24/21 20:00 Duloxetine 20 Mg Cap PO 20 mg BEDTIME [facility] Administration Fluorometholone 0 ml 04/24/21 22:00 04/25/21 06:08 Fluorometholone 0.1% Ophth Susp 5 Ml Bottle EYEBOTH 1 drop QID [facility] Administration Glucagon 1 mg 04/24/21 18:14 Glucagon,Human Recombinant 1 Mg Vial IM ASDIRECTED PRN Hypoglycemia Sodium Chloride 1,000 mls @ 125 mls/hr 04/24/21 18:14 04/25/21 04:21 Normal Saline IV 125 mls/hr ASDIRECTED [facility]YAN Administration Vancomycin HCl 1.75 gm/ Sodium 250 mls @ 166.667 mls/hr 04/24/21 19:00 04/24/21 20:58 Chloride IV 166.667 mls/hr DAILY@1700 [facility] Administration Piperacillin Sod/Tazobactam 50 mls @ 100 mls/hr 04/24/21 18:00 04/25/21 05:51 Sod 2.25 gm/ Sodium Chloride IV 100 mls/hr Q6H [facility] Administration Insulin Glargine 32 units 04/24/21 21:00 04/24/21 21:07 Insulin Glargine,Human Rec. Analog 100 Units/Ml 3 Ml Pen SUBCUT 32 units BID [facility] Administration Insulin Human Lispro 0 unit 04/24/21 20:00 04/24/21 21:06 Insulin Lispro 100 Unit/Ml 3 Ml Kwikpen SUBCUT 6 units QIDACANDBED [facility] Administration Protocol Isosorbide Mononitrate 30 mg 04/25/21 09:00 Isosorbide Mononitrate 30 Mg Tab.Er PO DAILY [facility] Levothyroxine Sodium 75 mcg 04/25/21 07:30 Levothyroxine 25 Mcg Tab PO ACBREAKFAST [facility] Moxifloxacin HCl 0 ml 04/24/21 22:00 04/25/21 06:08 Moxifloxacin 0.5% Ophth Soln 3 Ml Bottle EYEBOTH 1 drop QID [facility] Administration Ondansetron HCl 4 mg 04/24/21 18:14 Ondansetron 4 Mg/2 Ml Sdv IV Q4H PRN Nausea/Vomiting Polyethylene Glycol 17 gm 04/24/21 18:14 Polyethylene Glycol 3350 Powder 17 Gm Packet PO DAILY PRN Constipation Pregabalin 100 mg 04/24/21 21:00 04/25/21 00:29 Pregabalin 100 Mg Cap PO 100 mg TID [facility] Administration Rivaroxaban 15 mg 04/25/21 09:00 Rivaroxaban 15 Mg Tab PO DAILY [facility] Sodium Chloride 10 ml 04/24/21 18:14 Sodium Chloride 0.9% 10 Ml Syringe FLUSH ASDIRECTED PRN Keep Vein Open Vancomycin HCl 1 gm 04/24/21 18:14 Vancomycin 1 Gm Sdv IV .PHARMACY TO DOSE [facility] Discontinued Medications Generic Name Dose Route Start Last Admin Trade Name Todd PRN Reason Stop Dose Admin Albuterol/Ipratropium 3 ml 04/24/21 18:14 Albuterol/Ipratropium 3.0-0.5 Mg/3 Ml Neb Soln INH ASDIRECTED PRN Shortness of Breath Albuterol/Ipratropium 3 ml 04/24/21 22:00 04/25/21 06:08 Albuterol/Ipratropium 3.0-0.5 Mg/3 Ml Neb Soln INH Not Given QID [facility] Cefazolin Sodium 0.5 gm/ 50 mls @ 200 mls/hr 04/24/21 22:00 Sodium Chloride IV Q12H [facility] Piperacillin Sod/Tazobactam 50 mls @ 100 mls/hr 04/24/21 18:14 04/24/21 19:29 Sod 3.375 gm/ Sodium Chloride IV Not Given Q6H AYAN Sodium Polystyrene Sulfonate 15 gm 04/24/21 18:14 04/24/21 20:01 Sodium Polystyrene Sulfonate 15 Gm/60 Ml Susp 60 Ml Bot PO 04/24/21 18:15 15 gm ONETIME ONE Administration - Re-Assessments/Exams Free Text/Narrative Re-Assessment/Exam: 04/25/21 07:16 Clinical wound nurse was consulted and she came over and evaluated the patient. I also consulted Dr. Galvez, her global recruiter. General feeling was this patient was not able to care for this wound at home, likely discharge from the long term too soon. Podiatry request that she be admitted for IV antibiotics to combat the worsening left foot infection, and then reevaluate with discharge planning disposition. Dr. Fuentes kindly accepted the patient for admission to initiate antibiotics. Labs were reassuring, white count was normal, lactic acid 1.6. Departure - Departure Time of Disposition: 17:45 Attestation - Student - Attestation Statement Attestation Statement: I personally performed or re-performed the physical examination and medical decision making. I have verified all student documentation or findings, including history, physical exam and/or medical decision making.
--- NOTE | 2021-04-24 17:19 | PCM.HP.2 ---
H&P History of Present Illness - General Date of Service: 04/24/21 Admit Problem/Dx: Admission Diagnosis/Problem Admission Diagnosis/Problem Diabetic foot ulcer Source of Information: Patient, Family, Provider, RN Notes Reviewed History Limitations: Reports: No Limitations - History of Present Illness Initial Comments - Free Text/Narative: Ms. Preston is an 85-year-old woman who was admitted through the emergency department for further evaluation and management of left foot diabetic ulcer. She has been dealing with this ulcer for some time and did undergo recent debrid ement by Dr. Carolina. A wound VAC was placed at that time and she has been living at home after discharge from the [facility]. She has had difficulty with transfers but has been able to help her. She had an appointment in the wound clinic today but when she woke this morning, she had developed a left wrist drop. She is able to clench her fingers and flex at the wrist but is unable to extend at the wrist. She was sent to the emergency department for further evaluation. As this is an isolated weakness it is not felt to represent a CVA. Left foot wound was noted to be very malodorous with evidence of underlying infection. Left Feet Pain Score (Numeric/FACES): 3 - Related Data Allergies/Adverse Reactions: Allergies Allergy/AdvReac Type Severity Reaction Status Date / Time No Known Allergies Allergy Verified 02/16/21 14:06 Home Medications: Home Meds Ascorbic Acid [Vitamin C] 1,000 mg PO BID 07/13/14 [History] Multivitamin [Multi-Vitamin Daily] 1 tab PO DAILY 07/13/14 [History] Turkey-3/DHA/Epa/Fish Oil [[place]-3 Fish Oil 1,000 MG Sfgl] 1,000 mg PO BID 07/13/14 [History] Simvastatin [Zocor] 20 mg PO BEDTIME 07/13/14 [History] ALPRAZolam [Alprazolam] 0.5 mg PO TID 05/17/20 [History] Rivaroxaban [Xarelto] 15 mg PO DAILY 05/17/20 [History] Pregabalin 100 mg PO TID 01/20/21 [History] Ferrous Sulfate 325 mg PO BID@1200,1700 tablet 01/30/21 [Rx] Levothyroxine 75 mcg PO ACBREAKFAST tablet 01/30/21 [Rx] Potassium Chloride [Klor-Con M20] 20 meq PO BIDMEALS tab.er 01/30/21 [Rx] carvediloL [Coreg] 6.25 mg PO BID tablet 01/30/21 [Rx] Ipratropium/Albuterol Sulfate [Iprat-Albut 0.5-3(2.5) mg/3 ml] 3 ml IH ASDIRECTED PRN 02/01/21 [History] ondansetron HCL [Zofran] 8 mg PO Q8H PRN 02/01/21 [History] Amiodarone HCl [Pacerone] 200 mg PO DAILY 02/16/21 [History] Aspirin [Low Dose Aspirin EC] 81 mg PO DAILY 02/16/21 [History] Bumetanide [Bumex] 3 mg PO DAILY 02/16/21 [History] Cholecalciferol (Vitamin D3) [Vitamin D3] 1,000 unit PO BID 02/16/21 [History] DULoxetine [Cymbalta] 20 mg PO BEDTIME 02/16/21 [History] Insulin Glarg,Human.Rec.Analog [Lantus Solostar] 32 unit SUBCUT BID 02/16/21 [History] Insulin Lispro [Humalog] 0 - 15 unit SUBCUT QIDACANDBED 02/16/21 [History] Isosorbide Mononitrate [Imdur] 30 mg PO DAILY 02/16/21 [History] Acetaminophen [Tylenol] 650 mg PO Q4H PRN 04/16/21 [History] Carboxymethylcellulose Sodium [Artificial Tears] 1 drop EYEBOTH QID 04/16/21 [History] Cyanocobalamin (Vitamin B-12) [Vitamin B-12] 1,000 mcg PO DAILY 04/16/21 [History] Fluorometholone [Fluorometholone 0.1% Ophth Susp] 1 drop EYEBOTH QID 04/16/21 [History] Moxifloxacin [Vigamox 0.5% Ophth Soln] 1 drop EYEBOTH QID 04/16/21 [History] Rivaroxaban [Xarelto] 15 mg PO DAILY 04/24/21 [History] Past Medical History HEENT History: Reports: Impaired Vision Cardiovascular History: Reports: Afib, Angina, CAD, Heart Failure, High Cholesterol, Hypertension, SOB on Exertion, Stents Respiratory History: Reports: Sleep Apnea, SOB Other Respiratory History: Uses cpap Gastrointestinal History: Reports: Chronic Constipation Genitourinary History: Reports: Renal Disease 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 ulcerated area, not open, to lateral inner foot on the left - Infectious Disease History Infectious Disease History: Reports: Mumps - Past Surgical History Head Surgeries/Procedures: Reports: None HEENT Surgical History: Reports: Cataract Surgery, Tonsillectomy Cardiovascular Surgical History: Reports: Coronary Artery Stent, Vascular Surgery Respiratory Surgical History: Reports: None GI Surgical History: Reports: Appendectomy, Cholecystectomy, Colonoscopy Female Surgical History: Reports: Mastectomy Endocrine Surgical History: Reports: None Musculoskeletal Surgical History: Reports: Hip Replacement Oncologic Surgical History: Reports: Mastectomy Dermatological Surgical History: Reports: None Social & Family History - Family History Family Medical History: No Pertinent Family History Oncologic: Reports: Leukemia, Lung - Tobacco Use Tobacco Use Status *Q: Former Tobacco User Used Tobacco, but Quit: Yes Month/Year Tobacco Last Used: 10 years - Caffeine Use Caffeine Use: Reports: None H&P Review of Systems - Review of Systems: Review Of Systems: See Below General: Reports: Malaise, Weakness, Fatigue. Denies: Fever, Chills HEENT: Reports: No Symptoms Pulmonary: Reports: No Symptoms Cardiovascular: Reports: No Symptoms Gastrointestinal: Reports: No Symptoms Genitourinary: Reports: No Symptoms Musculoskeletal: Reports: No Symptoms Skin: Reports: Other (Large open ulcer anterior aspect of the left ankle and foot. Black eschar noted over the heel) Psychiatric: Reports: No Symptoms Neurological: Reports: Other (Left wrist drop) Hematologic/Lymphatic: Reports: No Symptoms Immunologic: Reports: No Symptoms Exam - Exam Exam: See Below - Vital Signs Vital Signs: Last Vital Signs Temp 97.7 F 04/24/21 13:24 Pulse 69 04/24/21 17:17 Resp 15 04/24/21 13:24 BP 142/49 H 04/24/21 17:17 Pulse Ox 89 L 04/24/21 17:17 Weight: 258 lb - Exam General: Alert, Oriented, Cooperative, Moderate Distress HEENT: Conjunctiva Clear, Hearing Intact, Mucosa Moist & [place], Normal Nasal Septum, Posterior Pharynx Clear, Pupils Equal Neck: Supple, Trachea Midline, +2 Carotid Pulse wo Bruit Lungs: Clear to Auscultation, Normal Respiratory Effort, Decreased Breath Sounds Cardiovascular: Regular Rate, Regular Rhythm, Normal S1, Normal S2. No: Systolic Murmur, Diastolic Murmur GI/Abdominal Exam: Soft, Non-Tender, No Organomegaly, No Distention Extremities: No Pedal Edema, Other (Large ulcer anterior aspect left ankle and foot, black eschar over the heel) Skin: Other (As above) Neurological: Cranial Nerves Intact, Normal Speech, Normal Tone, Sensation Intact, Focal Deficit, Other (Isolated left wrist drop). No: Strength Equal Bilateral Neuro Extensive - Mental Status: Alert, Oriented x3, Normal Mood/Affect, Normal Cognition, Memory Intact - Patient Data Lab Results Last 24 hrs: Laboratory Results - last 24 hr 04/24/21 04/24/21 04/24/21 Range/Units 14:55 14:55 14:55 WBC 10.5 (4.5-11.0) K/uL RBC 3.79 (3.30-5.50) M/uL Hgb 10.9 L (12.0-15.0) g/dL Hct 35.4 L (36.0-48.0) % MCV 93 (80-98) fL MCH 29 (27-31) pg MCHC 31 L (32-36) % Plt Count 261 (150-400) K/uL Neut % (Auto) 78.9 H (36-66) % Lymph % (Auto) 14.1 L (24-44) % [place] % (Auto) 6.8 H (2-6) % Eos % (Auto) 0.0 L (2-4) % Baso % (Auto) 0.2 (0-1) % Sodium 134 L (140-148) mmol/L Potassium 5.5 H (3.6-5.2) mmol/L Chloride 97 L (100-108) mmol/L Carbon Dioxide 30 (21-32) mmol/L Anion Gap 12.5 (5.0-14.0) mmol/L BUN 39 H D (7-18) mg/dL Creatinine 2.0 H D (0.6-1.0) mg/dL Est Cr Clr Drug Dosing 19.95 mL/min Estimated GFR (MDRD) 24 L (>60) Glucose 340 H (74-106) mg/dL Lactic Acid 1.6 (0.4-2.0) mmol/L Calcium 9.4 (8.5-10.1) mg/dL Total Bilirubin 0.3 (0.2-1.0) mg/dL AST 19 (15-37) U/L ALT 20 (12-78) U/L Alkaline Phosphatase 90 D (46-116) U/L Total Protein 7.4 (6.4-8.2) g/dL Albumin 2.8 L (3.4-5.0) g/dL Globulin 4.6 H (2.3-3.5) g/dL Albumin/Globulin Ratio 0.6 L (1.2-2.2) Result Diagrams: 04/24/21 14:55 04/24/21 14:55 Sepsis Event Note - Evaluation Sepsis Screening Result: No Definite Risk - Focused Exam Vital Signs: Vital Signs Temp Pulse Resp BP Pulse Ox 04/24/21 17:17 69 142/49 H 89 L 04/24/21 16:19 73 148/56 H 90 L 04/24/21 13:24 97.7 F 69 15 133/47 L 90 L 04/24/21 13:20 97.7 F 69 15 133/47 L 90 L *Q Meaningful Use (ADM) - VTE *Q VTE Pharmacological Contraindications *Q: High INR Value - VTE Risk Assess *Q Each Risk Factor Represents 1 Point: Obesity ( BMI > 25 kg/m2) Total Score 1 Point Risk Factors: 1 Each Risk Factor Represents 2 Points: None Total Score 2 Point Risk Factors: 0 Each Risk Factor Represents 3 Points: Age 75 Years or Greater Total Score 3 Point Risk Factors: 3 Each Risk Factor Represents 5 Points: None Total Score 5 Point Risk Factors: 0 Venous Thromboembolism Risk Factor Score *Q: 4 Problem List Initiated/Reviewed/Updated: Yes Orders Last 24hrs: Active Orders 24 hr Category Date Time Status Patient Status Manage Transfer [TRANSFER] Routine ADT 04/24/21 17:01 Ordered CULTURE BLOOD [BC] Stat Lab 04/24/21 14:55 Received DME for Discharge [COMM] Stat Oth 04/24/21 14:47 Ordered Resuscitation Status Routine Resus Stat 04/24/21 17:08 Ordered Assessment/Plan Comment:: ASSESSMENT AND PLAN 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 Since being discharged from the [facility] wound has become very malodorous and she has been progressively more weak. Seen and evaluated emergency department today, she has been afebrile with normal white count. -Hold on use of wound VAC -Wet-to-dry dressings -Blood cultures pending -Vancomycin and Zosyn, pending culture results LEFT WRIST DROP-likely secondary to radial nerve injury, this is isolated with no other neurologic deficits -Left wrist splint HYPERKALEMIA-potassium noted to be elevated at 5.5 -IV fluids for hydration -Hold oral potassium supplement -Kayexalate 15 g p.o. now -Recheck potassium level in a.m. TYPE 2 DIABETES MELLITUS -Continue usual dose of long-acting insulin -4 times daily glucometers -Moderate dose sliding scale Humalog CHRONIC KIDNEY DISEASE STAGE IV-creatinine elevated at 2.0, unclear if this is her current baseline -IV fluids as above -Closely monitor urine output and renal function during hospital stay MAINTENANCE ISSUES -DVT prophylaxis; current therapy with Eliquis should provide adequate DVT prophylaxis -GI prophylaxis; not indicated -[place] catheter; not indicated -Nutrition; consistent carbohydrate diet -Nicotine dependence; not required CODE STATUS-FULL CODE ADMISSION STATUS-patient will be admitted to inpatient status, expect at least a 2 night hospital stay for evaluation and management of problems as outlined above. At the time of this admission I do not reasonably expected evaluation and management of this problem will require more than a 96 hour hospital stay. DISPOSITION-anticipate discharge to home after the hospital stay. PRIMARY CARE PROVIDER-Dr. Weathers - Mortality Measure Prognosis:: Good
[2021-04-24] MEDS ORDERED: Sodium Polystyrene Sulfonate 15 GM/60 ML Susp 60 ML Bot PO ONE (18:14)
[2021-04-24] MEDS ORDERED: Sodium Chloride 0.9% 10 ML Syringe FLUSH PRN (18:14)
[2021-04-24] MEDS ORDERED: Glucose Gel 15 GM in 37.5 GM Tube PO PRN (18:14)
[2021-04-24] MEDS ORDERED: Albuterol/Ipratropium 3.0-0.5 MG/3 ML Neb Soln INH PRN (18:14)
[2021-04-24] MEDS ORDERED: Ondansetron 4 MG/2 ML SDV IV PRN (18:14)
[2021-04-24] MEDS ORDERED: 50% Dextrose in Water 50 ML Syringe IV PRN (18:14)
[2021-04-24] MEDS ORDERED: Piperacillin/Tazobactam 3.375 GM in Sodium Chloride 0.9% 50 ML IV SCH (18:14)
[2021-04-24] MEDS ORDERED: Glucagon,Human Recombinant 1 MG Vial IM PRN (18:14)
[2021-04-24] MEDS ORDERED: Polyethylene Glycol 3350 Powder 17 GM Packet PO PRN (18:14)
[2021-04-24] MEDS ORDERED: 50% Dextrose in Water 50 ML Syringe IVPUSH PRN (18:14)
[2021-04-24] MEDS ORDERED: Vancomycin 1 GM SDV IV SCH (18:14)
[2021-04-24] MEDS: Piperacillin/Tazobactam 2.25 GM in Sodium Chloride 0.9% 50 ML IV SCH (19:57)
[2021-04-24] MEDS: DULoxetine 20 MG Cap PO SCH (20:00)
[2021-04-24] MEDS: Carvedilol 3.125 MG Tab PO SCH (20:01)
[2021-04-24] MEDS: atorvaSTATin 10 MG Tab PO SCH (20:01)
[2021-04-24] MEDS ORDERED: Non-Formulary Medication 1 Each (Simvastatin [Zocor] 20 MG Tablet) PO SCH (21:00)
[2021-04-24] MEDS: Insulin Lispro 100 Unit/ML 3 ML KwikPen SUBCUT SCH (21:06)
[2021-04-24] MEDS: Insulin Glargine,Human Rec. Analog 100 Units/ML 3 ML Pen SUBCUT SCH (21:07)
[2021-04-24] MEDS: Sodium Chloride 0.9% 1,000 ML IV SCH (21:15)
[2021-04-25] MEDS: Acetaminophen 325 MG Tab PO PRN ×2 (00:28→21:05)
[2021-04-25] MEDS: Albuterol/Ipratropium 3.0-0.5 MG/3 ML Neb Soln INH SCH ×5 (00:28→21:06)
[2021-04-25] MEDS: Moxifloxacin 0.5% Ophth Soln 3 ML Bottle EYEBOTH SCH ×5 (00:29→21:01)
[2021-04-25] MEDS: Fluorometholone 0.1% Ophth Susp 5 ML Bottle EYEBOTH SCH ×5 (00:29→21:01)
[2021-04-25] MEDS: Hypromellose 0.3% Ophth Soln 15 ML Bottle EYEBOTH SCH ×5 (00:29→21:02)
[2021-04-25] MEDS: Pregabalin 100 MG Cap PO SCH ×4 (00:29→21:05)
[2021-04-25] MEDS: Piperacillin/Tazobactam 2.25 GM in Sodium Chloride 0.9% 50 ML IV SCH ×2 (00:35→05:51)
[2021-04-25] MEDS: Sodium Chloride 0.9% 1,000 ML IV SCH (04:21)
[2021-04-25] MEDS: Insulin Lispro 100 Unit/ML 3 ML KwikPen SUBCUT SCH ×4 (07:58→20:58)
[2021-04-25] MEDS: Aspirin 81 MG Tab.EC PO SCH (08:23)
[2021-04-25] MEDS: Bumetanide 1 MG Tab PO SCH (08:23)
[2021-04-25] MEDS: Carvedilol 3.125 MG Tab PO SCH ×2 (08:23→17:02)
[2021-04-25] MEDS: Levothyroxine 25 MCG Tab PO SCH (08:23)
[2021-04-25] MEDS: Rivaroxaban 15 MG Tab PO SCH (08:23)
[2021-04-25] MEDS: Insulin Glargine,Human Rec. Analog 100 Units/ML 3 ML Pen SUBCUT SCH ×2 (08:24→21:00)
[2021-04-25] MEDS: Isosorbide Mononitrate 30 MG Tab.ER PO SCH (08:24)
[2021-04-25] MEDS: Amiodarone 200 MG Tab PO SCH (08:24)
--- NOTE | 2021-04-25 09:52 | PCM.PN ---
- General Info Date of Service: 04/25/21 Subjective Update: Ms. Preston has remained stable since admission yesterday with no significant temperature elevations. Renal function has improved with hydration and hyperkalemia has resolved. Overall she is feeling relatively well with improvement in energy level and good appetite. Functional Status: Reports: Tolerating Diet, Urinating - Review of Systems General: Reports: Fatigue, Malaise. Denies: Fever, Chills Pulmonary: Reports: No Symptoms Cardiovascular: Reports: No Symptoms Gastrointestinal: Reports: No Symptoms Genitourinary: Reports: No Symptoms - Patient Data Vitals - Most Recent: Last Vital Signs Temp 96.8 F L 04/25/21 07:30 Pulse 66 04/25/21 08:23 Resp 16 04/25/21 07:30 BP 135/52 L 04/25/21 08:24 Pulse Ox 91 L 04/25/21 07:30 Weight - Most Recent: 256 lb 1.6 oz I&O - Last 24 Hours: Intake & Output 04/24/21 04/25/21 04/25/21 22:59 06:59 14:59 Intake Total 840 350 Output Total 600 500 350 Balance 240 -150 -350 Lab Results Last 24 Hours: Laboratory Results - last 24 hr 04/24/21 04/24/21 04/24/21 Range/Units 14:55 14:55 14:55 WBC 10.5 (4.5-11.0) K/uL RBC 3.79 (3.30-5.50) M/uL Hgb 10.9 L (12.0-15.0) g/dL Hct 35.4 L (36.0-48.0) % MCV 93 (80-98) fL MCH 29 (27-31) pg MCHC 31 L (32-36) % Plt Count 261 (150-400) K/uL Neut % (Auto) 78.9 H (36-66) % Lymph % (Auto) 14.1 L (24-44) % Burke % (Auto) 6.8 H (2-6) % Eos % (Auto) 0.0 L (2-4) % Baso % (Auto) 0.2 (0-1) % Sodium 134 L (140-148) mmol/L Potassium 5.5 H (3.6-5.2) mmol/L Chloride 97 L (100-108) mmol/L Carbon Dioxide 30 (21-32) mmol/L Anion Gap 12.5 (5.0-14.0) mmol/L BUN 39 H D (7-18) mg/dL Creatinine 2.0 H D (0.6-1.0) mg/dL Est Cr Clr Drug Dosing 19.95 mL/min Estimated GFR (MDRD) 24 L (>60) Glucose 340 H (74-106) mg/dL POC Glucose (74-106) mg/dL Lactic Acid 1.6 (0.4-2.0) mmol/L Calcium 9.4 (8.5-10.1) mg/dL Total Bilirubin 0.3 (0.2-1.0) mg/dL AST 19 (15-37) U/L ALT 20 (12-78) U/L Alkaline Phosphatase 90 D (46-116) U/L Total Protein 7.4 (6.4-8.2) g/dL Albumin 2.8 L (3.4-5.0) g/dL Globulin 4.6 H (2.3-3.5) g/dL Albumin/Globulin Ratio 0.6 L (1.2-2.2) 04/24/21 04/25/21 04/25/21 Range/Units 20:52 05:34 05:34 WBC 9.2 (4.5-11.0) K/uL RBC 3.70 (3.30-5.50) M/uL Hgb 10.8 L (12.0-15.0) g/dL Hct 34.3 L (36.0-48.0) % MCV 93 (80-98) fL MCH 29 (27-31) pg MCHC 32 (32-36) % Plt Count 253 (150-400) K/uL Neut % (Auto) 70.4 H (36-66) % Lymph % (Auto) 18.3 L (24-44) % Burke % (Auto) 11.0 H (2-6) % Eos % (Auto) 0.1 L (2-4) % Baso % (Auto) 0.2 (0-1) % Sodium 138 L (140-148) mmol/L Potassium 4.4 (3.6-5.2) mmol/L Chloride 100 (100-108) mmol/L Carbon Dioxide 30 (21-32) mmol/L Anion Gap 12.4 (5.0-14.0) mmol/L BUN 35 H (7-18) mg/dL Creatinine 1.6 H (0.6-1.0) mg/dL Est Cr Clr Drug Dosing 22.04 mL/min Estimated GFR (MDRD) 31 L (>60) Glucose 263 H (74-106) mg/dL POC Glucose 281 H (74-106) mg/dL Lactic Acid (0.4-2.0) mmol/L Calcium 9.0 (8.5-10.1) mg/dL Total Bilirubin (0.2-1.0) mg/dL AST (15-37) U/L ALT (12-78) U/L Alkaline Phosphatase (46-116) U/L Total Protein (6.4-8.2) g/dL Albumin (3.4-5.0) g/dL Globulin (2.3-3.5) g/dL Albumin/Globulin Ratio (1.2-2.2) Med Orders - Current: Current Medications Acetaminophen (Acetaminophen 325 Mg Tab) 650 mg PO Q4H PRN PRN Reason: Pain (Mild 1-3)/fever Last Admin: 04/25/21 00:28 Dose: 650 mg Documented by: Albuterol/Ipratropium (Albuterol/Ipratropium 3.0-0.5 Mg/3 Ml Neb Soln) 3 ml INH QIDRT [facility] Amiodarone HCl (Amiodarone 200 Mg Tab) 200 mg PO DAILY [facility] Last Admin: 04/25/21 08:24 Dose: 200 mg Documented by: Artificial Tears (Hypromellose 0.3% Ophth Soln 15 Ml Bottle) 0 ml EYEBOTH QID [facility] Last Admin: 04/25/21 06:07 Dose: 1 drop Documented by: Aspirin (Aspirin 81 Mg Tab.Ec) 81 mg PO DAILY [facility] Last Admin: 04/25/21 08:23 Dose: 81 mg Documented by: Atorvastatin Calcium (Atorvastatin 10 Mg Tab) 10 mg PO BEDTIME [facility] Last Admin: 04/24/21 20:01 Dose: 10 mg Documented by: Bumetanide (Bumetanide 1 Mg Tab) 3 mg PO DAILY@0800 [facility] Last Admin: 04/25/21 08:23 Dose: 3 mg Documented by: Bumetanide (Bumetanide 1 Mg Tab) 2 mg PO DAILY@1400 [facility] Carvedilol (Carvedilol 3.125 Mg Tab) 6.25 mg PO BIDMEALS [facility] Last Admin: 04/25/21 08:23 Dose: 6.25 mg Documented by: Dextrose (Glucose Gel 15 Gm In 37.5 Gm Tube) 15 gm PO ONETIME PRN PRN Reason: Hypoglycemia Dextrose/Water (50% Dextrose In Water 50 Ml Syringe) 50 ml IVPUSH ASDIRECTED PRN PRN Reason: Hypoglycemia Duloxetine HCl (Duloxetine 20 Mg Cap) 20 mg PO BEDTIME [facility] Last Admin: 04/24/21 20:00 Dose: 20 mg Documented by: Fluorometholone (Fluorometholone 0.1% Ophth Susp 5 Ml Bottle) 0 ml EYEBOTH QID [facility] Last Admin: 04/25/21 06:08 Dose: 1 drop Documented by: Glucagon (Glucagon,Human Recombinant 1 Mg Vial) 1 mg IM ASDIRECTED PRN PRN Reason: Hypoglycemia Vancomycin HCl 1.75 gm/ Sodium (Chloride) 250 mls @ 166.667 mls/hr IV DAILY@1700 [facility] Last Admin: 04/24/21 20:58 Dose: 166.667 mls/hr Documented by: Piperacillin/Tazobactam/ (Dextrose 2.25 gm/ Premix) 50 mls @ 100 mls/hr IV Q6H [facility] Insulin Glargine (Insulin Glargine,Human Rec. Analog 100 Units/Ml 3 Ml Pen) 32 units SUBCUT BID [facility] Last Admin: 04/25/21 08:24 Dose: 32 units Documented by: Insulin Human Lispro (Insulin Lispro 100 Unit/Ml 3 Ml Kwikpen) 0 unit SUBCUT QIDACANDBED [facility]; Protocol Last Admin: 04/25/21 07:58 Dose: 4 units Documented by: Isosorbide Mononitrate (Isosorbide Mononitrate 30 Mg Tab.Er) 30 mg PO DAILY [facility] Last Admin: 04/25/21 08:24 Dose: 30 mg Documented by: Levothyroxine Sodium (Levothyroxine 25 Mcg Tab) 75 mcg PO ACBREAKFAST [facility] Last Admin: 04/25/21 08:23 Dose: 75 mcg Documented by: Moxifloxacin HCl (Moxifloxacin 0.5% Ophth Soln 3 Ml Bottle) 0 ml EYEBOTH QID [facility] Ondansetron HCl (Ondansetron 4 Mg/2 Ml Sdv) 4 mg IV Q4H PRN PRN Reason: Nausea/Vomiting Polyethylene Glycol (Polyethylene Glycol 3350 Powder 17 Gm Packet) 17 gm PO DAILY PRN PRN Reason: Constipation Pregabalin (Pregabalin 100 Mg Cap) 100 mg PO TID [facility] Last Admin: 04/25/21 08:26 Dose: 100 mg Documented by: Rivaroxaban (Rivaroxaban 15 Mg Tab) 15 mg PO DAILY [facility] Last Admin: 04/25/21 08:23 Dose: 15 mg Documented by: Sodium Chloride (Sodium Chloride 0.9% 10 Ml Syringe) 10 ml FLUSH ASDIRECTED PRN PRN Reason: Keep Vein Open Vancomycin HCl (Vancomycin 1 Gm Sdv) 1 gm IV .PHARMACY TO DOSE [facility] Stop: 04/25/21 18:15 Discontinued Medications Albuterol/Ipratropium (Albuterol/Ipratropium 3.0-0.5 Mg/3 Ml Neb Soln) 3 ml INH ASDIRECTED PRN PRN Reason: Shortness of Breath Albuterol/Ipratropium (Albuterol/Ipratropium 3.0-0.5 Mg/3 Ml Neb Soln) 3 ml INH QID [facility] Last Admin: 04/25/21 06:08 Dose: Not Given Documented by: Cefazolin Sodium 0.5 gm/ (Sodium Chloride) 50 mls @ 200 mls/hr IV Q12H [facility] Sodium Chloride (Normal Saline) 1,000 mls @ 125 mls/hr IV ASDIRECTED [facility] Last Admin: 04/25/21 04:21 Dose: 125 mls/hr Documented by: Piperacillin Sod/Tazobactam (Sod 3.375 gm/ Sodium Chloride) 50 mls @ 100 mls/hr IV Q6H [facility] Last Admin: 04/24/21 19:29 Dose: Not Given Documented by: Piperacillin Sod/Tazobactam (Sod 2.25 gm/ Sodium Chloride) 50 mls @ 100 mls/hr IV Q6H [facility] Last Admin: 04/25/21 05:51 Dose: 100 mls/hr Documented by: Moxifloxacin HCl (Moxifloxacin 0.5% Ophth Soln 3 Ml Bottle) 0 ml EYEBOTH QID [facility] Last Admin: 04/25/21 06:08 Dose: 1 drop Documented by: Sodium Polystyrene Sulfonate (Sodium Polystyrene Sulfonate 15 Gm/60 Ml Susp 60 Ml Bot) 15 gm PO ONETIME ONE Stop: 04/24/21 18:15 Last Admin: 04/24/21 20:01 Dose: 15 gm Documented by: - Exam General: Alert, Oriented, Cooperative, Mild Distress Lungs: Clear to Auscultation, Normal Respiratory Effort Cardiovascular: Regular Rate, Regular Rhythm, No Murmurs GI/Abdominal Exam: Soft, Non-Tender, No Organomegaly, No Distention Extremities: No Pedal Edema - Patient Data Lab Results Last 24 hrs: Laboratory Results - last 24 hr 04/24/21 04/24/21 04/24/21 Range/Units 14:55 14:55 14:55 WBC 10.5 (4.5-11.0) K/uL RBC 3.79 (3.30-5.50) M/uL Hgb 10.9 L (12.0-15.0) g/dL Hct 35.4 L (36.0-48.0) % MCV 93 (80-98) fL MCH 29 (27-31) pg MCHC 31 L (32-36) % Plt Count 261 (150-400) K/uL Neut % (Auto) 78.9 H (36-66) % Lymph % (Auto) 14.1 L (24-44) % Burke % (Auto) 6.8 H (2-6) % Eos % (Auto) 0.0 L (2-4) % Baso % (Auto) 0.2 (0-1) % Sodium 134 L (140-148) mmol/L Potassium 5.5 H (3.6-5.2) mmol/L Chloride 97 L (100-108) mmol/L Carbon Dioxide 30 (21-32) mmol/L Anion Gap 12.5 (5.0-14.0) mmol/L BUN 39 H D (7-18) mg/dL Creatinine 2.0 H D (0.6-1.0) mg/dL Est Cr Clr Drug Dosing 19.95 mL/min Estimated GFR (MDRD) 24 L (>60) Glucose 340 H (74-106) mg/dL POC Glucose (74-106) mg/dL Lactic Acid 1.6 (0.4-2.0) mmol/L Calcium 9.4 (8.5-10.1) mg/dL Total Bilirubin 0.3 (0.2-1.0) mg/dL AST 19 (15-37) U/L ALT 20 (12-78) U/L Alkaline Phosphatase 90 D (46-116) U/L Total Protein 7.4 (6.4-8.2) g/dL Albumin 2.8 L (3.4-5.0) g/dL Globulin 4.6 H (2.3-3.5) g/dL Albumin/Globulin Ratio 0.6 L (1.2-2.2) 04/24/21 04/25/21 04/25/21 Range/Units 20:52 05:34 05:34 WBC 9.2 (4.5-11.0) K/uL RBC 3.70 (3.30-5.50) M/uL Hgb 10.8 L (12.0-15.0) g/dL Hct 34.3 L (36.0-48.0) % MCV 93 (80-98) fL MCH 29 (27-31) pg MCHC 32 (32-36) % Plt Count 253 (150-400) K/uL Neut % (Auto) 70.4 H (36-66) % Lymph % (Auto) 18.3 L (24-44) % Burke % (Auto) 11.0 H (2-6) % Eos % (Auto) 0.1 L (2-4) % Baso % (Auto) 0.2 (0-1) % Sodium 138 L (140-148) mmol/L Potassium 4.4 (3.6-5.2) mmol/L Chloride 100 (100-108) mmol/L Carbon Dioxide 30 (21-32) mmol/L Anion Gap 12.4 (5.0-14.0) mmol/L BUN 35 H (7-18) mg/dL Creatinine 1.6 H (0.6-1.0) mg/dL Est Cr Clr Drug Dosing 22.04 mL/min Estimated GFR (MDRD) 31 L (>60) Glucose 263 H (74-106) mg/dL POC Glucose 281 H (74-106) mg/dL Lactic Acid (0.4-2.0) mmol/L Calcium 9.0 (8.5-10.1) mg/dL Total Bilirubin (0.2-1.0) mg/dL AST (15-37) U/L ALT (12-78) U/L Alkaline Phosphatase (46-116) U/L Total Protein (6.4-8.2) g/dL Albumin (3.4-5.0) g/dL Globulin (2.3-3.5) g/dL Albumin/Globulin Ratio (1.2-2.2) Result Diagrams: 04/25/21 05:34 04/25/21 05:34 Sepsis Event Note - Evaluation Sepsis Screening Result: No Definite Risk - Focused Exam Vital Signs: Vital Signs Temp Temp Pulse Pulse Resp BP BP 04/25/21 08:24 135/52 L 04/25/21 08:23 66 135/52 L 04/25/21 07:30 96.8 F L 66 16 135/52 L 04/25/21 04:22 95.6 F L 63 16 114/42 L 04/25/21 00:19 95.7 F L 68 16 140/46 L Pulse Ox 04/25/21 08:24 04/25/21 08:23 04/25/21 07:30 91 L 04/25/21 04:22 95 04/25/21 00:19 97 - Problem List Review Problem List Initiated/Reviewed/Updated: Yes - My Orders Last 24 Hours: My Active Orders 04/24/21 Dinner Consistent Carbohydrate Diet [DIET] 04/24/21 17:08 Resuscitation Status Routine 04/24/21 18:02 Wound Care [RC] DAILY 04/24/21 18:14 Acetaminophen [TylenoL] 650 mg PO Q4H PRN Dextrose 50% in Water 50 ml IVPUSH ASDIRECTED PRN Dextrose [Glutose 15] 15 gm PO ONETIME PRN Glucagon,Human Recombinant [GlucaGen] 1 mg IM ASDIRECTED PRN Ondansetron [Zofran] 4 mg IV Q4H PRN Sodium Chloride 0.9% [Saline Flush] 10 ml FLUSH ASDIRECTED PRN Vancomycin 1 gm IV .PHARMACY TO DOSE polyethylene glycoL 3350 [MiraLAX] 17 gm PO DAILY PRN 04/24/21 18:14 Patient Status [ADT] Routine Diabetes Education [RC] Click to Edit Height and Weight [RC] DAILY Intake and Output [RC] QSHIFT Notify Provider Vital Signs [RC] ASDIRECTED Notify Provider [RC] PRN Oxygen Therapy [RC] PRN Peripheral IV Care [RC] . DIRECTED RT Aerosol Therapy [RC] ASDIRECTED Up With Assistance [RC] ASDIRECTED Up to Chair [RC] QID VTE/DVT Education [RC] Per Unit Routine Vital Signs [RC] Q4H Peripheral IV Insertion Adult [OM.PC] Routine VTE Pharmacological Contraindications [AST] Per Unit Routine 04/24/21 19:00 Vancomycin 1.75 gm Sodium Chloride 0.9% [Normal Saline] 250 ml IV DAILY@1700 carvediloL [Coreg] 6.25 mg PO BIDMEALS 04/24/21 20:00 Insulin Lispro [HumaLOG] See Protocol SUBCUT QIDACANDBED 04/24/21 21:00 DULoxetine [Cymbalta] 20 mg PO BEDTIME Insulin Glarg,Human.Rec.Analog [LantUS Solostar] 32 units SUBCUT BID Pregabalin [Lyrica] 100 mg PO TID atorvaSTATin [Lipitor] 10 mg PO BEDTIME 04/24/21 22:00 Fluorometholone [Flarex 0.1% Ophth Susp] 0 ml EYEBOTH QID Hypromellose [GenTeal Mild to Moderate Ophth Soln] 0 ml EYEBOTH QID 04/25/21 07:30 Levothyroxine 75 mcg PO ACBREAKFAST 04/25/21 08:00 Bumetanide [Bumex] 3 mg PO DAILY@0800 04/25/21 09:00 Amiodarone [Cordarone] 200 mg PO DAILY Aspirin [Halfprin] 81 mg PO DAILY Isosorbide Mononitrate [Imdur] 30 mg PO DAILY Rivaroxaban [Xarelto] 15 mg PO DAILY 04/25/21 09:46 Convert IV to Saline Lock [OM.PC] Routine 04/25/21 10:00 Moxifloxacin [Vigamox 0.5% Ophth Soln] 0 ml EYEBOTH QID 04/25/21 11:00 Albuterol/Ipratropium [DuoNeb 3.0-0.5 MG/3 ML] 3 ml INH QIDRT 04/25/21 11:30 GLUCOSE POC LAB TO COLLECT JPM [POC] QIDACANDBED 04/25/21 12:00 Piperacillin/Tazobactam/Dext [Zosyn in Dextrose Iso-Osmotic 2.25 GM/50 ML] 2.25 gm Premix Bag 1 bag IV Q6H 04/25/21 14:00 Bumetanide [Bumex] 2 mg PO DAILY@1400 04/25/21 16:30 GLUCOSE POC LAB TO COLLECT JPM [POC] QIDACANDBED 04/25/21 21:00 GLUCOSE POC LAB TO COLLECT JPM [POC] QIDACANDBED 04/26/21 07:30 GLUCOSE POC LAB TO COLLECT JPM [POC] QIDACANDBED 04/26/21 11:30 GLUCOSE POC LAB TO COLLECT JPM [POC] QIDACANDBED 04/26/21 16:30 GLUCOSE POC LAB TO COLLECT JPM [POC] QIDACANDBED 04/26/21 21:00 GLUCOSE POC LAB TO COLLECT JPM [POC] QIDACANDBED 04/27/21 07:30 GLUCOSE POC LAB TO COLLECT JPM [POC] QIDACANDBED 04/27/21 11:30 GLUCOSE POC LAB TO COLLECT JPM [POC] QIDACANDBED 04/27/21 16:30 GLUCOSE POC LAB TO COLLECT JPM [POC] QIDACANDBED VANCOMYCIN TROUGH [CHEM] Timed 04/27/21 21:00 GLUCOSE POC LAB TO COLLECT JPM [POC] QIDACANDBED 04/28/21 07:30 GLUCOSE POC LAB TO COLLECT JPM [POC] QIDACANDBED 04/28/21 11:30 GLUCOSE POC LAB TO COLLECT JPM [POC] QIDACANDBED 04/28/21 16:30 GLUCOSE POC LAB TO COLLECT JPM [POC] QIDACANDBED 04/28/21 21:00 GLUCOSE POC LAB TO COLLECT JPM [POC] QIDACANDBED 04/29/21 07:30 GLUCOSE POC LAB TO COLLECT JPM [POC] QIDACANDBED 04/29/21 11:30 GLUCOSE POC LAB TO COLLECT JPM [POC] QIDACANDBED 04/29/21 16:30 GLUCOSE POC LAB TO COLLECT JPM [POC] QIDACANDBED 04/29/21 21:00 GLUCOSE POC LAB TO COLLECT JPM [POC] QIDACANDBED 04/30/21 07:30 GLUCOSE POC LAB TO COLLECT JPM [POC] QIDACANDBED 04/30/21 11:30 GLUCOSE POC LAB TO COLLECT JPM [POC] QIDACANDBED 04/30/21 16:30 GLUCOSE POC LAB TO COLLECT JPM [POC] QIDACANDBED 04/30/21 21:00 GLUCOSE POC LAB TO COLLECT JPM [POC] QIDACANDBED 05/01/21 07:30 GLUCOSE POC LAB TO COLLECT JPM [POC] QIDACANDBED 05/01/21 11:30 GLUCOSE POC LAB TO COLLECT JPM [POC] QIDACANDBED 05/01/21 16:30 GLUCOSE POC LAB TO COLLECT JPM [POC] QIDACANDBED 05/01/21 21:00 GLUCOSE POC LAB TO COLLECT JPM [POC] QIDACANDBED 05/02/21 07:30 GLUCOSE POC LAB TO COLLECT JPM [POC] QIDACANDBED - Plan Plan:: ASSESSMENT AND PLAN 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 Since being discharged from the [facility] wound has become very malodorous and she has been progressively more weak. Seen and evaluated emergency department today, she has been afebrile with normal white count. -Hold on use of wound VAC -Wet-to-dry dressings -Blood cultures pending -Vancomycin and Zosyn, pending culture results LEFT WRIST DROP-likely secondary to radial nerve injury, this is isolated with no other neurologic deficits -Left wrist splint HYPERKALEMIA-resolved TYPE 2 DIABETES MELLITUS -Continue usual dose of long-acting insulin -4 times daily glucometers -Moderate dose sliding scale Humalog CHRONIC KIDNEY DISEASE STAGE IV-renal function improved following hydration MAINTENANCE ISSUES -DVT prophylaxis; current therapy with Eliquis should provide adequate DVT prophylaxis -GI prophylaxis; not indicated -Villalobos catheter; not indicated -Nutrition; consistent carbohydrate diet -Nicotine dependence; not required CODE STATUS-FULL CODE ADMISSION STATUS-patient will be admitted to inpatient status, expect at least a 2 night hospital stay for evaluation and management of problems as outlined above. At the time of this admission I do not reasonably expected evaluation and management of this problem will require more than a 96 hour hospital stay. DISPOSITION-anticipate discharge to home after the hospital stay. PRIMARY CARE PROVIDER-Dr. Weathers
[2021-04-25] MEDS: Piperacillin/Tazobactam/Dext 2.25 GM in Premix Bag 1 BAG IV SCH ×2 (12:00→18:26)
[2021-04-25] MEDS ORDERED: Bumetanide 1 MG Tab PO SCH (14:00)
[2021-04-25] MEDS: DULoxetine 20 MG Cap PO SCH (21:00)
[2021-04-25] MEDS: atorvaSTATin 10 MG Tab PO SCH (21:00)
[2021-04-26] MEDS: Piperacillin/Tazobactam/Dext 2.25 GM in Premix Bag 1 BAG IV SCH ×3 (00:42→11:48)
[2021-04-26] MEDS: Fluorometholone 0.1% Ophth Susp 5 ML Bottle EYEBOTH SCH ×2 (06:01→09:21)
[2021-04-26] MEDS: Moxifloxacin 0.5% Ophth Soln 3 ML Bottle EYEBOTH SCH ×2 (06:02→09:21)
[2021-04-26] MEDS: Hypromellose 0.3% Ophth Soln 15 ML Bottle EYEBOTH SCH ×3 (06:03→09:25)
[2021-04-26] MEDS: Albuterol/Ipratropium 3.0-0.5 MG/3 ML Neb Soln INH SCH ×2 (07:04→10:41)
[2021-04-26] MEDS: Insulin Lispro 100 Unit/ML 3 ML KwikPen SUBCUT SCH ×2 (07:39→11:48)
[2021-04-26] MEDS: Levothyroxine 25 MCG Tab PO SCH (07:40)
[2021-04-26] MEDS: Aspirin 81 MG Tab.EC PO SCH (09:21)
[2021-04-26] MEDS: Rivaroxaban 15 MG Tab PO SCH (09:21)
[2021-04-26] MEDS: Pregabalin 100 MG Cap PO SCH (09:23)
[2021-04-26] MEDS: Insulin Glargine,Human Rec. Analog 100 Units/ML 3 ML Pen SUBCUT SCH (10:20)
[2021-04-26] MEDS: Amiodarone 200 MG Tab PO SCH (10:21)
[2021-04-26] MEDS: Isosorbide Mononitrate 30 MG Tab.ER PO SCH (10:21)
[2021-04-26] MEDS: Bumetanide 1 MG Tab PO SCH (10:21)
[2021-04-26] MEDS: Carvedilol 3.125 MG Tab PO SCH (10:21)
[2021-04-26 11:04] VITALS: BP 121/49; PULSE 65
--- NOTE | 2021-04-26 11:19 | PCM.DCSUM1 ---
Discharge Summary - Hospital Course Brief History: Ms. Preston is an 85-year-old woman who was admitted through the emergency department with a new left wrist drop and infected diabetic ulcer of the left foot. - Discharge Data Discharge Date: 04/26/21 Discharge Disposition: DC/Tfer to SNF 03 Condition: Fair - Referral to Home Health Primary Care Physician: Javier Weathers MD - Discharge Diagnosis/Problem(s) (1) Chronic ulcer of left foot SNOMED Code(s): 860096927, 324387296 ICD Code: L97.529 - NON-PRESSURE CHRONIC ULCER OTH PRT LEFT FOOT W UNSP SEVERITY Status: Acute Current Visit: Yes (2) Acute radial nerve palsy of right upper extremity SNOMED Code(s): 4769322 ICD Code: G56.31 - LESION OF RADIAL NERVE, RIGHT UPPER LIMB Status: Acute Current Visit: Yes (3) Cellulitis of foot, left SNOMED Code(s): 849985075 ICD Code: L03.116 - CELLULITIS OF LEFT LOWER LIMB Status: Acute Current Visit: Yes (4) Paroxysmal atrial fibrillation SNOMED Code(s): 293554364 ICD Code: I48.0 - PAROXYSMAL ATRIAL FIBRILLATION Status: Chronic Current Visit: No (5) Insulin dependent diabetes mellitus SNOMED Code(s): 34152202 ICD Code: GNP5209 - Status: Chronic Current Visit: No (6) Stage III chronic kidney disease SNOMED Code(s): 584877088 ICD Code: N18.3 - CHRONIC KIDNEY DISEASE, STAGE 3 (MODERATE) * DO NOT USE * Status: Chronic Current Visit: No - Patient Summary/Data Hospital Course: Ms. Preston is an 85-year-old woman who was admitted through the emergency department for further evaluation and management of left foot diabetic ulcer. She has been dealing with this ulcer for some time and did undergo recent debridement by Dr. Carolina. A wound VAC was placed at that time and she has been living at home after discharge from the [facility]. She has had difficulty with transfers but has been able to help her. She had an appointment in the wound clinic today but when she woke this morning, she had developed a left wrist drop. She is able to clench her fingers and flex at the wrist but is unable to extend at the wrist. She was sent to the emergency department for further evaluation. As this is an isolated weakness it is not felt to represent a CVA. Left foot wound was noted to be very malodorous with evidence of underlying infection. On admission she was given IV fluids for hydration, there had been mild elevation in baseline on her creatinine and this improved following IV fluids. Blood cultures were obtained in the emergency department and she was started on IV antibiotic therapy with vancomycin and Zosyn. Blood cultures remain negative throughout her hospital stay. Wound VAC was discontinued and she was treated with wet-to-dry dressings to the ulcer. Her left wrist drop improved significantly during hospitalization and had almost returned to baseline by the time of discharge. Because of infection in the wound it was decided that she needed ongoing dressing changes and will be discharged to the fdc for ongoing therapy including physical therapy and Occupational Therapy. She will be placed on oral antibiotic therapy with Augmentin for an additional 10 days and will have a follow-up appointment with podiatry on April 29. Glucose levels were monitored during hospital stay and she was treated with her usual dose of long-acting insulin as well as scheduled short acting insulin with meals and at bedtime. Activity will be as tolerated and she will be on a diabetic diet. - Patient Instructions Diet: Diabetic Diet Activity: As Tolerated Other/Special Instructions: Daily physical therapy and Occupational Therapy while at the fdc. Follow-up appointment with Dr. Galvez on April 29. - Discharge Plan *PRESCRIPTION DRUG MONITORING PROGRAM REVIEWED*: Not Applicable *COPY OF PRESCRIPTION DRUG MONITORING REPORT IN PATIENT KHADRA: Not Applicable Prescriptions/Med Rec: Amoxicillin/Potassium Clav [Augmentin 875-125 Tablet] 1 each PO BID #20 tablet Home Medications: Home Meds Ascorbic Acid [Vitamin C] 1,000 mg PO BID 07/13/14 [History] Multivitamin [Multi-Vitamin Daily] 1 tab PO DAILY 07/13/14 [History] [place]-3/DHA/Epa/Fish Oil [[place]-3 Fish Oil 1,000 MG Sfgl] 1,000 mg PO BID 07/13/14 [History] Simvastatin [Zocor] 20 mg PO BEDTIME 07/13/14 [History] Pregabalin 100 mg PO TID 01/20/21 [History] Ferrous Sulfate 325 mg PO BID@1200,1700 tablet 01/30/21 [Rx] Levothyroxine 75 mcg PO ACBREAKFAST tablet 01/30/21 [Rx] Potassium Chloride [Klor-Con M20] 20 meq PO BIDMEALS tab.er 01/30/21 [Rx] carvediloL [Coreg] 6.25 mg PO BID tablet 01/30/21 [Rx] Ipratropium/Albuterol Sulfate [Iprat-Albut 0.5-3(2.5) mg/3 ml] 3 ml IH ASDIRECTED PRN 02/01/21 [History] ondansetron HCL [Zofran] 8 mg PO Q8H PRN 02/01/21 [History] Amiodarone HCl [Pacerone] 200 mg PO DAILY 02/16/21 [History] Aspirin [Low Dose Aspirin EC] 81 mg PO DAILY 02/16/21 [History] Bumetanide [Bumex] 3 mg PO DAILY 02/16/21 [History] Cholecalciferol (Vitamin D3) [Vitamin D3] 1,000 unit PO BID 02/16/21 [History] DULoxetine [Cymbalta] 20 mg PO BEDTIME 02/16/21 [History] Insulin Glarg,Human.Rec.Analog [Lantus Solostar] 32 unit SUBCUT BID 02/16/21 [History] Isosorbide Mononitrate [Imdur] 30 mg PO DAILY 02/16/21 [History] Acetaminophen [Tylenol] 650 mg PO Q4H PRN 04/16/21 [History] Carboxymethylcellulose Sodium [Artificial Tears] 1 drop EYEBOTH QID 04/16/21 [History] Cyanocobalamin (Vitamin B-12) [Vitamin B-12] 1,000 mcg PO DAILY 04/16/21 [Hi story] Fluorometholone [Fluorometholone 0.1% Ophth Susp] 1 drop EYEBOTH QID 04/16/21 [History] Moxifloxacin [Vigamox 0.5% Ophth Soln] 1 drop EYEBOTH QID 04/16/21 [History] Rivaroxaban [Xarelto] 15 mg PO DAILY 04/24/21 [History] Amoxicillin/Potassium Clav [Augmentin 875-125 Tablet] 1 each PO BID #20 tablet 04/26/21 [Rx] Insulin Lispro [Humalog] 3 unit SUBCUT QIDACANDBED #1 pen 04/26/21 [Rx] Referrals: Alvarez Galvez DPM [Physician] - 04/29/21 1:00 pm (YOUR APPOINTMENT WITH DR. GALVEZ WILL BE AT THE [address] - Discharge Summary/Plan Comment DC Time >30 min.: No - Patient Data Vitals - Most Recent: Last Vital Signs Temp 97.2 F 04/26/21 11:03 Pulse 65 04/26/21 11:03 Resp 16 04/26/21 11:03 BP 121/49 L 04/26/21 11:03 Pulse Ox 93 L 04/26/21 11:03 Weight - Most Recent: 256 lb 9.6 oz I&O - Last 24 hours: Intake & Output 04/25/21 04/26/21 04/26/21 22:59 06:59 14:59 Intake Total 2225 455 120 Output Total 1900 Balance 325 455 120 Lab Results - Last 24 hrs: Laboratory Results - last 24 hr 04/25/21 04/25/21 04/25/21 Range/Units 11:36 16:18 20:58 POC Glucose 187 H 174 H 185 H (74-106) mg/dL 04/26/21 04/26/21 Range/Units 07:21 08:15 POC Glucose 58 L 80 (74-106) mg/dL SHEA Results - Last 24 hrs: Microbiology 04/24/21 14:55 Aerobic Blood Culture - Preliminary Blood NO GROWTH AFTER 1 DAY Anaerobic Blood Culture - Preliminary NO GROWTH AFTER 1 DAY Med Orders - Current: Current Medications Acetaminophen (Acetaminophen 325 Mg Tab) 650 mg PO Q4H PRN PRN Reason: Pain (Mild 1-3)/fever Last Admin: 04/25/21 21:05 Dose: 650 mg Documented by: Albuterol/Ipratropium (Albuterol/Ipratropium 3.0-0.5 Mg/3 Ml Neb Soln) 3 ml INH QIDRT [facility] Last Admin: 04/26/21 10:41 Dose: 3 ml Documented by: Amiodarone HCl (Amiodarone 200 Mg Tab) 200 mg PO DAILY [facility] Last Admin: 04/26/21 10:21 Dose: 200 mg Documented by: Artificial Tears (Hypromellose 0.3% Ophth Soln 15 Ml Bottle) 0 ml EYEBOTH QID [facility] Last Admin: 04/26/21 09:25 Dose: Not Given Documented by: Aspirin (Aspirin 81 Mg Tab.Ec) 81 mg PO DAILY [facility] Last Admin: 04/26/21 09:21 Dose: 81 mg Documented by: Atorvastatin Calcium (Atorvastatin 10 Mg Tab) 10 mg PO BEDTIME [facility] Last Admin: 04/25/21 21:00 Dose: 10 mg Documented by: Bumetanide (Bumetanide 1 Mg Tab) 3 mg PO DAILY@0800 [facility] Last Admin: 04/26/21 10:21 Dose: 3 mg Documented by: Bumetanide (Bumetanide 1 Mg Tab) 2 mg PO DAILY@1400 [facility] Last Admin: 04/25/21 15:09 Dose: 2 mg Documented by: Carvedilol (Carvedilol 3.125 Mg Tab) 6.25 mg PO BIDMEALS [facility] Last Admin: 04/26/21 10:21 Dose: 6.25 mg Documented by: Dextrose (Glucose Gel 15 Gm In 37.5 Gm Tube) 15 gm PO ONETIME PRN PRN Reason: Hypoglycemia Dextrose/Water (50% Dextrose In Water 50 Ml Syringe) 50 ml IVPUSH ASDIRECTED PRN PRN Reason: Hypoglycemia Duloxetine HCl (Duloxetine 20 Mg Cap) 20 mg PO BEDTIME [facility] Last Admin: 04/25/21 21:00 Dose: 20 mg Documented by: Fluorometholone (Fluorometholone 0.1% Ophth Susp 5 Ml Bottle) 0 ml EYEBOTH QID [facility] Last Admin: 04/26/21 09:21 Dose: 1 drop Documented by: Glucagon (Glucagon,Human Recombinant 1 Mg Vial) 1 mg IM ASDIRECTED PRN PRN Reason: Hypoglycemia Vancomycin HCl 1.75 gm/ Sodium (Chloride) 250 mls @ 166.667 mls/hr IV DAILY@1700 [facility] Last Admin: 04/25/21 17:01 Dose: 166.667 mls/hr Documented by: Piperacillin/Tazobactam/ (Dextrose 2.25 gm/ Premix) 50 mls @ 100 mls/hr IV Q6H [facility] Last Admin: 04/26/21 05:58 Dose: 100 mls/hr Documented by: Insulin Glargine (Insulin Glargine,Human Rec. Analog 100 Units/Ml 3 Ml Pen) 32 units SUBCUT BID [facility] Last Admin: 04/26/21 10:20 Dose: 24 units Documented by: Insulin Human Lispro (Insulin Lispro 100 Unit/Ml 3 Ml Kwikpen) 0 unit SUBCUT QIDACANDBED [facility]; Protocol Last Admin: 04/26/21 07:39 Dose: Not Given Documented by: Isosorbide Mononitrate (Isosorbide Mononitrate 30 Mg Tab.Er) 30 mg PO DAILY [facility] Last Admin: 04/26/21 10:21 Dose: 30 mg Documented by: Levothyroxine Sodium (Levothyroxine 25 Mcg Tab) 75 mcg PO ACBREAKFAST [facility] Last Admin: 04/26/21 07:40 Dose: 75 mcg Documented by: Moxifloxacin HCl (Moxifloxacin 0.5% Ophth Soln 3 Ml Bottle) 0 ml EYEBOTH QID [facility] Last Admin: 04/26/21 09:21 Dose: 1 drop Documented by: Ondansetron HCl (Ondansetron 4 Mg/2 Ml Sdv) 4 mg IV Q4H PRN PRN Reason: Nausea/Vomiting Polyethylene Glycol (Polyethylene Glycol 3350 Powder 17 Gm Packet) 17 gm PO DAILY PRN PRN Reason: Constipation Pregabalin (Pregabalin 100 Mg Cap) 100 mg PO TID [facility] Last Admin: 04/26/21 09:23 Dose: 100 mg Documented by: Rivaroxaban (Rivaroxaban 15 Mg Tab) 15 mg PO DAILY [facility] Last Admin: 04/26/21 09:21 Dose: 15 mg Documented by: Sodium Chloride (Sodium Chloride 0.9% 10 Ml Syringe) 10 ml FLUSH ASDIRECTED PRN PRN Reason: Keep Vein Open Discontinued Medications Albuterol/Ipratropium (Albuterol/Ipratropium 3.0-0.5 Mg/3 Ml Neb Soln) 3 ml INH ASDIRECTED PRN PRN Reason: Shortness of Breath Albuterol/Ipratropium (Albuterol/Ipratropium 3.0-0.5 Mg/3 Ml Neb Soln) 3 ml INH QID [facility] Last Admin: 04/25/21 06:08 Dose: Not Given Documented by: Cefazolin Sodium 0.5 gm/ (Sodium Chloride) 50 mls @ 200 mls/hr IV Q12H [facility] Sodium Chloride (Normal Saline) 1,000 mls @ 125 mls/hr IV ASDIRECTED [facility] Last Admin: 04/25/21 04:21 Dose: 125 mls/hr Documented by: Piperacillin Sod/Tazobactam (Sod 3.375 gm/ Sodium Chloride) 50 mls @ 100 mls/hr IV Q6H [facility] Last Admin: 04/24/21 19:29 Dose: Not Given Documented by: Piperacillin Sod/Tazobactam (Sod 2.25 gm/ Sodium Chloride) 50 mls @ 100 mls/hr IV Q6H [facility] Last Admin: 04/25/21 05:51 Dose: 100 mls/hr Documented by: Moxifloxacin HCl (Moxifloxacin 0.5% Ophth Soln 3 Ml Bottle) 0 ml EYEBOTH QID [facility] Last Admin: 04/25/21 06:08 Dose: 1 drop Documented by: Sodium Polystyrene Sulfonate (Sodium Polystyrene Sulfonate 15 Gm/60 Ml Susp 60 Ml Bot) 15 gm PO ONETIME ONE Stop: 04/24/21 18:15 Last Admin: 04/24/21 20:01 Dose: 15 gm Documented by: Vancomycin HCl (Vancomycin 1 Gm Sdv) 1 gm IV .PHARMACY TO DOSE [facility] Stop: 04/25/21 18:15 - Exam Quality Assessment: Reports: DVT Prophylaxis General: Reports: Alert, Oriented, Cooperative, Mild Distress Lungs: Reports: Clear to Auscultation, Normal Respiratory Effort, Decreased Breath Sounds Cardiovascular: Reports: Regular Rate, Regular Rhythm, No Murmurs GI/Abdominal Exam: Soft, Non-Tender, No Organomegaly, No Distention Extremities: Other (Large ulcer anterior aspect of the left foot and ankle) *Q Meaningful Use (DIS) - VTE *Q VTE Pharmacological Contraindications *Q: High INR Value
== END 2021-04-26 12:45 | DRG 638 ==
LOC: JP.ED 13:17 → JP.MS 17:33
PROVIDERS: ADMIT Hospitalist; ATTEND Hospitalist
DX: E11.621 Type 2 diabetes mellitus with foot ulcer (principal); L03.116 Cellulitis of left lower limb; I13.0 Hypertensive heart and chronic kidney disease with heart failure and stage 1 through stage 4 chronic kidney disease, or unspecified chronic kidney disease; Z68.41 Body mass index [BMI] 40.0-44.9, adult; I48.91 Unspecified atrial fibrillation; M21.332 Wrist drop, left wrist; N18.4 Chronic kidney disease, stage 4 (severe); N18.9 Chronic kidney disease, unspecified; G56.31 Lesion of radial nerve, right upper limb; E11.628 Type 2 diabetes mellitus with other skin complications; I48.0 Paroxysmal atrial fibrillation; H54.7 Unspecified visual loss; I25.10 Atherosclerotic heart disease of native coronary artery without angina pectoris; I50.9 Heart failure, unspecified; E78.00 Pure hypercholesterolemia, unspecified; K59.09 Other constipation; M19.90 Unspecified osteoarthritis, unspecified site; M54.9 Dorsalgia, unspecified; G89.29 Other chronic pain; M10.9 Gout, unspecified; F41.9 Anxiety disorder, unspecified; E66.9 Obesity, unspecified; E55.9 Vitamin D deficiency, unspecified; D63.1 Anemia in chronic kidney disease; Z96.649 Presence of unspecified artificial hip joint; L97.529 Non-pressure chronic ulcer of other part of left foot with unspecified severity; E11.22 Type 2 diabetes mellitus with diabetic chronic kidney disease; E87.5 Hyperkalemia; Z79.890 Hormone replacement therapy; G47.30 Sleep apnea, unspecified; E78.6 Lipoprotein deficiency; Z79.4 Long term (current) use of insulin; Z79.899 Other long term (current) drug therapy; Z85.828 Personal history of other malignant neoplasm of skin; Z98.49 Cataract extraction status, unspecified eye; Z98.890 Other specified postprocedural states; Z90.49 Acquired absence of other specified parts of digestive tract; Z87.891 Personal history of nicotine dependence; Z95.5 Presence of coronary angioplasty implant and graft; Z85.3 Personal history of malignant neoplasm of breast; Z79.01 Long term (current) use of anticoagulants; Z79.82 Long term (current) use of aspirin
CPT/HCPCS: 36415; 80048; 80053; 82947; 83605; 85025; 87040; 94640; 99284-25; A9270-GY; J1815; J1815-GY; J2543; J3370; J7030; J7050; J7620-GY

== ENCOUNTER 2021-05-08 14:05 | Emergency (ER) | payer MEDICARE, BC ==
[2021-05-08 15:23] VITALS: PULSE 71
--- NOTE | 2021-05-08 15:50 | EDM.PDOC ---
ED HPI GENERAL MEDICAL PROBLEM - General Chief Complaint: Lower Extremity Injury/Pain Stated Complaint: MAYBE INFECTION IN FOOT Time Seen by Provider: 05/08/21 15:30 Source of Information: Reports: Patient, Family - History of Present Illness INITIAL COMMENTS - FREE TEXT/NARRATIVE: 85-year-old female comes from the detention because the nurse over there thought that the ulcers on her left foot were looking worse than usual. She has had these apparently deep ulcers for months and the plan for fixing not sure of. There is a solvent plant operator apparently involved I will try to reach him. She has diabetes and peripheral vascular disease apparently which is complicating the issue. - Related Data Allergies Allergy/AdvReac Type Severity Reaction Status Date / Time No Known Allergies Allergy Verified 05/08/21 15:37 Home Meds: Home Meds Ascorbic Acid [Vitamin C] 1,000 mg PO BID 07/13/14 [History] Multivitamin [Multi-Vitamin Daily] 1 tab PO DAILY 07/13/14 [History] [place]-3/DHA/Epa/Fish Oil [[place]-3 Fish Oil 1,000 MG Sfgl] 1,000 mg PO BID 07/13/14 [History] Simvastatin [Zocor] 20 mg PO BEDTIME 07/13/14 [History] Pregabalin 100 mg PO TID 01/20/21 [History] Ferrous Sulfate 325 mg PO BID@1200,1700 tablet 01/30/21 [Rx] Levothyroxine 75 mcg PO ACBREAKFAST tablet 01/30/21 [Rx] Potassium Chloride [Klor-Con M20] 20 meq PO BIDMEALS tab.er 01/30/21 [Rx] carvediloL [Coreg] 6.25 mg PO BID tablet 01/30/21 [Rx] Ipratropium/Albuterol Sulfate [Iprat-Albut 0.5-3(2.5) mg/3 ml] 3 ml IH ASDIRECTED PRN 02/01/21 [History] ondansetron HCL [Zofran] 8 mg PO Q8H PRN 02/01/21 [History] Amiodarone HCl [Pacerone] 200 mg PO DAILY 02/16/21 [History] Aspirin [Low Dose Aspirin EC] 81 mg PO DAILY 02/16/21 [History] Bumetanide [Bumex] 3 mg PO DAILY 02/16/21 [History] Cholecalciferol (Vitamin D3) [Vitamin D3] 1,000 unit PO BID 02/16/21 [History] DULoxetine [Cymbalta] 20 mg PO BEDTIME 02/16/21 [History] Insulin Glarg,Human.Rec.Analog [Lantus Solostar] 32 unit SUBCUT BID 02/16/21 [History] Isosorbide Mononitrate [Imdur] 30 mg PO DAILY 02/16/21 [History] Acetaminophen [Tylenol] 650 mg PO Q4H PRN 04/16/21 [History] Carboxymethylcellulose Sodium [Artificial Tears] 1 drop EYEBOTH QID 04/16/21 [History] Cyanocobalamin (Vitamin B-12) [Vitamin B-12] 1,000 mcg PO DAILY 04/16/21 [History] Fluorometholone [Fluorometholone 0.1% Ophth Susp] 1 drop EYEBOTH QID 04/16/21 [History] Moxifloxacin [Vigamox 0.5% Ophth Soln] 1 drop EYEBOTH QID 04/16/21 [History] Rivaroxaban [Xarelto] 15 mg PO DAILY 04/24/21 [History] Amoxicillin/Potassium Clav [Augmentin 875-125 Tablet] 1 each PO BID #20 tablet 04/26/21 [Rx] Insulin Lispro [Humalog] 3 unit SUBCUT QIDACANDBED #1 pen 04/26/21 [Rx] Past Medical History HEENT History: Reports: Impaired Vision Cardiovascular History: Reports: Afib, Angina, CAD, Heart Failure, High Cholesterol, Hypertension, SOB on Exertion, Stents Respiratory History: Reports: Sleep Apnea, SOB Other Respiratory History: Uses cpap Gastrointestinal History: Reports: Chronic Constipation Genitourinary History: Reports: Renal Disease PHYSICS 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 ulcerated area, not open, to lateral inner foot on the left - Infectious Disease History Infectious Disease History: Reports: Mumps - Past Surgical History Head Surgeries/Procedures: Reports: None HEENT Surgical History: Reports: Cataract Surgery, Tonsillectomy Cardiovascular Surgical History: Reports: Coronary Artery Stent, Vascular Surgery Respiratory Surgical History: Reports: None GI Surgical History: Reports: Appendectomy, Cholecystectomy, Colonoscopy Female Surgical History: Reports: Mastectomy Endocrine Surgical History: Reports: None Musculoskeletal Surgical History: Reports: Hip Replacement Oncologic Surgical History: Reports: Mastectomy Dermatological Surgical History: Reports: None Social & Family History - Family History Family Medical History: No Pertinent Family History Oncologic: Reports: Leukemia, Lung - Tobacco Use Tobacco Use Status *Q: Never Tobacco User - Caffeine Use Caffeine Use: Reports: None - Recreational Drug Use Recreational Drug Use: No Review of Systems - Review of Systems Review Of Systems: See Below Constitutional: Reports: No Symptoms (No other system problems are identified of the acute nature other than the problems with her left foot) ED EXAM, GENERAL - Physical Exam Exam: See Below Free Text/Narrative:: 85-year-old alert cooperative female lying on the gurney not appearing to be distress on the phone try and organize a bus to go home before 6 PM. General exam is unremarkable She is a bit overweight Extremity examination shows a proximally 3 to 4 inch square denuded area on the dorsum of the left foot down to the tendons but it looks fairly clean and bleeding around the edges. There is a about a 3 to 4 cm area on the heel which appears to be necrotic. Course - Vital Signs Text/Narrative:: Attempt will be made to reach the solvent plant operator. Patient does not appear to need inpatient care at this juncture. Dr Galvez the solvent plant operator is reached at [phone] cell number and asked that he be called after we check it out to be sure that there is not any sepsis re presented in this patient Laboratory is negative without evidence of sepsis or systemic infection and dressing will be applied and follow-up with the solvent plant operator Last Recorded V/S: Last Vital Signs Temp 36.4 C 05/08/21 15:36 Pulse 71 05/08/21 16:35 Resp 16 05/08/21 15:36 BP 99/34 L 05/08/21 16:35 Pulse Ox 90 L 05/08/21 15:36 - Orders/Labs/Meds Labs: Laboratory Tests 05/08/21 05/08/21 05/08/21 Range/Units 16:18 16:18 16:18 WBC 7.7 (4.5-11.0) K/uL RBC 4.28 (3.30-5.50) M/uL Hgb 12.2 (12.0-15.0) g/dL Hct 38.0 (36.0-48.0) % MCV 89 (80-98) fL MCH 29 (27-31) pg MCHC 32 (32-36) % Plt Count 296 (150-400) K/uL ESR (0-25) mm/hr Sodium 134 L (140-148) mmol/L Potassium 3.8 (3.6-5.2) mmol/L Chloride 93 L (100-108) mmol/L Carbon Dioxide 34 H (21-32) mmol/L Anion Gap 10.8 (5.0-14.0) mmol/L BUN 25 H (7-18) mg/dL Creatinine 1.3 H (0.6-1.0) mg/dL Est Cr Clr Drug Dosing 27.12 mL/min Estimated GFR (MDRD) 39 L (>60) Glucose 313 H (74-106) mg/dL Lactic Acid 2.0 (0.4-2.0) mmol/L Calcium 9.4 (8.5-10.1) mg/dL Total Bilirubin 0.3 (0.2-1.0) mg/dL AST 22 (15-37) U/L ALT 30 (12-78) U/L Alkaline Phosphatase 106 (46-116) U/L C-Reactive Protein 2.37 H (0.0-0.3) mg/dL Total Protein 7.7 (6.4-8.2) g/dL Albumin 3.0 L (3.4-5.0) g/dL Globulin 4.7 H (2.3-3.5) g/dL Albumin/Globulin Ratio 0.6 L (1.2-2.2) 05/08/21 Range/Units 16:18 WBC (4.5-11.0) K/uL RBC (3.30-5.50) M/uL Hgb (12.0-15.0) g/dL Hct (36.0-48.0) % MCV (80-98) fL MCH (27-31) pg MCHC (32-36) % Plt Count (150-400) K/uL ESR 82 H (0-25) mm/hr Sodium (140-148) mmol/L Potassium (3.6-5.2) mmol/L Chloride (100-108) mmol/L Carbon Dioxide (21-32) mmol/L Anion Gap (5.0-14.0) mmol/L BUN (7-18) mg/dL Creatinine (0.6-1.0) mg/dL Est Cr Clr Drug Dosing mL/min Estimated GFR (MDRD) (>60) Glucose (74-106) mg/dL Lactic Acid (0.4-2.0) mmol/L Calcium (8.5-10.1) mg/dL Total Bilirubin (0.2-1.0) mg/dL AST (15-37) U/L ALT (12-78) U/L Alkaline Phosphatase (46-116) U/L C-Reactive Protein (0.0-0.3) mg/dL Total Protein (6.4-8.2) g/dL Albumin (3.4-5.0) g/dL Globulin (2.3-3.5) g/dL Albumin/Globulin Ratio (1.2-2.2) Departure - Departure Time of Disposition: 19:00 Disposition: Home, Self-Care 01 Condition: Good Clinical Impression: Open ankle wound - Discharge Information Referrals: Javier Weathers MD [Primary Care Provider] - Forms: ED Department Discharge Sepsis Event Note (ED) - Evaluation Sepsis Screening Result: No Definite Risk - Focused Exam Vital Signs: Vital Signs Temp Pulse Resp BP Pulse Ox 05/08/21 16:35 71 99/34 L 05/08/21 15:36 36.4 C 71 16 115/42 L 90 L 05/08/21 15:18 36.4 C 71 16 115/42 L 90 L
[2021-05-08 16:35] VITALS: BP 99/34
== END 2021-05-08 19:01 | disposition home or self-care (01) ==
LOC: JP.ED 14:05
DX: S91.302A Unspecified open wound, left foot, initial encounter (principal); I25.10 Atherosclerotic heart disease of native coronary artery without angina pectoris; E78.00 Pure hypercholesterolemia, unspecified; I48.91 Unspecified atrial fibrillation; I11.0 Hypertensive heart disease with heart failure; I50.9 Heart failure, unspecified; E11.9 Type 2 diabetes mellitus without complications; E66.9 Obesity, unspecified; Z95.5 Presence of coronary angioplasty implant and graft; Z68.41 Body mass index [BMI] 40.0-44.9, adult; Z79.899 Other long term (current) drug therapy; Z79.82 Long term (current) use of aspirin; Z79.01 Long term (current) use of anticoagulants; X58.XXXA Exposure to other specified factors, initial encounter; Y92.129 Unspecified place in nursing home as the place of occurrence of the external cause
CPT/HCPCS: 36415; 80053; 83605; 85027; 85651; 86140; 99284

== ENCOUNTER 2021-06-29 16:02 | Inpatient (IN) | payer MEDICARE, BC ==
[2021-06-29] MEDS ORDERED: HYDROmorphone 1 MG/ML Syringe IM ONE (17:22)
--- NOTE | 2021-06-29 17:25 | EDM.PDOC ---
ED HPI GENERAL MEDICAL PROBLEM - General Chief Complaint: Respiratory Problem Stated Complaint: CHEST PAIN Time Seen by Provider: 06/29/21 16:05 Source of Information: Reports: Patient, Old Records, RN Notes Reviewed History Limitations: Reports: No Limitations - History of Present Illness INITIAL COMMENTS - FREE TEXT/NARRATIVE: 85-year-old female presents emergency department day complaint of chest pain, she has very complex medical history and recently had a cardiac arrest suspect related to hypoxia and hypercapnia did have return of spontaneous circulation after CPR. Just discharged from hospital yesterday. Her complaint today is ongoing chest pain particular when she takes a deep breath. No nausea vomiting no shortness of breath no diaphoresis Chest Pain Score (Numeric/FACES): 6 - Related Data Allergies Allergy/AdvReac Type Severity Reaction Status Date / Time No Known Allergies Allergy Verified 06/29/21 16:43 Home Meds: Home Meds Ascorbic Acid [Vitamin C] 1,000 mg PO BID 07/13/14 [History] Multivitamin [Multi-Vitamin Daily] 1 tab PO DAILY 07/13/14 [History] [place]-3/DHA/Epa/Fish Oil [[place]-3 Fish Oil 1,000 MG Sfgl] 1,000 mg PO BID 07/13/14 [History] Simvastatin [Zocor] 20 mg PO BEDTIME 07/13/14 [History] Pregabalin 100 mg PO TID 01/20/21 [History] Ferrous Sulfate 325 mg PO BID@1200,1700 tablet 01/30/21 [Rx] Levothyroxine 75 mcg PO ACBREAKFAST tablet 01/30/21 [Rx] Potassium Chloride [Klor-Con M20] 20 meq PO BIDMEALS tab.er 01/30/21 [Rx] carvediloL [Coreg] 6.25 mg PO BID tablet 01/30/21 [Rx] Ipratropium/Albuterol Sulfate [Iprat-Albut 0.5-3(2.5) mg/3 ml] 3 ml IH ASDIRECTED PRN 02/01/21 [History] ondansetron HCL [Zofran] 8 mg PO Q8H PRN 02/01/21 [History] Amiodarone HCl [Pacerone] 200 mg PO DAILY 02/16/21 [History] Aspirin [Low Dose Aspirin EC] 81 mg PO DAILY 02/16/21 [History] Bumetanide [Bumex] 3 mg PO DAILY 02/16/21 [History] Cholecalciferol (Vitamin D3) [Vitamin D3] 1,000 unit PO BID 02/16/21 [History] DULoxetine [Cymbalta] 20 mg PO BEDTIME 02/16/21 [History] Insulin Glarg,Human.Rec.Analog [Lantus Solostar] 32 unit SUBCUT BID 02/16/21 [History] Isosorbide Mononitrate [Imdur] 30 mg PO DAILY 02/16/21 [History] Acetaminophen [Tylenol] 650 mg PO Q4H PRN 04/16/21 [History] Carboxymethylcellulose Sodium [Artificial Tears] 1 drop EYEBOTH QID 04/16/21 [History] Cyanocobalamin (Vitamin B-12) [Vitamin B-12] 1,000 mcg PO DAILY 04/16/21 [History] Fluorometholone [Fluorometholone 0.1% Ophth Susp] 1 drop EYEBOTH QID 04/16/21 [History] Moxifloxacin [Vigamox 0.5% Ophth Soln] 1 drop EYEBOTH QID 04/16/21 [History] Rivaroxaban [Xarelto] 15 mg PO DAILY 04/24/21 [History] Amoxicillin/Potassium Clav [Augmentin 875-125 Tablet] 1 each PO BID #20 tablet 04/26/21 [Rx] Insulin Lispro [Humalog] 3 unit SUBCUT QIDACANDBED #1 pen 04/26/21 [Rx] traMADol [Ultram] 50 mg PO Q6H PRN 06/29/21 [History] Past Medical History HEENT History: Reports: Impaired Vision Cardiovascular History: Reports: Afib, Angina, CAD, Heart Failure, High Cholesterol, Hypertension, SOB on Exertion, Stents, Other (See Below) Other Cardiovascular History: ?PEA arrest s/p cpr and ROSC after electibe LE angiogram Respiratory History: Reports: Sleep Apnea, SOB Other Respiratory History: Uses cpap Gastrointestinal History: Reports: Chronic Constipation Genitourinary History: Reports: Renal Disease [employer] History: 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 ulcerated area, not open, to lateral inner foot on the left - Infectious Disease History Infectious Disease History: Reports: Chicken Pox, Mumps - Past Surgical History Head Surgeries/Procedures: Reports: None HEENT Surgical History: Reports: Cataract Surgery, Tonsillectomy Cardiovascular Surgical History: Reports: Coronary Artery Stent, Vascular Surgery Respiratory Surgical History: Reports: None GI Surgical History: Reports: Appendectomy, Cholecystectomy, Colonoscopy Female Surgical History: Reports: Mastectomy Endocrine Surgical History: Reports: None Musculoskeletal Surgical History: Reports: Hip Replacement Oncologic Surgical History: Reports: Mastectomy Dermatological Surgical History: Reports: None Social & Family History - Family History Family Medical History: No Pertinent Family History Oncologic: Reports: Leukemia, Lung - Tobacco Use Tobacco Use Status *Q: Never Tobacco User - Caffeine Use Caffeine Use: Reports: None ED ROS GENERAL - Review of Systems Review Of Systems: See Below Constitutional: Reports: No Symptoms HEENT: Reports: No Symptoms Respiratory: Reports: No Symptoms Cardiovascular: Reports: Chest Pain GI/Abdominal: Reports: No Symptoms : Reports: No Symptoms ED EXAM, GENERAL - Physical Exam Exam: See Below Exam Limited By: No Limitations General Appearance: Alert, WD/WN, No Apparent Distress Respiratory/Chest: No Respiratory Distress, Lungs Clear, Normal Breath Sounds, No Accessory Muscle Use, Chest Non-Tender Cardiovascular: No Murmur, Irregularly Irregular #1 Interpretation EKG Date: 06/29/21 Time: 18:17 Rhythm: NSR [place]: Normal P-Wave: Present QRS: RBBB ST-T: Normal QT: Normal Comparison: No Change Course - Vital Signs Last Recorded V/S: Last Vital Signs Temp 98.3 F 06/29/21 16:32 Pulse 70 06/29/21 17:55 Resp 20 06/29/21 17:55 BP 147/69 H 06/29/21 17:55 Pulse Ox 92 L 06/29/21 17:55 - Orders/Labs/Meds Orders: Active Orders 24 hr Category Date Time Status Dextrose 50% in Water Med 06/29/21 18:08 Active 50 ml IVPUSH ASDIRECTED PRN Glucagon,Human Recombinant [GlucaGen] Med 06/29/21 18:08 Active 1 mg IM ASDIRECTED PRN EKG 12 Lead [EK] Stat Ther 06/29/21 17:24 Ordered Medication Orders Dextrose/Water (50% Dextrose In Water 50 Ml Syringe) 50 ml IVPUSH ASDIRECTED PRN PRN Reason: Hypoglycemia Glucagon (Glucagon,Human Recombinant 1 Mg Vial) 1 mg IM ASDIRECTED PRN PRN Reason: Hypoglycemia Labs: Laboratory Tests 06/29/21 06/29/21 06/29/21 Range/Units 17:40 17:40 17:40 WBC 11.0 (4.5-11.0) K/uL RBC 3.67 (3.30-5.50) M/uL Hgb 10.5 L (12.0-15.0) g/dL Hct 32.8 L (36.0-48.0) % MCV 89 (80-98) fL MCH 29 (27-31) pg MCHC 32 (32-36) % Plt Count 315 (150-400) K/uL Neut % (Auto) 80.3 H (36-66) % Lymph % (Auto) 11.0 L (24-44) % [place] % (Auto) 8.3 H (2-6) % Eos % (Auto) 0.1 L (2-4) % Baso % (Auto) 0.3 (0-1) % Sodium 131 L (140-148) mmol/L Potassium 4.7 (3.6-5.2) mmol/L Chloride 95 L (100-108) mmol/L Carbon Dioxide 30 (21-32) mmol/L Anion Gap 10.7 (5.0-14.0) mmol/L BUN 43 H D (7-18) mg/dL Creatinine 2.3 H D (0.6-1.0) mg/dL Est Cr Clr Drug Dosing 17.35 mL/min Estimated GFR (MDRD) 20 L (>60) Glucose 414 H* (74-106) mg/dL Calcium 9.9 (8.5-10.1) mg/dL Troponin I 0.045 (0.000-0.056) ng/mL Meds: Medications Generic Name Dose Route Start Last Admin Trade Name Freq PRN Reason Stop Dose Admin Dextrose/Water 50 ml 06/29/21 18:08 50% Dextrose In Water 50 Ml Syringe IVPUSH ASDIRECTED PRN Hypoglycemia Glucagon 1 mg 06/29/21 18:08 Glucagon,Human Recombinant 1 Mg Vial IM ASDIRECTED PRN Hypoglycemia Discontinued Medications Generic Name Dose Route Start Last Admin Trade Name Todd PRN Reason Stop Dose Admin Hydromorphone HCl 1 mg 06/29/21 17:22 06/29/21 17:48 Hydromorphone 1 Mg/Ml Syringe IM 06/29/21 17:23 1 mg ONETIME ONE Administration Insulin Human Regular 15 unit 06/29/21 18:08 06/29/21 18:21 Insulin Regular, Human 100 Units/Ml 3 Ml Vial SUBCUT 06/29/21 18:09 15 units ONETIME ONE Administration Protocol Departure - Departure Time of Disposition: 18:37 Disposition: Home, Self-Care 01 Condition: Poor Clinical Impression: Chest wall pain - Discharge Information Instructions: Chest Wall Pain, [id number] Referrals: PCP,None [Primary Care Provider] - Forms: ED Department Discharge Additional Instructions: Hospice services will contact you tomorrow and provide a consult of services that they can provide, use the hydrocodone as needed for pain control Sepsis Event Note (ED) - Focused Exam Vital Signs: Vital Signs Temp Pulse Resp BP Pulse Ox 06/29/21 17:55 70 20 147/69 H 92 L 06/29/21 16:32 98.3 F 71 18 122/44 L 95 - My Orders Last 24 Hours: My Active Orders 06/29/21 17:24 EKG 12 Lead [EK] Stat 06/29/21 18:08 Dextrose 50% in Water 50 ml IVPUSH ASDIRECTED PRN Glucagon,Human Recombinant [GlucaGen] 1 mg IM ASDIRECTED PRN - Assessment/Plan Last 24 Hours: My Active Orders 06/29/21 17:24 EKG 12 Lead [EK] Stat 06/29/21 18:08 Dextrose 50% in Water 50 ml IVPUSH ASDIRECTED PRN Glucagon,Human Recombinant [GlucaGen] 1 mg IM ASDIRECTED PRN Plan: Assessment Acuity = acute Site and laterality = chest pain Etiology = secondary to cardiopulmonary resuscitation Manifestations = none Location of injury = Home Lab values = hemoglobin low 10.3 consistent with normochromic anemia creatinine elevated 2.3 consistent with chronic renal failure stage G4 glucose elevated at 414 consistent hyperglycemia troponin normal range 0.045 prior related to recent chest compressions EKG demonstrates a right bundle branch block no change from prior Plan Did discuss options with them they would like to proceed with comfort care only therefore hospice consult was initiated did speak with Malia at 1630 she kindly agreed to provide a consult for hospice services tomorrow and they will decide if they are going to pursue this. She is discharged home hydrocodone 5/325 1 tab p.o. 3 times daily as needed total #10 This note was dictated using [employer] voice recognition software please call with any questions on syntax or grammar.
[2021-06-29] MEDS ORDERED: Insulin Regular, Human 100 Units/ML 3 ML Vial SUBCUT ONE (18:08)
[2021-06-29] MEDS ORDERED: Glucagon,Human Recombinant 1 MG Vial IM PRN ×2 (18:08→20:56)
[2021-06-29] MEDS ORDERED: 50% Dextrose in Water 50 ML Syringe IVPUSH PRN ×2 (18:08→20:56)
--- NOTE | 2021-06-29 20:12 | PCM.HP.2 ---
H&P History of Present Illness - General Date of Service: 06/29/21 Admit Problem/Dx: Admission Diagnosis/Problem Admission Diagnosis/Problem Acute respiratory failure with hypoxia Source of Information: Patient, Family, Provider History Limitations: Reports: No Limitations - History of Present Illness Initial Comments - Free Text/Narative: CC: My chest hurts HPI: Annie presents to the emergency room today with chest pain. She was discharged from the hospital yesterday after a short but complicated stay. She was there for an elective lower extremity angiogram and had a PEA arrest probably secondary to a respiratory arrest. She was resuscitated and spent a night in the intensive care unit. She was intubated and did require vasopressors. She recovered fairly quickly and was discharged the next day with home oxygen. Since getting home she has had difficulty with shortness of breath as well as chest pain from the compressions. She describes some achy and some sharp central chest pain. This does not radiate. It is worse with a deep breath. Tramadol has not been helping much. Because it hurts to take a deep breath she feels more short of breath. She is very weak and having more difficulty than usual getting around at home. She does not currently report pain in the left lower leg. Both of her legs are numb from the knee down. Family feels that ongoing aggressive interventions are hurting more than helping. They are interested in considering a transition to hospice. Patient is kind of on the fence at this time. She does not want heroic measures such as CPR or intubation again. She is hypoxic beyond baseline and also has evidence for acute kidney injury on laboratory studies. She will be admitted for further management. Chest Pain Score (Numeric/FACES): 6 - Related Data Allergies/Adverse Reactions: Allergies Allergy/AdvReac Type Severity Reaction Status Date / Time No Known Allergies Allergy Verified 06/29/21 16:43 Home Medications: Home Meds Ascorbic Acid [Vitamin C] 1,000 mg PO BID 07/13/14 [History] Multivitamin [Multi-Vitamin Daily] 1 tab PO DAILY 07/13/14 [History] [place]-3/DHA/Epa/Fish Oil [[place]-3 Fish Oil 1,000 MG Sfgl] 1,000 mg PO BID 07/13/14 [History] Simvastatin [Zocor] 20 mg PO BEDTIME 07/13/14 [History] Pregabalin 100 mg PO TID 01/20/21 [History] Ferrous Sulfate 325 mg PO BID@1200,1700 tablet 01/30/21 [Rx] Levothyroxine 75 mcg PO ACBREAKFAST tablet 01/30/21 [Rx] Potassium Chloride [Klor-Con M20] 20 meq PO BIDMEALS tab.er 01/30/21 [Rx] carvediloL [Coreg] 6.25 mg PO BID tablet 01/30/21 [Rx] Ipratropium/Albuterol Sulfate [Iprat-Albut 0.5-3(2.5) mg/3 ml] 3 ml IH ASDIRECTED PRN 02/01/21 [History] ondansetron HCL [Zofran] 8 mg PO Q8H PRN 02/01/21 [History] Amiodarone HCl [Pacerone] 200 mg PO DAILY 02/16/21 [History] Aspirin [Low Dose Aspirin EC] 81 mg PO DAILY 02/16/21 [History] Bumetanide [Bumex] 3 mg PO DAILY 02/16/21 [History] Cholecalciferol (Vitamin D3) [Vitamin D3] 1,000 unit PO BID 02/16/21 [History] DULoxetine [Cymbalta] 20 mg PO BEDTIME 02/16/21 [History] Insulin Glarg,Human.Rec.Analog [Lantus Solostar] 32 unit SUBCUT BID 02/16/21 [History] Isosorbide Mononitrate [Imdur] 30 mg PO DAILY 02/16/21 [History] Acetaminophen [Tylenol] 650 mg PO Q4H PRN 04/16/21 [History] Carboxymethylcellulose Sodium [Artificial Tears] 1 drop EYEBOTH QID 04/16/21 [History] Cyanocobalamin (Vitamin B-12) [Vitamin B-12] 1,000 mcg PO DAILY 04/16/21 [History] Fluorometholone [Fluorometholone 0.1% Ophth Susp] 1 drop EYEBOTH QID 04/16/21 [History] Moxifloxacin [Vigamox 0.5% Ophth Soln] 1 drop EYEBOTH QID 04/16/21 [History] Rivaroxaban [Xarelto] 15 mg PO DAILY 04/24/21 [History] Amoxicillin/Potassium Clav [Augmentin 875-125 Tablet] 1 each PO BID #20 tablet 04/26/21 [Rx] Insulin Lispro [Humalog] 3 unit SUBCUT QIDACANDBED #1 pen 04/26/21 [Rx] traMADol [Ultram] 50 mg PO Q6H PRN 06/29/21 [History] Past Medical History HEENT History: Reports: Impaired Vision Cardiovascular History: Reports: Afib, Angina, CAD, Heart Failure, High [place], Hypertension, SOB on Exertion, Stents, Other (See Below) Other Cardiovascular History: ?PEA arrest s/p cpr and ROSC after electibe LE angiogram Respiratory History: Reports: Sleep Apnea, SOB Other Respiratory History: Uses cpap Gastrointestinal History: Reports: Chronic Constipation Genitourinary History: Reports: Renal Disease [employer]ER History: 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 ulcerated area, not open, to lateral inner foot on the left - Infectious Disease History Infectious Disease History: Reports: Chicken Pox, Mumps - Past Surgical History Head Surgeries/Procedures: Reports: None HEENT Surgical History: Reports: Cataract Surgery, Tonsillectomy Cardiovascular Surgical History: Reports: Coronary Artery Stent, Vascular Surgery Respiratory Surgical History: Reports: None GI Surgical History: Reports: Appendectomy, Cholecystectomy, Colonoscopy Female Surgical History: Reports: Mastectomy Endocrine Surgical History: Reports: None Musculoskeletal Surgical History: Reports: Hip Replacement Oncologic Surgical History: Reports: Mastectomy Dermatological Surgical History: Reports: None Social & Family History - Family History Family Medical History: No Pertinent Family History Oncologic: Reports: Leukemia, Lung - Tobacco Use Tobacco Use Status *Q: Never Tobacco User - Caffeine Use Caffeine Use: Reports: None - Alcohol Use Alcohol Use History: No Alcohol Use in Last Twelve Months: No H&P Review of Systems - Review of Systems: Review Of Systems: See Below Free Text/Narrative: A complete 12 point review of systems was obtained. Pertinent positives and negatives are noted in the history of present illness. All other systems were reviewed and were negative except as noted. Exam - Exam Exam: See Below - Vital Signs Vital Signs: Last Vital Signs Temp 36.8 C 06/29/21 16:32 Pulse 70 06/29/21 17:55 Resp 20 06/29/21 17:55 BP 147/69 H 06/29/21 17:55 Pulse Ox 92 L 06/29/21 17:55 Weight: 111.584 kg - Exam Quality Assessment: Supplemental Oxygen General: Alert, Oriented, Cooperative, Lethargic (Somewhat sleepy). No: Mild Distress HEENT: Conjunctiva Clear. No: Mucosa Moist & [place] (dry), Scleral Icterus Neck: Supple, Trachea Midline. No: JVD Lungs: Normal Respiratory Effort, Decreased Breath Sounds (Both bases) Cardiovascular: Regular Rate, Regular Rhythm, Systolic Murmur GI/Abdominal Exam: Normal Bowel Sounds, Soft, Non-Tender, No Distention Extremities: No Pedal Edema, Other (Left foot and ankle wrapped with [place] wrap). No: Increased Warmth Skin: Warm, Dry Neuro Extensive - Mental Status: Alert, Oriented x3, Nl Response to Commands Neuro Extensive - Motor, Sensory, Reflexes: No: Dysarthria, Abnormal Motor, Tremor Psychiatric: Alert, Normal Affect - Patient Data Lab Results Last 24 hrs: Laboratory Results - last 24 hr 06/29/21 06/29/21 06/29/21 Range/Units 17:40 17:40 17:40 WBC 11.0 (4.5-11.0) K/uL RBC 3.67 (3.30-5.50) M/uL Hgb 10.5 L (12.0-15.0) g/dL Hct 32.8 L (36.0-48.0) % MCV 89 (80-98) fL MCH 29 (27-31) pg MCHC 32 (32-36) % Plt Count 315 (150-400) K/uL Neut % (Auto) 80.3 H (36-66) % Lymph % (Auto) 11.0 L (24-44) % [place] % (Auto) 8.3 H (2-6) % Eos % (Auto) 0.1 L (2-4) % Baso % (Auto) 0.3 (0-1) % Sodium 131 L (140-148) mmol/L Potassium 4.7 (3.6-5.2) mmol/L Chloride 95 L (100-108) mmol/L Carbon Dioxide 30 (21-32) mmol/L Anion Gap 10.7 (5.0-14.0) mmol/L BUN 43 H D (7-18) mg/dL Creatinine 2.3 H D (0.6-1.0) mg/dL Est Cr Clr Drug Dosing 17.35 mL/min Estimated GFR (MDRD) 20 L (>60) Glucose 414 H* (74-106) mg/dL Calcium 9.9 (8.5-10.1) mg/dL Troponin I 0.045 (0.000-0.056) ng/mL Result Diagrams: 06/29/21 17:40 06/29/21 17:40 #1 Interpretation EKG Date: 06/29/21 Rhythm: NSR Rate (Beats/Min): 70 [place]: RAD-Right [place] Deviation P-Wave: Present QRS: RBBB ST-T: Normal QT: Normal [place]/PQ Interval: Normal Comparison: No Change EKG Interpretation Comments: This EKG image was personally reviewed in the emergency room at the time of admission Sepsis Event Note - Focused Exam Vital Signs: Vital Signs Temp Pulse Resp BP Pulse Ox 06/29/21 17:55 70 20 147/69 H 92 L 06/29/21 16:32 36.8 C 71 18 122/44 L 95 *Q Meaningful Use (ADM) - VTE Risk Assess *Q Each Risk Factor Represents 1 Point: Obesity ( BMI > 25 kg/m2), Congestive heart failure (CHF) Total Score 1 Point Risk Factors: 2 Each Risk Factor Represents 2 Points: Malignancy (present or previous) Total Score 2 Point Risk Factors: 2 Each Risk Factor Represents 3 Points: Age 75 Years or Greater Total Score 3 Point Risk Factors: 3 Each Risk Factor Represents 5 Points: None Total Score 5 Point Risk Factors: 0 Venous Thromboembolism Risk Factor Score *Q: 7 - Problem List (1) Acute respiratory failure with hypoxia SNOMED Code(s): 17309671, 637983148 ICD Code: J96.01 - ACUTE RESPIRATORY FAILURE WITH HYPOXIA Status: Acute Current Visit: Yes (2) Acute chest wall pain SNOMED Code(s): 559110033, 722316773 ICD Code: R07.89 - OTHER CHEST PAIN Status: Acute Current Visit: Yes (3) Acute kidney injury superimposed on chronic kidney disease SNOMED Code(s): 62798240 ICD Code: N17.9 - ACUTE KIDNEY FAILURE, UNSPECIFIED; N18.9 - CHRONIC KIDNEY DISEASE, UNSPECIFIED Status: Acute Current Visit: Yes (4) Peripheral vascular disease due to secondary diabetes mellitus SNOMED Code(s): 743102576, 411747945 ICD Code: E13.51 - OTH DIABETES W DIABETIC PERIPHERAL ANGIOPATHY W/O GANGRENE Status: Chronic Current Visit: Yes (5) Chronic ulcer of left foot SNOMED Code(s): 374033464, 663302589 ICD Code: L97.529 - NON-PRESSURE CHRONIC ULCER OTH PRT LEFT FOOT W UNSP SEVERITY Status: Chronic Current Visit: No Qualifiers: Non-pressure ulcer stage: unspecified non-pressure ulcer stage Qualified Code(s): L97.529 - Non-pressure chronic ulcer of other part of left foot with unspecified severity (6) Heart failure with preserved ejection fraction SNOMED Code(s): 021861814 ICD Code: I50.30 - UNSPECIFIED DIASTOLIC (CONGESTIVE) HEART FAILURE Status: Chronic Current Visit: No Qualifiers: Heart failure chronicity: acute on chronic Qualified Code(s): I50.33 - Acute on chronic diastolic (congestive) heart failure (7) Insulin dependent diabetes mellitus SNOMED Code(s): 69447422 ICD Code: SUB3507 - Status: Chronic Current Visit: No Problem List Initiated/Reviewed/Updated: Yes Orders Last 24hrs: Active Orders 24 hr Category Date Time Status Patient Status Manage Transfer [TRANSFER] Routine ADT 06/29/21 20:02 Ordered Dextrose 50% in Water Med 06/29/21 18:08 Active 50 ml IVPUSH ASDIRECTED PRN Glucagon,Human Recombinant [GlucaGen] Med 06/29/21 18:08 Active 1 mg IM ASDIRECTED PRN Resuscitation Status Routine Resus Stat 06/29/21 20:07 Ordered EKG 12 Lead [EK] Stat Ther 06/29/21 17:24 Ordered Medication Orders Dextrose/Water (50% Dextrose In Water 50 Ml Syringe) 50 ml IVPUSH ASDIRECTED PRN PRN Reason: Hypoglycemia Glucagon (Glucagon,Human Recombinant 1 Mg Vial) 1 mg IM ASDIRECTED PRN PRN Reason: Hypoglycemia Assessment/Plan Comment:: ASSESSMENT AND PLAN - Acute respiratory failure with hypoxia-multifactorial with chest wall pain secondary to recent resuscitation following cardiac and respiratory arrest. She also has heart failure with preserved ejection fraction with previous hypoxia. She is requiring increased oxygen from baseline at this time. Very limited mobility and difficulty with pain control. -Symptomatic management of pain -Supplement oxygen as needed, wean as able Acute kidney injury-creatinine is more than double her baseline at this time. Probably has an element of intravascular volume depletion. -Hold diuretics Heart failure with preserved ejection fraction-does not appear to have significant decompensation at this time. -Continue medical management Peripheral vascular disease secondary to diabetes-complicated by nonhealing ulcer of the left lower extremity. Amputation of the leg is being considered. 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 Suboptimally controlled. -Continue long-acting insulin -Mealtime insulin with medium dose sliding scale Paroxysmal atrial fibrillation-she is chronically anticoagulated and has been on rivaroxaban. I am planning to hold this with her kidney injury. We may need to transition to apixaban. -Continue beta-gladys -Hold anticoagulation Encounter for palliative care-patient does not want heroic interventions at this time. She is considering a transition to comfort care but would like some time to think about it. She is weighing at the potential for benefit from aggressive interventions that will increase pain versus transition to more of a comfort based approach and maximize quality of life. She does not want to transfer to a tertiary care center for aggressive management at this time. Maintenance issues - -DVT prophylaxis-consider apixaban if kidney function does not improve -GI prophylaxis-not indicated -Nutrition-diabetic -[place] catheter-not indicated CODE STATUS -DNR/DNI Admission justification -this patient will be admitted for inpatient services and is medically appropriate meeting medical necessity for inpatient admission as outlined in my documentation. I reasonably expect the patient will require inpatient services that span a period time over 2 midnights. I reasonably expect this patient to be discharged or transferred within 96 hours [facility]. Disposition -I anticipate discharge home after the hospital stay Primary care physician -Dr. Jasiel Plummer M.D. - Mortality Measure Prognosis:: Poor
[2021-06-29] MEDS ORDERED: Ondansetron 4 MG Tab.DIS PO PRN (20:56)
[2021-06-29] MEDS ORDERED: Acetaminophen 325 MG Tab PO PRN (20:56)
[2021-06-29] MEDS ORDERED: LORazepam 2 MG/ML SDV IVPUSH PRN (20:56)
[2021-06-29] MEDS ORDERED: Magnesium Hydroxide 400 MG/5 ML Susp 30 ML Cup PO PRN (20:56)
[2021-06-29] MEDS ORDERED: Ondansetron 4 MG/2 ML SDV IV PRN (20:56)
[2021-06-29] MEDS ORDERED: Albuterol 0.083% 2.5 MG/3 ML Neb Soln NEB PRN (20:56)
[2021-06-29] MEDS ORDERED: Acetaminophen/HYDROcodone 325-5 MG Tab PO PRN (20:56)
[2021-06-29] MEDS: Melatonin 3 MG Tab PO SCH (21:28)
[2021-06-29] MEDS: DULoxetine 20 MG Cap PO SCH (21:28)
[2021-06-29] MEDS: Hypromellose 0.3% Ophth Soln 15 ML Bottle EYEBOTH SCH (21:28)
[2021-06-29] MEDS: Carvedilol 3.125 MG Tab PO SCH (21:28)
[2021-06-29] MEDS: Fluorometholone 0.1% Ophth Susp 5 ML Bottle EYEBOTH SCH (21:29)
[2021-06-29] MEDS: Insulin Glargine,Human Rec. Analog 100 Units/ML 3 ML Pen SUBCUT SCH (21:30)
[2021-06-29] MEDS: Insulin Lispro 100 Unit/ML 3 ML KwikPen SUBCUT SCH (21:32)
[2021-06-29] MEDS ORDERED: Nystatin Topical Powder 15 GM Bottle TOP PRN (22:09)
[2021-06-30] MEDS ORDERED: Insulin Lispro 100 Unit/ML 3 ML KwikPen SUBCUT SCH (07:00)
[2021-06-30] MEDS: Insulin Lispro 100 Unit/ML 3 ML KwikPen SUBCUT SCH ×7 (08:25→21:21)
[2021-06-30] MEDS: Cyanocobalamin (Vitamin B12) 1,000 MCG Tab PO SCH (08:26)
[2021-06-30] MEDS: Hypromellose 0.3% Ophth Soln 15 ML Bottle EYEBOTH SCH ×4 (08:27→21:30)
[2021-06-30] MEDS: Aspirin 81 MG Tab.EC PO SCH (08:27)
[2021-06-30] MEDS: Levothyroxine 25 MCG Tab PO SCH (08:27)
[2021-06-30] MEDS: Insulin Glargine,Human Rec. Analog 100 Units/ML 3 ML Pen SUBCUT SCH ×2 (08:28→21:20)
[2021-06-30] MEDS: Isosorbide Mononitrate 30 MG Tab.ER PO SCH (08:28)
[2021-06-30] MEDS: Amiodarone 200 MG Tab PO SCH (08:28)
[2021-06-30] MEDS: Carvedilol 3.125 MG Tab PO SCH ×2 (08:29→21:19)
[2021-06-30] MEDS: Pregabalin 75 MG Cap PO SCH ×2 (08:32→21:24)
[2021-06-30] MEDS: Fluorometholone 0.1% Ophth Susp 5 ML Bottle EYEBOTH SCH ×4 (10:32→21:30)
[2021-06-30] MEDS ORDERED: Bacitracin Oint 1 GM U/D Packet TOP SCH (15:00)
--- NOTE | 2021-06-30 15:04 | PCM.PN ---
- General Info Date of Service: 06/30/21 Subjective Update: There were no acute events overnight. Patient reports improvement in her chest pain. Minimal pain at this time and mostly when she tries to take a deep breath or people tried to lift by pulling on her arms. She does not feel short of breath. No abdominal pain or nausea. She had some time to think about her treatment path. At this point she is leaning more towards considering amputation of the left leg with the hope that she can buy some time. We revi ewed potential risks for the surgery and I am very concerned that she may not survive the surgery. We did also discuss that if she does not have surgery there will likely be progressive infection from that ulcer that is not healing with overwhelming sepsis and in the not too distant future. Functional Status: Reports: Pain Controlled, Tolerating Diet - Review of Systems General: Reports: Weakness Cardiovascular: Reports: Chest Pain (mild ) - Patient Data Vitals - Most Recent: Last Vital Signs Temp 36.7 C 06/30/21 14:58 Pulse 66 06/30/21 14:58 Resp 18 06/30/21 14:58 BP 134/45 L 06/30/21 14:58 Pulse Ox 88 L 06/30/21 14:58 Weight - Most Recent: 121.8 kg I&O - Last 24 Hours: Intake & Output 06/30/21 06/30/21 06/30/21 06:59 14:59 22:59 Intake Total 1060 Balance 1060 Lab Results Last 24 Hours: Laboratory Results - last 24 hr 06/29/21 06/29/21 06/29/21 Range/Units 17:40 17:40 17:40 WBC 11.0 (4.5-11.0) K/uL RBC 3.67 (3.30-5.50) M/uL Hgb 10.5 L (12.0-15.0) g/dL Hct 32.8 L (36.0-48.0) % MCV 89 (80-98) fL MCH 29 (27-31) pg MCHC 32 (32-36) % Plt Count 315 (150-400) K/uL Neut % (Auto) 80.3 H (36-66) % Lymph % (Auto) 11.0 L (24-44) % [place] % (Auto) 8.3 H (2-6) % Eos % (Auto) 0.1 L (2-4) % Baso % (Auto) 0.3 (0-1) % Sodium 131 L (140-148) mmol/L Potassium 4.7 (3.6-5.2) mmol/L Chloride 95 L (100-108) mmol/L Carbon Dioxide 30 (21-32) mmol/L Anion Gap 10.7 (5.0-14.0) mmol/L BUN 43 H D (7-18) mg/dL Creatinine 2.3 H D (0.6-1.0) mg/dL Est Cr Clr Drug Dosing 17.35 mL/min Estimated GFR (MDRD) 20 L (>60) Glucose 414 H* (74-106) mg/dL POC Glucose (74-106) mg/dL Calcium 9.9 (8.5-10.1) mg/dL Troponin I 0.045 (0.000-0.056) ng/mL 06/29/21 06/30/21 06/30/21 Range/Units 21:15 04:20 07:23 WBC (4.5-11.0) K/uL RBC (3.30-5.50) M/uL Hgb (12.0-15.0) g/dL Hct (36.0-48.0) % MCV (80-98) fL MCH (27-31) pg MCHC (32-36) % Plt Count (150-400) K/uL Neut % (Auto) (36-66) % Lymph % (Auto) (24-44) % [place] % (Auto) (2-6) % Eos % (Auto) (2-4) % Baso % (Auto) (0-1) % Sodium 135 L (140-148) mmol/L Potassium 4.9 (3.6-5.2) mmol/L Chloride 96 L (100-108) mmol/L Carbon Dioxide 31 (21-32) mmol/L Anion Gap 12.9 (5.0-14.0) mmol/L BUN 47 H (7-18) mg/dL Creatinine 2.1 H (0.6-1.0) mg/dL Est Cr Clr Drug Dosing 19.00 mL/min Estimated GFR (MDRD) 22 L (>60) Glucose 297 H (74-106) mg/dL POC Glucose 343 H 308 H (74-106) mg/dL Calcium 9.3 (8.5-10.1) mg/dL Troponin I (0.000-0.056) ng/mL 06/30/21 Range/Units 11:30 WBC (4.5-11.0) K/uL RBC (3.30-5.50) M/uL Hgb (12.0-15.0) g/dL Hct (36.0-48.0) % MCV (80-98) fL MCH (27-31) pg MCHC (32-36) % Plt Count (150-400) K/uL Neut % (Auto) (36-66) % Lymph % (Auto) (24-44) % [place] % (Auto) (2-6) % Eos % (Auto) (2-4) % Baso % (Auto) (0-1) % Sodium (140-148) mmol/L Potassium (3.6-5.2) mmol/L Chloride (100-108) mmol/L Carbon Dioxide (21-32) mmol/L Anion Gap (5.0-14.0) mmol/L BUN (7-18) mg/dL Creatinine (0.6-1.0) mg/dL Est Cr Clr Drug Dosing mL/min Estimated GFR (MDRD) (>60) Glucose (74-106) mg/dL POC Glucose 379 H (74-106) mg/dL Calcium (8.5-10.1) mg/dL Troponin I (0.000-0.056) ng/mL Med Orders - Current: Current Medications Acetaminophen (Acetaminophen 325 Mg Tab) 650 mg PO Q4H PRN PRN Reason: Pain (Mild 1-3)/fever Hydrocodone Bitart/Acetaminophen (Acetaminophen/Hydrocodone 325-5 Mg Tab) 1 - 2 tab PO Q4H PRN PRN Reason: Pain Albuterol (Albuterol 0.083% 2.5 Mg/3 Ml Neb Soln) 2.5 mg NEB Q4H PRN PRN Reason: Shortness Of Breath/wheezing Amiodarone HCl (Amiodarone 200 Mg Tab) 200 mg PO DAILY [facility] Last Admin: 06/30/21 08:28 Dose: 200 mg Documented by: Artificial Tears (Hypromellose 0.3% Ophth Soln 15 Ml Bottle) 1 ml EYEBOTH QID [facility] Last Admin: 06/30/21 12:29 Dose: 1 drop Documented by: Aspirin (Aspirin 81 Mg Tab.Ec) 81 mg PO DAILY [facility] Last Admin: 06/30/21 08:27 Dose: 81 mg Documented by: Atorvastatin Calcium (Atorvastatin 10 Mg Tab) 10 mg PO BEDTIME [facility] Bacitracin (Bacitracin Oint 1 Gm U/D Packet) 1 dose TOP DAILY [facility] Carvedilol (Carvedilol 3.125 Mg Tab) 6.25 mg PO BID [facility] Last Admin: 06/30/21 08:29 Dose: 6.25 mg Documented by: Cyanocobalamin (Cyanocobalamin (Vitamin B12) 1,000 Mcg Tab) 1,000 mcg PO DAILY [facility] Last Admin: 06/30/21 08:26 Dose: 1,000 mcg Documented by: Dextrose/Water (50% Dextrose In Water 50 Ml Syringe) 50 ml IVPUSH ASDIRECTED PRN PRN Reason: Hypoglycemia Duloxetine HCl (Duloxetine 20 Mg Cap) 20 mg PO BEDTIME [facility] Last Admin: 06/29/21 21:28 Dose: 20 mg Documented by: Fluorometholone (Fluorometholone 0.1% Ophth Susp 5 Ml Bottle) 0 ml EYEBOTH QID [facility] Last Admin: 06/30/21 10:33 Dose: Not Given Documented by: Glucagon (Glucagon,Human Recombinant 1 Mg Vial) 1 mg IM ASDIRECTED PRN PRN Reason: Hypoglycemia Insulin Glargine (Insulin Glargine,Human Rec. Analog 100 Units/Ml 3 Ml Pen) 32 units SUBCUT BID [facility] Last Admin: 06/30/21 08:28 Dose: 32 units Documented by: Insulin Human Lispro (Insulin Lispro 100 Unit/Ml 3 Ml Kwikpen) 3 unit SUBCUT TIDMEALS [facility] Last Admin: 06/30/21 12:30 Dose: 3 units Documented by: Insulin Human Lispro (Insulin Lispro 100 Unit/Ml 3 Ml Kwikpen) 0 unit SUBCUT QIDACANDBED [facility]; Protocol Last Admin: 06/30/21 12:29 Dose: 10 units Documented by: Isosorbide Mononitrate (Isosorbide Mononitrate 30 Mg Tab.Er) 30 mg PO DAILY [facility] Last Admin: 06/30/21 08:28 Dose: 30 mg Documented by: Levothyroxine Sodium (Levothyroxine 25 Mcg Tab) 75 mcg PO ACBREAKFAST [facility] Last Admin: 06/30/21 08:27 Dose: 75 mcg Documented by: Lorazepam (Lorazepam 2 Mg/Ml Sdv) 0.5 mg IVPUSH Q4H PRN PRN Reason: Nausea/Vomiting Magnesium Hydroxide (Magnesium Hydroxide 400 Mg/5 Ml Susp 30 Ml Cup) 30 ml PO Q12H PRN PRN Reason: Constipation Melatonin (Melatonin 3 Mg Tab) 9 mg PO BEDTIME [facility] Last Admin: 06/29/21 21:28 Dose: 9 mg Documented by: Nystatin (Nystatin Topical Powder 15 Gm Bottle) 0 gm TOP QID PRN PRN Reason: Rash Ondansetron HCl (Ondansetron 4 Mg/2 Ml Sdv) 4 mg IV Q6H PRN PRN Reason: Nausea/Vomiting Ondansetron HCl (Ondansetron 4 Mg Tab.Dis) 4 mg PO Q6H PRN PRN Reason: Nausea able to take PO Pregabalin (Pregabalin 75 Mg Cap) 75 mg PO BID [facility] Last Admin: 06/30/21 08:32 Dose: 75 mg Documented by: Senna/Docusate Sodium (Docusate Sodium/Sennosides 50-8.6 Mg Tab) 1 tab PO BID PRN PRN Reason: Constipation Discontinued Medications Dextrose/Water (50% Dextrose In Water 50 Ml Syringe) 50 ml IVPUSH ASDIRECTED PRN PRN Reason: Hypoglycemia Glucagon (Glucagon,Human Recombinant 1 Mg Vial) 1 mg IM ASDIRECTED PRN PRN Reason: Hypoglycemia Hydromorphone HCl (Hydromorphone 1 Mg/Ml Syringe) 1 mg IM ONETIME ONE Stop: 06/29/21 17:23 Last Admin: 06/29/21 17:48 Dose: 1 mg Documented by: Insulin Human Regular (Insulin Regular, Human 100 Units/Ml 3 Ml Vial) 15 unit SUBCUT ONETIME ONE; Protocol Stop: 06/29/21 18:09 Last Admin: 06/29/21 18:21 Dose: 15 units Documented by: - Exam Quality Assessment: Supplemental Oxygen General: Alert, Oriented, Cooperative, No Acute Distress Lungs: Normal Respiratory Effort Cardiovascular: Regular Rate GI/Abdominal Exam: Soft, No Distention Extremities: Pedal Edema. No: Increased Warmth Skin: Warm, Dry Wound/Incisions: Other (right medial heal eschar is dry. left medial heal eschar is dry. dorsum and lateral left foot with large debrided area, no drainage or erythema ) Psy/Mental Status: Alert, Normal Affect - Patient Data Lab Results Last 24 hrs: Laboratory Results - last 24 hr 06/29/21 06/29/21 06/29/21 Range/Units 17:40 17:40 17:40 WBC 11.0 (4.5-11.0) K/uL RBC 3.67 (3.30-5.50) M/uL Hgb 10.5 L (12.0-15.0) g/dL Hct 32.8 L (36.0-48.0) % MCV 89 (80-98) fL MCH 29 (27-31) pg MCHC 32 (32-36) % Plt Count 315 (150-400) K/uL Neut % (Auto) 80.3 H (36-66) % Lymph % (Auto) 11.0 L (24-44) % [place] % (Auto) 8.3 H (2-6) % Eos % (Auto) 0.1 L (2-4) % Baso % (Auto) 0.3 (0-1) % Sodium 131 L (140-148) mmol/L Potassium 4.7 (3.6-5.2) mmol/L Chloride 95 L (100-108) mmol/L Carbon Dioxide 30 (21-32) mmol/L Anion Gap 10.7 (5.0-14.0) mmol/L BUN 43 H D (7-18) mg/dL Creatinine 2.3 H D (0.6-1.0) mg/dL Est Cr Clr Drug Dosing 17.35 mL/min Estimated GFR (MDRD) 20 L (>60) Glucose 414 H* (74-106) mg/dL POC Glucose (74-106) mg/dL Calcium 9.9 (8.5-10.1) mg/dL Troponin I 0.045 (0.000-0.056) ng/mL 06/29/21 06/30/21 06/30/21 Range/Units 21:15 04:20 07:23 WBC (4.5-11.0) K/uL RBC (3.30-5.50) M/uL Hgb (12.0-15.0) g/dL Hct (36.0-48.0) % MCV (80-98) fL MCH (27-31) pg MCHC (32-36) % Plt Count (150-400) K/uL Neut % (Auto) (36-66) % Lymph % (Auto) (24-44) % [place] % (Auto) (2-6) % Eos % (Auto) (2-4) % Baso % (Auto) (0-1) % Sodium 135 L (140-148) mmol/L Potassium 4.9 (3.6-5.2) mmol/L Chloride 96 L (100-108) mmol/L Carbon Dioxide 31 (21-32) mmol/L Anion Gap 12.9 (5.0-14.0) mmol/L BUN 47 H (7-18) mg/dL Creatinine 2.1 H (0.6-1.0) mg/dL Est Cr Clr Drug Dosing 19.00 mL/min Estimated GFR (MDRD) 22 L (>60) Glucose 297 H (74-106) mg/dL POC Glucose 343 H 308 H (74-106) mg/dL Calcium 9.3 (8.5-10.1) mg/dL Troponin I (0.000-0.056) ng/mL 06/30/21 Range/Units 11:30 WBC (4.5-11.0) K/uL RBC (3.30-5.50) M/uL Hgb (12.0-15.0) g/dL Hct (36.0-48.0) % MCV (80-98) fL MCH (27-31) pg MCHC (32-36) % Plt Count (150-400) K/uL Neut % (Auto) (36-66) % Lymph % (Auto) (24-44) % [place] % (Auto) (2-6) % Eos % (Auto) (2-4) % Baso % (Auto) (0-1) % Sodium (140-148) mmol/L Potassium (3.6-5.2) mmol/L Chloride (100-108) mmol/L Carbon Dioxide (21-32) mmol/L Anion Gap (5.0-14.0) mmol/L BUN (7-18) mg/dL Creatinine (0.6-1.0) mg/dL Est Cr Clr Drug Dosing mL/min Estimated GFR (MDRD) (>60) Glucose (74-106) mg/dL POC Glucose 379 H (74-106) mg/dL Calcium (8.5-10.1) mg/dL Troponin I (0.000-0.056) ng/mL Result Diagrams: 06/29/21 17:40 06/30/21 04:20 Sepsis Event Note - Evaluation Sepsis Screening Result: No Definite Risk - Focused Exam Vital Signs: Vital Signs Temp Pulse Pulse Resp BP BP Pulse Ox 06/30/21 14:58 36.7 C 66 18 134/45 L 88 L 06/30/21 11:00 36.2 C 66 18 127/59 L 91 L 06/30/21 08:29 82 151/76 H 06/30/21 08:28 151/76 H 06/30/21 08:11 35.9 C L 67 18 151/76 H 90 L 06/30/21 03:59 36.0 C L 68 18 170/76 H 93 L - Problem List & Annotations (1) Acute respiratory failure with hypoxia SNOMED Code(s): 05772388, 742379771 Code(s): J96.01 - ACUTE RESPIRATORY FAILURE WITH HYPOXIA Status: Acute Current Visit: Yes (2) Acute chest wall pain SNOMED Code(s): 144502179, 220761622 Code(s): R07.89 - OTHER CHEST PAIN Status: Acute Current Visit: Yes (3) Acute kidney injury superimposed on chronic kidney disease SNOMED Code(s): 23347658 Code(s): N17.9 - ACUTE KIDNEY FAILURE, UNSPECIFIED; N18.9 - CHRONIC KIDNEY DISEASE, UNSPECIFIED Status: Acute Current Visit: Yes (4) Peripheral vascular disease due to secondary diabetes mellitus SNOMED Code(s): 779192603, 265799724 Code(s): E13.51 - OTH DIABETES W DIABETIC PERIPHERAL ANGIOPATHY W/O GANGRENE Status: Chronic Current Visit: Yes (5) Chronic ulcer of left foot SNOMED Code(s): 359978454, 744886634 Code(s): L97.529 - NON-PRESSURE CHRONIC ULCER OTH PRT LEFT FOOT W UNSP SEVERITY Status: Chronic Current Visit: No Qualifiers: Non-pressure ulcer stage: unspecified non-pressure ulcer stage Qualified Code(s): L97.529 - Non-pressure chronic ulcer of other part of left foot with unspecified severity (6) Heart failure with preserved ejection fraction SNOMED Code(s): 914240900 Code(s): I50.30 - UNSPECIFIED DIASTOLIC (CONGESTIVE) HEART FAILURE Status: Chronic Current Visit: No Qualifiers: Heart failure chronicity: acute on chronic Qualified Code(s): I50.33 - Acute on chronic diastolic (congestive) heart failure (7) Insulin dependent diabetes mellitus SNOMED Code(s): 60023241 Code(s): KES5359 - Status: Chronic Current Visit: No - Problem List Review Problem List Initiated/Reviewed/Updated: Yes - My Orders Last 24 Hours: My Active Orders 06/29/21 20:07 Resuscitation Status Routine 06/29/21 20:56 Acetaminophen [TylenoL] 650 mg PO Q4H PRN Acetaminophen/HYDROcodone [Eldon 325-5 MG] 1 - 2 tab PO Q4H PRN Albuterol [Proventil Neb Soln] 2.5 mg NEB Q4H PRN Dextrose 50% in Water 50 ml IVPUSH ASDIRECTED PRN Docusate Sodium/Sennosides [Senna Plus] 1 tab PO BID PRN Glucagon,Human Recombinant [GlucaGen] 1 mg IM ASDIRECTED PRN LORazepam [Ativan] 0.5 mg IVPUSH Q4H PRN Magnesium Hydroxide [Milk of Magnesia] 30 ml PO Q12H PRN Ondansetron [Zofran ODT] 4 mg PO Q6H PRN Ondansetron [Zofran] 4 mg IV Q6H PRN 06/29/21 20:56 Patient Status [ADT] Routine Bedrest Bedside Commode [RC] ASDIRECTED Communication Order [RC] PRN Communication Order [RC] PRN Diabetes Education [RC] Click to Edit Intake and Output [RC] QSHIFT Notify Provider Vital Signs [RC] ASDIRECTED Oxygen Therapy [RC] PRN RT Aerosol Therapy [RC] ASDIRECTED VTE/DVT Education [RC] Per Unit Routine Vital Signs [RC] Q12H 06/29/21 21:00 DULoxetine [Cymbalta] 20 mg PO BEDTIME Insulin Glarg,Human.Rec.Analog [LantUS Solostar] 32 units SUBCUT BID Melatonin 9 mg PO BEDTIME carvediloL [Coreg] 6.25 mg PO BID 06/29/21 21:20 Insulin Lispro [HumaLOG] See Protocol SUBCUT QIDACANDBED 06/29/21 22:00 Fluorometholone [Flarex 0.1% Ophth Susp] 0 ml EYEBOTH QID Hypromellose [GenTeal Mild to Moderate Ophth Soln] 1 ml EYEBOTH QID 06/30/21 07:30 Levothyroxine 75 mcg PO ACBREAKFAST 06/30/21 07:31 Nystatin [Nystop] 0 gm TOP QID PRN 06/30/21 08:00 Insulin Lispro [HumaLOG] 3 unit SUBCUT TIDMEALS 06/30/21 09:00 Amiodarone [Cordarone] 200 mg PO DAILY Aspirin [Halfprin] 81 mg PO DAILY Cyanocobalamin (Vitamin B12) [Vitamin B12] 1,000 mcg PO DAILY Isosorbide Mononitrate [Imdur] 30 mg PO DAILY Pregabalin [Lyrica] 75 mg PO BID 06/30/21 15:00 Dressing Change [Wound Care] [RC] DAILY Dressing Change [Wound Care] [RC] Q12H Bacitracin [Bacitracin Oint 1 GM] 1 dose TOP DAILY 06/30/21 16:30 GLUCOSE POC LAB TO COLLECT JPM [POC] QIDADBED 06/30/21 17:00 Insulin Lispro [HumaLOG] 8 unit SUBCUT TIDMEALS 06/30/21 21:00 GLUCOSE POC LAB TO COLLECT JPM [POC] QIDACANDBED atorvaSTATin [Lipitor] 10 mg PO BEDTIME 07/01/21 05:00 BASIC METABOLIC PANEL,BMP [CHEM] Timed CBC W/O DIFF,HEMOGRAM [HEME] Timed (1) 07/01/21 07:30 GLUCOSE POC LAB TO COLLECT JPM [POC] QIDACANDBED 07/01/21 11:30 GLUCOSE POC LAB TO COLLECT JPM [POC] QIDACANDBED 07/01/21 16:30 GLUCOSE POC LAB TO COLLECT JPM [POC] QIDACANDBED 07/01/21 21:00 GLUCOSE POC LAB TO COLLECT JPM [POC] QIDACANDBED 07/02/21 07:30 GLUCOSE POC LAB TO COLLECT JPM [POC] QIDACANDBED 07/02/21 11:30 GLUCOSE POC LAB TO COLLECT JPM [POC] QIDACANDBED 07/02/21 16:30 GLUCOSE POC LAB TO COLLECT JPM [POC] QIDACANDBED 07/02/21 21:00 GLUCOSE POC LAB TO COLLECT JPM [POC] QIDACANDBED 07/03/21 07:30 GLUCOSE POC LAB TO COLLECT JPM [POC] QIDACANDBED 07/03/21 11:30 GLUCOSE POC LAB TO COLLECT JPM [POC] QIDACANDBED 07/03/21 16:30 GLUCOSE POC LAB TO COLLECT JPM [POC] QIDACANDBED 07/03/21 21:00 GLUCOSE POC LAB TO COLLECT JPM [POC] QIDACANDBED 07/04/21 07:30 GLUCOSE POC LAB TO COLLECT JPM [POC] QIDACANDBED 07/04/21 11:30 GLUCOSE POC LAB TO COLLECT JPM [POC] QIDACANDBED 07/04/21 16:30 GLUCOSE POC LAB TO COLLECT JPM [POC] QIDACANDBED 07/04/21 21:00 GLUCOSE POC LAB TO COLLECT JPM [POC] QIDACANDBED 07/05/21 07:30 GLUCOSE POC LAB TO COLLECT JPM [POC] QIDACANDBED - Plan Plan:: ASSESSMENT AND PLAN - Acute respiratory failure with hypoxia-multifactorial with chest wall pain secondary to recent resuscitation following cardiac and respiratory arrest. She also has heart failure with preserved ejection fraction with previous hypoxia. Oxygenation is a little better today. Pain is better today. -Symptomatic management of pain -Supplement oxygen as needed, wean as able Acute kidney injury-creatinine is more than double her baseline but a little bit better today. -Hold diuretics today, restart tomorrow Heart failure with preserved ejection fraction-does not appear to have significant decompensation at this time. -Continue medical management Peripheral vascular disease secondary to diabetes-complicated by nonhealing ulcer of the left lower extremity. Amputation of the leg is being considered. I think she is at an extremely high risk to have an amputation surgery completed but without surgery she is at high risk for progression of infection and potentially . 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 Suboptimally controlled but slowly improving. -Continue long-acting insulin -Mealtime insulin with medium dose sliding scale Paroxysmal atrial fibrillation-she is chronically anticoagulated and has been on rivaroxaban. I am planning to hold this with her kidney injury. We may need to transition to apixaban. -Continue beta-gladys -Hold anticoagulation Encounter for palliative care-patient does not want heroic interventions at this time. She is considering a transition to comfort care versus a more aggressive path with amputation. She would like to discuss the surgical risk with Dr. Carolina tomorrow. Maintenance issues - -DVT prophylaxis-consider apixaban if kidney function does not improve -GI prophylaxis-not indicated -Nutrition-diabetic -Villalobos catheter-not indicated CODE STATUS -DNR/DNI Disposition -I anticipate discharge home versus possibly subacute rehab after the hospital stay Primary care physician -Dr. Jasiel Plummer M.D.
[2021-06-30] MEDS: Bacitracin Oint 28.35 GM Tube TOP SCH (16:00)
[2021-06-30] MEDS: Nystatin Topical Powder 15 GM Bottle TOP PRN ×2 (17:22→21:34)
[2021-06-30] MEDS: Melatonin 3 MG Tab PO SCH (21:19)
[2021-06-30] MEDS: atorvaSTATin 10 MG Tab PO SCH (21:19)
[2021-06-30] MEDS: DULoxetine 20 MG Cap PO SCH (21:19)
[2021-06-30] MEDS: Moxifloxacin 0.5% Ophth Soln 3 ML Bottle EYEBOTH SCH (21:54)
[2021-07-01] MEDS: Hypromellose 0.3% Ophth Soln 15 ML Bottle EYEBOTH SCH ×4 (05:28→21:35)
[2021-07-01] MEDS: Fluorometholone 0.1% Ophth Susp 5 ML Bottle EYEBOTH SCH ×4 (05:28→21:35)
[2021-07-01] MEDS: Moxifloxacin 0.5% Ophth Soln 3 ML Bottle EYEBOTH SCH ×4 (05:28→21:36)
[2021-07-01] MEDS: Amiodarone 200 MG Tab PO SCH (08:27)
[2021-07-01] MEDS: Cyanocobalamin (Vitamin B12) 1,000 MCG Tab PO SCH (08:27)
[2021-07-01] MEDS: Levothyroxine 25 MCG Tab PO SCH (08:27)
[2021-07-01] MEDS: Carvedilol 3.125 MG Tab PO SCH ×2 (08:27→21:34)
[2021-07-01] MEDS: Aspirin 81 MG Tab.EC PO SCH (08:27)
[2021-07-01] MEDS: Bacitracin Oint 28.35 GM Tube TOP SCH (08:28)
[2021-07-01] MEDS: Isosorbide Mononitrate 30 MG Tab.ER PO SCH (08:31)
[2021-07-01] MEDS: Pregabalin 75 MG Cap PO SCH ×2 (08:42→21:45)
[2021-07-01] MEDS: Insulin Glargine,Human Rec. Analog 100 Units/ML 3 ML Pen SUBCUT SCH ×2 (08:46→21:39)
[2021-07-01] MEDS: Insulin Lispro 100 Unit/ML 3 ML KwikPen SUBCUT SCH ×7 (08:46→21:42)
--- NOTE | 2021-07-01 12:39 | PCM.PN ---
- General Info Date of Service: 07/01/21 Subjective Update: Ms. Preston has remained fairly stable over the last 24 hours. She was seen this morning by Dr. Carolina, who told patient and family that she would be very high risk and would not likely survive amputation surgery. We discussed other options this morning including hospice care. Patient and family will meet with hospice staff this afternoon and will plan to discuss ongoing management later today or tomorrow. Functional Status: Reports: Tolerating Diet. Denies: Ambulating - Review of Systems General: Reports: Weakness, Fatigue. Denies: Fever, Chills Pulmonary: Reports: No Symptoms Cardiovascular: Reports: No Symptoms Gastrointestinal: Reports: No Symptoms Genitourinary: Reports: No Symptoms Musculoskeletal: Reports: Foot Pain - Patient Data Vitals - Most Recent: Last Vital Signs Temp 95.6 F L 07/01/21 10:35 Pulse 59 L 07/01/21 10:35 Resp 18 07/01/21 10:35 BP 126/57 L 07/01/21 10:35 Pulse Ox 93 L 07/01/21 10:35 Weight - Most Recent: 268 lb 8.368 oz I&O - Last 24 Hours: Intake & Output 06/30/21 07/01/21 07/01/21 22:59 06:59 14:59 Intake Total 1225 620 Output Total 900 800 Balance 325 -800 620 Lab Results Last 24 Hours: Laboratory Results - last 24 hr 06/30/21 06/30/21 07/01/21 Range/Units 16:27 20:49 04:15 WBC 11.1 H (4.5-11.0) K/uL RBC 3.37 (3.30-5.50) M/uL Hgb 9.5 L (12.0-15.0) g/dL Hct 30.6 L (36.0-48.0) % MCV 91 (80-98) fL MCH 28 (27-31) pg MCHC 31 L (32-36) % Plt Count 344 (150-400) K/uL Sodium (140-148) mmol/L Potassium (3.6-5.2) mmol/L Chloride (100-108) mmol/L Carbon Dioxide (21-32) mmol/L Anion Gap (5.0-14.0) mmol/L BUN (7-18) mg/dL Creatinine (0.6-1.0) mg/dL Est Cr Clr Drug Dosing mL/min Estimated GFR (MDRD) (>60) Glucose (74-106) mg/dL POC Glucose 375 H 382 H (74-106) mg/dL Calcium (8.5-10.1) mg/dL 07/01/21 07/01/21 07/01/21 Range/Units 04:15 07:26 11:28 WBC (4.5-11.0) K/uL RBC (3.30-5.50) M/uL Hgb (12.0-15.0) g/dL Hct (36.0-48.0) % MCV (80-98) fL MCH (27-31) pg MCHC (32-36) % Plt Count (150-400) K/uL Sodium 137 L (140-148) mmol/L Potassium 4.2 (3.6-5.2) mmol/L Chloride 97 L (100-108) mmol/L Carbon Dioxide 28 (21-32) mmol/L Anion Gap 16.2 H (5.0-14.0) mmol/L BUN 48 H (7-18) mg/dL Creatinine 1.7 H (0.6-1.0) mg/dL Est Cr Clr Drug Dosing 23.47 mL/min Estimated GFR (MDRD) 29 L (>60) Glucose 308 H (74-106) mg/dL POC Glucose 315 H 277 H (74-106) mg/dL Calcium 9.1 (8.5-10.1) mg/dL Med Orders - Current: Current Medications Acetaminophen (Acetaminophen 325 Mg Tab) 650 mg PO Q4H PRN PRN Reason: Pain (Mild 1-3)/fever Hydrocodone Bitart/Acetaminophen (Acetaminophen/Hydrocodone 325-5 Mg Tab) 1 - 2 tab PO Q4H PRN PRN Reason: Pain Albuterol (Albuterol 0.083% 2.5 Mg/3 Ml Neb Soln) 2.5 mg NEB Q4H PRN PRN Reason: Shortness Of Breath/wheezing Amiodarone HCl (Amiodarone 200 Mg Tab) 200 mg PO DAILY [facility] Last Admin: 07/01/21 08:27 Dose: 200 mg Documented by: Artificial Tears (Hypromellose 0.3% Ophth Soln 15 Ml Bottle) 1 ml EYEBOTH QID [facility] Last Admin: 07/01/21 11:38 Dose: 1 drop Documented by: Aspirin (Aspirin 81 Mg Tab.Ec) 81 mg PO DAILY [facility] Last Admin: 07/01/21 08:27 Dose: 81 mg Documented by: Atorvastatin Calcium (Atorvastatin 10 Mg Tab) 10 mg PO BEDTIME [facility] Last Admin: 06/30/21 21:19 Dose: 10 mg Documented by: Bacitracin (Bacitracin Oint 28.35 Gm Tube) 0 gm TOP DAILY [facility] Last Admin: 07/01/21 08:28 Dose: 1 applic Documented by: Carvedilol (Carvedilol 3.125 Mg Tab) 6.25 mg PO BID [facility] Last Admin: 07/01/21 08:27 Dose: 6.25 mg Documented by: Cyanocobalamin (Cyanocobalamin (Vitamin B12) 1,000 Mcg Tab) 1,000 mcg PO DAILY [facility] Last Admin: 07/01/21 08:27 Dose: 1,000 mcg Documented by: Dextrose/Water (50% Dextrose In Water 50 Ml Syringe) 50 ml IVPUSH ASDIRECTED PRN PRN Reason: Hypoglycemia Duloxetine HCl (Duloxetine 20 Mg Cap) 20 mg PO BEDTIME [facility] Last Admin: 06/30/21 21:19 Dose: 20 mg Documented by: Fluorometholone (Fluorometholone 0.1% Ophth Susp 5 Ml Bottle) 0 ml EYEBOTH QID [facility] Last Admin: 07/01/21 11:39 Dose: 1 drop Documented by: Glucagon (Glucagon,Human Recombinant 1 Mg Vial) 1 mg IM ASDIRECTED PRN PRN Reason: Hypoglycemia Insulin Glargine (Insulin Glargine,Human Rec. Analog 100 Units/Ml 3 Ml Pen) 40 units SUBCUT BID [facility] Insulin Human Lispro (Insulin Lispro 100 Unit/Ml 3 Ml Kwikpen) 8 unit SUBCUT TIDMEALS [facility] Last Admin: 07/01/21 08:47 Dose: 8 unit Documented by: Insulin Human Lispro (Insulin Lispro 100 Unit/Ml 3 Ml Kwikpen) 0 unit SUBCUT QIDACANDBED [facility]; Protocol Isosorbide Mononitrate (Isosorbide Mononitrate 30 Mg Tab.Er) 30 mg PO DAILY [facility] Last Admin: 07/01/21 08:31 Dose: 30 mg Documented by: Levothyroxine Sodium (Levothyroxine 25 Mcg Tab) 75 mcg PO ACBREAKFAST [facility] Last Admin: 07/01/21 08:27 Dose: 75 mcg Documented by: Lorazepam (Lorazepam 2 Mg/Ml Sdv) 0.5 mg IVPUSH Q4H PRN PRN Reason: Nausea/Vomiting Magnesium Hydroxide (Magnesium Hydroxide 400 Mg/5 Ml Susp 30 Ml Cup) 30 ml PO Q12H PRN PRN Reason: Constipation Melatonin (Melatonin 3 Mg Tab) 9 mg PO BEDTIME [facility] Last Admin: 06/30/21 21:19 Dose: 9 mg Documented by: Moxifloxacin HCl (Moxifloxacin 0.5% Ophth Soln 3 Ml Bottle) 1 ml EYEBOTH QID [facility] Last Admin: 07/01/21 11:40 Dose: 1 drop Documented by: Nystatin (Nystatin Topical Powder 15 Gm Bottle) 0 gm TOP QID PRN PRN Reason: Rash Last Admin: 06/30/21 21:34 Dose: 1 applic Documented by: Ondansetron HCl (Ondansetron 4 Mg/2 Ml Sdv) 4 mg IV Q6H PRN PRN Reason: Nausea/Vomiting Ondansetron HCl (Ondansetron 4 Mg Tab.Dis) 4 mg PO Q6H PRN PRN Reason: Nausea able to take PO Pregabalin (Pregabalin 75 Mg Cap) 75 mg PO BID [facility] Last Admin: 07/01/21 08:42 Dose: 75 mg Documented by: Senna/Docusate Sodium (Docusate Sodium/Sennosides 50-8.6 Mg Tab) 1 tab PO BID PRN PRN Reason: Constipation Discontinued Medications Dextrose/Water (50% Dextrose In Water 50 Ml Syringe) 50 ml IVPUSH ASDIRECTED PRN PRN Reason: Hypoglycemia Glucagon (Glucagon,Human Recombinant 1 Mg Vial) 1 mg IM ASDIRECTED PRN PRN Reason: Hypoglycemia Hydromorphone HCl (Hydromorphone 1 Mg/Ml Syringe) 1 mg IM ONETIME ONE Stop: 06/29/21 17:23 Last Admin: 06/29/21 17:48 Dose: 1 mg Documented by: Insulin Glargine (Insulin Glargine,Human Rec. Analog 100 Units/Ml 3 Ml Pen) 32 units SUBCUT BID [facility] Last Admin: 07/01/21 08:46 Dose: 32 units Documented by: Insulin Human Lispro (Insulin Lispro 100 Unit/Ml 3 Ml Kwikpen) 3 unit SUBCUT TIDMEALS [facility] Last Admin: 06/30/21 12:30 Dose: 3 units Documented by: Insulin Human Lispro (Insulin Lispro 100 Unit/Ml 3 Ml Kwikpen) 0 unit SUBCUT QIDACANDBED [facility]; Protocol Last Admin: 07/01/21 08:46 Dose: 8 units Documented by: Insulin Human Regular (Insulin Regular, Human 100 Units/Ml 3 Ml Vial) 15 unit SUBCUT ONETIME ONE; Protocol Stop: 06/29/21 18:09 Last Admin: 06/29/21 18:21 Dose: 15 units Documented by: - Exam Quality Assessment: DVT Prophylaxis General: Alert, Oriented, Cooperative, Mild Distress Lungs: Clear to Auscultation, Normal Respiratory Effort, Decreased Breath Sounds Cardiovascular: Regular Rate, Regular Rhythm, No Murmurs GI/Abdominal Exam: Soft, Non-Tender, No Organomegaly, No Distention Extremities: Other (Dressings in place both lower extremities) - Patient Data Lab Results Last 24 hrs: Laboratory Results - last 24 hr 06/30/21 06/30/21 07/01/21 Range/Units 16:27 20:49 04:15 WBC 11.1 H (4.5-11.0) K/uL RBC 3.37 (3.30-5.50) M/uL Hgb 9.5 L (12.0-15.0) g/dL Hct 30.6 L (36.0-48.0) % MCV 91 (80-98) fL MCH 28 (27-31) pg MCHC 31 L (32-36) % Plt Count 344 (150-400) K/uL Sodium (140-148) mmol/L Potassium (3.6-5.2) mmol/L Chloride (100-108) mmol/L Carbon Dioxide (21-32) mmol/L Anion Gap (5.0-14.0) mmol/L BUN (7-18) mg/dL Creatinine (0.6-1.0) mg/dL Est Cr Clr Drug Dosing mL/min Estimated GFR (MDRD) (>60) Glucose (74-106) mg/dL POC Glucose 375 H 382 H (74-106) mg/dL Calcium (8.5-10.1) mg/dL 07/01/21 07/01/21 07/01/21 Range/Units 04:15 07:26 11:28 WBC (4.5-11.0) K/uL RBC (3.30-5.50) M/uL Hgb (12.0-15.0) g/dL Hct (36.0-48.0) % MCV (80-98) fL MCH (27-31) pg MCHC (32-36) % Plt Count (150-400) K/uL Sodium 137 L (140-148) mmol/L Potassium 4.2 (3.6-5.2) mmol/L Chloride 97 L (100-108) mmol/L Carbon Dioxide 28 (21-32) mmol/L Anion Gap 16.2 H (5.0-14.0) mmol/L BUN 48 H (7-18) mg/dL Creatinine 1.7 H (0.6-1.0) mg/dL Est Cr Clr Drug Dosing 23.47 mL/min Estimated GFR (MDRD) 29 L (>60) Glucose 308 H (74-106) mg/dL POC Glucose 315 H 277 H (74-106) mg/dL Calcium 9.1 (8.5-10.1) mg/dL Result Diagrams: 07/01/21 04:15 07/01/21 04:15 Sepsis Event Note - Evaluation Sepsis Screening Result: No Definite Risk - Focused Exam Vital Signs: Vital Signs Temp Pulse Pulse Resp BP BP Pulse Ox 07/01/21 10:35 95.6 F L 59 L 18 126/57 L 93 L 07/01/21 08:31 113/49 L 07/01/21 08:27 62 113/49 L 07/01/21 08:25 18 95 07/01/21 08:20 83 L 07/01/21 07:00 96.6 F L 62 16 113/49 L 95 07/01/21 03:00 97.3 F 64 16 125/57 L 96 - Problem List Review Problem List Initiated/Reviewed/Updated: Yes - My Orders Last 24 Hours: My Active Orders 07/01/21 17:00 Insulin Lispro [HumaLOG] See Protocol SUBCUT QIDACANDBED 07/01/21 21:00 Insulin Glarg,Human.Rec.Analog [LantUS Solostar] 40 units SUBCUT BID 07/02/21 05:00 BASIC METABOLIC PANEL,BMP [CHEM] Timed CBC WITH AUTO DIFF [HEME] Timed - Plan Plan:: ASSESSMENT AND PLAN Acute respiratory failure with hypoxia-multifactorial with chest wall pain secondary to recent resuscitation following cardiac and respiratory arrest. She also has heart failure with preserved ejection fraction with previous hypoxia. Continues to experience some chest wall pain. -Symptomatic management of pain -Supplement oxygen as needed, wean as able Acute kidney injury-renal function improving -Hold diuretics today Heart failure with preserved ejection fraction-does not appear to have significant decompensation at this time. -Continue medical management Peripheral vascular disease secondary to diabetes-complicated by nonhealing ulcer of the left lower extremity. Amputation of the leg is being considered. I think she is at an extremely high risk to have an amputation surgery completed but without surgery she is at high risk for progression of infection and potentially . 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 Suboptimally controlled but slowly improving. -Continue long-acting insulin -Mealtime insulin with high dose sliding scale Paroxysmal atrial fibrillation-she is chronically anticoagulated and has been on rivaroxaban. I am planning to hold this with her kidney injury. We may need to transition to apixaban. -Continue beta-gladys -Hold anticoagulation Encounter for palliative care-patient does not want heroic interventions at this time. She is considering a transition to comfort care versus a more aggressive path with amputation. Hospice consult this afternoon Maintenance issues - -DVT prophylaxis-consider apixaban if kidney function does not improve -GI prophylaxis-not indicated -Nutrition-diabetic -Villalobos catheter-not indicated CODE STATUS -DNR/DNI Disposition -I anticipate discharge home versus possibly subacute rehab after the hospital stay Primary care physician -Dr. Weathers
[2021-07-01] MEDS: Melatonin 3 MG Tab PO SCH (21:34)
[2021-07-01] MEDS: DULoxetine 20 MG Cap PO SCH (21:34)
[2021-07-01] MEDS: atorvaSTATin 10 MG Tab PO SCH (21:34)
[2021-07-02] MEDS: Fluorometholone 0.1% Ophth Susp 5 ML Bottle EYEBOTH SCH ×4 (05:34→21:40)
[2021-07-02] MEDS: Moxifloxacin 0.5% Ophth Soln 3 ML Bottle EYEBOTH SCH ×4 (05:34→21:40)
[2021-07-02] MEDS: Hypromellose 0.3% Ophth Soln 15 ML Bottle EYEBOTH SCH ×4 (05:34→21:40)
[2021-07-02] MEDS: Insulin Lispro 100 Unit/ML 3 ML KwikPen SUBCUT SCH ×7 (07:30→21:39)
[2021-07-02] MEDS: Levothyroxine 25 MCG Tab PO SCH (07:32)
[2021-07-02] MEDS: Bacitracin Oint 28.35 GM Tube TOP SCH (10:12)
[2021-07-02] MEDS: Amiodarone 200 MG Tab PO SCH (10:13)
[2021-07-02] MEDS: Aspirin 81 MG Tab.EC PO SCH (10:13)
[2021-07-02] MEDS: Isosorbide Mononitrate 30 MG Tab.ER PO SCH (10:13)
[2021-07-02] MEDS: Cyanocobalamin (Vitamin B12) 1,000 MCG Tab PO SCH (10:15)
[2021-07-02] MEDS: Carvedilol 3.125 MG Tab PO SCH ×2 (10:17→21:33)
[2021-07-02] MEDS: Insulin Glargine,Human Rec. Analog 100 Units/ML 3 ML Pen SUBCUT SCH ×2 (10:18→21:38)
[2021-07-02] MEDS: Pregabalin 75 MG Cap PO SCH ×2 (10:30→21:37)
--- NOTE | 2021-07-02 12:37 | PCM.PN ---
- General Info Date of Service: 07/02/21 Subjective Update: Ms. Preston pain fairly stable over the last 24 hours. She is trying to decide how to proceed with her care, at this point has decided against amputation surgery. She is not sure if she wants to proceed with hospice or just go back to home care services. Functional Status: Reports: Urinating. Denies: Ambulating - Review of Systems General: Reports: Weakness, Fatigue. Denies: Fever, Chills Pulmonary: Reports: Shortness of Breath. Denies: Pleuritic Chest Pain, Cough, Sputum, Hemoptysis, Wheezing Cardiovascular: Reports: Dyspnea on Exertion. Denies: Chest Pain, Palpitations, Orthopnea, PND, Edema, Lightheadedness Gastrointestinal: Reports: No Symptoms Genitourinary: Reports: No Symptoms - Patient Data Vitals - Most Recent: Last Vital Signs Temp 96.0 F L 07/02/21 10:59 Pulse 57 L 07/02/21 10:59 Resp 18 07/02/21 10:59 BP 118/46 L 07/02/21 10:59 Pulse Ox 93 L 07/02/21 10:59 Weight - Most Recent: 268 lb 8.368 oz I&O - Last 24 Hours: Intake & Output 07/01/21 07/02/21 07/02/21 22:59 06:59 14:59 Intake Total 400 240 Balance 400 240 Lab Results Last 24 Hours: Laboratory Results - last 24 hr 07/01/21 07/02/21 07/02/21 Range/Units 16:34 05:25 05:25 WBC 8.8 (4.5-11.0) K/uL RBC 3.44 (3.30-5.50) M/uL Hgb 10.0 L (12.0-15.0) g/dL Hct 31.5 L (36.0-48.0) % MCV 92 (80-98) fL MCH 29 (27-31) pg MCHC 32 (32-36) % Plt Count 342 (150-400) K/uL Neut % (Auto) 62.0 (36-66) % Lymph % (Auto) 19.9 L (24-44) % Cochran % (Auto) 16.5 H (2-6) % Eos % (Auto) 1.3 L (2-4) % Baso % (Auto) 0.3 (0-1) % Sodium 140 (140-148) mmol/L Potassium 3.6 (3.6-5.2) mmol/L Chloride 101 (100-108) mmol/L Carbon Dioxide 32 (21-32) mmol/L Anion Gap 6.7 (5.0-14.0) mmol/L BUN 42 H (7-18) mg/dL Creatinine 1.2 H (0.6-1.0) mg/dL Est Cr Clr Drug Dosing 33.43 mL/min Estimated GFR (MDRD) 43 L (>60) Glucose 78 (74-106) mg/dL POC Glucose 275 H (74-106) mg/dL Calcium 9.0 (8.5-10.1) mg/dL Med Orders - Current: Current Medications Acetaminophen (Acetaminophen 325 Mg Tab) 650 mg PO Q4H PRN PRN Reason: Pain (Mild 1-3)/fever Hydrocodone Bitart/Acetaminophen (Acetaminophen/Hydrocodone 325-5 Mg Tab) 1 - 2 tab PO Q4H PRN PRN Reason: Pain Albuterol (Albuterol 0.083% 2.5 Mg/3 Ml Neb Soln) 2.5 mg NEB Q4H PRN PRN Reason: Shortness Of Breath/wheezing Amiodarone HCl (Amiodarone 200 Mg Tab) 200 mg PO DAILY [facility] Last Admin: 07/02/21 10:13 Dose: 200 mg Documented by: Artificial Tears (Hypromellose 0.3% Ophth Soln 15 Ml Bottle) 1 ml EYEBOTH QID [facility] Last Admin: 07/02/21 10:22 Dose: 1 drop Documented by: Aspirin (Aspirin 81 Mg Tab.Ec) 81 mg PO DAILY [facility] Last Admin: 07/02/21 10:13 Dose: 81 mg Documented by: Atorvastatin Calcium (Atorvastatin 10 Mg Tab) 10 mg PO BEDTIME [facility] Last Admin: 07/01/21 21:34 Dose: 10 mg Documented by: Bacitracin (Bacitracin Oint 28.35 Gm Tube) 0 gm TOP DAILY [facility] Last Admin: 07/02/21 10:12 Dose: 1 applic Documented by: Carvedilol (Carvedilol 3.125 Mg Tab) 6.25 mg PO BID [facility] Last Admin: 07/02/21 10:17 Dose: Not Given Documented by: Cyanocobalamin (Cyanocobalamin (Vitamin B12) 1,000 Mcg Tab) 1,000 mcg PO DAILY [facility] Last Admin: 07/02/21 10:15 Dose: 1,000 mcg Documented by: Dextrose/Water (50% Dextrose In Water 50 Ml Syringe) 50 ml IVPUSH ASDIRECTED PRN PRN Reason: Hypoglycemia Duloxetine HCl (Duloxetine 20 Mg Cap) 20 mg PO BEDTIME [facility] Last Admin: 07/01/21 21:34 Dose: 20 mg Documented by: Fluorometholone (Fluorometholone 0.1% Ophth Susp 5 Ml Bottle) 0 ml EYEBOTH QID [facility] Last Admin: 07/02/21 10:22 Dose: 1 drop Documented by: Glucagon (Glucagon,Human Recombinant 1 Mg Vial) 1 mg IM ASDIRECTED PRN PRN Reason: Hypoglycemia Insulin Glargine (Insulin Glargine,Human Rec. Analog 100 Units/Ml 3 Ml Pen) 40 units SUBCUT BID [facility] Last Admin: 07/02/21 10:18 Dose: 40 unit Documented by: Insulin Human Lispro (Insulin Lispro 100 Unit/Ml 3 Ml Kwikpen) 8 unit SUBCUT TIDMEALS [facility] Last Admin: 07/02/21 10:23 Dose: 8 unit Documented by: Insulin Human Lispro (Insulin Lispro 100 Unit/Ml 3 Ml Kwikpen) 0 unit SUBCUT QIDACANDBED [facility]; Protocol Last Admin: 07/02/21 11:30 Dose: Not Given Documented by: Isosorbide Mononitrate (Isosorbide Mononitrate 30 Mg Tab.Er) 30 mg PO DAILY [facility] Last Admin: 07/02/21 10:13 Dose: 30 mg Documented by: Levothyroxine Sodium (Levothyroxine 25 Mcg Tab) 75 mcg PO ACBREAKFAST [facility] Last Admin: 07/02/21 07:32 Dose: 75 mcg Documented by: Lorazepam (Lorazepam 2 Mg/Ml Sdv) 0.5 mg IVPUSH Q4H PRN PRN Reason: Nausea/Vomiting Magnesium Hydroxide (Magnesium Hydroxide 400 Mg/5 Ml Susp 30 Ml Cup) 30 ml PO Q12H PRN PRN Reason: Constipation Melatonin (Melatonin 3 Mg Tab) 9 mg PO BEDTIME [facility] Last Admin: 07/01/21 21:34 Dose: 9 mg Documented by: Moxifloxacin HCl (Moxifloxacin 0.5% Ophth Soln 3 Ml Bottle) 0 ml EYEBOTH QID [facility] Nystatin (Nystatin Topical Powder 15 Gm Bottle) 0 gm TOP QID PRN PRN Reason: Rash Last Admin: 06/30/21 21:34 Dose: 1 applic Documented by: Ondansetron HCl (Ondansetron 4 Mg/2 Ml Sdv) 4 mg IV Q6H PRN PRN Reason: Nausea/Vomiting Ondansetron HCl (Ondansetron 4 Mg Tab.Dis) 4 mg PO Q6H PRN PRN Reason: Nausea able to take PO Pregabalin (Pregabalin 75 Mg Cap) 75 mg PO BID [facility] Last Admin: 07/02/21 10:30 Dose: 75 mg Documented by: Senna/Docusate Sodium (Docusate Sodium/Sennosides 50-8.6 Mg Tab) 1 tab PO BID PRN PRN Reason: Constipation Discontinued Medications Dextrose/Water (50% Dextrose In Water 50 Ml Syringe) 50 ml IVPUSH ASDIRECTED PRN PRN Reason: Hypoglycemia Glucagon (Glucagon,Human Recombinant 1 Mg Vial) 1 mg IM ASDIRECTED PRN PRN Reason: Hypoglycemia Hydromorphone HCl (Hydromorphone 1 Mg/Ml Syringe) 1 mg IM ONETIME ONE Stop: 06/29/21 17:23 Last Admin: 06/29/21 17:48 Dose: 1 mg Documented by: Insulin Glargine (Insulin Glargine,Human Rec. Analog 100 Units/Ml 3 Ml Pen) 32 units SUBCUT BID [facility] Last Admin: 07/01/21 08:46 Dose: 32 units Documented by: Insulin Human Lispro (Insulin Lispro 100 Unit/Ml 3 Ml Kwikpen) 3 unit SUBCUT TIDMEALS [facility] Last Admin: 06/30/21 12:30 Dose: 3 units Documented by: Insulin Human Lispro (Insulin Lispro 100 Unit/Ml 3 Ml Kwikpen) 0 unit SUBCUT QIDACANDBED [facility]; Protocol Last Admin: 07/01/21 16:44 Dose: Not Given Documented by: Insulin Human Regular (Insulin Regular, Human 100 Units/Ml 3 Ml Vial) 15 unit SUBCUT ONETIME ONE; Protocol Stop: 06/29/21 18:09 Last Admin: 06/29/21 18:21 Dose: 15 units Documented by: Moxifloxacin HCl (Moxifloxacin 0.5% Ophth Soln 3 Ml Bottle) 1 ml EYEBOTH QID [facility] Last Admin: 07/02/21 10:25 Dose: Not Given Documented by: - Exam Quality Assessment: DVT Prophylaxis General: Alert, Oriented, Cooperative, Mild Distress Lungs: Clear to Auscultation, Normal Respiratory Effort Cardiovascular: Regular Rate, Regular Rhythm, No Murmurs GI/Abdominal Exam: Soft, Non-Tender, No Organomegaly, No Distention Extremities: Other (Dressings in place both lower extremities) - Patient Data Lab Results Last 24 hrs: Laboratory Results - last 24 hr 07/01/21 07/02/21 07/02/21 Range/Units 16:34 05:25 05:25 WBC 8.8 (4.5-11.0) K/uL RBC 3.44 (3.30-5.50) M/uL Hgb 10.0 L (12.0-15.0) g/dL Hct 31.5 L (36.0-48.0) % MCV 92 (80-98) fL MCH 29 (27-31) pg MCHC 32 (32-36) % Plt Count 342 (150-400) K/uL Neut % (Auto) 62.0 (36-66) % Lymph % (Auto) 19.9 L (24-44) % Cochran % (Auto) 16.5 H (2-6) % Eos % (Auto) 1.3 L (2-4) % Baso % (Auto) 0.3 (0-1) % Sodium 140 (140-148) mmol/L Potassium 3.6 (3.6-5.2) mmol/L Chloride 101 (100-108) mmol/L Carbon Dioxide 32 (21-32) mmol/L Anion Gap 6.7 (5.0-14.0) mmol/L BUN 42 H (7-18) mg/dL Creatinine 1.2 H (0.6-1.0) mg/dL Est Cr Clr Drug Dosing 33.43 mL/min Estimated GFR (MDRD) 43 L (>60) Glucose 78 (74-106) mg/dL POC Glucose 275 H (74-106) mg/dL Calcium 9.0 (8.5-10.1) mg/dL Result Diagrams: 07/02/21 05:25 07/02/21 05:25 Sepsis Event Note - Evaluation Sepsis Screening Result: No Definite Risk - Focused Exam Vital Signs: Vital Signs Temp Pulse Pulse Resp BP BP Pulse Ox 07/02/21 10:59 96.0 F L 57 L 18 118/46 L 93 L 07/02/21 10:17 56 L 103/50 L 07/02/21 10:13 103/50 L 07/02/21 07:27 96.7 F L 54 L 16 103/50 L 90 L 07/02/21 02:12 97.6 F 53 L 18 126/54 L 94 L - Problem List Review Problem List Initiated/Reviewed/Updated: Yes - My Orders Last 24 Hours: My Active Orders 07/01/21 17:00 Insulin Lispro [HumaLOG] See Protocol SUBCUT QIDACANDBED 07/01/21 21:00 Insulin Glarg,Human.Rec.Analog [LantUS Solostar] 40 units SUBCUT BID - Plan Plan:: ASSESSMENT AND PLAN Acute respiratory failure with hypoxia-multifactorial with chest wall pain seco ndary to recent resuscitation following cardiac and respiratory arrest. She also has heart failure with preserved ejection fraction with previous hypoxia. Continues to experience some chest wall pain. Respiratory status has been fairly stable over the past few days -Symptomatic management of pain -Supplement oxygen as needed, wean as able Acute kidney injury-resolved -Hold diuretics today Heart failure with preserved ejection fraction-does not appear to have significant decompensation at this time. -Continue medical management Peripheral vascular disease secondary to diabetes-complicated by nonhealing ulcer of the left lower extremity. Amputation of the leg is being considered. I think she is at an extremely high risk to have an amputation surgery completed but without surgery she is at high risk for progression of infection and potentially . 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 Suboptimally controlled but slowly improving. -Continue long-acting insulin -Mealtime insulin with high dose sliding scale Paroxysmal atrial fibrillation-she is chronically anticoagulated and has been on rivaroxaban. I am planning to hold this with her kidney injury. We may need to transition to apixaban. -Continue beta-gladys -Hold anticoagulation Encounter for palliative care-patient does not want heroic interventions at this time. She is considering a transition to comfort care versus a more aggressive path with amputation. Hospice consult yesterday Maintenance issues - -DVT prophylaxis-consider apixaban if kidney function does not improve -GI prophylaxis-not indicated -Nutrition-diabetic -Villalobos catheter-not indicated CODE STATUS -DNR/DNI Disposition -I anticipate discharge home versus possibly subacute rehab after the hospital stay Primary care physician -Dr. Weathers
[2021-07-02] MEDS: Melatonin 3 MG Tab PO SCH (21:33)
[2021-07-02] MEDS: DULoxetine 20 MG Cap PO SCH (21:37)
[2021-07-02] MEDS: atorvaSTATin 10 MG Tab PO SCH (21:37)
[2021-07-02] MEDS: Nystatin Topical Powder 15 GM Bottle TOP PRN (21:40)
[2021-07-03] MEDS: Fluorometholone 0.1% Ophth Susp 5 ML Bottle EYEBOTH SCH ×4 (06:21→21:30)
[2021-07-03] MEDS: Moxifloxacin 0.5% Ophth Soln 3 ML Bottle EYEBOTH SCH ×4 (06:21→21:30)
[2021-07-03] MEDS: Hypromellose 0.3% Ophth Soln 15 ML Bottle EYEBOTH SCH ×4 (06:22→21:30)
[2021-07-03] MEDS: Insulin Lispro 100 Unit/ML 3 ML KwikPen SUBCUT SCH ×7 (07:51→21:28)
[2021-07-03] MEDS: Levothyroxine 25 MCG Tab PO SCH (07:53)
[2021-07-03] MEDS: Bacitracin Oint 28.35 GM Tube TOP SCH (09:01)
[2021-07-03] MEDS: Amiodarone 200 MG Tab PO SCH (09:02)
[2021-07-03] MEDS: Carvedilol 3.125 MG Tab PO SCH ×2 (09:03→20:21)
[2021-07-03] MEDS: Insulin Glargine,Human Rec. Analog 100 Units/ML 3 ML Pen SUBCUT SCH ×2 (09:07→21:29)
[2021-07-03] MEDS: Aspirin 81 MG Tab.EC PO SCH (09:07)
[2021-07-03] MEDS: Isosorbide Mononitrate 30 MG Tab.ER PO SCH (09:07)
[2021-07-03] MEDS: Cyanocobalamin (Vitamin B12) 1,000 MCG Tab PO SCH (09:11)
[2021-07-03] MEDS: Pregabalin 75 MG Cap PO SCH ×2 (09:18→20:20)
[2021-07-03] MEDS ORDERED: LORazepam ORAL Concentrate 1MG/0.5ML U/D PO PRN (12:20)
[2021-07-03] MEDS ORDERED: Morphine 10 MG/0.5 ML Oral Syringe PO PRN (12:20)
--- NOTE | 2021-07-03 13:15 | PCM.PN ---
- General Info Date of Service: 07/03/21 Subjective Update: Ms. Preston stable since yesterday. She is decided to proceed with hospice admission and discharged home. She has been receiving pain medication in the form of hydrocodone, which she states has not been effective. Functional Status: Reports: Urinating - Review of Systems General: Reports: Weakness, Fatigue. Denies: Fever, Chills Pulmonary: Reports: No Symptoms Cardiovascular: Reports: No Symptoms Gastrointestinal: Reports: No Symptoms Genitourinary: Reports: No Symptoms - Patient Data Vitals - Most Recent: Last Vital Signs Temp 96.9 F 07/03/21 11:08 Pulse 57 L 07/03/21 11:08 Resp 20 07/03/21 11:08 BP 123/43 L 07/03/21 11:08 Pulse Ox 94 L 07/03/21 11:08 Weight - Most Recent: 268 lb 8.368 oz I&O - Last 24 Hours: Intake & Output 07/02/21 07/03/21 07/03/21 22:59 06:59 14:59 Intake Total 300 600 120 Output Total 900 Balance 300 600 -780 Med Orders - Current: Current Medications Acetaminophen (Acetaminophen 325 Mg Tab) 650 mg PO Q4H PRN PRN Reason: Pain (Mild 1-3)/fever Albuterol (Albuterol 0.083% 2.5 Mg/3 Ml Neb Soln) 2.5 mg NEB Q4H PRN PRN Reason: Shortness Of Breath/wheezing Amiodarone HCl (Amiodarone 200 Mg Tab) 200 mg PO DAILY [facility] Last Admin: 07/03/21 09:02 Dose: 200 mg Documented by: Artificial Tears (Hypromellose 0.3% Ophth Soln 15 Ml Bottle) 1 ml EYEBOTH QID [facility] Last Admin: 07/03/21 09:12 Dose: 1 drop Documented by: Aspirin (Aspirin 81 Mg Tab.Ec) 81 mg PO DAILY [facility] Last Admin: 07/03/21 09:07 Dose: 81 mg Documented by: Atorvastatin Calcium (Atorvastatin 10 Mg Tab) 10 mg PO BEDTIME [facility] Last Admin: 07/02/21 21:37 Dose: 10 mg Documented by: Bacitracin (Bacitracin Oint 28.35 Gm Tube) 0 gm TOP DAILY [facility] Last Admin: 07/03/21 09:01 Dose: 1 applic Documented by: Carvedilol (Carvedilol 3.125 Mg Tab) 6.25 mg PO BID [facility] Last Admin: 07/03/21 09:03 Dose: 6.25 mg Documented by: Cyanocobalamin (Cyanocobalamin (Vitamin B12) 1,000 Mcg Tab) 1,000 mcg PO DAILY [facility] Last Admin: 07/03/21 09:11 Dose: 1,000 mcg Documented by: Dextrose/Water (50% Dextrose In Water 50 Ml Syringe) 50 ml IVPUSH ASDIRECTED PRN PRN Reason: Hypoglycemia Duloxetine HCl (Duloxetine 20 Mg Cap) 20 mg PO BEDTIME [facility] Last Admin: 07/02/21 21:37 Dose: 20 mg Documented by: Fluorometholone (Fluorometholone 0.1% Ophth Susp 5 Ml Bottle) 0 ml EYEBOTH QID [facility] Last Admin: 07/03/21 09:19 Dose: 1 drop Documented by: Glucagon (Glucagon,Human Recombinant 1 Mg Vial) 1 mg IM ASDIRECTED PRN PRN Reason: Hypoglycemia Insulin Glargine (Insulin Glargine,Human Rec. Analog 100 Units/Ml 3 Ml Pen) 40 units SUBCUT BID [facility] Last Admin: 07/03/21 09:07 Dose: 40 unit Documented by: Insulin Human Lispro (Insulin Lispro 100 Unit/Ml 3 Ml Kwikpen) 8 unit SUBCUT TIDMEALS [facility] Last Admin: 07/03/21 08:54 Dose: 8 unit Documented by: Insulin Human Lispro (Insulin Lispro 100 Unit/Ml 3 Ml Kwikpen) 0 unit SUBCUT QIDACANDBED [facility]; Protocol Last Admin: 07/03/21 12:28 Dose: Not Given Documented by: Isosorbide Mononitrate (Isosorbide Mononitrate 30 Mg Tab.Er) 30 mg PO DAILY [facility] Last Admin: 07/03/21 09:07 Dose: 30 mg Documented by: Levothyroxine Sodium (Levothyroxine 25 Mcg Tab) 75 mcg PO ACBREAKFAST [facility] Last Admin: 07/03/21 07:53 Dose: 75 mcg Documented by: Lorazepam (Lorazepam 2 Mg/Ml Sdv) 0.5 mg IVPUSH Q4H PRN PRN Reason: Nausea/Vomiting Lorazepam (Lorazepam Oral Concentrate 1mg/0.5ml U/D) 0.5 mg PO Q2H PRN PRN Reason: Anxiety Magnesium Hydroxide (Magnesium Hydroxide 400 Mg/5 Ml Susp 30 Ml Cup) 30 ml PO Q12H PRN PRN Reason: Constipation Melatonin (Melatonin 3 Mg Tab) 9 mg PO BEDTIME [facility] Last Admin: 07/02/21 21:33 Dose: 9 mg Documented by: Morphine Sulfate (Morphine 10 Mg/0.5 Ml Oral Syringe) 5 mg PO Q1H PRN PRN Reason: Pain Moxifloxacin HCl (Moxifloxacin 0.5% Ophth Soln 3 Ml Bottle) 0 ml EYEBOTH QID [facility] Last Admin: 07/03/21 09:25 Dose: 1 drop Documented by: Nystatin (Nystatin Topical Powder 15 Gm Bottle) 0 gm TOP QID PRN PRN Reason: Rash Last Admin: 07/02/21 21:40 Dose: 1 applic Documented by: Ondansetron HCl (Ondansetron 4 Mg/2 Ml Sdv) 4 mg IV Q6H PRN PRN Reason: Nausea/Vomiting Ondansetron HCl (Ondansetron 4 Mg Tab.Dis) 4 mg PO Q6H PRN PRN Reason: Nausea able to take PO Pregabalin (Pregabalin 75 Mg Cap) 75 mg PO BID [facility] Last Admin: 07/03/21 09:18 Dose: 75 mg Documented by: Senna/Docusate Sodium (Docusate Sodium/Sennosides 50-8.6 Mg Tab) 1 tab PO BID PRN PRN Reason: Constipation Discontinued Medications Hydrocodone Bitart/Acetaminophen (Acetaminophen/Hydrocodone 325-5 Mg Tab) 1 - 2 tab PO Q4H PRN PRN Reason: Pain Last Admin: 07/02/21 17:23 Dose: 2 tab Documented by: Dextrose/Water (50% Dextrose In Water 50 Ml Syringe) 50 ml IVPUSH ASDIRECTED PRN PRN Reason: Hypoglycemia Glucagon (Glucagon,Human Recombinant 1 Mg Vial) 1 mg IM ASDIRECTED PRN PRN Reason: Hypoglycemia Hydromorphone HCl (Hydromorphone 1 Mg/Ml Syringe) 1 mg IM ONETIME ONE Stop: 06/29/21 17:23 Last Admin: 06/29/21 17:48 Dose: 1 mg Documented by: Insulin Glargine (Insulin Glargine,Human Rec. Analog 100 Units/Ml 3 Ml Pen) 32 units SUBCUT BID [facility] Last Admin: 07/01/21 08:46 Dose: 32 units Documented by: Insulin Human Lispro (Insulin Lispro 100 Unit/Ml 3 Ml Kwikpen) 3 unit SUBCUT TIDMEALS [facility] Last Admin: 06/30/21 12:30 Dose: 3 units Documented by: Insulin Human Lispro (Insulin Lispro 100 Unit/Ml 3 Ml Kwikpen) 0 unit SUBCUT QIDACANDBED [facility]; Protocol Last Admin: 07/01/21 16:44 Dose: Not Given Documented by: Insulin Human Regular (Insulin Regular, Human 100 Units/Ml 3 Ml Vial) 15 unit SUBCUT ONETIME ONE; Protocol Stop: 06/29/21 18:09 Last Admin: 06/29/21 18:21 Dose: 15 units Documented by: Moxifloxacin HCl (Moxifloxacin 0.5% Ophth Soln 3 Ml Bottle) 1 ml EYEBOTH QID [facility] Last Admin: 07/02/21 10:25 Dose: Not Given Documented by: - Exam Quality Assessment: Supplemental Oxygen, DVT Prophylaxis General: Alert, Oriented, Cooperative, Mild Distress Lungs: Clear to Auscultation, Normal Respiratory Effort Cardiovascular: Regular Rate, Regular Rhythm, No Murmurs GI/Abdominal Exam: Soft, Non-Tender, No Organomegaly, No Distention Extremities: Non-Tender, No Pedal Edema - Patient Data Result Diagrams: 07/02/21 05:25 07/02/21 05:25 Sepsis Event Note - Evaluation Sepsis Screening Result: No Definite Risk - Focused Exam Vital Signs: Vital Signs Temp Pulse Pulse Resp BP BP Pulse Ox 07/03/21 11:08 96.9 F 57 L 20 123/43 L 94 L 07/03/21 09:07 122/45 L 07/03/21 09:03 57 L 122/45 L 07/03/21 07:16 96.9 F 56 L 14 122/45 L 90 L 07/03/21 03:00 96.3 F L 53 L 18 102/43 L 91 L - Problem List Review Problem List Initiated/Reviewed/Updated: Yes - My Orders Last 24 Hours: My Active Orders 07/03/21 12:20 LORazepam [Ativan ORAL Concentrate 1MG/0.5 ML U/D] 0.5 mg PO Q2H PRN Morphine [Morphine 10 MG/0.5 ML Oral Syringe] 5 mg PO Q1H PRN - Plan Plan:: ASSESSMENT AND PLAN Acute respiratory failure with hypoxia-multifactorial with chest wall pain secondary to recent resuscitation following cardiac and respiratory arrest. She also has heart failure with preserved ejection fraction with previous hypoxia. Continues to experience some chest wall pain. Respiratory status has been fairly stable over the past few days -Symptomatic management of pain -Supplement oxygen as needed, wean as able Acute kidney injury-resolved -Hold diuretics today Heart failure with preserved ejection fraction-does not appear to have significant decompensation at this time. -Continue medical management Peripheral vascular disease secondary to diabetes-complicated by nonhealing ulcer of the left lower extremity. Amputation of the leg is being considered. I think she is at an extremely high risk to have an amputation surgery completed but without surgery she is at high risk for progression of infection and potentially . 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 Suboptimally controlled but slowly improving. -Continue long-acting insulin -Mealtime insulin with high dose sliding scale Paroxysmal atrial fibrillation-she is chronically anticoagulated and has been on rivaroxaban. I am planning to hold this with her kidney injury. We may need to transition to apixaban. -Continue beta-gladys -Hold anticoagulation Encounter for palliative care-patient does not want heroic interventions at this time. She has decided to proceed with hospice care and will be discharged home tomorrow for hospice admission -Morphine and lorazepam as needed for comfort Maintenance issues - -DVT prophylaxis- -GI prophylaxis-not indicated -Nutrition-diabetic -Villalobos catheter-not indicated CODE STATUS -DNR/DNI Disposition -I anticipate discharge home versus possibly subacute rehab after the hospital stay Primary care physician -Dr. Weathers
[2021-07-03] MEDS: DULoxetine 20 MG Cap PO SCH (20:22)
[2021-07-03] MEDS: atorvaSTATin 10 MG Tab PO SCH (20:23)
[2021-07-03] MEDS: Melatonin 3 MG Tab PO SCH (21:30)
[2021-07-03] MEDS: Nystatin Topical Powder 15 GM Bottle TOP PRN (21:36)
[2021-07-04 03:17] VITALS: PULSE 58
[2021-07-04] MEDS: Fluorometholone 0.1% Ophth Susp 5 ML Bottle EYEBOTH SCH ×2 (06:24→09:01)
[2021-07-04] MEDS: Hypromellose 0.3% Ophth Soln 15 ML Bottle EYEBOTH SCH ×2 (06:24→09:01)
[2021-07-04] MEDS: Moxifloxacin 0.5% Ophth Soln 3 ML Bottle EYEBOTH SCH ×2 (06:25→09:01)
[2021-07-04] MEDS: Insulin Lispro 100 Unit/ML 3 ML KwikPen SUBCUT SCH ×2 (07:12→08:49)
[2021-07-04] MEDS: Levothyroxine 25 MCG Tab PO SCH (07:13)
[2021-07-04 07:25] VITALS: BP 121/54
[2021-07-04] MEDS: Insulin Glargine,Human Rec. Analog 100 Units/ML 3 ML Pen SUBCUT SCH (08:51)
[2021-07-04] MEDS: Cyanocobalamin (Vitamin B12) 1,000 MCG Tab PO SCH (08:52)
[2021-07-04] MEDS: Bacitracin Oint 28.35 GM Tube TOP SCH (08:52)
[2021-07-04] MEDS: Aspirin 81 MG Tab.EC PO SCH (08:52)
--- NOTE | 2021-07-04 08:52 | PCM.DCSUM1 ---
Discharge Summary - Hospital Course Brief History: Ms. Preston is an 85-year-old woman who was admitted through the emergency department with increased shortness of breath and chest wall pain, secondary to underlying coronary artery disease and recent cardiac arrest. She has a chronic ulcer of her left lower leg and acute kidney injury. - Discharge Data Discharge Date: 07/04/21 Discharge Disposition: DC/Tfer to Hospice - Home 52 Condition: Poor - Referral to Home Health Primary Care Physician: PCP None - Discharge Diagnosis/Problem(s) (1) Chronic ulcer of left foot SNOMED Code(s): 612938632, 373115133 ICD Code: L97.529 - NON-PRESSURE CHRONIC ULCER OTH PRT LEFT FOOT W UNSP SEVERITY Status: Chronic Current Visit: No Qualifiers: Non-pressure ulcer stage: unspecified non-pressure ulcer stage Qualified Code(s): L97.529 - Non-pressure chronic ulcer of other part of left foot with unspecified severity (2) Acute respiratory failure with hypoxia SNOMED Code(s): 04570081, 670639097 ICD Code: J96.01 - ACUTE RESPIRATORY FAILURE WITH HYPOXIA Status: Acute Current Visit: Yes (3) Acute kidney injury superimposed on chronic kidney disease SNOMED Code(s): 96197863 ICD Code: N17.9 - ACUTE KIDNEY FAILURE, UNSPECIFIED; N18.9 - CHRONIC KIDNEY DISEASE, UNSPECIFIED Status: Acute Current Visit: Yes (4) CAD (coronary artery disease) SNOMED Code(s): 53250248 ICD Code: I25.10 - ATHSCL HEART DISEASE OF [place] CORONARY ARTERY W/O ANG PCTRS Status: Chronic Current Visit: No (5) Type 2 diabetes mellitus SNOMED Code(s): 70991182 ICD Code: E11.9 - TYPE 2 DIABETES MELLITUS WITHOUT COMPLICATIONS Status: Chronic Current Visit: No (6) Paroxysmal atrial fibrillation SNOMED Code(s): 964520343 ICD Code: I48.0 - PAROXYSMAL ATRIAL FIBRILLATION Status: Chronic Current Visit: No (7) Stage III chronic kidney disease SNOMED Code(s): 155554770 ICD Code: N18.3 - CHRONIC KIDNEY DISEASE, STAGE 3 (MODERATE) * DO NOT USE * Status: Chronic Current Visit: No (8) Peripheral vascular disease due to secondary diabetes mellitus SNOMED Code(s): 200748067, 860840113 ICD Code: E13.51 - [facility] DIABETES W DIABETIC PERIPHERAL ANGIOPATHY W/O GANGRENE Status: Chronic Current Visit: Yes - Patient Summary/Data Hospital Course: Ms. Preston presented to the emergency room with chest pain. She was discharged from the hospital on the day prior to admission, after a short but complicated stay. She was there for an elective lower extremity angiogram and had a PEA arrest probably secondary to a respiratory arrest. She was resuscitated and spent a night in the intensive care unit. She was intubated and did require vasopressors. She recovered fairly quickly and was discharged the next day with home oxygen. Since getting home she has had difficulty with shortness of breath as well as chest pain from the compressions. She describeed some achy and some sharp central chest pain. This does not radiate. It is worse with a deep breath. Tramadol has not been helping much. Because it hurts to take a deep breath she feels more short of breath. She is very weak and having more difficulty than usual getting around at home. She does not currently report pain in the left lower leg. Both of her legs are numb from the knee down. Family feels that ongoing aggressive interventions are hurting more than he lping. They are interested in considering a transition to hospice. She does not want heroic measures such as CPR or intubation again. She is hypoxic beyond baseline and also has evidence for acute kidney injury on laboratory studies. On admission she was treated with supplemental oxygen as well as IV fluids. Renal function slowly returned to baseline during hospital stay. She was seen and evaluated by Dr. Carolina concerning her chronic ulcer left leg. The next step in management would be to proceed with below the knee amputation. Was felt that given her other medical issues that she would be very high risk for the surgery and it was recommended that she not proceed. She was managed for her diabetes with long-acting insulin, scheduled insulin with meals and high-dose sliding scale Humalog. Patient and family had many discussions concerning ongoing management. She ultimately decided to proceed with comfort cares only and hospice admission after discharge from the hospital. She was transitioned to more of a comfort care approach, morphine and lorazepam were used as needed for comfort. Activity will be as tolerated and she will be on a diabetic diet. She will be admitted to hospice care after discharge from the hospital. - Patient Instructions Diet: Diabetic Diet Activity: As Tolerated Other/Special Instructions: Admit to hospice after discharged to home - Discharge Plan *PRESCRIPTION DRUG MONITORING PROGRAM REVIEWED*: Not Applicable *COPY OF PRESCRIPTION DRUG MONITORING REPORT IN PATIENT KHADRA: Not Applicable Prescriptions/Med Rec: LORazepam [Ativan] 0.5 mg PO Q4H PRN #30 tablet PRN Reason: Anxiety Morphine Sulfate 10 mg PO Q2H PRN #15 ml PRN Reason: Pain Home Medications: Home Meds Pregabalin 100 mg PO TID 01/20/21 [History] Levothyroxine 75 mcg PO ACBREAKFAST tablet 01/30/21 [Rx] Potassium Chloride [Klor-Con M20] 20 meq PO BIDMEALS tab.er 01/30/21 [Rx] carvediloL [Coreg] 6.25 mg PO BID tablet 01/30/21 [Rx] Ipratropium/Albuterol Sulfate [Iprat-Albut 0.5-3(2.5) mg/3 ml] 3 ml IH ASDIRECTED PRN 02/01/21 [History] ondansetron HCL [Zofran] 8 mg PO Q8H PRN 02/01/21 [History] Amiodarone HCl [Pacerone] 200 mg PO DAILY 02/16/21 [History] Aspirin [Low Dose Aspirin EC] 81 mg PO DAILY 02/16/21 [History] Bumetanide [Bumex] 3 mg PO DAILY 02/16/21 [History] DULoxetine [Cymbalta] 20 mg PO BEDTIME 02/16/21 [History] Insulin Glarg,Human.Rec.Analog [Lantus Solostar] 32 unit SUBCUT BID 02/16/21 [History] Isosorbide Mononitrate [Imdur] 30 mg PO DAILY 02/16/21 [History] Acetaminophen [Tylenol] 650 mg PO Q4H PRN 04/16/21 [History] Carboxymethylcellulose Sodium [Artificial Tears] 1 drop EYEBOTH QID 04/16/21 [History] Cyanocobalamin (Vitamin B-12) [Vitamin B-12] 1,000 mcg PO DAILY 04/16/21 [History] Fluorometholone [Fluorometholone 0.1% Ophth Susp] 1 drop EYEBOTH QID 04/16/21 [History] Moxifloxacin [Vigamox 0.5% Ophth Soln] 1 drop EYEBOTH QID 04/16/21 [History] LORazepam [Ativan] 0.5 mg PO Q4H PRN #30 tablet 07/04/21 [Rx] Morphine Sulfate 10 mg PO Q2H PRN #15 ml 07/04/21 [Rx] Patient Handouts: Chest Wall Pain, [id number], Acute Respiratory Failure, Adult - Discharge Summary/Plan Comment DC Time >30 min.: No Total # of Minutes for Discharge Time: 25 - Patient Data Vitals - Most Recent: Last Vital Signs Temp 97.1 F 07/04/21 07:23 Pulse 58 L 07/04/21 07:23 Resp 16 07/04/21 07:23 BP 121/54 L 07/04/21 07:23 Pulse Ox 95 07/04/21 07:23 Weight - Most Recent: 268 lb 8.368 oz I&O - Last 24 hours: Intake & Output 07/03/21 07/04/21 07/04/21 22:59 06:59 14:59 Intake Total 355 Balance 355 Med Orders - Current: Current Medications Acetaminophen (Acetaminophen 325 Mg Tab) 650 mg PO Q4H PRN PRN Reason: Pain (Mild 1-3)/fever Last Admin: 07/03/21 20:20 Dose: 650 mg Documented by: Albuterol (Albuterol 0.083% 2.5 Mg/3 Ml Neb Soln) 2.5 mg NEB Q4H PRN PRN Reason: Shortness Of Breath/wheezing Amiodarone HCl (Amiodarone 200 Mg Tab) 200 mg PO DAILY [facility] Last Admin: 07/03/21 09:02 Dose: 200 mg Documented by: Artificial Tears (Hypromellose 0.3% Ophth Soln 15 Ml Bottle) 1 ml EYEBOTH QID [facility] Last Admin: 07/04/21 06:24 Dose: Not Given Documented by: Aspirin (Aspirin 81 Mg Tab.Ec) 81 mg PO DAILY [facility] Last Admin: 07/03/21 09:07 Dose: 81 mg Documented by: Atorvastatin Calcium (Atorvastatin 10 Mg Tab) 10 mg PO BEDTIME [facility] Last Admin: 07/03/21 20:23 Dose: 10 mg Documented by: Bacitracin (Bacitracin Oint 28.35 Gm Tube) 0 gm TOP DAILY [facility] Last Admin: 07/03/21 09:01 Dose: 1 applic Documented by: Carvedilol (Carvedilol 3.125 Mg Tab) 6.25 mg PO BID [facility] Last Admin: 07/03/21 20:21 Dose: 6.25 mg Documented by: Cyanocobalamin (Cyanocobalamin (Vitamin B12) 1,000 Mcg Tab) 1,000 mcg PO DAILY [facility] Last Admin: 07/03/21 09:11 Dose: 1,000 mcg Documented by: Dextrose/Water (50% Dextrose In Water 50 Ml Syringe) 50 ml IVPUSH ASDIRECTED PRN PRN Reason: Hypoglycemia Duloxetine HCl (Duloxetine 20 Mg Cap) 20 mg PO BEDTIME [facility] Last Admin: 07/03/21 20:22 Dose: 20 mg Documented by: Fluorometholone (Fluorometholone 0.1% Ophth Susp 5 Ml Bottle) 0 ml EYEBOTH QID [facility] Last Admin: 07/04/21 06:24 Dose: Not Given Documented by: Glucagon (Glucagon,Human Recombinant 1 Mg Vial) 1 mg IM ASDIRECTED PRN PRN Reason: Hypoglycemia Insulin Glargine (Insulin Glargine,Human Rec. Analog 100 Units/Ml 3 Ml Pen) 40 units SUBCUT BID [facility] Last Admin: 07/03/21 21:29 Dose: 40 unit Documented by: Insulin Human Lispro (Insulin Lispro 100 Unit/Ml 3 Ml Kwikpen) 8 unit SUBCUT TIDMEALS [facility] Last Admin: 07/03/21 17:34 Dose: Not Given Documented by: Insulin Human Lispro (Insulin Lispro 100 Unit/Ml 3 Ml Kwikpen) 0 unit SUBCUT QIDACANDBED [facility]; Protocol Last Admin: 07/04/21 07:12 Dose: Not Given Documented by: Isosorbide Mononitrate (Isosorbide Mononitrate 30 Mg Tab.Er) 30 mg PO DAILY [facility] Last Admin: 07/03/21 09:07 Dose: 30 mg Documented by: Levothyroxine Sodium (Levothyroxine 25 Mcg Tab) 75 mcg PO ACBREAKFAST [facility] Last Admin: 07/04/21 07:13 Dose: 75 mcg Documented by: Lorazepam (Lorazepam 2 Mg/Ml Sdv) 0.5 mg IVPUSH Q4H PRN PRN Reason: Nausea/Vomiting Lorazepam (Lorazepam Oral Concentrate 1mg/0.5ml U/D) 0.5 mg PO Q2H PRN PRN Reason: Anxiety Magnesium Hydroxide (Magnesium Hydroxide 400 Mg/5 Ml Susp 30 Ml Cup) 30 ml PO Q12H PRN PRN Reason: Constipation Melatonin (Melatonin 3 Mg Tab) 9 mg PO BEDTIME [facility] Last Admin: 07/03/21 21:30 Dose: 9 mg Documented by: Morphine Sulfate (Morphine 10 Mg/0.5 Ml Oral Syringe) 5 mg PO Q1H PRN PRN Reason: Pain Last Admin: 07/04/21 07:11 Dose: 5 mg Documented by: Moxifloxacin HCl (Moxifloxacin 0.5% Ophth Soln 3 Ml Bottle) 0 ml EYEBOTH QID [facility] Last Admin: 07/04/21 06:25 Dose: Not Given Documented by: Nystatin (Nystatin Topical Powder 15 Gm Bottle) 0 gm TOP QID PRN PRN Reason: Rash Last Admin: 07/03/21 21:36 Dose: 1 applic Documented by: Ondansetron HCl (Ondansetron 4 Mg/2 Ml Sdv) 4 mg IV Q6H PRN PRN Reason: Nausea/Vomiting Ondansetron HCl (Ondansetron 4 Mg Tab.Dis) 4 mg PO Q6H PRN PRN Reason: Nausea able to take PO Pregabalin (Pregabalin 75 Mg Cap) 75 mg PO BID [facility] Last Admin: 07/03/21 20:20 Dose: 75 mg Documented by: Senna/Docusate Sodium (Docusate Sodium/Sennosides 50-8.6 Mg Tab) 1 tab PO BID PRN PRN Reason: Constipation Last Admin: 07/03/21 20:20 Dose: 1 tab Documented by: Discontinued Medications Hydrocodone Bitart/Acetaminophen (Acetaminophen/Hydrocodone 325-5 Mg Tab) 1 - 2 tab PO Q4H PRN PRN Reason: Pain Last Admin: 07/02/21 17:23 Dose: 2 tab Documented by: Dextrose/Water (50% Dextrose In Water 50 Ml Syringe) 50 ml IVPUSH ASDIRECTED PRN PRN Reason: Hypoglycemia Glucagon (Glucagon,Human Recombinant 1 Mg Vial) 1 mg IM ASDIRECTED PRN PRN Reason: Hypoglycemia Hydromorphone HCl (Hydromorphone 1 Mg/Ml Syringe) 1 mg IM ONETIME ONE Stop: 06/29/21 17:23 Last Admin: 06/29/21 17:48 Dose: 1 mg Documented by: Insulin Glargine (Insulin Glargine,Human Rec. Analog 100 Units/Ml 3 Ml Pen) 32 units SUBCUT BID [facility] Last Admin: 07/01/21 08:46 Dose: 32 units Documented by: Insulin Human Lispro (Insulin Lispro 100 Unit/Ml 3 Ml Kwikpen) 3 unit SUBCUT TIDMEALS [facility] Last Admin: 06/30/21 12:30 Dose: 3 units Documented by: Insulin Human Lispro (Insulin Lispro 100 Unit/Ml 3 Ml Kwikpen) 0 unit SUBCUT QIDACANDBED [facility]; Protocol Last Admin: 07/01/21 16:44 Dose: Not Given Documented by: Insulin Human Regular (Insulin Regular, Human 100 Units/Ml 3 Ml Vial) 15 unit SUBCUT ONETIME ONE; Protocol Stop: 06/29/21 18:09 Last Admin: 06/29/21 18:21 Dose: 15 units Documented by: Moxifloxacin HCl (Moxifloxacin 0.5% Ophth Soln 3 Ml Bottle) 1 ml EYEBOTH QID [facility] Last Admin: 07/02/21 10:25 Dose: Not Given Documented by: - Exam General: Reports: Alert, Oriented, Cooperative, Mild Distress Lungs: Reports: Clear to Auscultation, Normal Respiratory Effort, Decreased Breath Sounds Cardiovascular: Reports: Regular Rate, Regular Rhythm, No Murmurs GI/Abdominal Exam: Soft, Non-Tender, No Organomegaly, No Distention
[2021-07-04] MEDS: Amiodarone 200 MG Tab PO SCH (08:53)
[2021-07-04] MEDS: Isosorbide Mononitrate 30 MG Tab.ER PO SCH (08:53)
[2021-07-04] MEDS: Carvedilol 3.125 MG Tab PO SCH (08:55)
[2021-07-04] MEDS: Pregabalin 75 MG Cap PO SCH (09:00)
== END 2021-07-04 10:34 | disposition hospice, home (50) | DRG 189 ==
LOC: JP.ED 16:02 → JP.MS 20:02
PROVIDERS: ADMIT Internal Medicine; ATTEND Hospitalist
DX: R07.89 Other chest pain (principal); J96.01 Acute respiratory failure with hypoxia; N17.9 Acute kidney failure, unspecified; I48.91 Unspecified atrial fibrillation; I13.0 Hypertensive heart and chronic kidney disease with heart failure and stage 1 through stage 4 chronic kidney disease, or unspecified chronic kidney disease; I50.9 Heart failure, unspecified; I11.0 Hypertensive heart disease with heart failure; I50.32 Chronic diastolic (congestive) heart failure; L97.529 Non-pressure chronic ulcer of other part of left foot with unspecified severity; I25.10 Atherosclerotic heart disease of native coronary artery without angina pectoris; N18.9 Chronic kidney disease, unspecified; Z86.74 Personal history of sudden cardiac arrest; Z66 Do not resuscitate; D64.9 Anemia, unspecified; Z85.828 Personal history of other malignant neoplasm of skin; Z79.01 Long term (current) use of anticoagulants; I48.0 Paroxysmal atrial fibrillation; N18.30 Chronic kidney disease, stage 3 unspecified; Z51.5 Encounter for palliative care; H54.7 Unspecified visual loss; E78.00 Pure hypercholesterolemia, unspecified; G47.30 Sleep apnea, unspecified; K59.09 Other constipation; M19.90 Unspecified osteoarthritis, unspecified site; G89.29 Other chronic pain; M54.9 Dorsalgia, unspecified; M10.9 Gout, unspecified; E87.6 Hypokalemia; E55.9 Vitamin D deficiency, unspecified; Z85.3 Personal history of malignant neoplasm of breast; Z85.820 Personal history of malignant melanoma of skin; Z86.19 Personal history of other infectious and parasitic diseases; Z98.49 Cataract extraction status, unspecified eye; Z79.4 Long term (current) use of insulin; Z79.890 Hormone replacement therapy; Z79.899 Other long term (current) drug therapy; Z79.82 Long term (current) use of aspirin; Z95.5 Presence of coronary angioplasty implant and graft; Z90.89 Acquired absence of other organs; Z90.49 Acquired absence of other specified parts of digestive tract; Z96.649 Presence of unspecified artificial hip joint; Z90.10 Acquired absence of unspecified breast and nipple; E11.51 Type 2 diabetes mellitus with diabetic peripheral angiopathy without gangrene; E11.22 Type 2 diabetes mellitus with diabetic chronic kidney disease
CPT/HCPCS: 36415; 80048; 84484; 85025; 93005; 96372; 99285; J1170; 82947; 85027; A9270-GY; J1815; J1815-GY